=== PATIENT | female | born 1945 | race Caucasian/White ===

== ENCOUNTER → 2016-04-02 | Outpatient (REF) | payer MEDICARE, OTHER | LOC: M LAB REF 12:28 | PROVIDERS: ATTEND Nurse Practitioner Family | DX: R45.1 Restlessness and agitation (principal); N39.498 Other specified urinary incontinence ==

== ENCOUNTER → 2016-07-31 | Outpatient (REF) | payer MEDICARE, OTHER ==
[2016-07-31 14:08] LABS: VITAMIN B12 LEVEL 925 PG/ML
[2016-07-31 14:09] LABS: FOLATE > 24.0 NG/ML
== END ==
LOC: M LAB REF 12:39
PROVIDERS: ATTEND Internal Medicine
DX: G30.0 Alzheimer's disease with early onset (principal); F02.81 Dementia in other diseases classified elsewhere, unspecified severity, with behavioral disturbance

== ENCOUNTER → 2016-10-02 | Outpatient (REF) | payer MEDICARE, OTHER | LOC: M LAB REF 15:25 | PROVIDERS: ATTEND Nurse Practitioner Family | DX: L08.9 Local infection of the skin and subcutaneous tissue, unspecified (principal) ==

== ENCOUNTER → 2016-11-22 | Outpatient (REF) | payer MEDICARE, OTHER | LOC: M LAB REF 18:45 | PROVIDERS: ATTEND Physician Assistant | DX: N39.0 Urinary tract infection, site not specified (principal) ==

== ENCOUNTER → 2017-02-12 | Outpatient (REF) | payer MEDICARE, OTHER | LOC: M LAB REF 13:02 | PROVIDERS: ATTEND Physician Assistant Medical | DX: N30.00 Acute cystitis without hematuria (principal) ==

== ENCOUNTER → 2018-01-04 | Outpatient (REF) | payer MEDICARE, OTHER | LOC: M LAB REF 10:08 | DX: R35.0 Frequency of micturition (principal); N39.0 Urinary tract infection, site not specified | CPT/HCPCS: 87186 ==

== ENCOUNTER 2018-03-15 05:09 | Inpatient (IN) | payer MEDICARE, OTHER ==
[~2018-03-15] VITALS: Ht 152.4 cm; Wt 70.9 kg
[2018-03-15] MEDS ORDERED: DONEPEZIL (05:32)
[2018-03-15] MEDS ORDERED: MEMA14CA PO (05:32)
[2018-03-15] MEDS ORDERED: LEVO50TA5 PO (05:32)
[2018-03-15] MEDS ORDERED: TORS20TA2 PO (05:32)
[2018-03-15] MEDS ORDERED: SIMV40TA2 PO (05:32)
[2018-03-15] MEDS ORDERED: SERT25TA88 PO (05:32)
[2018-03-15] MEDS ORDERED: HALO0.5H PO (05:32)
[2018-03-15] MEDS ORDERED: DONETAB6 PO (05:59)
[2018-03-15] MEDS: ACETAMINOPHEN TAB 650MG DOSE (2X325MG) PO ONE ×2 (06:15→07:22)
[2018-03-15] MEDS ORDERED: MORPHINE 2 MG/ML 1ML SYRINGE (J2270) IV ONE (07:30)
[2018-03-15] MEDS ORDERED: DOCU100C16 PO (07:49)
[2018-03-15 08:13] LABS: BASO % 0.2 % (0.0-1.0); HEMATOCRIT 39.7 % (36.0-47.0); HEMOGLOBIN 13.2 g/dl (12.0-15.5); LYMPH # 0.9 10^3/uL (1.5-4.5); LYMPH % 4.3 % (24.0-44.0); MEAN CORPUSCULAR HEMOGLOBIN 29.3 pg (27.0-33.0); MEAN CORPUSCULAR HGB CONC 33.2 g/dl (32.0-36.5); MEAN CORPUSCULAR VOLUME 88.2 fl (80.0-96.0); MONO # 0.8 10^3/uL (0.0-0.8); MONO % 3.7 % (0.0-5.0); NEUTROPHILS # 19.1 10^3/uL (1.8-7.7); PLATELET COUNT, AUTOMATED 281 10^3/uL (150-450)
--- NOTE | 2018-03-15 08:22 | REP ---
RIGHT FEMUR, THREE VIEWS: HISTORY: Pain. The proximal femur is not seen in the present radiographs. There is no acute fracture or dislocation. The knee joint space is normal in appearance. IMPRESSION: There is no acute fracture or dislocation. Electronically Signed by Gerry Valdes MD 03/15/2018 08:27 A
[2018-03-15 08:23] LABS: INR 0.98; PROTHROMBIN TIME 13.1 SECONDS (12.1-14.4)
--- NOTE | 2018-03-15 08:23 | REP ---
RIGHT KNEE, ONE VIEW: There is no acute fracture or dislocation. The joint spaces are normal in appearance. IMPRESSION: There is no acute fracture or dislocation. Electronically Signed by Gerry Valdes MD 03/15/2018 08:28 A
--- NOTE | 2018-03-15 08:23 | REP ---
RIGHT HIP, THREE VIEWS: HISTORY: Fall. There is a comminuted intertrochanteric fracture of the femur. There is lateral displacement of the distal fracture fragment. There is no dislocation. There is mild narrowing of the hip joint spaces. IMPRESSION: Comminuted intertrochanteric fracture of the right femur. Electronically Signed by Gerry Valdes MD 03/15/2018 08:28 A
[2018-03-15 08:24] LABS: PARTIAL THROMBOPLASTIN TIME 25.2 SECONDS (25.4-37.6)
--- NOTE | 2018-03-15 08:34 | REP ---
Chest one-view HISTORY: Surgical clearance Comparison: 10/26/2013 The lungs are clear. The heart is normal in size. The pulmonary vasculature is normal in appearance. Impression: No acute disease. Electronically Signed by Gerry Valdes MD 03/15/2018 08:26 A
[2018-03-15 08:43] LABS: CALCIUM LEVEL 8.6 MG/DL (8.8-10.2); CREATININE FOR GFR 1.01 MG/DL (0.55-1.30); POTASSIUM SERUM 4.1 MEQ/L (3.5-5.1)
[2018-03-15 08:47] LABS: CPK CREATINE PHOSPHOKINASE 145 U/L (26-192); MB/CK RELATIVE INDEX 0.76 (< OR =4); NT-PRO BNP 179 PG/ML (<125); TROPONIN I < 0.02 NG/ML (< 0.10)
--- NOTE | 2018-03-15 09:26 | CR.PDOC ---
General Date of Consultation: Mar 15, 2018 Attending Physician: ANDREIA RESTREPO MD Consultation REASON FOR CONSULTATION/CHIEF COMPLAINT: R hip fracture. HISTORY OF PRESENT ILLNESS: Patient is a 72 y/o female home ambulator with dementia with no assistive device who sustained a mechanical fall from the toilet with immediate pain and imability to bear weight and was brought to the [facility] ER where she was found to have a R intertrochanteric femur fx. Patient is a poor historian but denies any antecedent hip pain, chest pain, shortness of breath, headache. ALLERGIES: Please see below. HOME MEDICATIONS: Please see below. PAST MEDICAL HISTORY: 1. Dementia. 2. Hypecholesterolemia 3. Hypothyroidism. PAST SURGICAL HISTORY: 1. Hysterctomy FAMILY HISTORY: non contributory SOCIAL HISTORY: Patient lives alone. Dependent for all ADLs and has 24 hour home care. She is a non smoker. REVIEW OF SYSTEMS: CONSTITUTIONAL: No fevers, chills, night sweats. CARDIOVASCULAR: No chest pain or palpitations. RESPIRATORY: no cough, wheeze, or shortness of breath. MUSCULOSKELETAL: R hip fx as above. GASTROINTESTINAL: No nausea, vomiting, diarrhea. SKIN: small scratches on face. Family states she scratches herself NEUROLOGICAL: + dementia. PHYSICAL EXAMINATION: VITAL SIGNS: Please see below. GENERAL APPEARANCE: well nourished female. no acute distress. HEENT: multiple small abrasions on face. RESPIRATORY: non labored breathing. CARDIOVASCULAR: RRR, 2+ DP/PT pulse. EXTREMITIES: RLE in shortened, externally rotated position. Able to flex/extend all toes. No open wounds or abrasions. NEUROLOGICAL: Sensation and motor intact in RLE femoral, tibial, sural, saphenous, SPN, DPN distributions. PSYCHIATRIC: Awake and alert, oriented to person only. LABORATORY DATA: Please see below. Radiographs: Plain radiographs or the hip, pelvis, knee, and femur demonstrate a comminuted unstable intertrochanteric femur fracture ASSESSMENT: 72 y/o female with a displaced unstable intertrochanteric femur fracture PLAN: I discussed with the patient and her son, who serves as HC proxy the risks, benefits, indications, and alternatives to operative and non operative treatment. Given the nature of her injury, I recommend closed versus open reduction and cephalomedullary fixation. We discussed risks to include malunion, nonunion, thromboembolic event, and anesthesia complications to include . I also counseled then that I will be the operating surgeon, but her follow up care will be conducted by [facility]. They expressed understanding and informed consent was obtained from the patients son. Vital Signs/I&O Vital Signs Date Time Temp Pulse Resp B/P (MAP) Pulse Ox O2 Delivery O2 Flow Rate FiO2 03/15/18 08:09 18 03/15/18 07:45 96 161/86 (111) 98 Room Air 03/15/18 05:20 97.6 Laboratory Data Labs 24H Laboratory Tests 2 03/15/18 08:01: Immature Granulocyte % (Auto) 0.8, White Blood Count 21.0H, Red Blood Count 4.50, Hemoglobin 13.2, Hematocrit 39.7, Mean Corpuscular Volume 88.2, Mean Corpuscular Hemoglobin 29.3, Mean Corpuscular Hemoglobin Concent 33.2, Red Cell Distribution Width 13.7, Platelet Count 281, Neutrophils (%) (Auto) 91.0H, Lymphocytes (%) (Auto) 4.3L, Monocytes (%) (Auto) 3.7, Eosinophils (%) (Auto) 0.0, Basophils (%) (Auto) 0.2, Neutrophils # (Auto) 19.1H, Lymphocytes # (Auto) 0.9L, Monocytes # (Auto) 0.8, Eosinophils # (Auto) 0.0, Basophils # (Auto) 0.0, Nucleated Red Blood Cells % (auto) 0.0, Prothrombin Time 13.1, Prothromb Time International Ratio 0.98, Activated Partial Thromboplast Time 25.2L, Anion Gap 14, Glomerular Filtration Rate 57.0, Blood Urea Nitrogen 13, Creatinine 1.01, Sodium Level 143, Potassium Level 4.1, Chloride Level 109H, Carbon Dioxide Level 20L, Calcium Level 8.6L, Total Creatine Kinase 145, Creatine Kinase MB 1.0, Crea tatiana Kinase MB Relative Index 0.76, Troponin I < 0.02, VO-Arh-X-Type Natriuretic Peptide 179H CBC/BMP Laboratory Tests 03/15/18 08:01 Red Blood Count 4.50, Mean Corpuscular Volume 88.2, Mean Corpuscular Hemoglobin 29.3, Mean Corpuscular Hemoglobin Concent 33.2, Red Cell Distribution Width 13.7, Neutrophils (%) (Auto) 91.0 H, Lymphocytes (%) (Auto) 4.3 L, Monocytes (%) (Auto) 3.7, Eosinophils (%) (Auto) 0.0, Basophils (%) (Auto) 0.2, Neutrophils # (Auto) 19.1 H, Lymphocytes # (Auto) 0.9 L, Monocytes # (Auto) 0.8, Eosinophils # (Auto) 0.0, Basophils # (Auto) 0.0, Calcium Level 8.6 L Allergies Coded Allergies: No Known Allergies (Unverified , 03/15/18) Home Medications Scheduled (Memantine Hydrochloride E) 14 Mg Cap, 14 MG PO QHS, (Reported) (Sertraline HCl) 25 Mg Tab, 25 MG PO QHS, (Reported) Docusate Sodium (Docusate Sodium) 100 Mg Cap, 100 MG PO DAILY, (Reported) Donepezil Hcl (Donepezil HCl) 10 Mg Tab, 10 MG PO QHS, (Reported) Haloperidol (Haloperidol) 0.5 Mg Tab, 0.5 MG PO QHS, (Reported) Levothyroxine Sodium (Synthroid) 50 Mcg Tab, 50 MCG PO QHS, (Reported) Simvastatin - High Dose (Simvastatin) 40 Mg Tab, 40 MG PO QHS, (Reported) Torsemide (Torsemide) 20 Mg Tab, 20 MG PO 2XW, (Reported) MON/ MORNING ANDREIA RESTREPO MD Mar 15, 2018 09:26
[2018-03-15] MEDS ORDERED: ACETAMINOPHEN TAB 650MG DOSE (2X325MG) PO PRN (10:00)
[2018-03-15] MEDS ORDERED: NS 1,000 ML IV SCH (10:00)
[2018-03-15] MEDS ORDERED: ceFAZolin 2 GM/D5W 50 ML IV BAG (J0690 PER 500MG) As Ordered ONE (10:26)
[2018-03-15] MEDS ORDERED: PROPOFOL 200 MG/20 ML VIAL As Ordered ONE (11:23)
[2018-03-15] MEDS ORDERED: PHENYLephrine HCL 500 MCG/5 ML (100MCG/ML) SYRINGE (J2370) As Ordered ONE ×3 (11:23→12:11)
[2018-03-15] MEDS ORDERED: KETAMINE HCL 200 MG/20 ML VIAL As Ordered ONE (11:23)
[2018-03-15] MEDS ORDERED: ePHEDrine SULFATE 25 MG/5 ML(5MG/ML) SYRINGE As Ordered ONE ×2 (11:23→12:11)
[2018-03-15] MEDS ORDERED: MIDAZOLAM INJ 2 MG/2 ML VIAL (J2250) As Ordered ONE (11:23)
[2018-03-15] MEDS ORDERED: ONDANSETRON 4MG/2ML VIAL (J2405) As Ordered ONE (11:23)
[2018-03-15] MEDS ORDERED: LIDOCAINE 2% INJ 100 MG/5 ML SDV (FOR ANES.) As Ordered ONE (11:23)
[2018-03-15] MEDS ORDERED: BUPIVACAINE/EPIN 0.5% 30 ML VIAL As Ordered ONE (12:17)
[2018-03-15] MEDS ORDERED: MORPHINE 10 MG/ML 1ML VIAL (J2270) IV PRN (13:00)
[2018-03-15] MEDS ORDERED: fentaNYL 100 MCG/2 ML INJECTION (J3010) IV PRN (13:00)
[2018-03-15] MEDS ORDERED: LR 1,000 ML IV SCH (13:00)
[2018-03-15] MEDS ORDERED: ONDANSETRON 4MG/2ML VIAL (J2405) IV PRN (13:00)
--- NOTE | 2018-03-15 13:39 | RO ---
DATE OF PROCEDURE: 03/15/2018 PREOPERATIVE DIAGNOSIS: Right proximal femur fracture, intertrochanteric. POSTOPERATIVE DIAGNOSIS: Right proximal femur fracture, intertrochanteric. PROCEDURE PERFORMED: Right hip open reduction, cephalomedullary nail fixation right proximal femur. SURGEON: Maged Schultz MD STEEL RULE INSPECTOR: QUINTON Regan ANESTHESIA PROVIDER: Dr. Ladd ANESTHESIA GIVEN: Single shot spinal and local. ANTIBIOTICS: 2 grams of Ancef given within 1 hour of incision. IMPLANTS USED: Synthes TFN Advanced 11 mm x 360 mm nail with a 90 mm helical blade and two 5 mm distal interlocking screws measuring 40 and 42 mm in length. ESTIMATED BLOOD LOSS: 200 mL. MATERIALS SENT TO LAB: None. COMPLICATIONS: None. INDICATION FOR PROCEDURE: Tyra Cline is a 72-year-old demented female who sustained a mechanical fall from a sitting position earlier today resulting in pain and immediate inability to bear weight. She was brought to the emergency room, found to have an unstable intertrochanteric femur fracture. She was evaluated by the hospitalist service and found to be medically optimized for surgery. I discussed with the patient and her family, including her son, who serves as her healthcare proxy, regarding the risks, benefits, indications, and alternatives of operative versus nonoperative management. I recommended closed versus open reduction and cephalomedullary nail fixation to allow for immediate mobilization. I counseled the family that I will be her operating surgeon; her followup care will be conducted by [facility]. They expressed understanding with this arrangement and provided written informed consent for right hip cephalomedullary nail fixation. INTRAOPERATIVE FINDINGS: Unstable comminuted intertrochanteric femur fracture that was stable after fixation. DESCRIPTION OF PROCEDURE: The patient was positively identified in preop holding area where the surgical site was marked. She was then brought to the operating room where she was given single shot spinal anesthesia. She was positioned supine on the fracture table with all bony prominences appropriately padded. Sequential compression device (SCD) was placed on the nonoperative extremity for deep vein thrombosis (DVT) prophylaxis. I used the fracture table to obtain provisional reduction. I then obtained supervisor epoxy fabrication fluoroscopic images with C-arm fluoroscopy and then the patient was prepped and draped in the usual sterile fashion. A final time-out was performed. I began by making incision about 3 cm in length, about three fingerbreadths proximal and posterior to the tip of the greater trochanter. I dissected through skin and subcutaneous tissue. I introduced the 3.2 mm threaded guide wire centered on the greater trochanter on AP and lateral fluoroscopic imaging. After entry of the guidewire, I then made an accessory lateral incision distal in line with the femoral neck and dissected through skin and subcutaneous tissue and the IT band. I used periosteal elevator to clear off soft tissue, and I then used the elevator to elevate the depressed distal fragment. I also introduced a bone hook on the calcar and was able to obtain anatomic reduction. After anatomic reduction was obtained, I then introduced the opening reamer and advanced it to the level of the lesser trochanter. This was then followed by placement of the ball-tip guidewire, advanced to the level of the superior pole of patella, centered in the femur in AP and lateral fluoroscopic imaging. I then measured the length of the nail 360 mm. I then did one pass with a 12.5 mm end cutting reamer to channel a path for the nail. This was then followed by introduction of the nail to an appropriate depth. After this, I then used the lateral accessory incision obtained for reduction and placed the guide for the helical blade. I then introduced the 3.2 mm threaded guide pin, centered on the femoral neck on AP and lateral fluoroscopic imaging, measured and reamed in standard fashion and placed a 90 mm helical blade. I then took fluoroscopic imaging to confirm that it was centered in the femoral neck on AP and lateral imaging. I then placed two distal interlocking screws through small stab incisions in the distal aspect of the nail using standard perfect platinum technique. After this was completed, I then took final fluoroscopic images of the hip and knee, confirming anatomic reduction of fracture and adequate placement of all hardware. The wounds were then irrigated with normal saline and closed in layers. The two proximal incisions were closed with #2-0 Vicryl and kari. The stab incisions for the distal interlocking screws were closed with kari. About 15 mL of 0.5% Marcaine with epinephrine were injected into the wounds for local pain control. Sterile dressings were applied; this ended the procedure. I was present and scrubbed in for all critical portions of the case. POSTOPERATIVE PLAN: The patient will be admitted to the hospital floor. She will be weightbearing as tolerated. She will undergo physical therapy for ambulation with a walker and be discharged when criteria are met by hospitalist service. She will be on Xarelto for DVT prophylaxis. SARAVANAN
--- NOTE | 2018-03-15 13:39 | REP ---
RIGHT HIP, OR: HISTORY: Fracture. COMPARISON: 6:32 a.m. 03/15/2018. Fourteen radiographs were obtained with a C-arm. Sequential radiographs demonstrate the patient to be status post ORIF of a comminuted intertrochanteric fracture of the right femur. A gamma nail and intramedullary patrick are present. There is anatomic alignment. Fluoroscopy time: 4 minutes 20 seconds. IMPRESSION: The patient is status post ORIF of an intertrochanteric fracture of the right femur. There is anatomic alignment. Electronically Signed by Gerry Valdes MD 03/15/2018 02:27 P
--- NOTE | 2018-03-15 14:04 | REP ---
RIGHT HIP, THREE VIEWS: HISTORY: Postoperative. COMPARISON: Intraoperative radiographs, 03/15/2018. The patient is status post ORIF of an intertrochanteric fracture. A gamma nail and intramedullary patrick are present. There is no dislocation. There is mild narrowing of the hip joint space. Subcutaneous air and surgical kari are present in the overlying tissue. IMPRESSION: The patient is status post ORIF of an intertrochanteric fracture. There is anatomic alignment. Electronically Signed by Gerry Valdes MD 03/15/2018 02:41 P
[2018-03-15 15:15] VITALS: BP 143/87
[2018-03-15 15:45] VITALS: BP 141/84
--- NOTE | 2018-03-15 16:03 | HPEPDOC ---
General Date of Admission Mar 15, 2018 at 09:52 Chief Complaint The patient is a 72-year-old female who Presented to the ER after patient had fa llen off the toilet and experienced severe right hip pain History of Present Illness Patient is a 72-year-old female with a PMHx of Dementia, Hypothyroidism, HTN, DLP who presented to the ER with complaints of right hip pain after she had fallen off the toilet. Patient was in the bathroom and leaned over and fell off, landing on her right hip. . She complained of severe pain at the time. Did not lose consciousness, was awake and called out to family members for help. Currently, patient does not express chest pain, shortness breath, palpitations, nausea, vomiting, abdominal pain, constipation, diarrhea or discomfort with urination. At the time of this exam, patient already had a Hannah catheter in place. Patient is a very poor historian and family members were present at the bedside to provide additional details. As per the family, patient has never experienced a heart attack or stroke. Has never experienced cardiac problems or symptoms of congestive heart failure. Usually at baseline, patient ambulates on her own without any assist devices. . Generally, patient is sedentary and stays seated most of the day Upon reviewing the medical record, patient had a MOLST form completed by her PCP, Dr. Robert Das. The form is indicated that the patient wants to be comfort measures, DO NOT RESUSCITATE and DO NOT INTUBATE. I discussed with the family w hat this would usually entail. At this time family would like to proceed with surgery and continue with pain management after that point. Home Medications Scheduled (Memantine Hydrochloride E) 14 Mg Cap, 14 MG PO QHS, (Reported) (Sertraline HCl) 25 Mg Tab, 25 MG PO QHS, (Reported) Docusate Sodium (Docusate Sodium) 100 Mg Cap, 100 MG PO DAILY, (Reported) Donepezil Hcl (Donepezil HCl) 10 Mg Tab, 10 MG PO QHS, (Reported) Haloperidol (Haloperidol) 0.5 Mg Tab, 0.5 MG PO QHS, (Reported) Levothyroxine Sodium (Synthroid) 50 Mcg Tab, 50 MCG PO QHS, (Reported) Simvastatin - High Dose (Simvastatin) 40 Mg Tab, 40 MG PO QHS, (Reported) Torsemide (Torsemide) 20 Mg Tab, 20 MG PO 2XW, (Reported) MON/THURS MORNING Allergies Coded Allergies: No Known Allergies (Unverified , 03/15/18) Past Medical History Medical History Dementia, Hypothyroidism, HTN, DLP Surgical History Hysterectomy Finger surgery (2017) Family History - Noncontributory given advanced age Social History - As per family there is no use of alcohol, tobacco or illicit drugs - Denies recent travel or sick contacts - Lives with family at home with 24/7 care - 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; 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 Review of Systems Other systems Unable to obtain full review of systems as patient is unable to cooperate Vital Signs - Vitals: BP 138/70, HR 92, RR 18, Sat 96%RA, Temp 97.6F - General: Lying in bed, No acute distress, Speaking in full sentences, AAOx3 - HEENT: NC, AT, PERRLA, EOMI - CVS: RRR, +S1S2, - Murmurs / rubs / gallops - Lungs: Fair air entry bilaterally, Clear to auscultation, No wheezing / rales / rhonchi - Abdomen: Soft, Non-distended, Non-tender - Extremities: No lower extremity edema, No calf tenderness, right lower extremity externally rotated and shorter than left - Neuro: No focal motor or sensory deficit, right hip pain - Skin: No visible rashes Laboratory Data Labs 24H Laboratory Tests 2 03/15/18 08:01: Immature Granulocyte % (Auto) 0.8, White Blood Count 21.0H, Red Blood Count 4.50, Hemoglobin 13.2, Hematocrit 39.7, Mean Corpuscular Volume 88.2, Mean Corpuscular Hemoglobin 29.3, Mean Corpuscular Hemoglobin Concent 33.2, Red Cell Distribution Width 13.7, Platelet Count 281, Neutrophils (%) (Auto) 91.0H, Lymphocytes (%) (Auto) 4.3L, Monocytes (%) (Auto) 3.7, Eosinophils (%) (Auto) 0.0, Basophils (%) (Auto) 0.2, Neutrophils # (Auto) 19.1H, Lymphocytes # (Auto) 0.9L, Monocytes # (Auto) 0.8, Eosinophils # (Auto) 0.0, Basophils # (Auto) 0.0, Nucleated Red Blood Cells % (auto) 0.0, Prothrombin Time 13.1, Prothromb Time International Ratio 0.98, Activated Partial Thromboplast Time 25.2L, Anion Gap 14, Glomerular Filtration Rate 57.0, Blood Urea Nitrogen 13, Creatinine 1.01, Sodium Level 143, Potassium Level 4.1, Chloride Level 109H, Carbon Dioxide Level 20L, Calcium Level 8.6L, Total Creatine Kinase 145, Creatine Kinase MB 1.0, Creatine Kinase MB Relative Index 0.76, Troponin I < 0.02, GY-Zoa-L-Type Natriuretic Peptide 179H CBC/BMP Laboratory Tests 03/15/18 08:01 Red Blood Count 4.50, Mean Corpuscular Volume 88.2, Mean Corpuscular Hemoglobin 29.3, Mean Corpuscular Hemoglobin Concent 33.2, Red Cell Distribution Width 13.7, Neutrophils (%) (Auto) 91.0 H, Lymphocytes (%) (Auto) 4.3 L, Monocytes (%) (Auto) 3.7, Eosinophils (%) (Auto) 0.0, Basophils (%) (Auto) 0.2, Neutrophils # (Auto) 19.1 H, Lymphocytes # (Auto) 0.9 L, Monocytes # (Auto) 0.8, Eosinophils # (Auto) 0.0, Basophils # (Auto) 0.0, Calcium Level 8.6 L Plan / VTE VTE Prophylaxis Ordered?: Yes Plan Plan Right hip fracture - likely 2/2 mechanical fall - Presented to the ER after patient had fallen off toilet - Physical with shorter right extremity with external rotation; severe tenderness and decreased range of motion - XR Hip 03/15: Comminuted intertrochanteric fracture of the right femur. - XR femur 03/15: There is no acute fracture or dislocation. - Knee XR 03/15: There is no acute fracture or dislocation. - Patient has been seen and evaluated by orthopedic surgery in the emergency room; will be taken to the OR today - Pain control and anticoagulation as per orthopedic surgery - Patient has been medically optimized for surgery; low-moderate risk Leukocytosis - likely 2/2 reactive etiology 2/2 pain, less likely 2/2 infectious etiology - Review of systems is negative for infection - Remains afebrile and hemodynamically stable - CXR 03/15: No acute disease. - Will check urinalysis - Will hold off on antibiotics Dementia - c/w Donepezil and Meantime Hypothyroidism - c/w Levothyroxine HTN - Currently not on any medications; will continue to monitor DLP - c/w Simvastatin Depression - c/w Sertraline DVT prophylaxis - c/w SCDs - Consider starting Heparin if ok with surgery Goals of care: - Patient is comfort measures only as an outpatient - Will discuss with the family goals of care after surgery OG HICKS MD Mar 15, 2018 16:03
[2018-03-15] MEDS: DOCUSATE SODIUM 100 MG CAP PO SCH (16:41)
[2018-03-15] MEDS: traMADol 50 MG TAB PO PRN (16:42)
[2018-03-15 16:45] VITALS: BP 142/84
[2018-03-15 17:45] VITALS: BP 144/88
[2018-03-15 18:45] VITALS: BP 144/90
[2018-03-15] MEDS: DONEPEZIL 5 MG TAB PO SCH (21:45)
[2018-03-15] MEDS: HALOPERIDOL 0.5 MG TAB PO SCH (21:45)
[2018-03-15] MEDS: LEVOTHYROXINE 50MCG TABLET (0.05MG) PO SCH (21:45)
[2018-03-15] MEDS: SIMVASTATIN 40 MG TAB PO SCH (21:45)
[2018-03-15] MEDS: SERTRALINE HCL 25 MG TABLET PO SCH (21:45)
[2018-03-15] MEDS: MEMANTINE 5MG TABLET (NAMENDA) PO SCH (21:45)
[2018-03-15 22:00] VITALS: BP 136/79
[2018-03-16] MEDS: traMADol 50 MG TAB PO PRN ×4 (00:46→22:42)
[2018-03-16 02:00] VITALS: BP 125/77
[2018-03-16 06:00] VITALS: BP 126/74
[2018-03-16 06:43] LABS: BASO # 0.1 10^3/uL (0.0-0.2); BASO % 0.4 % (0.0-1.0); EOS # 0.1 10^3/uL (0.0-0.50); EOS % 0.6 % (0.0-3.0); HEMATOCRIT 30.7 % (36.0-47.0); LYMPH # 1.5 10^3/uL (1.5-4.5); MEAN CORPUSCULAR HEMOGLOBIN 29.7 pg (27.0-33.0); MEAN CORPUSCULAR HGB CONC 33.2 g/dl (32.0-36.5); MEAN CORPUSCULAR VOLUME 89.5 fl (80.0-96.0); MONO # 0.7 10^3/uL (0.0-0.8); MONO % 5.1 % (0.0-5.0); NEUTROPHILS # 11.4 10^3/uL (1.8-7.7); NEUTROPHILS % 82.4 % (36.0-66.0); PLATELET COUNT, AUTOMATED 217 10^3/uL (150-450); RED BLOOD COUNT 3.43 10^6/uL (4.00-5.40); WHITE BLOOD COUNT 13.8 10^3/uL (4.0-10.0)
[2018-03-16 06:51] LABS: HEMOGLOBIN 10.2 g/dl (12.0-15.5)
[2018-03-16 07:29] LABS: CALCIUM LEVEL 8.2 MG/DL (8.8-10.2); CREATININE FOR GFR 1.2 MG/DL (0.55-1.30); GLOMERULAR FILTRATION RATE 46.8 (>39); POTASSIUM SERUM 4.1 MEQ/L (3.5-5.1)
--- NOTE | 2018-03-16 09:09 | REP ---
CHEST, ONE VIEW: Hypoxia. COMPARISON: 03/15/2018 The lungs are clear. The heart is normal in size. The pulmonary vasculature is normal in appearance. IMPRESSION: No acute disease. Electronically Signed by Gerry Valdes MD 03/16/2018 09:23 A
[2018-03-16] MEDS: MIRALAX *UNIT DOSE* 17GM PACKET PO SCH (09:29)
[2018-03-16] MEDS: DOCUSATE SODIUM 100 MG CAP PO SCH (09:30)
--- NOTE | 2018-03-16 11:42 | IPNPDOC ---
Date Seen The patient was seen on 03/16/18. Progress Note SUBJECTIVE: Patient is a 72 y/o female POD1 s/p R hip CMN fixation. Patient seen and examined at bedside. No acute overnight events. No complaints. OBJECTIVE PHYSICAL EXAMINATION: VITAL SIGNS: Please see below. HR measured at bedside by MD Loza GENERAL: Awake and alert, no acute distress CARDIOVASCULAR: RRR, 2+ DP, PT pulses, BCR all digits RLE. RESPIRATORY: non labored breathing. EXTREMITIES: R hip and thigh dressings c/d/i. Able to flex/extend toes and ankle. no pain with logroll NEUROLOGICAL: Sensation and motor grossly intact in all RLE distributions LABORATORY DATA, IMAGING STUDIES, MICROBIOLOGY: Please see below. DVT prophylaxis ordered?: SCDs, xarelto ASSESSMENT: 72 y/o female POD1 s/p above procedure, doing well PLAN: -WBAT RLE -Daily PT for walker ambulation -xarelto daily for DVT prophylaxis -discharge by hospitalist service when criteria met, will need staple removal in 10-14 days, f/u xrays in 6 weeks VS, I&O, [facility] Vital Signs/I&O Vital Signs Date Time Temp Pulse Resp B/P (MAP) Pulse Ox O2 Delivery O2 Flow Rate FiO2 03/16/18 09:59 18 03/16/18 09:00 1.0 03/16/18 07:22 95 Nasal Cannula 03/16/18 06:00 97.2 101 126/74 (91) I&O- Last 24 Hours up to 6 AM 03/16/18 05:59 Intake Total 1530 ml Output Total 375 ml Balance 1155 ml Laboratory Data 24H LABS Laboratory Tests 2 03/16/18 05:38: Immature Granulocyte % (Auto) 0.5, White Blood Count 13.8H, Red Blood Count 3.43L, Hemoglobin 10.2#L, Hematocrit 30.7L, Mean Corpuscular Volume 89.5, Mean Corpuscular Hemoglobin 29.7, Mean Corpuscular Hemoglobin Concent 33.2, Red Cell Distribution Width 14.4, Platelet Count 217, Neutrophils (%) (Auto) 82.4H, Lymphocytes (%) (Auto) 11.0L, Monocytes (%) (Auto) 5.1H, Eosinophils (%) (Auto) 0.6, Basophils (%) (Auto) 0.4, Neutrophils # (Auto) 11.4H, Lymphocytes # (Auto) 1.5, Monocytes # (Auto) 0.7, Eosinophils # (Auto) 0.1, Basophils # (Auto) 0.1, Nucleated Red Blood Cells % (auto) 0.0, Anion Gap 10, Glomerular Filtration Rate 46.8, Blood Urea Nitrogen 20#H, Creatinine 1.20, Sodium Level 137, Potassium Level 4.1, Chloride Level 104, Carbon Dioxide Level 23, Calcium Level 8.2L, Magnesium Level 2.0 CBC/BMP Laboratory Tests 03/16/18 05:38 Red Blood Count 3.43 L, Mean Corpuscular Volume 89.5, Mean Corpuscular Hemoglobin 29.7, Mean Corpuscular Hemoglobin Concent 33.2, Red Cell Distribution Width 14.4, Neutrophils (%) (Auto) 82.4 H, Lymphocytes (%) (Auto) 11.0 L, Mo nocytes (%) (Auto) 5.1 H, Eosinophils (%) (Auto) 0.6, Basophils (%) (Auto) 0.4, Neutrophils # (Auto) 11.4 H, Lymphocytes # (Auto) 1.5, Monocytes # (Auto) 0.7, Eosinophils # (Auto) 0.1, Basophils # (Auto) 0.1, Calcium Level 8.2 L ANDREIA RESTREPO MD Mar 16, 2018 11:42
[2018-03-16 14:00] VITALS: BP 135/75
--- NOTE | 2018-03-16 16:48 | IPNPDOC ---
Text Note Date of Service The patient was seen on 03/16/18. NOTE Subjective: Patient is a 72-year-old female with a PMHx of Dementia, Hypothyroidism, HTN, DLP who presented to the ER with complaints of right hip pain after she had fallen off the toilet. Patient was in the bathroom and leaned over and fell off, landing on her right hip. Patient was found to have a right hip fracture in the emergency room. Admitted to hospitalist service for further evaluation and treatment. Orthopedic surgery was called on consultation. Patient was seen and examined at the bedside. Patient has no complaints of chest pain, shortness of breath or palpitations. Denies nausea, vomiting, abdominal pain. Patient has not experienced a bowel movement. Still complains of mild right hip pain. Objective: Vitals (See below) General: Lying in bed, no acute distress, comfortable, Awake / Alert HEENT: NC, AT CVS: RRR, +S1S2 Lungs: Fair air entry b/l, -w/r/r Abdomen: Soft, ND, NT Extremities: - Edema, - Calf tenderness Assessment and plan: Right hip fracture - likely 2/2 mechanical fall - s/p repair (03/15/[address] Schultz) - Presented to the ER after patient had fallen off toilet - Patient still notes some right hip pain - XR Hip 03/15: Comminuted intertrochanteric fracture of the right femur. - XR femur 03/15: There is no acute fracture or dislocation. - Knee XR 03/15: There is no acute fracture or dislocation. - Orthopedic surgery on consultation - Pain control and anticoagulation as per orthopedic surgery Leukocytosis - likely 2/2 reactive etiology 2/2 pain, less likely 2/2 infectious etiology - Review of systems is negative for infection - Remains afebrile and hemodynamically stable - CXR 03/15: No acute disease. - Will check urinalysis - Continue to hold off on antibiotics Dementia - c/w Donepezil and Meantime Hypothyroidism - c/w Levothyroxine HTN - Currently not on any medications; will continue to monitor DLP - c/w Simvastatin Depression - c/w Sertraline DVT prophylaxis - On full anticoagulation with Xarelto as per surgery VS,Fishbone, I+O VS, Fishbone, I+O Laboratory Tests 03/16/18 05:38 Red Blood Count 3.43 L, Mean Corpuscular Volume 89.5, Mean Corpuscular Hemoglobin 29.7, Mean Corpuscular Hemoglobin Concent 33.2, Red Cell Distribution Width 14.4, Neutrophils (%) (Auto) 82.4 H, Lymphocytes (%) (Auto) 11.0 L, Monocytes (%) (Auto) 5.1 H, Eosinophils (%) (Auto) 0.6, Basophils (%) (Auto) 0.4, Neutrophils # (Auto) 11.4 H, Lymphocytes # (Auto) 1.5, Monocytes # (Auto) 0.7, Eosinophils # (Auto) 0.1, Basophils # (Auto) 0.1, Calcium Level 8.2 L Vital Signs Date Time Temp Pulse Resp B/P (MAP) Pulse Ox O2 Delivery O2 Flow Rate FiO2 03/16/18 16:28 18 03/16/18 14:00 97.5 101 135/75 (95) 94 Nasal Cannula 1.0 I&O- Last 24 Hours up to 6 AM 03/16/18 06:00 Intake Total 1710 ml Output Total 525 ml Balance 1185 ml OG HICKS MD Mar 16, 2018 16:48
[2018-03-16] MEDS: RIVAROXABAN 10 MG TAB (XARELTO) PO SCH (17:35)
[2018-03-16 18:00] VITALS: BP 127/74
[2018-03-16 21:02] LABS: APPEARANCE, URINE CLEAR (CLEAR); BACTERIA, URINE AUTO NEGATIVE (NEGATIVE); BILIRUBIN, URINE AUTO NEGATIVE (NEGATIVE); BLOOD, URINE BLOOD NEGATIVE (NEGATIVE); COLOR, URINE YELLOW (YELLOW); GLUCOSE, URINE (UA) AUTO 1+ mg/dL (NEGATIVE); KETONE, URINE AUTO NEGATIVE (NEGATIVE); LEUKOCYTE ESTERASE, URINE AUTO NEGATIVE (NEGATIVE); MUCUS, URINE SMALL (NEGATIVE); NITRITE, URINE AUTO NEGATIVE (NEGATIVE); PROTEIN, URINE AUTO 1+ mg/dL (NEGATIVE); RBC, URINE AUTO 1 /HPF (0-3); SPECIFIC GRAVITY URINE AUTO 1.019 (1.002-1.035); SQUAMOUS EPITHELIAL CELL UR AU 0 /HPF (0-6); UROBILINOGEN, URINE AUTO 0.2 mg/dL (0.0-2.0); WBC, URINE AUTO 1 /HPF (0-3)
[2018-03-16 22:00] VITALS: BP 143/78
[2018-03-16] MEDS: SIMVASTATIN 40 MG TAB PO SCH (22:42)
[2018-03-16] MEDS: ACETAMINOPHEN TAB 650MG DOSE (2X325MG) PO PRN (22:42)
[2018-03-16] MEDS: SERTRALINE HCL 25 MG TABLET PO SCH (22:42)
[2018-03-16] MEDS: LEVOTHYROXINE 50MCG TABLET (0.05MG) PO SCH (22:42)
[2018-03-16] MEDS: MEMANTINE 5MG TABLET (NAMENDA) PO SCH (22:43)
[2018-03-16] MEDS: DONEPEZIL 5 MG TAB PO SCH (22:43)
[2018-03-16] MEDS: HALOPERIDOL 0.5 MG TAB PO SCH (22:43)
[2018-03-17 06:00] VITALS: BP 139/84
[2018-03-17 06:12] LABS: BASO % 0.3 % (0.0-1.0); EOS # 0.3 10^3/uL (0.0-0.50); EOS % 2.2 % (0.0-3.0); HEMATOCRIT 26.5 % (36.0-47.0); HEMOGLOBIN 8.7 g/dl (12.0-15.5); LYMPH # 2.1 10^3/uL (1.5-4.5); LYMPH % 17.2 % (24.0-44.0); MEAN CORPUSCULAR HEMOGLOBIN 29.3 pg (27.0-33.0); MEAN CORPUSCULAR HGB CONC 32.8 g/dl (32.0-36.5); MEAN CORPUSCULAR VOLUME 89.2 fl (80.0-96.0); MONO # 0.8 10^3/uL (0.0-0.8); MONO % 6.4 % (0.0-5.0); NEUTROPHILS # 8.7 10^3/uL (1.8-7.7); NEUTROPHILS % 72.6 % (36.0-66.0); PLATELET COUNT, AUTOMATED 170 10^3/uL (150-450); RED BLOOD COUNT 2.97 10^6/uL (4.00-5.40); WHITE BLOOD COUNT 11.9 10^3/uL (4.0-10.0)
[2018-03-17] MEDS ORDERED: TRAM50TA2 PO (06:13)
[2018-03-17] MEDS ORDERED: XARE10TA PO (06:13)
[2018-03-17 06:39] LABS: BLOOD UREA NITROGEN 15 MG/DL (7-18); CALCIUM LEVEL 8.1 MG/DL (8.8-10.2); CARBON DIOXIDE LEVEL 26 MEQ/L (21-32); CHLORIDE LEVEL 103 MEQ/L (98-107); CREATININE FOR GFR 0.79 MG/DL (0.55-1.30); GLOMERULAR FILTRATION RATE > 60.0 (>39); GLUCOSE, FASTING 117 MG/DL (70-100); MAGNESIUM LEVEL 2.3 MG/DL (1.8-2.4); POTASSIUM SERUM 4.1 MEQ/L (3.5-5.1); SODIUM LEVEL 138 MEQ/L (136-145)
--- NOTE | 2018-03-17 07:25 | ECGEPIP ---
Stationary ECG Study [facility] - ED Test Date: 2018-03-15 Pat Name: ABRAHAM BARBOUR Department: Room: - Gender: F Head Bucker: dara : 1945 Requested By: NONI Kaplan PA-C Order Number: [id number] Reading MD: Goldy Sánchez Measurements Intervals [place] Rate: 92 P: 34 LA: 164 QRS: 32 QRSD: 90 T: 19 QT: 355 QTc: 439 Interpretive Statements SINUS RHYTHM PRIOR INFERIOR INFARCT NONSPECIFIC T-WAVE ABNORMALITY Electronically Signed On 03-15-2018 8:10:25 EST by Goldy Sánchez
[2018-03-17] MEDS: MIRALAX *UNIT DOSE* 17GM PACKET PO SCH (08:08)
[2018-03-17] MEDS: DOCUSATE SODIUM 100 MG CAP PO SCH (08:08)
[2018-03-17] MEDS: traMADol 50 MG TAB PO PRN ×3 (08:09→20:47)
[2018-03-17] MEDS: ACETAMINOPHEN TAB 650MG DOSE (2X325MG) PO PRN ×2 (12:02→17:07)
[2018-03-17 14:00] VITALS: BP 115/58
[2018-03-17] MEDS: TORSEMIDE 20 MG TAB PO SCH (14:07)
--- NOTE | 2018-03-17 15:26 | IPNPDOC ---
Text Note Date of Service The patient was seen on 03/17/18. NOTE Subjective: Patient is a 72-year-old female with a PMHx of Dementia, Hypothyroidism, HTN, DLP who presented to the ER with complaints of right hip pain after she had fallen off the toilet. Patient was in the bathroom and leaned over and fell off, landing on her right hip. Patient was found to have a right hip fracture in the emergency room. Admitted to hospitalist service for further evaluation and treatment. Orthopedic surgery was called on consultation. Patient was seen and examined at the bedside. Patient is pleasant, denies any significant pain. Has not had a bowel movement. Denies any nausea, vomiting, abdominal pain, chest pain, short of breath or palpitations. Objective: Vitals (See below) General: Lying in bed, no acute distress, comfortable, Awake / Alert HEENT: NC, AT CVS: RRR, +S1S2 Lungs: Fair air entry b/l, no evidence of wheezing, rhonchi, rales Abdomen: Soft, nondistended, without tenderness Extremities: No LE edema, - Calf tenderness Assessment and plan: Right hip fracture - likely 2/2 mechanical fall - s/p repair (03/15/[address] Schultz) - Presented to the ER after patient had fallen off toilet - XR Hip 03/15: Comminuted intertrochanteric fracture of the right femur. - XR femur 03/15: There is no acute fracture or dislocation. - Knee XR 03/15: There is no acute fracture or dislocation. - Orthopedic surgery on consultation; appreciate their input; pain control and anticoagulation as per orthopedic surgery Leukocytosis - likely 2/2 reactive etiology 2/2 pain, less likely 2/2 infectious etiology - Review of systems is negative for infection - Remains afebrile and hemodynamically stable - UA negative - CXR 03/15: No acute disease. - Continue to hold off on antibiotics Dementia - c/w Donepezil and Meantime Hypothyroidism - c/w Levothyroxine HTN - Currently not on any medications; will continue to monitor DLP - c/w Simvastatin Depression - c/w Sertraline DVT prophylaxis - On full anticoagulation with Xarelto as per surgery Disposition: - c/w PT VS,Fishbone, I+O VS, Fishbone, I+O Laboratory Tests 03/17/18 05:46 Red Blood Count 2.97 L, Mean Corpuscular Volume 89.2, Mean Corpuscular Hemoglobin 29.3, Mean Corpuscular Hemoglobin Concent 32.8, Red Cell Distribution Width 13.9, Neutrophils (%) (Auto) 72.6 H, Lymphocytes (%) (Auto) 17.2 L, Monocytes (%) (Auto) 6.4 H, Eosinophils (%) (Auto) 2.2, Basophils (%) (Auto) 0.3, Neutrophils # (Auto) 8.7 H, Lymphocytes # (Auto) 2.1, Monocytes # (Auto) 0.8, Eosinophils # (Auto) 0.3, Basophils # (Auto) 0.0, Calcium Level 8.1 L Vital Signs Date Time Temp Pulse Resp B/P (MAP) Pulse Ox O2 Delivery O2 Flow Rate FiO2 03/17/18 14:38 18 03/17/18 14:00 97.3 83 115/58 (77) 96 Nasal Cannula 1.0 I&O- Last 24 Hours up to 6 AM 03/17/18 05:59 Intake Total 1260 ml Output Total 250 ml Balance 1010 ml OG HICKS MD Mar 17, 2018 15:26
[2018-03-17] MEDS: RIVAROXABAN 10 MG TAB (XARELTO) PO SCH (17:06)
[2018-03-17] MEDS: HALOPERIDOL 0.5 MG TAB PO SCH (20:46)
[2018-03-17] MEDS: MEMANTINE 5MG TABLET (NAMENDA) PO SCH (20:46)
[2018-03-17] MEDS: DONEPEZIL 5 MG TAB PO SCH (20:47)
[2018-03-17] MEDS: oxyBUTYnin 5 MG TAB PO SCH (20:47)
[2018-03-17] MEDS: SERTRALINE HCL 25 MG TABLET PO SCH (20:48)
[2018-03-17] MEDS: SIMVASTATIN 40 MG TAB PO SCH (20:48)
[2018-03-17] MEDS: LEVOTHYROXINE 50MCG TABLET (0.05MG) PO SCH (20:48)
[2018-03-17 22:00] VITALS: BP 118/63
[2018-03-18] MEDS: traMADol 50 MG TAB PO PRN (05:50)
[2018-03-18 06:00] VITALS: BP 119/63
[2018-03-18 06:48] LABS: BASO % 0.3 % (0.0-1.0); EOS # 0.4 10^3/uL (0.0-0.50); EOS % 2.7 % (0.0-3.0); HEMATOCRIT 27.7 % (36.0-47.0); HEMOGLOBIN 9.2 g/dl (12.0-15.5); LYMPH # 3.1 10^3/uL (1.5-4.5); LYMPH % 22.1 % (24.0-44.0); MEAN CORPUSCULAR HEMOGLOBIN 29.7 pg (27.0-33.0); MEAN CORPUSCULAR HGB CONC 33.2 g/dl (32.0-36.5); MEAN CORPUSCULAR VOLUME 89.4 fl (80.0-96.0); MONO # 0.8 10^3/uL (0.0-0.8); MONO % 5.9 % (0.0-5.0); NEUTROPHILS # 9.4 10^3/uL (1.8-7.7); NEUTROPHILS % 67.3 % (36.0-66.0); PLATELET COUNT, AUTOMATED 238 10^3/uL (150-450)
[2018-03-18] MEDS ORDERED: XARE10TA PO (07:10)
[2018-03-18] MEDS ORDERED: TRAM50TA2 PO (07:10)
[2018-03-18 07:14] LABS: BLOOD UREA NITROGEN 20 MG/DL (7-18); CALCIUM LEVEL 8.3 MG/DL (8.8-10.2); CARBON DIOXIDE LEVEL 25 MEQ/L (21-32); CHLORIDE LEVEL 100 MEQ/L (98-107); CREATININE FOR GFR 0.96 MG/DL (0.55-1.30); GLOMERULAR FILTRATION RATE > 60.0 (>39); GLUCOSE, FASTING 124 MG/DL (70-100); MAGNESIUM LEVEL 2.2 MG/DL (1.8-2.4); POTASSIUM SERUM 4.1 MEQ/L (3.5-5.1); SODIUM LEVEL 136 MEQ/L (136-145)
[2018-03-18] MEDS: MIRALAX *UNIT DOSE* 17GM PACKET PO SCH (09:27)
[2018-03-18] MEDS: DOCUSATE SODIUM 100 MG CAP PO SCH (09:27)
[2018-03-18] MEDS: oxyBUTYnin 5 MG TAB PO SCH (09:28)
[2018-03-18] MEDS: TORSEMIDE 20 MG TAB PO SCH (09:28)
[2018-03-18] MEDS: ACETAMINOPHEN TAB 650MG DOSE (2X325MG) PO PRN (11:20)
--- NOTE | 2018-03-18 13:42 | IPNPDOC ---
Date Seen The patient was seen on 03/18/18. Progress Note Subjective: Patient is disoriented which is her baseline she has no specific complaints at this time other than some pain in her hip. Objective: Vitals (See below) General: Sitting in a chair eating breakfast, no acute distress, comfortable, Awake / Alert HEENT: Cranial nerves appear grossly intact she has numerous bandages on her face from excoriations CVS: S1-S2 regular rate and rhythm no additional heart sounds appreciated Lungs: Clear bilaterally Abdomen: Bowel sounds present abdomen is soft and nontender Extremities: No clubbing cyanosis or edema she does have a hematoma of the right thigh dressing is clean dry and intact Assessment and plan: 1. Right hip fracture - 2/2 mechanical fall - s/p repair (03/15/[address] Schultz). Patient appears to be doing close to her baseline terms of her cognition I did meet with her daughter today. Daughter wishes to rescind comfort measures only and elects for lDNR/DNI with limited medical interventions she would like her to receive IVs as needed and would like to proceed with physical therapy possible ARU screen of the patient's daughter's request. Perioperative surgery care as per orthopedic surgery. A new molst form was completed witnessed signed and placed in the chart 2. Leukocytosis - likely reactive secondary to surgery does not appear to be septic at all continue to monitor 3. Dementia - c/w Donepezil and Meantime patient was reportedly at her baseline as per the daughter, the patient is on Haldol daily at bedtime as well 4. Hypothyroidism - c/w Levothyroxine 5. DLP - c/w Simvastatin 6. Depression - c/w Sertraline 7. DVT prophylaxis - On full anticoagulation with Xarelto as per surgery 8. Hypertension: The patient is continued on prazosin 9. Urinary retention: The patient did void this morning but does have elevated post blood residuals for now we'll continue to monitor she's been started on Ditropan she is on torsemide Disposition: -Likely rehabilitation VS, I&O, 24H, Fishbone Vital Signs/I&O Vital Signs Date Time Temp Pulse Resp B/P (MAP) Pulse Ox O2 Delivery O2 Flow Rate FiO2 03/18/18 08:00 2.0 03/18/18 06:28 16 03/18/18 06:00 97.6 94 119/63 (81) 96 Nasal Cannula I&O- Last 24 Hours up to 6 AM 03/18/18 06:00 Intake Total 1320 ml Output Total 800 ml Balance 520 ml Laboratory Data 24H LABS Laboratory Tests 2 03/18/18 06:18: Immature Granulocyte % (Auto) 1.7, White Blood Count 14.0H, Red Blood Count 3.10L, Hemoglobin 9.2L, Hematocrit 27.7L, Mean Corpuscular Volume 89.4, Mean Corpuscular Hemoglobin 29.7, Mean Corpuscular Hemoglobin Concent 33.2, Red Cell Distribution Width 14.0, Platelet Count 238, Neutrophils (%) (Auto) 67.3H, L ymphocytes (%) (Auto) 22.1L, Monocytes (%) (Auto) 5.9H, Eosinophils (%) (Auto) 2.7, Basophils (%) (Auto) 0.3, Neutrophils # (Auto) 9.4H, Lymphocytes # (Auto) 3.1, Monocytes # (Auto) 0.8, Eosinophils # (Auto) 0.4, Basophils # (Auto) 0.0, Nucleated Red Blood Cells % (auto) 0.4H, Anion Gap 11, Glomerular Filtration Rate > 60.0, Blood Urea Nitrogen 20H, Creatinine 0.96, Sodium Level 136, Potassium Level 4.1, Chloride Level 100, Carbon Dioxide Level 25, Calcium Level 8.3L, Magnesium Level 2.2 CBC/BMP Laboratory Tests 03/18/18 06:18 Red Blood Count 3.10 L, Mean Corpuscular Volume 89.4, Mean Corpuscular Hemoglobin 29.7, Mean Corpuscular Hemoglobin Concent 33.2, Red Cell Distribution Width 14.0, Neutrophils (%) (Auto) 67.3 H, Lymphocytes (%) (Auto) 22.1 L, Monocytes (%) (Auto) 5.9 H, Eosinophils (%) (Auto) 2.7, Basophils (%) (Auto) 0.3, Neutrophils # (Auto) 9.4 H, Lymphocytes # (Auto) 3.1, Monocytes # (Auto) 0.8, Eosinophils # (Auto) 0.4, Basophils # (Auto) 0.0, Calcium Level 8.3 L ALLIE JALLOH MD Mar 18, 2018 13:42
[2018-03-18 14:48] VITALS: BP 143/85
[2018-03-18] MEDS: RIVAROXABAN 10 MG TAB (XARELTO) PO SCH (16:38)
== END 2018-03-18 16:50 | DRG 536 ==
LOC: M ED 05:09 → M ED INP 09:52 → M MS5PR 15:10
PROVIDERS: ADMIT Internal Medicine; ATTEND Internal Medicine
PROC: 0SS Lower Joints, Reposition (ICD-10-PCS; principal; 2018-03-15 08:57)
DX: S72.144A Nondisplaced intertrochanteric fracture of right femur, initial encounter for closed fracture (principal); W18.11XA Fall from or off toilet without subsequent striking against object, initial encounter; Y92.009 Unspecified place in unspecified non-institutional (private) residence as the place of occurrence of the external cause; E03.9 Hypothyroidism, unspecified; F03.90 Unspecified dementia, unspecified severity, without behavioral disturbance, psychotic disturbance, mood disturbance, and anxiety; I10 Essential (primary) hypertension; Z66 Do not resuscitate; Z79.899 Other long term (current) drug therapy; D72.829 Elevated white blood cell count, unspecified; F32.9 Major depressive disorder, single episode, unspecified; E78.00 Pure hypercholesterolemia, unspecified

== ENCOUNTER 2018-03-18 15:31 | Inpatient (IN) | payer MEDICARE, OTHER ==
[2018-03-17 17:08] VITALS: BP 132/79
[~2018-03-18] VITALS: Ht 154.9 cm; Wt 68.5 kg
[~2018-03-18 15:31] MED LIST: DOCU100C16 PO; DONEPEZIL; DONETAB6 PO; HALO0.5H PO; LEVO50TA5 PO; MEMA14CA PO; SERT25TA88 PO; SIMV40TA2 PO; TORS20TA2 PO; TRAM50TA2 PO; XARE10TA PO
[2018-03-18] MEDS ORDERED: ACETAMINOPHEN TAB 650MG DOSE (2X325MG) PO PRN ×2 (17:15→17:30)
[2018-03-18] MEDS ORDERED: MOM 30ML SUSPENSION UDC PO PRN (17:15)
[2018-03-18] MEDS ORDERED: ONDANSETRON 4 MG TAB (S0181) PO PRN (17:15)
[2018-03-18] MEDS ORDERED: BISACODYL 10 MG SUPP PR PRN (17:15)
[2018-03-18] MEDS ORDERED: traZODone 25MG PER 1/2 TABLET PO PRN ×2 (17:30)
[2018-03-18] MEDS ORDERED: HALOPERIDOL 0.5 MG TAB PO PRN (17:30)
[2018-03-18 20:30] VITALS: BP 127/64
[2018-03-18] MEDS: oxyBUTYnin 5 MG TAB PO SCH (20:58)
[2018-03-18] MEDS: SIMVASTATIN 20 MG TAB PO SCH (20:58)
[2018-03-18] MEDS: MEMANTINE 5MG TABLET (NAMENDA) PO SCH (20:59)
[2018-03-18] MEDS: ACETAMINOPHEN 500 MG TAB PO SCH (20:59)
[2018-03-18] MEDS: DOCUSATE SODIUM 100 MG CAP PO SCH (21:00)
[2018-03-18] MEDS: SENNA 8.6 MG TAB (SENOKOT) PO SCH (21:00)
[2018-03-18] MEDS: SERTRALINE HCL 25 MG TABLET PO SCH (21:00)
[2018-03-19] MEDS: LEVOTHYROXINE 50MCG TABLET (0.05MG) PO SCH (05:20)
[2018-03-19 06:06] VITALS: BP 117/62
[2018-03-19 07:07] LABS: BASO % 0.3 % (0.0-1.0); EOS # 0.2 10^3/uL (0.0-0.50); EOS % 1.5 % (0.0-3.0); HEMATOCRIT 24.6 % (36.0-47.0); HEMOGLOBIN 8.1 g/dl (12.0-15.5); LYMPH # 2.2 10^3/uL (1.5-4.5); LYMPH % 20.3 % (24.0-44.0); MEAN CORPUSCULAR HEMOGLOBIN 29.3 pg (27.0-33.0); MEAN CORPUSCULAR HGB CONC 32.9 g/dl (32.0-36.5); MEAN CORPUSCULAR VOLUME 89.1 fl (80.0-96.0); MONO # 0.9 10^3/uL (0.0-0.8); MONO % 8.1 % (0.0-5.0); NEUTROPHILS # 7.4 10^3/uL (1.8-7.7); NEUTROPHILS % 67.3 % (36.0-66.0); PLATELET COUNT, AUTOMATED 252 10^3/uL (150-450); RED BLOOD COUNT 2.76 10^6/uL (4.00-5.40)
[2018-03-19 07:33] LABS: ALBUMIN 2.1 GM/DL (3.2-5.2); ALT/SGPT 16 U/L (12-78); BLOOD UREA NITROGEN 18 MG/DL (7-18); CARBON DIOXIDE LEVEL 28 MEQ/L (21-32); CHLORIDE LEVEL 102 MEQ/L (98-107); CREATININE FOR GFR 0.85 MG/DL (0.55-1.30); GLOMERULAR FILTRATION RATE > 60.0 (>39); GLUCOSE, FASTING 111 MG/DL (70-100); POTASSIUM SERUM 3.8 MEQ/L (3.5-5.1); SODIUM LEVEL 137 MEQ/L (136-145); TOTAL PROTEIN 5.6 GM/DL (6.4-8.2)
[2018-03-19] MEDS: ACETAMINOPHEN 500 MG TAB PO SCH ×3 (08:42→20:41)
[2018-03-19] MEDS: TORSEMIDE 20 MG TAB PO SCH (08:42)
[2018-03-19] MEDS: oxyBUTYnin 5 MG TAB PO SCH ×2 (08:43→20:40)
[2018-03-19] MEDS: DONEPEZIL 5 MG TAB PO SCH (08:43)
[2018-03-19] MEDS: DOCUSATE SODIUM 100 MG CAP PO SCH ×2 (08:43→20:41)
[2018-03-19 14:00] VITALS: BP 116/59
--- NOTE | 2018-03-19 14:06 | IPNPDOC ---
Date Seen The patient was seen on 03/19/18. Progress Note HPI: Patient is a 72-year-old female who presented to the ER with complaints of right hip pain after she had fallen off the toilet. Patient was in the bathroom and leaned over and fell off, landing on her right hip. She complained of severe pain at the time. Did not lose consciousness, was awake and called out to family members for help. The pt was found to have Right proximal femur fracture S/P Right hip open reduction, cephalomedullary nail fixation right proximal femur as per Orthopedic Surgery. The pt was transferred to the care of HORACIO Eisenberg, 03/18/18. The pt reports no complaints at this time. GrdDtr at bedside currently. Denies any fevers, chills, weakness, fatigue, Headache, Chest Pain, Shortness of breath, cough, palpitations, abdominal pain, N/V/D or changes in bowel or bladder habits. PMHx: dementia hypothyroid HTN DLP PE: GEN: 72yoF, appears stated age. No acute distress. Pleasant, interactive. HEENT: Normocephalic, atraumatic.Sclera are nonicteric. Conjunctiva without injection. No facial asymmetry. Moist mucous membranes. Neck supple. CHEST: Regular rate and rhythm, +S1, +S2 LUNGS: Clear to auscultation bilaterally. No wheezes, rales, or rhonchi. Breathing appears symmetric and easy. ABD: Round, soft, non-tender, non-distended. +Bowel sounds throughout. EXT: No lower extremity edema appreciated. SKIN: [place], dry, warm. No rashes. NEURO: No focal deficits appreciated. A&P: Patient is a 72-year-old female who presented to the ER with complaints of right hip pain after she had fallen off the toilet. Patient was in the bathroom and leaned over and fell off, landing on her right hip. She complained of severe pain at the time. Did not lose consciousness, was awake and called out to family members for help. The pt was found to have Right proximal femur fracture S/P Right hip open reduction, cephalomedullary nail fixation right proximal femur as per Orthopedic Surgery. The pt was transferred to the care of HORACIO Eisenberg, 03/18/18. 1. Right hip fracture - 2/2 mechanical fall - s/p repair (03/15/[address] Schultz). Mgmt as per orthopedic surgery. Molst form was completed witnessed signed and placed in the chart previously DNR/DNI. PT/OT/ST as per ARU Pain control as per ARU. Bowel care as per ARU. DVT px Xarelto as per Orthopedic surgery 2. Leukocytosis - likely reactive secondary to surgery does not appear to be septic at all continue to monitor. Trending downward. 3. Dementia - c/w Donepezil and Meantime 4. Hypothyroidism - c/w Levothyroxine 5. DLP - c/w Simvastatin 6. Depression - c/w Sertraline 7. Hypertension: torsemide 40 mg po daily. 8. Urinary retention: Ditropan VS, I&O, 24H, Fishbone Vital Signs/I&O Vital Signs Date Time Temp Pulse Resp B/P (MAP) Pulse Ox O2 Delivery O2 Flow Rate FiO2 03/19/18 06:06 96.8 84 18 117/62 (80) 94 Room Air I&O- Last 24 Hours up to 6 AM 03/19/18 05:59 Intake Total 120 ml Output Total 650 ml Balance -530 ml Laboratory Data 24H LABS Laboratory Tests 2 03/19/18 06:41: Anion Gap 7L, Glomerular Filtration Rate > 60.0, Blood Urea Nitrogen 18, Creatinine 0.85, Sodium Level 137, Potassium Level 3.8, Chloride Level 102, Carbon Dioxide Level 28, Calcium Level 8.0L, Aspartate Amino Transf (AST/SGOT) 21, Alanine Aminotransferase (ALT/SGPT) 16, Alkaline Phosphatase 72, Total Bilirubin 1.0, Total Protein 5.6L, Albumin 2.1L, Albumin/Globulin Ratio 0.60L 03/19/18 06:42: Immature Granulocyte % (Auto) 2.5, White Blood Count 11.0H, Red Blood Count 2.76L, Hemoglobin 8.1L, Hematocrit 24.6L, Mean Corpuscular Volume 89.1, Mean Corpuscular Hemoglobin 29.3, Mean Corpuscular Hemoglobin Concent 32.9, Red Cell Distribution Width 13.8, Platelet Count 252, Neutrophils (%) (Auto) 67.3H, Lymphocytes (%) (Auto) 20.3L, Monocytes (%) (Auto) 8.1H, Eosinophils (%) (Auto) 1.5, Basophils (%) (Auto) 0.3, Neutrophils # (Auto) 7.4, Lymphocytes # (Auto) 2.2, Monocytes # (Auto) 0.9H, Eosinophils # (Auto) 0.2, Basophils # (Auto) 0.0, Nucleated Red Blood Cells % (auto) 1.4H CBC/BMP Laboratory Tests 03/19/18 06:41 Calcium Level 8.0 L, Aspartate Amino Transf (AST/SGOT) 21, Alanine Aminotransferase (ALT/SGPT) 16, Alkaline Phosphatase 72, Total Bilirubin 1.0, Total Protein 5.6 L, Albumin 2.1 L 03/19/18 06:42 Red Blood Count 2.76 L, Mean Corpuscular Volume 89.1, Mean Corpuscular Hemoglobin 29.3, Mean Corpuscular Hemoglobin Concent 32.9, Red Cell Distribution Width 13.8, Neutrophils (%) (Auto) 67.3 H, Lymphocytes (%) (Auto) 20.3 L, Monocytes (%) (Auto) 8.1 H, Eosinophils (%) (Auto) 1.5, Basophils (%) (Auto) 0.3, Neutrophils # (Auto) 7.4, Lymphocytes # (Auto) 2.2, Monocytes # (Auto) 0.9 H, Eosinophils # (Auto) 0.2, Basophils # (Auto) 0.0 Thea Mo Mar 19, 2018 14:06
--- NOTE | 2018-03-19 15:34 | NUR ---
Pt swallow function wnl. Recommend continue regular solids and thin liquids. Please provide meal set-up assist prn as pt shows difficulties w/ self-feeding and some confusion w/ object use. Addendum: 03/19/18 at 1534 by JOCELYNE BERMUDEZ [facility] Amended: Links added.
--- NOTE | 2018-03-19 15:38 | NUR ---
Pt w/ moderate cognitive impairment. Per family, increasingly confused and anxious since hospitalization. Recommend [facility] tx for cognitive-communicative skills targeting safety awareness, problem-solving, orientation, and functional object use. Addendum: 03/19/18 at 1540 by JOCELYNE BERMUDEZ [facility] Amended: Links added.
--- NOTE | 2018-03-19 16:23 | HPEPDOC ---
Ammonium Sulfate Operator Note DATE OF ADMISSION: Mar 18, 2018 at 16:50 SOURCE OF ADMISSION INFORMATION: patient, patient's family and medical records CHIEF COMPLAINT: right hip fracture HISTORY OF PRESENT ILLNESS: 72F pmh hypothyroidism, dementia, HTN who fell while in the bathroom onto her right side and was brought to [facility] ED on 03-15-18 complaining of right leg pain. She denied chest pain or palpitations prior to the fall and did not have LOC. Trauma imaging series was performed and hip X-ray revealed a, Comminuted intertrochanteric fracture of the right femur. She was evaluated by orthopedics and underwent an open hip cephalomedullary nail fixation to the right proximal femur without complication. Post-op imaging demonstrated, The patient is status post ORIF of an intertrochanteric fracture of the right femur. There is anatomic alignment. Patient had post-op anemia and leukocytosis, had urinary retention. She was evaluated by therapy and found to have significant impairments in ambulation and ADLs and deemed medically appropriate for discharge to ARU on 03-18-18. REVIEW OF SYSTEMS: The following is a completed review of systems and has been reviewed. Review of systems otherwise unremarkable. PAIN: Patient self reports right hip pain EYES: Negative for recent vision changes EARS, NOSE, & THROAT: negative for dysphagia, rhinorrhea, or throat pain CARDIOVASCULAR: denies chest pain or palpitations PULMONARY: Negate. Denies shortness of breath GASTROINTESTINAL: denies diarrhea or constipation GENITOURINARY: +urinary retention MUSCULOSKELETAL: right hip fracture NEUROLOGICAL: dementia SKIN: right hip incision, and facial abrasions PSYCHIATRIC:dementia and anxiety/depression All other review of systems found to be negative. PAST MEDICAL HISTORY: hypothyroidism, dementia, HTN, anxiety/depression PAST SURGICAL HISTORY: right hi ORIF ALLERGIES: Please see below. MEDICATIONS: Please see below. FAMILY HISTORY:non-contributory SOCIAL HISTORY: Lives alone with 24/7 care, has 2 children, denies smoking/ETOH/illicit drugs. DIET: Regular PHYSICAL EXAMINATION: VITAL SIGNS: Please see below. GENERAL: Pleasant and cooperative. anxious HEENT: PERRL. Extraocular movements intact. Clear conjunctiva CARDIOVASCULAR: Regular rate and rhythm. No murmurs, rubs, or gallops LUNGS:Clear to auscultation bilaterally. No wheezes. No rhonchi ABDOMEN: Soft, nontender, nondistended. Positive bowel sounds. Normal active bowel sounds NEUROLOGICAL: Alert and oriented to self, not place or time. Cranial nerves II through XII grossly intact. Sensation grossly intact EXTREMITIES: 5-\5 strength bilateral upper extremities. 5\5 strength right ankle DF and EHL, limited due to pain. 5/5 strength in left lower extremity. SKIN:right hip incision c/d/i, scattered facial scabs (self inflicted) IMAGING: Imaging documentation personally reviewed by record FUNCTIONAL STATUS: Premorbid: Independent with mobility and had 24/7 assistance at home for ADLs On Admission: Minimal Assist for ambulation with RW x4 feet and Min assist for functional transfers. GOALS: Modified Independent with RW for ambulation, Stand-by Assist-Contact guard for bathing, dressing, toileting, grooming, assess for DME needs, medical optimization, family and caregiver training. ASSESSMENT:72-year-old F with past medical history of dementia who presents status post fall with right hip fracture s/p ORIF. PLAN: 1. 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 Cardiac: pmh HTN, continue BP meds, pmh HLD continue statin medicine consulted 4. Endo: pmh hypothyroidism, has been taking Synthroid incorrectly at night on full stomach, likely not getting metabolized, will check levels, adjust time to AM and adjust dose prn 5. : f/u admission UA and Ucx, monitor PVRs, continue oxybutynin 6. Psych: pmh depression continue ZOloft, will try to avoid Haldol and trial Tr azodone for insomnia 7. DVT ppx: n xarelto 8. Ortho: s/p right hip fracture, WBAT monitor for blood loss anemia and ortho consulted 8. Dispo TBD POST ADMISSION PHYSICIAN EVALUATION: Medical and functional status: Description of medical status, medical assessment: As above. Rehabilitation diagnosis and current and prior cold morbid medical conditions as above. Risk of complications and plans to mitigate them as above. Description of functional status current status is as above. Prior status as above. Status compared to preadmission: There are no clinically significant differences between the patient's current status and the information described on the preadmission screening document. Treatment plan anticipated: Treatment plan is as described above. Required disciplines including physical therapy, occupational therapy, others as noted above. Intensity of services: 3 hours a day, 6 days a week. Special considerations: There are no specific special or safety considerations that would likely preclude immediate implementation of an intensive rehabilitation program or subsequently influence the plan of care ATTESTATION: Considering all the information above, it is my best judgment that this patient requires intensive rehabilitation therapy as described above and an inpatient hospital environment due to the complexity of nursing, medical, and rehabilitation needs required by the patient. Furthermore, this patient can reasonably be expected to participate in an benefit from an inpatient rehabilitation stay with an interdisciplinary team approach to the delivery of rehabilitation care under the direction and supervision of rehabilitation physician PROGNOSIS:good ESTIMATED LENGTH OF STAY:10-14 days. PROJECTED DISCHARGE DESTINATION: Home with family support and any durable medical equipment required to increase functional safety and mobility. TIME SPENT COUNSELING AND COORDINATING INITIAL CARE: Greater than 70 minutes. Vital Signs Vital Sign - Last 24 Hours 03/18/18 03/19/18 03/19/18 20:30 06:06 14:00 Temp 98.4 96.8 99.1 Pulse 95 84 81 Resp 20 18 15 B/P (MAP) 127/64 (85) 117/62 (80) 116/59 (78) Pulse Ox 98 94 97 O2 Delivery Room Air Room Air Room Air Laboratory Data CBC/BMP Laboratory Tests 03/19/18 06:41 Calcium Level 8.0 L, Aspartate Amino Transf (AST/SGOT) 21, Alanine Aminotransferase (ALT/SGPT) 16, Alkaline Phosphatase 72, Total Bilirubin 1.0, Total Protein 5.6 L, Albumin 2.1 L 03/19/18 06:42 Red Blood Count 2.76 L, Mean Corpuscular Volume 89.1, Mean Corpuscular Hemoglobin 29.3, Mean Corpuscular Hemoglobin Concent 32.9, Red Cell Distribution Width 13.8, Neutrophils (%) (Auto) 67.3 H, Lymphocytes (%) (Auto) 20.3 L, Mo nocytes (%) (Auto) 8.1 H, Eosinophils (%) (Auto) 1.5, Basophils (%) (Auto) 0.3, Neutrophils # (Auto) 7.4, Lymphocytes # (Auto) 2.2, Monocytes # (Auto) 0.9 H, Eosinophils # (Auto) 0.2, Basophils # (Auto) 0.0 Labs 24H Laboratory Tests 2 03/19/18 06:41: Anion Gap 7L, Glomerular Filtration Rate > 60.0, Blood Urea Nitrogen 18, Creatinine 0.85, Sodium Level 137, Potassium Level 3.8, Chloride Level 102, Carbon Dioxide Level 28, Calcium Level 8.0L, Aspartate Amino Transf (AST/SGOT) 21, Alanine Aminotransferase (ALT/SGPT) 16, Alkaline Phosphatase 72, Total Bilir ubin 1.0, Total Protein 5.6L, Albumin 2.1L, Albumin/Globulin Ratio 0.60L 03/19/18 06:42: Immature Granulocyte % (Auto) 2.5, White Blood Count 11.0H, Red Blood Count 2.76L, Hemoglobin 8.1L, Hematocrit 24.6L, Mean Corpuscular Volume 89.1, Mean Corpuscular Hemoglobin 29.3, Mean Corpuscular Hemoglobin Concent 32.9, Red Cell Distribution Width 13.8, Platelet Count 252, Neutrophils (%) (Auto) 67.3H, Lymphocytes (%) (Auto) 20.3L, Monocytes (%) (Auto) 8.1H, Eosinophils (%) (Auto) 1.5, Basophils (%) (Auto) 0.3, Neutrophils # (Auto) 7.4, Lymphocytes # (Auto) 2.2, Monocytes # (Auto) 0.9H, Eosinophils # (Auto) 0.2, Basophils # (Auto) 0.0, Nucleated Red Blood Cells % (auto) 1.4H Home Medications Scheduled (Memantine Hydrochloride E) 14 Mg Cap, 14 MG PO QHS, (Reported) (Sertraline HCl) 25 Mg Tab, 25 MG PO QHS, (Reported) Docusate Sodium (Docusate Sodium) 100 Mg Cap, 100 MG PO DAILY, (Reported) Donepezil Hcl (Donepezil HCl) 10 Mg Tab, 10 MG PO QHS, (Reported) Haloperidol (Haloperidol) 0.5 Mg Tab, 0.5 MG PO QHS, (Reported) Levothyroxine Sodium (Synthroid) 50 Mcg Tab, 50 MCG PO QHS, (Reported) Rivaroxaban (Xarelto) 10 Mg Tab, 1 MG PO DAILY Rivaroxaban (Xarelto) 10 Mg Tab, 10 MG PO DAILY Simvastatin - High Dose (Simvastatin) 40 Mg Tab, 40 MG PO QHS, (Reported) Torsemide (Torsemide) 20 Mg Tab, 20 MG PO 2XW, (Reported) MON/THURS MORNING Scheduled PRN Tramadol HCl (Tramadol HCl) 50 Mg Tab, 1-2 TAB PO Q4H PRN for PAIN Tramadol HCl (Tramadol HCl) 50 Mg Tab, 1-2 TAB PO Q4H PRN for PAIN Allergies Coded Allergies: No Known Allergies (Unverified , 03/15/18) LINDSAY MAXWELL MD Mar 19, 2018 16:23
[2018-03-19] MEDS: RIVAROXABAN 10 MG TAB (XARELTO) PO SCH (17:20)
--- NOTE | 2018-03-19 18:51 | IPNPDOC ---
PM&R Progress Note DATE OF SERVICE: Mar 19, 2018 Scientific Photographer Progress Note Subjective: Seen eating meal, denies significant pain, reports not sleeping well last night. REVIEW OF SYSTEMS: The following is a completed review of systems and has been reviewed. Review of systems otherwise unremarkable. PAIN: Patient self reports right hip pain EYES: Negative for recent vision changes EARS, NOSE, & THROAT: negative for dysphagia, rhinorrhea, or throat pain CARDIOVASCULAR: denies chest pain or palpitations PULMONARY: Negate. Denies shortness of breath GASTROINTESTINAL: denies diarrhea or constipation GENITOURINARY: +urinary retention MUSCULOSKELETAL: right hip fracture NEUROLOGICAL: dementia SKIN: right hip incision, and facial abrasions PSYCHIATRIC:dementia and anxiety/depression All other review of systems found to be negative. PAST MEDICAL HISTORY: hypothyroidism, dementia, HTN, anxiety/depression PHYSICAL EXAMINATION: VITAL SIGNS: Please see below. GENERAL: Pleasant and cooperative. anxious HEENT: PERRL. Extraocular movements intact. Clear conjunctiva CARDIOVASCULAR: Regular rate and rhythm. No murmurs, rubs, or gallops LUNGS:Clear to auscultation bilaterally. No wheezes. No rhonchi ABDOMEN: Soft, nontender, nondistended. Positive bowel sounds. Normal active bowel sounds NEUROLOGICAL: Alert and oriented to self, not place or time. Cranial nerves II through XII grossly intact. Sensation grossly intact EXTREMITIES: 5-\5 strength bilateral upper extremities. 5\5 strength right ankle DF and EHL, limited due to pain. 5/5 strength in left lower extremity. SKIN:right hip incision c/d/i, scattered facial scabs (self inflicted) ASSESSMENT:72-year-old F with past medical history of dementia who presents status post fall with right hip fracture s/p ORIF. PLAN: 1. Rehab: PT/OT and ESTATE ADMINISTRATOR for cognition, assess for DME needs 2. 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 Cardiac: pmh HTN, continue BP meds, pmh HLD continue statin medicine consulted 4. Endo: pmh hypothyroidism, has been taking Synthroid incorrectly at night on full stomach, likely not getting metabolized, will check levels, adjust time to AM and adjust dose prn 5. : f/u admission UA and Ucx, monitor PVRs, continue oxybutynin 6. Psych: pmh depression continue ZOloft, will try to avoid Haldol and trial standing dose of Trazodone for insomnia 7. DVT ppx: on xarelto 8. Ortho: s/p right hip fracture, WBAT monitor for blood loss anemia and ortho consulted 8. Dispo TBD Allergies Coded Allergies: No Known Allergies (Unverified , 03/15/18) Vital Signs Vital Signs Date Time Temp Pulse Resp B/P (MAP) Pulse Ox O2 Delivery O2 Flow Rate FiO2 03/19/18 14:00 99.1 81 15 116/59 (78) 97 Room Air Laboratory Data CBC/BMP Laboratory Tests 03/19/18 06:41 Calcium Level 8.0 L, Aspartate Amino Transf (AST/SGOT) 21, Alanine Aminotransferase (ALT/SGPT) 16, Alkaline Phosphatase 72, Total Bilirubin 1.0, Total Protein 5.6 L, Albumin 2.1 L 03/19/18 06:42 Red Blood Count 2.76 L, Mean Corpuscular Volume 89.1, Mean Corpuscular Hemoglobin 29.3, Mean Corpuscular Hemoglobin Concent 32.9, Red Cell Distribution Width 13.8, Neutrophils (%) (Auto) 67.3 H, Lymphocytes (%) (Auto) 20.3 L, Monocytes (%) (Auto) 8.1 H, Eosinophils (%) (Auto) 1.5, Basophils (%) (Auto) 0.3, Neutrophils # (Auto) 7.4, Lymphocytes # (Auto) 2.2, Monocytes # (Auto) 0.9 H, Eosinophils # (Auto) 0.2, Basophils # (Auto) 0.0 Labs 24H Laboratory Tests 2 03/19/18 06:41: Anion Gap 7L, Glomerular Filtration Rate > 60.0, Blood Urea Nitrogen 18, Creatinine 0.85, Sodium Level 137, Potassium Level 3.8, Chloride Level 102, Carbon Dioxide Level 28, Calcium Level 8.0L, Aspartate Amino Transf (AST/SGOT) 21, Alanine Aminotransferase (ALT/SGPT) 16, Alkaline Phosphatase 72, Total Bilirubin 1.0, Total Protein 5.6L, Albumin 2.1L, Albumin/Globulin Ratio 0.60L 03/19/18 06:42: Immature Granulocyte % (Auto) 2.5, White Blood Count 11.0H, Red Blood Count 2.76L, Hemoglobin 8.1L, Hematocrit 24.6L, Mean Corpuscular Volume 89.1, Mean Corpuscular Hemoglobin 29.3, Mean Corpuscular Hemoglobin Concent 32.9, Red Cell Distribution Width 13.8, Platelet Count 252, Neutrophils (%) (Auto) 67.3H, Lymphocytes (%) (Auto) 20.3L, Monocytes (%) (Auto) 8.1H, Eosinophils (%) (Auto) 1.5, Basophils (%) (Auto) 0.3, Neutrophils # (Auto) 7.4, Lymphocytes # (Auto) 2.2, Monocytes # (Auto) 0.9H, Eosinophils # (Auto) 0.2, Basophils # (Auto) 0.0, Nucleated Red Blood Cells % (auto) 1.4H Current Medications Current Medications Current Medications Acetaminophen (Tylenol Tab) 650 mg DAILYPRN PRN PO fever/MILD PAIN (PS 1-4); Start 03/18/18 at 17:30 Acetaminophen (Tylenol Tab) 650 mg Q4HP PRN PO fever/MILD PAIN (PS 1-4); Start 03/18/18 at 17:15; Stop 03/18/18 at 17:31; Status DC Acetaminophen (Tylenol Tab) 1,000 mg TID PO Last administered on 03/19/18at 17:21; Start 03/18/18 at 21:00 Bisacodyl (Dulcolax Suppository) 10 mg DAILYPRN PRN DE CONSTIPATION; Start 03/18/18 at 17:15 Docusate Sodium (Colace) 100 mg BID PO Last administered on 03/19/18at 08:43; Start 03/18/18 at 21:00 Donepezil HCl (AriCEPT) 10 mg DAILY PO Last administered on 03/19/18at 08:43; Start 03/19/18 at 09:00 Haloperidol (Haldol) 0.5 mg QHSP PRN PO AGITATION; Start 03/18/18 at 17:30 Levothyroxine Sodium (Synthroid) 50 mcg DAILY@06 PO Last administered on 03/19/18at 05:20; Start 03/19/18 at 06:00 Magnesium Hydroxide (Milk Of Magnesia) 30 ml DAILYPRN PRN PO CONSTIPATION; Start 03/18/18 at 17:15 Memantine (Namenda) 10 mg QHS PO Last administered on 03/18/18 20:59; Start 03/18/18 at 21:00 Ondansetron HCl (Zofran) 4 mg Q6HP PRN PO NAUSEA; Start 03/18/18 at 17:15 Oxybutynin Chloride (Ditropan) 5 mg BID PO Last administered on 03/19/18 08:43; Start 03/18/18 at 21:00 Rivaroxaban (Xarelto) 10 mg DAILY@18 PO Last administered on 03/19/18at 17:20; Start 03/19/18 at 18:00 Senna (Senokot) 1 tab QHS PO Last administered on 03/18/18 21:00; Start 03/18/18 at 21:00 Sertraline HCl (Zoloft) 25 mg QHS PO Last administered on 03/18/18 21:00; Start 03/18/18 at 21:00 Simvastatin (Zocor) 40 mg QHS PO Last administered on 03/18/18at 20:58; Start 03/18/18 at 21:00 Torsemide (Demadex) 40 mg DAILY PO Last administered on 03/19/18 08:42; Start 03/19/18 at 09:00 Trazodone HCl (Desyrel) 25 mg Q6HP PRN PO AGITATION; Start 03/18/18 at 17:30 Trazodone HCl (Desyrel) 25 mg QHSP PRN PO INSOMNIA; Start 03/18/18 at 17:30 LINDSAY MAXWELL MD Mar 19, 2018 18:51
[2018-03-19 20:00] VITALS: BP 127/69
[2018-03-19] MEDS: SIMVASTATIN 20 MG TAB PO SCH (20:41)
[2018-03-19] MEDS: SERTRALINE HCL 25 MG TABLET PO SCH (20:41)
[2018-03-19] MEDS: MEMANTINE 5MG TABLET (NAMENDA) PO SCH (20:41)
[2018-03-19] MEDS: traZODone 50 MG TAB PO SCH (20:41)
[2018-03-19] MEDS: SENNA 8.6 MG TAB (SENOKOT) PO SCH (20:42)
[2018-03-20] MEDS: LEVOTHYROXINE 50MCG TABLET (0.05MG) PO SCH (05:31)
[2018-03-20 06:00] VITALS: BP 117/61
[2018-03-20 06:43] LABS: BASO % 0.3 % (0.0-1.0); EOS # 0.2 10^3/uL (0.0-0.50); EOS % 1.7 % (0.0-3.0); HEMATOCRIT 24.8 % (36.0-47.0); LYMPH # 2.6 10^3/uL (1.5-4.5); LYMPH % 22.5 % (24.0-44.0); MEAN CORPUSCULAR HEMOGLOBIN 29.4 pg (27.0-33.0); MEAN CORPUSCULAR HGB CONC 32.3 g/dl (32.0-36.5); MEAN CORPUSCULAR VOLUME 91.2 fl (80.0-96.0); MONO # 0.8 10^3/uL (0.0-0.8); MONO % 6.9 % (0.0-5.0); NEUTROPHILS # 7.7 10^3/uL (1.8-7.7); NEUTROPHILS % 66.1 % (36.0-66.0); PLATELET COUNT, AUTOMATED 270 10^3/uL (150-450); RED BLOOD COUNT 2.72 10^6/uL (4.00-5.40); WHITE BLOOD COUNT 11.7 10^3/uL (4.0-10.0)
[2018-03-20 07:05] LABS: BLOOD UREA NITROGEN 21 MG/DL (7-18); CALCIUM LEVEL 7.8 MG/DL (8.8-10.2); CARBON DIOXIDE LEVEL 31 MEQ/L (21-32); CHLORIDE LEVEL 100 MEQ/L (98-107); CREATININE FOR GFR 0.88 MG/DL (0.55-1.30); GLOMERULAR FILTRATION RATE > 60.0 (>39); GLUCOSE, FASTING 93 MG/DL (70-100); POTASSIUM SERUM 3.3 MEQ/L (3.5-5.1); SODIUM LEVEL 137 MEQ/L (136-145)
[2018-03-20 07:15] LABS: FREE T4 1.25 NG/DL (0.76-1.46); THYROID STIMULATING HORMONE 5.93 uIU/ML (0.358-3.740)
[2018-03-20] MEDS: ACETAMINOPHEN 500 MG TAB PO SCH (07:55)
[2018-03-20] MEDS: oxyBUTYnin 5 MG TAB PO SCH ×2 (07:56→21:25)
[2018-03-20] MEDS: TORSEMIDE 20 MG TAB PO SCH (07:56)
[2018-03-20] MEDS: DOCUSATE SODIUM 100 MG CAP PO SCH ×2 (07:56→21:00)
[2018-03-20] MEDS: DONEPEZIL 5 MG TAB PO SCH (07:56)
[2018-03-20] MEDS ORDERED: PERCOCET 5MG/325MG TAB PO ONE (08:30)
[2018-03-20 11:39] LABS: APPEARANCE, URINE CLEAR (CLEAR); BACTERIA, URINE AUTO NEGATIVE (NEGATIVE); BILIRUBIN, URINE AUTO NEGATIVE (NEGATIVE); BLOOD, URINE BLOOD NEGATIVE (NEGATIVE); COLOR, URINE YELLOW (YELLOW); GLUCOSE, URINE (UA) AUTO NEGATIVE (NEGATIVE); KETONE, URINE AUTO NEGATIVE (NEGATIVE); LEUKOCYTE ESTERASE, URINE AUTO NEGATIVE (NEGATIVE); NITRITE, URINE AUTO NEGATIVE (NEGATIVE); PROTEIN, URINE AUTO NEGATIVE (NEGATIVE); RBC, URINE AUTO 1 /HPF (0-3); SQUAMOUS EPITHELIAL CELL UR AU 0 /HPF (0-6); UROBILINOGEN, URINE AUTO 0.2 mg/dL (0.0-2.0); WBC, URINE AUTO 0 /HPF (0-3)
--- NOTE | 2018-03-20 12:58 | IPNPDOC ---
Date Seen The patient was seen on 03/20/18. Progress Note HPI: Patient is a 72-year-old female who presented to the ER with complaints of right hip pain after she had fallen off the toilet. Patient was in the bathroom and leaned over and fell off, landing on her right hip. She complained of severe pain at the time. Did not lose consciousness, was awake and called out to family members for help. The pt was found to have Right proximal femur fracture S/P Right hip open reduction, cephalomedullary nail fixation right proximal femur as per Orthopedic Surgery. The pt was transferred to the care of HORACIO Eisenberg, 03/18/18. The pt reports no complaints at this time. GrdDtr at bedside today. Had pain this AM, percocet x 1 given, pt has tolerated. Denies any fevers, chills, weakness, fatigue, Headache, Chest Pain, Shortness of breath, cough, palpitations, abdominal pain, N/V/D or changes in bowel or bladder habits. PMHx: dementia hypothyroid HTN DLP PE: GEN: 72yoF, appears stated age. No acute distress. HEENT: Normocephalic, atraumatic.Sclera are nonicteric. Conjunctiva without injection. No facial asymmetry. Moist mucous membranes. Neck supple. CHEST: Regular rate and rhythm, +S1, +S2 LUNGS: Clear to auscultation bilaterally. No wheezes, rales, or rhonchi. Breathing appears symmetric and easy. ABD: Round, soft, non-tender, non-distended. +Bowel sounds throughout. EXT: No lower extremity edema appreciated. SKIN: [place], dry, warm. No rashes. NEURO: No focal deficits appreciated. A&P: Patient is a 72-year-old female who presented to the ER with complaints of right hip pain after she had fallen off the toilet. Patient was in the bathroom and leaned over and fell off, landing on her right hip. She complained of severe pain at the time. Did not lose consciousness, was awake and called out to family members for help. The pt was found to have Right proximal femur fracture S/P Right hip open reduction, cephalomedullary nail fixation right proximal femur as per Orthopedic Surgery. The pt was transferred to the care of HORACIO Eisenberg, 03/18/18. 1. Right hip fracture - 2/2 mechanical fall - s/p repair (03/15/[address] Schultz). Mgmt as per orthopedic surgery. Molst form was completed witnessed signed and placed in the chart previously DNR/DNI. PT/OT/ST as per ARU Pain control as per ARU. Bowel care as per ARU. DVT px Xarelto as per Orthopedic surgery Disposition as per ARU. 2. Leukocytosis. WBC 11.7 Tmax 99.6 Possibly reactive secondary to surgery UA/UC pending. Monitor CBC. Bowel care held today related to diarrhea, 4 BM yesterday. None today. Monitor. Encourage OOB. Encourage I/S. 3. Dementia Aricept/Namenda 4. Hypothyroidism Levothyroxine dose was adjusted to AM, pt had been taking dose at night on a full stomach. 5. DLP Simvastatin 6. Depression Sertraline 7. Hypertension torsemide 40 mg po daily. K 3.3, supplement 40 meq po x 1 and recheck in AM. Add mag level to labs. 8. Urinary retention Ditropan VS, I&O, [facility] Vital Signs/I&O Vital Signs Date Time Temp Pulse Resp B/P (MAP) Pulse Ox O2 Delivery O2 Flow Rate FiO2 03/20/18 09:07 20 03/20/18 06:00 99.6 76 117/61 (79) 96 Room Air I&O- Last 24 Hours up to 6 AM 03/20/18 06:00 Intake Total 1020 ml Output Total 1800 ml Balance -780 ml Laboratory Data 24H LABS Laboratory Tests 2 03/20/18 06:11: Immature Granulocyte % (Auto) 2.5, White Blood Count 11.7H, Red Blood Count 2.72L, Hemoglobin 8.0L, Hematocrit 24.8L, Mean Corpuscular Volume 91.2, Mean Corpuscular Hemoglobin 29.4, Mean Corpuscular Hemoglobin Concent 32.3, Red Cell Distribution Width 14.4, Platelet Count 270, Neutrophils (%) (Auto) 66.1H, Lymphocytes (%) (Auto) 22.5L, Monocytes (%) (Auto) 6.9H, Eosinophils (%) (Auto) 1.7, Basophils (%) (Auto) 0.3, Neutrophils # (Auto) 7.7, Lymphocytes # (Auto) 2.6, Monocytes # (Auto) 0.8, Eosinophils # (Auto) 0.2, Basophils # (Auto) 0.0, Nucleated Red Blood Cells % (auto) 1.1H, Anion Gap 6L, Glomerular Filtration Rate > 60.0, Blood Urea Nitrogen 21H, Creatinine 0.88, Sodium Level 137, Potass ium Level 3.3L, Chloride Level 100, Carbon Dioxide Level 31, Calcium Level 7.8L, Thyroid Stimulating Hormone (TSH) 5.930H, Free Thyroxine 1.25 03/20/18 11:14: Urine Appearance CLEAR, Urine Color YELLOW, Urine pH 6.0, Urine Specific [place] 1.010, Urine Protein NEGATIVE, Urine Glucose (UA) NEGATIVE, Urine Ketones NEGATIVE, Urine Urobilinogen 0.2, Urine Bilirubin NEGATIVE, Urine Leukocyte Esterase NEGATIVE, Urine Blood NEGATIVE, Urine Nitrite NEGATIVE, Urine WBC (Auto) 0, Urine RBC (Auto) 1, Urine Hyaline Casts (Auto) 4, Urine Bacteria (Auto) NEGATIVE, Urine Squamous Epithelial Cells 0, Urine Sperm (Auto) CBC/BMP Laboratory Tests 03/20/18 06:11 Red Blood Count 2.72 L, Mean Corpuscular Volume 91.2, Mean Corpuscular Hemoglobin 29.4, Mean Corpuscular Hemoglobin Concent 32.3, Red Cell Distribution Width 14.4, Neutrophils (%) (Auto) 66.1 H, Lymphocytes (%) (Auto) 22.5 L, Monocytes (%) (Auto) 6.9 H, Eosinophils (%) (Auto) 1.7, Basophils (%) (Auto) 0.3 , Neutrophils # (Auto) 7.7, Lymphocytes # (Auto) 2.6, Monocytes # (Auto) 0.8, Eosinophils # (Auto) 0.2, Basophils # (Auto) 0.0, Calcium Level 7.8 L Microbiology Microbiology 03/20/18 Urine Culture, Received Pending Thea Mo Mar 20, 2018 12:58
[2018-03-20] MEDS ORDERED: POTASSIUM CHLORIDE 10 MEQ SR TABLET PO ONE (13:00)
[2018-03-20 13:45] LABS: MAGNESIUM LEVEL 2.4 MG/DL (1.8-2.4)
[2018-03-20] MEDS ORDERED: BISACODYL 10 MG SUPP PR ONE (13:45)
[2018-03-20 14:00] VITALS: BP 120/66
[2018-03-20] MEDS ORDERED: LACTULOSE 20 GM/30 ML SYRUP UD PO ONE (16:00)
[2018-03-20] MEDS: RIVAROXABAN 10 MG TAB (XARELTO) PO SCH (16:26)
[2018-03-20] MEDS: PERCOCET 5MG/325MG TAB PO SCH ×2 (16:27→21:26)
[2018-03-20 20:00] VITALS: BP_SYST 120; BP_SYST 169; BP_DIAS 64; BP_DIAS 70
[2018-03-20] MEDS: SENNA 8.6 MG TAB (SENOKOT) PO SCH (21:00)
[2018-03-20] MEDS: traZODone 50 MG TAB PO SCH (21:25)
[2018-03-20] MEDS: SERTRALINE HCL 25 MG TABLET PO SCH (21:26)
[2018-03-20] MEDS: SIMVASTATIN 20 MG TAB PO SCH (21:26)
[2018-03-20] MEDS: MEMANTINE 5MG TABLET (NAMENDA) PO SCH (21:30)
[2018-03-21] MEDS: LEVOTHYROXINE 50MCG TABLET (0.05MG) PO SCH (05:54)
[2018-03-21] MEDS: ACETAMINOPHEN 500 MG TAB PO PRN (05:55)
[2018-03-21 06:00] VITALS: BP 149/73
[2018-03-21 07:06] LABS: HEMATOCRIT 25.5 % (36.0-47.0); HEMOGLOBIN 8.2 g/dl (12.0-15.5); MEAN CORPUSCULAR HEMOGLOBIN 29.7 pg (27.0-33.0); MEAN CORPUSCULAR HGB CONC 32.2 g/dl (32.0-36.5); MEAN CORPUSCULAR VOLUME 92.4 fl (80.0-96.0); PLATELET COUNT, AUTOMATED 336 10^3/uL (150-450); RED BLOOD COUNT 2.76 10^6/uL (4.00-5.40); WHITE BLOOD COUNT 14.6 10^3/uL (4.0-10.0)
[2018-03-21 07:49] LABS: ALBUMIN 2.3 GM/DL (3.2-5.2); ALT/SGPT 19 U/L (12-78); BILIRUBIN,TOTAL 1.3 MG/DL (0.2-1.0); BLOOD UREA NITROGEN 21 MG/DL (7-18); CALCIUM LEVEL 8.2 MG/DL (8.8-10.2); CARBON DIOXIDE LEVEL 27 MEQ/L (21-32); CHLORIDE LEVEL 101 MEQ/L (98-107); CREATININE FOR GFR 0.89 MG/DL (0.55-1.30); GLOMERULAR FILTRATION RATE > 60.0 (>39); GLUCOSE, FASTING 111 MG/DL (70-100); POTASSIUM SERUM 3.6 MEQ/L (3.5-5.1); SODIUM LEVEL 138 MEQ/L (136-145); TOTAL PROTEIN 5.8 GM/DL (6.4-8.2)
[2018-03-21] MEDS: oxyBUTYnin 5 MG TAB PO SCH ×2 (08:17→21:18)
[2018-03-21] MEDS: DOCUSATE SODIUM 100 MG CAP PO SCH ×2 (08:17→21:17)
[2018-03-21] MEDS: DONEPEZIL 5 MG TAB PO SCH (08:17)
[2018-03-21] MEDS: TORSEMIDE 20 MG TAB PO SCH (08:18)
[2018-03-21] MEDS: PERCOCET 5MG/325MG TAB PO SCH ×3 (08:20→21:18)
--- NOTE | 2018-03-21 12:17 | IPNPDOC ---
Date Seen The patient was seen on 03/21/18. Progress Note HPI: Patient is a 72-year-old female who presented to the ER with complaints of right hip pain after she had fallen off the toilet. Patient was in the bathroom and leaned over and fell off, landing on her right hip. She complained of severe pain at the time. Did not lose consciousness, was awake and called out to family members for help. The pt was found to have Right proximal femur fracture S/P Right hip open reduction, cephalomedullary nail fixation right proximal femur as per Orthopedic Surgery. The pt was transferred to the care of HORACIO Eisenberg, 03/18/18. The pt states she has had Rt hip pain, she has taken pain medication to work with PT. She is OOB with PT currently. Denies any fevers, chills, weakness, fatigue, Headache, Chest Pain, Shortness of breath, cough, palpitations, abdominal pain, N/V/D or changes in bowel or bladder habits. PMHx: dementia hypothyroid HTN DLP PE: GEN: 72yoF, appears stated age. No acute distress. Teary. HEENT: Normocephalic, atraumatic.Sclera are nonicteric. Conjunctiva without injection. No facial asymmetry. Moist mucous membranes. Neck supple. CHEST: Regular rate and rhythm, +S1, +S2 LUNGS: Clear to auscultation bilaterally. No wheezes, rales, or rhonchi. Breathing appears symmetric and easy. ABD: Round, soft, non-tender, non-distended. +Bowel sounds throughout. EXT: No lower extremity edema appreciated. SKIN: [place], dry, warm. No rashes. NEURO: No focal deficits appreciated. A&P: Patient is a 72-year-old female who presented to the ER with complaints of right hip pain after she had fallen off the toilet. Patient was in the bathroom and leaned over and fell off, landing on her right hip. She complained of severe pain at the time. Did not lose consciousness, was awake and called out to family members for help. The pt was found to have Right proximal femur fracture S/P Right hip open reduction, cephalomedullary nail fixation right proximal femur as per Orthopedic Surgery. The pt was transferred to the care of HORACIO Eisenberg, 03/18/18. 1. Right hip fracture - 2/2 mechanical fall - s/p repair (03/15/[address] Schultz). Mgmt as per orthopedic surgery. Molst form was completed witnessed signed and placed in the chart previously DNR/DNI. PT/OT/ST as per ARU Pain control as per ARU. Bowel care as per ARU. DVT px Xarelto as per Orthopedic surgery Disposition as per ARU. 2. Leukocytosis. WBC 14.6 Tmax 99.5 past 24 hrs. 98.3 this AM. Possibly reactive secondary to surgery UA 03/20/18 unremarkable. Check CXR. Continue to monitor CBC. No diarrhea reported. Encourage OOB. Encourage I/S. 3. Dementia Aricept/Namenda 4. Hypothyroidism Levothyroxine dose was adjusted to AM, pt had been taking dose at night on a full stomach. Monitor. 5. DLP Simvastatin 6. Depression Sertraline 7. Hypertension torsemide 40 mg po daily. Hypokalemia resolved s/p supplement 03/20/18. mag level WNL. Monitor. 8. Urinary retention Ditropan VS, I&O, 24H, Fishbone Vital Signs/I&O Vital Signs Date Time Temp Pulse Resp B/P (MAP) Pulse Ox O2 Delivery O2 Flow Rate FiO2 03/21/18 08:50 18 Room Air 03/21/18 06:00 98.3 82 149/73 (98) 96 I&O- Last 24 Hours up to 6 AM 03/21/18 05:59 Intake Total 900 ml Output Total 1900 ml Balance -1000 ml Laboratory Data 24H LABS Laboratory Tests 2 03/21/18 06:23: Nucleated Red Blood Cells % (auto) 2.0H, Anion Gap 10, Glomerular Filtration Rate > 60.0, Blood Urea Nitrogen 21H, Creatinine 0.89, Sodium Level 138, Potassium Level 3.6, Chloride Level 101, Carbon Dioxide Level 27, Calcium Level 8.2L, Aspartate Amino Transf (AST/SGOT) 20, Alanine Aminotransferase (ALT/SGPT) 19, Alkaline Phosphatase 72, Total Bilirubin 1.3H, Total Protein 5.8L, Albumin 2.3L, Albumin/Globulin Ratio 0.66L CBC/BMP Laboratory Tests 03/21/18 06:23 Red Blood Count 2.76 L, Mean Corpuscular Volume 92.4, Mean Corpuscular Hemoglobin 29.7, Mean Corpuscular Hemoglobin Concent 32.2, Red Cell Distribution Width 14.7 H, Calcium Level 8.2 L, Aspartate Amino Transf (AST/SGOT) 20, Alanine Aminotransferase (ALT/SGPT) 19, Alkaline Phosphatase 72, Total Bilirubin 1.3 H, Total Protein 5.8 L, Albumin 2.3 L Microbiology Microbiology 03/20/18 Urine Culture, Received Pending Thea Mo Mar 21, 2018 12:16
--- NOTE | 2018-03-21 13:24 | IPNPDOC ---
PM&R Progress Note DATE OF SERVICE: Mar 20, 2018 Primary Therapist Progress Note Subjective: Patient seen in bed reporting significant right hip pain, that did respond to Percocet better than Tylenol. REVIEW OF SYSTEMS: The following is a completed review of systems and has been reviewed. Review of systems otherwise unremarkable. PAIN: Patient self reports right hip pain EYES: Negative for recent vision changes EARS, NOSE, & THROAT: negative for dysphagia, rhinorrhea, or throat pain CARDIOVASCULAR: denies chest pain or palpitations PULMONARY: Negate. Denies shortness of breath GASTROINTESTINAL: denies diarrhea or constipation GENITOURINARY: +urinary retention MUSCULOSKELETAL: right hip fracture NEUROLOGICAL: dementia SKIN: right hip incision, and facial abrasions PSYCHIATRIC:dementia and anxiety/depression All other review of systems found to be negative. PHYSICAL EXAMINATION: VITAL SIGNS: Please see below. GENERAL: Pleasant and cooperative. anxious HEENT: PERRL. Extraocular movements intact. Clear conjunctiva CARDIOVASCULAR: Regular rate and rhythm. No murmurs, rubs, or gallops LUNGS:Clear to auscultation bilaterally. No wheezes. No rhonchi ABDOMEN: Soft, nontender, nondistended. Positive bowel sounds. Normal active bowel sounds NEUROLOGICAL: Alert and oriented to self, not place or time. Cranial nerves II through XII grossly intact. Sensation grossly intact EXTREMITIES: 5-\5 strength bilateral upper extremities. 5\5 strength right ankle DF and EHL, limited due to pain. 5/5 strength in left lower extremity. SKIN:right hip incision c/d/i, scattered facial scabs (self inflicted) ASSESSMENT:72-year-old F with past medical history of dementia who presents status post fall with right hip fracture s/p ORIF. PLAN: 1. Rehab: PT/OT and CHILD LIFE SPECIALIST for cognition, assess for DME needs, ambulating a few feet with RW 2. 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 Cardiac: pmh HTN, continue BP meds, pmh HLD continue statin medicine consulted 4. Endo: pmh hypothyroidism, has been taking Synthroid incorrectly at night on full stomach, likely not getting metabolized, will check levels, adjust time to AM and adjust dose prn 5. : admission UA negative, however Ucx pending, monitor PVRs, continue oxybutynin 6. Psych: pmh depression continue ZOloft, will try to avoid Haldol and trial standing dose of Trazodone for insomnia 7. DVT ppx: on xarelto 8. Ortho: s/p right hip fracture, WBAT monitor for blood loss anemia and ortho consulted 9. Pain: will add Percocet prn and continue Tylenol 8. Dispo 03-29-18, progressing towards goals Allergies Coded Allergies: No Known Allergies (Unverified , 03/15/18) Vital Signs Vital Signs Date Time Temp Pulse Resp B/P (MAP) Pulse Ox O2 Delivery O2 Flow Rate FiO2 03/21/18 08:50 18 Room Air 03/21/18 06:00 98.3 82 149/73 (98) 96 Laboratory Data CBC/BMP Laboratory Tests 03/21/18 06:23 Red Blood Count 2.76 L, Mean Corpuscular Volume 92.4, Mean Corpuscular Hemoglobin 29.7, Mean Corpuscular Hemoglobin Concent 32.2, Red Cell Distribution Width 14.7 H, Calcium Level 8.2 L, Aspartate Amino Transf (AST/SGOT) 20, Alanine Aminotransferase (ALT/SGPT) 19, Alkaline Phosphatase 72, Total Bilirubin 1.3 H, Total Protein 5.8 L, Albumin 2.3 L Labs 24H Laboratory Tests 2 03/21/18 06:23: Nucleated Red Blood Cells % (auto) 2.0H, Anion Gap 10, Glomerular Filtration Rate > 60.0, Blood Urea Nitrogen 21H, Creatinine 0.89, Sodium Level 138, Potassium Level 3.6, Chloride Level 101, Carbon Dioxide Level 27, Calcium Level 8.2L, Aspartate Amino Transf (AST/SGOT) 20, Alanine Aminotransferase (ALT/SGPT) 19, Alkaline Phosphatase 72, Total Bilirubin 1.3H, Total Protein 5.8L, Albumin 2.3L, Albumin/Globulin Ratio 0.66L Microbiology Microbiology 03/20/18 Urine Culture, Received Pending Current Medications Current Medications Current Medications Acetaminophen (Tylenol Tab) 650 mg DAILYPRN PRN PO fever/MILD PAIN (PS 1-4); Start 03/18/18 at 17:30; Stop 03/20/18 at 14:40; Status DC Acetaminophen (Tylenol Tab) 650 mg Q4HP PRN PO fever/MILD PAIN (PS 1-4); Start 03/18/18 at 17:15; Stop 03/18/18 at 17:31; Status DC Acetaminophen (Tylenol Tab) 1,000 mg BIDP PRN PO PAIN Last administered on 03/21/18at 05:55; Start 03/20/18 at 17:00 Acetaminophen (Tylenol Tab) 1,000 mg TID PO Last administered on 03/20/18at 07:55; Start 03/18/18 at 21:00; Stop 03/20/18 at 14:40; Status DC Bisacodyl (Dulcolax Suppository) 10 mg DAILYPRN PRN AR CONSTIPATION; Start 03/18/18 at 17:15 Docusate Sodium (Colace) 100 mg BID PO Last administered on 03/21/18at 08:17; Start 03/18/18 at 21:00 Donepezil HCl (AriCEPT) 10 mg DAILY PO Last administered on 03/21/18at 08:17; Start 03/19/18 at 09:00 Haloperidol (Haldol) 0.5 mg QHSP PRN PO AGITATION; Start 03/18/18 at 17:30 Levothyroxine Sodium (Synthroid) 50 mcg DAILY@06 PO Last administered on 03/21/18at 05:54; Start 03/19/18 at 06:00 Magnesium Hydroxide (Milk Of Magnesia) 30 ml DAILYPRN PRN PO CONSTIPATION; Start 03/18/18 at 17:15 Memantine (Namenda) 10 mg QHS PO Last administered on 03/20/18at 21:30; Start 03/18/18 at 21:00 Ondansetron HCl (Zofran) 4 mg Q6HP PRN PO NAUSEA; Start 03/18/18 at 17:15; Stop 03/19/18 at 18:50; Status DC Oxybutynin Chloride (Ditropan) 5 mg BID PO Last administered on 03/21/18at 08:17; Start 03/18/18 at 21:00 Oxycodone/ Acetaminophen (Percocet 5mg/ 325mg Tablet) 1 tab TID PO Last administered on 03/21/18at 08:20; Start 03/20/18 at 16:00 Rivaroxaban (Xarelto) 10 mg DAILY@18 PO Last administered on 03/20/18at 16:26; Start 03/19/18 at 18:00 Senna (Senokot) 1 tab QHS PO Last administered on 03/18/18at 21:00; Start 03/18/18 at 21:00 Sertraline HCl (Zoloft) 25 mg QHS PO Last administered on 03/20/18at 21:26; Start 03/18/18 at 21:00 Simvastatin (Zocor) 40 mg QHS PO Last administered on 03/20/18at 21:26; Start 03/18/18 at 21:00 Torsemide (Demadex) 40 mg DAILY PO Last administered on 03/21/18at 08:18; Start 03/19/18 at 09:00 Trazodone HCl (Desyrel) 25 mg Q6HP PRN PO AGITATION; Start 03/18/18 at 17:30 Trazodone HCl (Desyrel) 25 mg QHSP PRN PO INSOMNIA; Start 03/18/18 at 17:30; Stop 03/19/18 at 18:50; Status DC Trazodone HCl (Desyrel) 50 mg QHS PO Last administered on 03/20/18at 21:25; Start 03/19/18 at 21:00 LINDSAY MAXWELL MD Mar 21, 2018 13:24
--- NOTE | 2018-03-21 13:52 | IPNPDOC ---
PM&R Progress Note DATE OF SERVICE: Mar 21, 2018 Crust Sorter Progress Note Subjective: Patient seen in room eating breakfast, caregiver concerned her left eye is drooping and believes this is new. REVIEW OF SYSTEMS: The following is a completed review of systems and has been reviewed. Review of systems otherwise unremarkable. PAIN: Patient self reports right hip pain EYES: Negative for recent vision changes EARS, NOSE, & THROAT: negative for dysphagia, rhinorrhea, or throat pain CARDIOVASCULAR: denies chest pain or palpitations PULMONARY: Negate. Denies shortness of breath GASTROINTESTINAL: denies diarrhea or constipation GENITOURINARY: +urinary retention MUSCULOSKELETAL: right hip fracture NEUROLOGICAL: dementia SKIN: right hip incision, and facial abrasions PSYCHIATRIC:dementia and anxiety/depression All other review of systems found to be negative. PHYSICAL EXAMINATION: VITAL SIGNS: Please see below. GENERAL: Pleasant and cooperative. anxious HEENT: PERRL. Extraocular movements intact. Clear conjunctiva, naso-labial folds equal bilat, however left eye smaller with lid droop on the left, unable to raise left eyebrow, or right eyebrow when asked to CARDIOVASCULAR: Regular rate and rhythm. No murmurs, rubs, or gallops LUNGS:Clear to auscultation bilaterally. No wheezes. No rhonchi ABDOMEN: Soft, nontender, nondistended. Positive bowel sounds. Normal active bowel sounds NEUROLOGICAL: Alert and oriented to self, not place or time. Cranial nerves II through XII grossly intact. Sensation intact in CN5 distribution and throughout upper and lower extremities to light touch EXTREMITIES: 5-\5 strength bilateral upper extremities. 5\5 strength right ankle DF and EHL, limited due to pain. 5/5 strength in left lower extremity. SKIN:right hip incision c/d/i, scattered facial scabs (self inflicted) ASSESSMENT:72-year-old F with past medical history of dementia who presents status post fall with right hip fracture s/p ORIF. PLAN: 1. 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 Cardiac: pmh HTN, continue BP meds, pmh HLD continue statin medicine consulted 4. Endo: pmh hypothyroidism, has been taking Synthroid incorrectly at night on full stomach, likely not getting metabolized- TSH elevate, FT4 wnl, will not change dose as taking it int he AM instead will likely correct this subclinical hypothyroidism 5. : admission UA negative, however Ucx pending, monitor PVRs, continue o xybutynin 6. Psych: pmh depression continue ZOloft, will try to avoid Haldol and trial standing dose of Trazodone for insomnia 7. DVT ppx: on xarelto 8. Ortho: s/p right hip fracture, WBAT monitor for blood loss anemia and ortho consulted 9. Pain: continue Percocet prn and continue Tylenol 8. Dispo 03-29-18, progressing towards goals Allergies Coded Allergies: No Known Allergies (Unverified , 03/15/18) Vital Signs Vital Signs Date Time Temp Pulse Resp B/P (MAP) Pulse Ox O2 Delivery O2 Flow Rate FiO2 03/21/18 08:50 18 Room Air 03/21/18 06:00 98.3 82 149/73 (98) 96 Laboratory Data CBC/BMP Laboratory Tests 03/21/18 06:23 Red Blood Count 2.76 L, Mean Corpuscular Volume 92.4, Mean Corpuscular Hemoglobin 29.7, Mean Corpuscular Hemoglobin Concent 32.2, Red Cell Distribution Width 14.7 H, Calcium Level 8.2 L, Aspartate Amino Transf (AST/SGOT) 20, Alanine Aminotransferase (ALT/SGPT) 19, Alkaline Phosphatase 72, Total Bilirubin 1.3 H, Total Protein 5.8 L, Albumin 2.3 L Labs 24H Laboratory Tests 2 03/21/18 06:23: Nucleated Red Blood Cells % (auto) 2.0H, Anion Gap 10, Glomerular Filtration Rate > 60.0, Blood Urea Nitrogen 21H, Creatinine 0.89, Sodium Level 138, Potassium Level 3.6, Chloride Level 101, Carbon Dioxide Level 27, Calcium Level 8.2L, Aspartate Amino Transf (AST/SGOT) 20, Alanine Aminotransferase (ALT/SGPT) 19, Alkaline Phosphatase 72, Total Bilirubin 1.3H, Total Protein 5.8L, Albumin 2.3L, Albumin/Globulin Ratio 0.66L Microbiology Microbiology 03/20/18 Urine Culture, Received Pending Current Medications Current Medications Current Medications Acetaminophen (Tylenol Tab) 650 mg DAILYPRN PRN PO fever/MILD PAIN (PS 1-4); Start 03/18/18 at 17:30; Stop 03/20/18 at 14:40; Status DC Acetaminophen (Tylenol Tab) 650 mg Q4HP PRN PO fever/MILD PAIN (PS 1-4); Start 03/18/18 at 17:15; Stop 03/18/18 at 17:31; Status DC Acetaminophen (Tylenol Tab) 1,000 mg BIDP PRN PO PAIN Last administered on 03/11 03/29at 05:55; Start 03/20/18 at 17:00 Acetaminophen (Tylenol Tab) 1,000 mg TID PO Last administered on 03/20/18at 07:55; Start 03/18/18 at 21:00; Stop 03/20/18 at 14:40; Status DC Bisacodyl (Dulcolax Suppository) 10 mg DAILYPRN PRN ME CONSTIPATION; Start 03/18/18 at 17:15 Docusate Sodium (Colace) 100 mg BID PO Last administered on 03/21/18at 08:17; Start 03/18/18 at 21:00 Donepezil HCl (AriCEPT) 10 mg DAILY PO Last administered on 03/21/18at 08:17; Start 03/19/18 at 09:00 Haloperidol (Haldol) 0.5 mg QHSP PRN PO AGITATION; Start 03/18/18 at 17:30 Levothyroxine Sodium (Synthroid) 50 mcg DAILY@06 PO Last administered on 03/21/18at 05:54; Start 03/19/18 at 06:00 Magnesium Hydroxide (Milk Of Magnesia) 30 ml DAILYPRN PRN PO CONSTIPATION; Start 03/18/18 at 17:15 Memantine (Namenda) 10 mg QHS PO Last administered on 03/20/18at 21:30; Start 03/18/18 at 21:00 Ondansetron HCl (Zofran) 4 mg Q6HP PRN PO NAUSEA; Start 03/18/18 at 17:15; Stop 03/19/18 at 18:50; Status DC Oxybutynin Chloride (Ditropan) 5 mg BID PO Last administered on 03/21/18 08:17; Start 03/18/18 at 21:00 Oxycodone/ Acetaminophen (Percocet 5mg/ 325mg Tablet) 1 tab TID PO Last administered on 03/21/18 08:20; Start 03/20/18 at 16:00 Rivaroxaban (Xarelto) 10 mg DAILY@18 PO Last administered on 03/20/18 16:26; Start 03/19/18 at 18:00 Senna (Senokot) 1 tab QHS PO Last administered on 03/18/18 21:00; Start 03/18/18 at 21:00 Sertraline HCl (Zoloft) 25 mg QHS PO Last administered on 03/20/18 21:26; Start 03/18/18 at 21:00 Simvastatin (Zocor) 40 mg QHS PO Last administered on 03/20/18 21:26; Start 03/18/18 at 21:00 Torsemide (Demadex) 40 mg DAILY PO Last administered on 03/21/18 08:18; Start 03/19/18 at 09:00 Trazodone HCl (Desyrel) 25 mg Q6HP PRN PO AGITATION; Start 03/18/18 at 17:30 Trazodone HCl (Desyrel) 25 mg QHSP PRN PO INSOMNIA; Start 03/18/18 at 17:30; Stop 03/19/18 at 18:50; Status DC Trazodone HCl (Desyrel) 50 mg QHS PO Last administered on 03/20/18 21:25; Start 03/19/18 at 21:00 LINDSAY MAXWELL MD Mar 21, 2018 13:31
[2018-03-21 14:00] VITALS: BP 122/69
[2018-03-21] MEDS: RIVAROXABAN 10 MG TAB (XARELTO) PO SCH (17:27)
[2018-03-21 20:00] VITALS: BP 133/65
--- NOTE | 2018-03-21 21:08 | REPVR ---
EXAM: MR Head Without Contrast EXAM DATE/TIME: 03/21/2018 8:19 PM CLINICAL HISTORY: 72 years old, female; Signs and symptoms; Altered mental status/memory loss; Confusion or disorientation; Patient HX: PT is disoriented after hip replacement, confusion, slurred speech, lt sided facial droop; Additional info: Left eye droop TECHNIQUE: MR of the head without contrast. COMPARISON: CT Head without contrast 10/26/2013 12:03 PM FINDINGS: No abnormal restriction of diffusion to indicate acute CVA. Midline structures and cerebellar tonsillar position appear normal. Ventricles, cisterns and sulci are symmetrically prominent. No intracranial mass, midline shift or abnormal extra-axial fluid. No acute intracranial hemorrhage. Mild pattern of increased T2 and flair signal in supratentorial white matter. Optic chiasm and pituitary infundibulum appear normal. Normal vascular flow voids in major intracranial arteries and dural venous sinuses. Paranasal sinuses are clear. Mastoid air cells are normally aerated. Optic globes and orbits are unremarkable. IMPRESSION: No acute intracranial abnormality. 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
[2018-03-21] MEDS: MEMANTINE 5MG TABLET (NAMENDA) PO SCH (21:16)
[2018-03-21] MEDS: SENNA 8.6 MG TAB (SENOKOT) PO SCH (21:17)
[2018-03-21] MEDS: SIMVASTATIN 20 MG TAB PO SCH (21:17)
[2018-03-21] MEDS: SERTRALINE HCL 25 MG TABLET PO SCH (21:17)
[2018-03-21] MEDS: traZODone 50 MG TAB PO SCH (21:18)
[2018-03-22] MEDS: LEVOTHYROXINE 50MCG TABLET (0.05MG) PO SCH (05:42)
[2018-03-22 06:00] VITALS: BP 124/62
[2018-03-22] MEDS: ACETAMINOPHEN 500 MG TAB PO PRN (06:00)
[2018-03-22 07:52] LABS: HEMATOCRIT 25.6 % (36.0-47.0); MEAN CORPUSCULAR HEMOGLOBIN 29.4 pg (27.0-33.0); MEAN CORPUSCULAR HGB CONC 31.3 g/dl (32.0-36.5); MEAN CORPUSCULAR VOLUME 94.1 fl (80.0-96.0); PLATELET COUNT, AUTOMATED 361 10^3/uL (150-450); RED BLOOD COUNT 2.72 10^6/uL (4.00-5.40); WHITE BLOOD COUNT 15.9 10^3/uL (4.0-10.0)
[2018-03-22 08:13] LABS: ALBUMIN 2.2 GM/DL (3.2-5.2); ALT/SGPT 22 U/L (12-78); BILIRUBIN,TOTAL 1.1 MG/DL (0.2-1.0); BLOOD UREA NITROGEN 19 MG/DL (7-18); CALCIUM LEVEL 8.1 MG/DL (8.8-10.2); CARBON DIOXIDE LEVEL 29 MEQ/L (21-32); CHLORIDE LEVEL 98 MEQ/L (98-107); CREATININE FOR GFR 0.92 MG/DL (0.55-1.30); GLOMERULAR FILTRATION RATE > 60.0 (>39); GLUCOSE, FASTING 125 MG/DL (70-100); POTASSIUM SERUM 3.3 MEQ/L (3.5-5.1); SODIUM LEVEL 136 MEQ/L (136-145); TOTAL PROTEIN 5.7 GM/DL (6.4-8.2)
--- NOTE | 2018-03-22 08:57 | REP ---
Chest x-ray: Two views. History: Leukocytosis. Comparison study: March 16, 2018. Findings: The lungs are well inflated and clear. Pleural angles are sharp. Heart size is borderline unchanged. There is a large hiatal hernia. The aorta is calcific and tortuous. Pulmonary vasculature is not increased. Impression: No acute disease. Hiatal hernia. Borderline heart size. Electronically Signed by Dusty Boone MD 03/22/2018 08:49 A
[2018-03-22] MEDS: DOCUSATE SODIUM 100 MG CAP PO SCH ×2 (09:24→21:00)
[2018-03-22] MEDS: oxyBUTYnin 5 MG TAB PO SCH ×2 (09:24→21:00)
[2018-03-22] MEDS: TORSEMIDE 20 MG TAB PO SCH (09:25)
[2018-03-22] MEDS: DONEPEZIL 5 MG TAB PO SCH (09:25)
[2018-03-22] MEDS: PERCOCET 5MG/325MG TAB PO SCH ×3 (09:26→21:03)
[2018-03-22 14:00] VITALS: BP 128/64
[2018-03-22] MEDS: SODIUM CHLORIDE NASAL 0.65% SPRAY BTL (OCEAN) SCH ×2 (16:18→20:59)
[2018-03-22] MEDS: RIVAROXABAN 10 MG TAB (XARELTO) PO SCH (17:51)
[2018-03-22 20:00] VITALS: BP 135/75
[2018-03-22] MEDS: SERTRALINE HCL 25 MG TABLET PO SCH (21:00)
[2018-03-22] MEDS: MEMANTINE 5MG TABLET (NAMENDA) PO SCH (21:00)
[2018-03-22] MEDS: SENNA 8.6 MG TAB (SENOKOT) PO SCH (21:00)
[2018-03-22] MEDS: traZODone 50 MG TAB PO SCH (21:10)
[2018-03-22] MEDS: FLUTICASONE PROP 0.05% NASAL SPRAY 16 GM (FLONASE) NARES SCH (21:10)
[2018-03-22] MEDS: SIMVASTATIN 20 MG TAB PO SCH (21:10)
[2018-03-23] MEDS: LEVOTHYROXINE 50MCG TABLET (0.05MG) PO SCH (05:50)
[2018-03-23 06:00] VITALS: BP 114/61
[2018-03-23 06:10] LABS: HEMATOCRIT 23.2 % (36.0-47.0); HEMOGLOBIN 7.4 g/dl (12.0-15.5); MEAN CORPUSCULAR HEMOGLOBIN 28.9 pg (27.0-33.0); MEAN CORPUSCULAR HGB CONC 31.9 g/dl (32.0-36.5); MEAN CORPUSCULAR VOLUME 90.6 fl (80.0-96.0); PLATELET COUNT, AUTOMATED 392 10^3/uL (150-450); RED BLOOD COUNT 2.56 10^6/uL (4.00-5.40); WHITE BLOOD COUNT 12.6 10^3/uL (4.0-10.0)
[2018-03-23] MEDS: ACETAMINOPHEN 500 MG TAB PO PRN (07:41)
[2018-03-23] MEDS: TORSEMIDE 20 MG TAB PO SCH (09:50)
[2018-03-23] MEDS: DOCUSATE SODIUM 100 MG CAP PO SCH ×2 (09:50→21:56)
[2018-03-23] MEDS: DONEPEZIL 5 MG TAB PO SCH (09:50)
[2018-03-23] MEDS: FLUTICASONE PROP 0.05% NASAL SPRAY 16 GM (FLONASE) NARES SCH ×2 (09:50→21:59)
[2018-03-23] MEDS: SODIUM CHLORIDE NASAL 0.65% SPRAY BTL (OCEAN) SCH ×3 (09:50→21:59)
[2018-03-23] MEDS: oxyBUTYnin 5 MG TAB PO SCH ×2 (09:51→21:56)
[2018-03-23] MEDS: PERCOCET 5MG/325MG TAB PO SCH ×3 (09:51→21:58)
[2018-03-23 14:10] VITALS: BP 137/71
[2018-03-23] MEDS ORDERED: BACLOFEN 5MG PER 1/2 TABLET PO PRN (17:30)
[2018-03-23] MEDS: RIVAROXABAN 10 MG TAB (XARELTO) PO SCH (17:42)
[2018-03-23 21:00] VITALS: BP 126/70
[2018-03-23] MEDS: MEMANTINE 5MG TABLET (NAMENDA) PO SCH (21:56)
[2018-03-23] MEDS: SENNA 8.6 MG TAB (SENOKOT) PO SCH (21:56)
[2018-03-23] MEDS: SIMVASTATIN 20 MG TAB PO SCH (21:56)
[2018-03-23] MEDS: traZODone 50 MG TAB PO SCH (21:56)
[2018-03-23] MEDS: SERTRALINE HCL 25 MG TABLET PO SCH (21:57)
[2018-03-24] MEDS: LEVOTHYROXINE 50MCG TABLET (0.05MG) PO SCH (05:27)
[2018-03-24] MEDS: ACETAMINOPHEN 500 MG TAB PO PRN (05:53)
[2018-03-24 06:30] LABS: HEMATOCRIT 27.5 % (36.0-47.0); HEMOGLOBIN 8.8 g/dl (12.0-15.5); MEAN CORPUSCULAR HEMOGLOBIN 29.9 pg (27.0-33.0); MEAN CORPUSCULAR VOLUME 93.5 fl (80.0-96.0); PLATELET COUNT, AUTOMATED 479 10^3/uL (150-450); RED BLOOD COUNT 2.94 10^6/uL (4.00-5.40); WHITE BLOOD COUNT 13.5 10^3/uL (4.0-10.0)
[2018-03-24 07:00] VITALS: BP 124/66
[2018-03-24] MEDS: DOCUSATE SODIUM 100 MG CAP PO SCH ×2 (08:29→20:42)
[2018-03-24] MEDS: SODIUM CHLORIDE NASAL 0.65% SPRAY BTL (OCEAN) SCH ×3 (08:30→21:00)
[2018-03-24] MEDS: oxyBUTYnin 5 MG TAB PO SCH ×2 (08:30→20:42)
[2018-03-24] MEDS: FLUTICASONE PROP 0.05% NASAL SPRAY 16 GM (FLONASE) NARES SCH ×2 (08:30→20:43)
[2018-03-24] MEDS: PERCOCET 5MG/325MG TAB PO SCH ×3 (08:30→20:43)
[2018-03-24] MEDS: DONEPEZIL 5 MG TAB PO SCH (08:30)
[2018-03-24] MEDS: TORSEMIDE 20 MG TAB PO SCH (08:30)
--- NOTE | 2018-03-24 13:05 | IPNPDOC ---
Date Seen The patient was seen on 03/24/18. Progress Note HPI: Patient is a 72-year-old female who presented to the ER with complaints of right hip pain after she had fallen off the toilet. Patient was in the bathroom and leaned over and fell off, landing on her right hip. She complained of severe pain at the time. Did not lose consciousness, was awake and called out to family members for help. The pt was found to have Right proximal femur fracture S/P Right hip open reduction, cephalomedullary nail fixation right proximal femur as per Orthopedic Surgery. The pt was transferred to the care of HORACIO Eisenberg, 03/18/18. She is OOB to W/C currently, family at bedside. Pain is controlled. Denies any fevers, chills, weakness, fatigue, Headache, Chest Pain, Shortness of breath, cough, palpitations, abdominal pain, N/V/D or changes in bowel or bladder habits. PMHx: dementia hypothyroid HTN DLP PE: GEN: 72yoF, appears stated age. No acute distress. Teary. HEENT: Normocephalic, atraumatic.Sclera are nonicteric. Conjunctiva without injection. No facial asymmetry. Moist mucous membranes. Neck supple. CHEST: Regular rate and rhythm, +S1, +S2 LUNGS: Clear to auscultation bilaterally. No wheezes, rales, or rhonchi. Breathing appears symmetric and easy. ABD: Round, soft, non-tender, non-distended. +Bowel sounds throughout. EXT: No lower extremity edema appreciated. SKIN: [place], dry, warm. No rashes. NEURO: No focal deficits appreciated. MRI Brain 03/21/18 No acute abnormality. A&P: Patient is a 72-year-old female who presented to the ER with complaints of right hip pain after she had fallen off the toilet. Patient was in the bathroom and leaned over and fell off, landing on her right hip. She complained of severe pain at the time. Did not lose consciousness, was awake and called out to family members for help. The pt was found to have Right proximal femur fracture S/P Right hip open reduction, cephalomedullary nail fixation right proximal femur as per Orthopedic Surgery. The pt was transferred to the care of HORACIO Eisenberg, 03/18/18. 1. Right hip fracture - 2/2 mechanical fall - s/p repair (03/15/[address] Schultz). Mgmt as per orthopedic surgery. Molst form was completed witnessed signed and placed in the chart previously DNR/DNI. PT/OT/ST as per ARU Pain control as per ARU. Bowel care as per ARU. DVT px Xarelto as per Orthopedic surgery Disposition as per ARU. 2. Leukocytosis. WBC 13.5 Afebrile. Possibly reactive secondary to surgery UA 03/20/18 unremarkable. CXR 03/11/18 NAD. Continue to monitor CBC. No diarrhea reported. Encourage OOB. Encourage I/S. 3. Dementia Aricept/Namenda 4. Hypothyroidism Levothyroxine dose was adjusted to AM, pt had been taking dose at night on a full stomach. Monitor. 5. DLP Simvastatin 6. Depression Sertraline 7. Hypertension torsemide 40 mg po daily. Hypokalemia resolved s/p supplement 03/20/18. Recheck in AM. mag level previously WNL. Recheck in AM. Monitor. 8. Urinary retention [facility] VS[facility]O Vital Signs Date Time Temp Pulse Resp B/P (MAP) Pulse Ox O2 Delivery O2 Flow Rate FiO2 03/24/18 09:00 18 03/24/18 07:00 98.4 70 124/66 (85) 95 Room Air I&O- Last 24 Hours up to 6 AM 03/24/18 06:00 Intake Total 840 ml Output Total 4002 ml Balance -3162 ml Laboratory Data 24H LABS Laboratory Tests 2 03/24/18 05:59: Nucleated Red Blood Cells % (auto) 1.0H CBC/BMP Laboratory Tests 03/24/18 05:59 Red Blood Count 2.94 L, Mean Corpuscular Volume 93.5, Mean Corpuscular Hemoglo bin 29.9, Mean Corpuscular Hemoglobin Concent 32.0, Red Cell Distribution Width 15.9 H Microbiology Microbiology 03/20/18 Urine Culture - Final, Complete Thea Mo Mar 24, 2018 13:05
[2018-03-24 14:00] VITALS: BP 134/66
[2018-03-24] MEDS: RIVAROXABAN 10 MG TAB (XARELTO) PO SCH (17:46)
[2018-03-24 20:05] VITALS: BP 153/82
[2018-03-24] MEDS: SERTRALINE HCL 25 MG TABLET PO SCH (20:41)
[2018-03-24] MEDS: SIMVASTATIN 20 MG TAB PO SCH (20:42)
[2018-03-24] MEDS: SENNA 8.6 MG TAB (SENOKOT) PO SCH (20:42)
[2018-03-24] MEDS: MEMANTINE 5MG TABLET (NAMENDA) PO SCH (20:42)
[2018-03-24] MEDS: traZODone 50 MG TAB PO SCH (20:42)
[2018-03-25] MEDS: LEVOTHYROXINE 50MCG TABLET (0.05MG) PO SCH (05:49)
[2018-03-25 06:05] VITALS: BP 118/57
[2018-03-25 06:40] LABS: HEMATOCRIT 24.9 % (36.0-47.0); MEAN CORPUSCULAR HEMOGLOBIN 29.7 pg (27.0-33.0); MEAN CORPUSCULAR HGB CONC 32.1 g/dl (32.0-36.5); MEAN CORPUSCULAR VOLUME 92.6 fl (80.0-96.0); PLATELET COUNT, AUTOMATED 455 10^3/uL (150-450); RED BLOOD COUNT 2.69 10^6/uL (4.00-5.40); WHITE BLOOD COUNT 12.9 10^3/uL (4.0-10.0)
[2018-03-25 07:05] LABS: BLOOD UREA NITROGEN 19 MG/DL (7-18); CALCIUM LEVEL 8.2 MG/DL (8.8-10.2); CARBON DIOXIDE LEVEL 33 MEQ/L (21-32); CHLORIDE LEVEL 95 MEQ/L (98-107); CREATININE FOR GFR 0.94 MG/DL (0.55-1.30); GLOMERULAR FILTRATION RATE > 60.0 (>39); GLUCOSE, FASTING 93 MG/DL (70-100); MAGNESIUM LEVEL 2.4 MG/DL (1.8-2.4); POTASSIUM SERUM 3.1 MEQ/L (3.5-5.1); SODIUM LEVEL 136 MEQ/L (136-145)
[2018-03-25] MEDS: ACETAMINOPHEN 500 MG TAB PO PRN (07:32)
[2018-03-25] MEDS: DONEPEZIL 5 MG TAB PO SCH (09:20)
[2018-03-25] MEDS: DOCUSATE SODIUM 100 MG CAP PO SCH ×2 (09:20→20:55)
[2018-03-25] MEDS: oxyBUTYnin 5 MG TAB PO SCH ×2 (09:21→20:53)
[2018-03-25] MEDS: PERCOCET 5MG/325MG TAB PO SCH ×3 (09:22→20:54)
[2018-03-25] MEDS: TORSEMIDE 20 MG TAB PO SCH (09:22)
[2018-03-25] MEDS: FLUTICASONE PROP 0.05% NASAL SPRAY 16 GM (FLONASE) NARES SCH ×2 (09:23→20:56)
[2018-03-25] MEDS ORDERED: POTASSIUM CHLORIDE 10 MEQ SR TABLET PO ONE (09:30)
--- NOTE | 2018-03-25 11:47 | IPNPDOC ---
Date Seen The patient was seen on 03/25/18. Progress Note HPI: Patient is a 72-year-old female who presented to the ER with complaints of right hip pain after she had fallen off the toilet. Patient was in the bathroom and leaned over and fell off, landing on her right hip. She complained of severe pain at the time. Did not lose consciousness, was awake and called out to family members for help. The pt was found to have Right proximal femur fracture S/P Right hip open reduction, cephalomedullary nail fixation right proximal femur as per Orthopedic Surgery. The pt was transferred to the care of HORACIO Eisenberg, 03/18/18. She is OOB to W/C currently, family at bedside. Pt states pain is controlled. Denies any fevers, chills, weakness, fatigue, Headache, Chest Pain, Shortness of breath, cough, palpitations, abdominal pain, N/V/D or changes in bowel or bladder habits. PMHx: dementia hypothyroid HTN DLP PE: GEN: 72yoF, appears stated age. No acute distress. HEENT: Normocephalic, atraumatic.Sclera are nonicteric. Conjunctiva without injection. No facial asymmetry. Moist mucous membranes. Neck supple. CHEST: Regular rate and rhythm, +S1, +S2 LUNGS: Clear to auscultation bilaterally. No wheezes, rales, or rhonchi. Breathing appears symmetric and easy. ABD: Round, soft, non-tender, non-distended. +Bowel sounds throughout. EXT: No lower extremity edema appreciated. SKIN: [place], dry, warm. No rashes. NEURO: No focal deficits appreciated. MRI Brain 03/21/18 No acute abnormality. A&P: Patient is a 72-year-old female who presented to the ER with complaints of right hip pain after she had fallen off the toilet. Patient was in the bathroom and leaned over and fell off, landing on her right hip. She complained of severe pain at the time. Did not lose consciousness, was awake and called out to family members for help. The pt was found to have Right proximal femur fracture S/P Right hip open reduction, cephalomedullary nail fixation right proximal femur as per Orthopedic Surgery. The pt was transferred to the care of HORACIO Eisenberg, 03/18/18. 1. Right hip fracture - 2/2 mechanical fall - s/p repair (03/15/[address] Schultz). Mgmt as per orthopedic surgery. Molst form was completed witnessed signed and placed in the chart previously DNR/DNI. PT/OT/ST as per ARU Pain control as per ARU. Bowel care as per ARU. DVT px Xarelto as per Orthopedic surgery Disposition as per ARU. 2. Leukocytosis. WBC 12.9 Afebrile. Possibly reactive secondary to surgery UA 03/20/18 unremarkable. CXR 03/11/18 NAD. Continue to monitor CBC. No diarrhea reported. Encourage OOB. Encourage I/S. 3. Dementia Aricept/Namenda 4. Hypothyroidism Levothyroxine dose was adjusted to AM, pt had been taking dose at night on a full stomach. Monitor. 5. DLP Simvastatin 6. Depression Sertraline 7. Hypertension torsemide 40 mg po daily. 8. Hypokalemia. po supplement x 1 ordered. mag level WNL. Recheck in AM. Monitor. 8. Urinary retention Ditropan 9. Anemia. Hgb stable at 8.0. Add Fe studies, B12, folate. FOB. Monitor need for transfusion. VS, I&O, 24H, Fishbone Vital Signs/I&O Vital Signs Date Time Temp Pulse Resp B/P (MAP) Pulse Ox O2 Delivery O2 Flow Rate FiO2 03/25/18 09:22 18 03/25/18 06:05 97.8 86 118/57 (77) 93 Room Air I&O- Last 24 Hours up to 6 AM 03/25/18 06:00 Intake Total 720 ml Output Total 1100 ml Balance -380 ml Laboratory Data 24H LABS Laboratory Tests 2 03/25/18 06:16: Nucleated Red Blood Cells % (auto) 0.6H, Anion Gap 8, Glomerular Filtration Rate > 60.0, Blood Urea Nitrogen 19H, Creatinine 0.94, Sodium Level 136, Potassium Level 3.1L, Chloride Level 95L, Carbon Dioxide Level 33H, Calcium Level 8.2L, Magnesium Level 2.4 CBC/BMP Laboratory Tests 03/25/18 06:16 Red Blood Count 2.69 L, Mean Corpuscular Volume 92.6, Mean Corpuscular Hemoglobin 29.7, Mean Corpuscular Hemoglobin Concent 32.1, Red Cell Distribution Width 16.0 H, Calcium Level 8.2 L Microbiology Microbiology 03/20/18 Urine Culture - Final, Complete Thea Mo Mar 25, 2018 11:47
[2018-03-25 14:00] VITALS: BP 141/72
--- NOTE | 2018-03-25 14:21 | IPNPDOC ---
PM&R Progress Note DATE OF SERVICE: Mar 25, 2018 [employer] Lead [employer] Progress Note Subjective: Patient seen in room able to do sit to stands with minimal assistance, found to have a left buttock rash. REVIEW OF SYSTEMS: The following is a completed review of systems and has been reviewed. Review of systems otherwise unremarkable. PAIN: Patient self reports right hip pain EYES: Negative for recent vision changes EARS, NOSE, & THROAT: negative for dysphagia, rhinorrhea, or throat pain CARDIOVASCULAR: denies chest pain or palpitations PULMONARY: Negate. Denies shortness of breath GASTROINTESTINAL: denies diarrhea or constipation GENITOURINARY: +urinary retention MUSCULOSKELETAL: right hip fracture NEUROLOGICAL: dementia SKIN: right hip incision, and facial abrasions, vesicular rash left buttock PSYCHIATRIC:dementia and anxiety/depression All other review of systems found to be negative. PHYSICAL EXAMINATION: VITAL SIGNS: Please see below. GENERAL: Pleasant and cooperative. anxious HEENT: PERRL. Extraocular movements intact. Clear conjunctiva, naso-labial folds equal bilat, however left eye smaller with lid droop on the left, unable to raise left eyebrow, or right eyebrow when asked to CARDIOVASCULAR: Regular rate and rhythm. No murmurs, rubs, or gallops LUNGS:Clear to auscultation bilaterally. No wheezes. No rhonchi ABDOMEN: Soft, nontender, nondistended. Positive bowel sounds. Normal active bowel sounds NEUROLOGICAL: Alert and oriented to self, not place or time. Cranial nerves II through XII grossly intact. Sensation intact in CN5 distribution and throughout upper and lower extremities to light touch EXTREMITIES: 5-\5 strength bilateral upper extremities. 5\5 strength right ankle DF and EHL, limited due to pain. 5/5 strength in left lower extremity. SKIN:right hip incision c/d/i, scattered facial scabs (self inflicted)-healing -left buttock vesicular rash in dermatomal pattern ASSESSMENT:72-year-old F with past medical history of dementia who presents status post fall with right hip fracture s/p ORIF. PLAN: 1. 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 Cardiac: pmh HTN, continue BP meds, pmh HLD continue statin medicine consulted 4. Endo: pmh hypothyroidism, has been taking Synthroid incorrectly at night on full stomach, likely not getting metabolized- TSH elevate, FT4 wnl, will not change dose as taking it int he AM instead will likely correct this subclinical hypothyroidism 5. : admission UA and Ucx negative, monitor PVRs, continue oxybutynin 6. Psych: pmh depression continue Zoloft, will try to avoid Haldol and trial sta nding dose of Trazodone for insomnia 7. DVT ppx: on xarelto 8. Ortho: s/p right hip fracture, WBAT monitor for blood loss anemia and ortho consulted 9. Pain: continue Percocet prn and continue Tylenol 10: ID: mild leukocytosis-left buttock Zoster will start Valacyclovir 8. Dispo will push back date given slow progression to 04-01-18, goal to home Allergies Coded Allergies: No Known Allergies (Unverified , 03/15/18) Vital Signs Vital Signs Date Time Temp Pulse Resp B/P (MAP) Pulse Ox O2 Delivery O2 Flow Rate FiO2 03/25/18 09:52 18 03/25/18 06:05 97.8 86 118/57 (77) 93 Room Air Laboratory Data CBC/BMP Laboratory Tests 03/25/18 06:16 Red Blood Count 2.69 L, Mean Corpuscular Volume 92.6, Mean Corpuscular Hemoglobin 29.7, Mean Corpuscular Hemoglobin Concent 32.1, Red Cell Distribution Width 16.0 H, Calcium Level 8.2 L Labs 24H Laboratory Tests 2 03/25/18 06:16: Nucleated Red Blood Cells % (auto) 0.6H, Anion Gap 8, Glomerular Filtration Rate > 60.0, Blood Urea Nitrogen 19H, Creatinine 0.94, Sodium Level 136, Potassium Level 3.1L, Chloride Level 95L, Carbon Dioxide Level 33H, Calcium Level 8.2L, Magnesium Level 2.4 Microbiology Microbiology 03/20/18 Urine Culture - Final, Complete Current Medications Current Medications Current Medications Acetaminophen (Tylenol Tab) 650 mg DAILYPRN PRN PO fever/MILD PAIN (PS 1-4); Start 03/18/18 at 17:30; Stop 03/20/18 at 14:40; Status DC Acetaminophen (Tylenol Tab) 650 mg Q4HP PRN PO fever/MILD PAIN (PS 1-4); Start 03/18/18 at 17:15; Stop 03/18/18 at 17:31; Status DC Acetaminophen (Tylenol Tab) 1,000 mg BIDP PRN PO PAIN Last administered on 03/25/18at 07:32; Start 03/20/18 at 17:00 Acetaminophen (Tylenol Tab) 1,000 mg TID PO Last administered on 03/20/18at 07:55; Start 03/18/18 at 21:00; Stop 03/20/18 at 14:40; Status DC Baclofen (Lioresal) 5 mg BIDP PRN PO SPASMS Last administered on 03/24/18at 16:02; Start 03/23/18 at 17:30 Bisacodyl (Dulcolax Suppository) 10 mg DAILYPRN PRN [place] CONSTIPATION; Start 03/18/18 at 17:15 Docusate Sodium (Colace) 100 mg BID PO Last administered on 03/25/18at 09:20; Start 03/18/18 at 21:00 Donepezil HCl (AriCEPT) 10 mg DAILY PO Last administered on 03/25/18at 09:20; Start 03/19/18 at 09:00 Fluticasone Propionate (Flonase 0.05% Nasal [place]) 1 spray BID NARES Last administered on 03/25/18at 09:23; Start 03/22/18 at 21:00 Haloperidol (Haldol) 0.5 mg QHSP PRN PO AGITATION; Start 03/18/18 at 17:30 Levothyroxine Sodium (Synthroid) 50 mcg DAILY@06 PO Last administered on 03/25/18at 05:49; Start 03/19/18 at 06:00 Magnesium Hydroxide (Milk Of Magnesia) 30 ml DAILYPRN PRN PO CONSTIPATION; Start 03/18/18 at 17:15 Memantine (Namenda) 10 mg QHS PO Last administered on 03/24/18 20:42; Start 03/18/18 at 21:00 Ondansetron HCl (Zofran) 4 mg Q6HP PRN PO NAUSEA; Start 03/18/18 at 17:15; Stop 03/19/18 at 18:50; Status DC Oxybutynin Chloride (Ditropan) 5 mg BID PO Last administered on 03/25/18 09:21; Start 03/18/18 at 21:00 Oxycodone/ Acetaminophen (Percocet 5mg/ 325mg Tablet) 1 tab TID PO Last administered on 03/25/18 09:22; Start 03/20/18 at 16:00 Rivaroxaban (Xarelto) 10 mg DAILY@18 PO Last administered on 03/24/18 17:46; Start 03/19/18 at 18:00 Senna (Senokot) 1 tab QHS PO Last administered on 03/24/18 20:42; Start 03/18/18 at 21:00 Sertraline HCl (Zoloft) 25 mg QHS PO Last administered on 03/24/18 20:41; Start 03/18/18 at 21:00 Simvastatin (Zocor) 40 mg QHS PO Last administered on 03/24/18 20:42; Start 03/18/18 at 21:00 Sodium Chloride ([place] Nasal [place]) 2 spray TID NA Last administered on 03/24/18 21:00; Start 03/22/18 at 16:00 Torsemide (Demadex) 40 mg DAILY PO Last administered on 03/25/18 09:22; Start 03/19/18 at 09:00 Trazodone HCl (Desyrel) 25 mg Q6HP PRN PO AGITATION; Start 03/18/18 at 17:30 Trazodone HCl (Desyrel) 25 mg QHSP PRN PO INSOMNIA; Start 03/18/18 at 17:30; Stop 03/19/18 at 18:50; Status DC Trazodone HCl (Desyrel) 50 mg QHS PO Last administered on 03/24/18 20:42; Start 03/19/18 at 21:00 Valacyclovir HCl (Valtrex) 1,000 mg Q12H PO ; Start 03/25/18 at 09:00; Stop 04/01/18 at 08:59 LINDSAY MAXWELL MD Mar 25, 2018 14:21
[2018-03-25] MEDS: SODIUM CHLORIDE NASAL 0.65% SPRAY BTL (OCEAN) SCH ×3 (14:48→20:56)
[2018-03-25] MEDS: valACYclovir HCL 500 MG TAB PO SCH ×2 (14:48→20:53)
[2018-03-25 16:05] VITALS: BP 121/61
[2018-03-25] MEDS: PROPRANOLOL 10 MG TAB PO SCH ×2 (16:10→20:56)
[2018-03-25] MEDS: RIVAROXABAN 10 MG TAB (XARELTO) PO SCH (18:33)
[2018-03-25 20:00] VITALS: BP 119/65
[2018-03-25] MEDS: SENNA 8.6 MG TAB (SENOKOT) PO SCH (20:53)
[2018-03-25] MEDS: SIMVASTATIN 20 MG TAB PO SCH (20:53)
[2018-03-25] MEDS: MEMANTINE 5MG TABLET (NAMENDA) PO SCH (20:54)
[2018-03-25] MEDS: traZODone 50 MG TAB PO SCH (20:54)
[2018-03-25] MEDS: SERTRALINE HCL 25 MG TABLET PO SCH (20:56)
[2018-03-26 06:00] VITALS: BP 115/55
[2018-03-26] MEDS: LEVOTHYROXINE 50MCG TABLET (0.05MG) PO SCH (06:12)
[2018-03-26] MEDS: ACETAMINOPHEN 500 MG TAB PO PRN (06:13)
[2018-03-26 06:36] LABS: HEMATOCRIT 25.2 % (36.0-47.0); MEAN CORPUSCULAR HEMOGLOBIN 29.7 pg (27.0-33.0); MEAN CORPUSCULAR HGB CONC 31.7 g/dl (32.0-36.5); MEAN CORPUSCULAR VOLUME 93.7 fl (80.0-96.0); PLATELET COUNT, AUTOMATED 452 10^3/uL (150-450); RED BLOOD COUNT 2.69 10^6/uL (4.00-5.40)
[2018-03-26 07:01] LABS: BLOOD UREA NITROGEN 18 MG/DL (7-18); CALCIUM LEVEL 8.1 MG/DL (8.8-10.2); CARBON DIOXIDE LEVEL 33 MEQ/L (21-32); CHLORIDE LEVEL 97 MEQ/L (98-107); CREATININE FOR GFR 0.84 MG/DL (0.55-1.30); GLOMERULAR FILTRATION RATE > 60.0 (>39); GLUCOSE, FASTING 102 MG/DL (70-100); POTASSIUM SERUM 3.4 MEQ/L (3.5-5.1); SODIUM LEVEL 137 MEQ/L (136-145)
[2018-03-26] MEDS: valACYclovir HCL 500 MG TAB PO SCH ×2 (08:22→21:11)
[2018-03-26] MEDS: DONEPEZIL 5 MG TAB PO SCH (08:22)
[2018-03-26] MEDS: oxyBUTYnin 5 MG TAB PO SCH ×2 (08:22→21:06)
[2018-03-26] MEDS: PERCOCET 5MG/325MG TAB PO SCH ×3 (08:22→21:07)
[2018-03-26] MEDS: PROPRANOLOL 10 MG TAB PO SCH ×3 (08:23→21:00)
[2018-03-26] MEDS: FLUTICASONE PROP 0.05% NASAL SPRAY 16 GM (FLONASE) NARES SCH ×2 (08:23→21:13)
[2018-03-26] MEDS: DOCUSATE SODIUM 100 MG CAP PO SCH ×2 (08:23→21:12)
[2018-03-26] MEDS: TORSEMIDE 20 MG TAB PO SCH (08:23)
[2018-03-26] MEDS: SODIUM CHLORIDE NASAL 0.65% SPRAY BTL (OCEAN) SCH ×3 (08:24→21:13)
[2018-03-26] MEDS ORDERED: POTASSIUM CHLORIDE 10 MEQ SR TABLET PO ONE (13:30)
--- NOTE | 2018-03-26 13:40 | IPNPDOC ---
Date Seen The patient was seen on 03/26/18. Progress Note HPI: Patient is a 72-year-old female who presented to the ER with complaints of right hip pain after she had fallen off the toilet. Patient was in the bathroom and leaned over and fell off, landing on her right hip. She complained of severe pain at the time. Did not lose consciousness, was awake and called out to family members for help. The pt was found to have Right proximal femur fracture S/P Right hip open reduction, cephalomedullary nail fixation right proximal femur as per Orthopedic Surgery. The pt was transferred to the care of HORACIO Eisenberg, 03/18/18. She is OOB to W/C currently, core maker helper at bedside. Pt states pain is controlled. Denies any fevers, chills, weakness, fatigue, Headache, Chest Pain, Shortness of breath, cough, palpitations, abdominal pain, N/V/D or changes in bowel or bladder habits. PMHx: dementia hypothyroid HTN DLP PE: GEN: 72yoF, appears stated age. No acute distress. Pleasantly confused. HEENT: Normocephalic, atraumatic.Sclera are nonicteric. Conjunctiva without injection. No facial asymmetry. Moist mucous membranes. Neck supple. CHEST: Regular rate and rhythm, +S1, +S2 LUNGS: Clear to auscultation bilaterally. No wheezes, rales, or rhonchi. Breathing appears symmetric and easy. ABD: Round, soft, non-tender, non-distended. +Bowel sounds throughout. EXT: No lower extremity edema appreciated. SKIN: [place], dry, warm. No rashes. NEURO: No focal deficits appreciated. MRI Brain 03/21/18 No acute abnormality. A&P: Patient is a 72-year-old female who presented to the ER with complaints of right hip pain after she had fallen off the toilet. Patient was in the bathroom and leaned over and fell off, landing on her right hip. She complained of severe pain at the time. Did not lose consciousness, was awake and called out to family members for help. The pt was found to have Right proximal femur fracture S/P Right hip open reduction, cephalomedullary nail fixation right proximal femur as per Orthopedic Surgery. The pt was transferred to the care of HORACIO Eisenberg, 03/18/18. 1. Right hip fracture - 2/2 mechanical fall - s/p repair (03/15/[address] Schultz). Mgmt as per orthopedic surgery. Molst form was completed witnessed signed and placed in the chart previously, DNR/DNI. PT/OT/ST as per ARU Pain control as per ARU. Bowel care as per ARU. DVT px Xarelto as per Orthopedic surgery Disposition as per ARU. 2. Leukocytosis. WBC 13.0 Afebrile. Possibly reactive secondary to surgery UA 03/20/18 unremarkable. CXR 03/11/18 NAD. Continue to monitor CBC. Encourage OOB. Encourage I/S. 3. Dementia Aricept/Namenda 4. Hypothyroidism Levothyroxine dose was adjusted to AM, pt had been taking dose at night on a full stomach. Monitor. 5. DLP Simvastatin 6. Depression Sertraline 7. Hypertension torsemide 40 mg po daily. 8. Hypokalemia. po supplement x 1 ordered today. mag level WNL. Recheck in AM. Monitor. 8. Urinary retention Ditropan 9. Anemia. Hgb stable at 8.0. Fe studies, B12, folate pending. FOB. Monitor need for transfusion. 10. Shingles Left Buttock. Valtrex D2 as per ARU attending. VS, I&O, 24H, [place] Vital Signs/I&O Vital Signs Date Time Temp Pulse Resp B/P (MAP) Pulse Ox O2 Delivery O2 Flow Rate FiO2 03/26/18 09:00 18 03/26/18 08:23 82 115/55 03/26/18 06:00 99.0 94 Room Air I&O- Last 24 Hours up to 6 AM 03/26/18 06:00 Intake Total 1140 ml Output Total 1850 ml Balance -710 ml Laboratory Data 24H LABS Laboratory Tests 2 03/26/18 06:09: Nucleated Red Blood Cells % (auto) 0.3H, Anion Gap 7L, Glomerular Filtration Rate > 60.0, Blood Urea Nitrogen 18, Creatinine 0.84, Sodium Level 137, Potassium Level 3.4L, Chloride Level 97L, Carbon Dioxide Level 33H, Calcium Level 8.1L, Iron Level 39L, Total Iron Binding Capacity 217L, Transferrin % Saturation 18.0, Ferritin 176, Vitamin B12 Level 976H CBC/BMP Laboratory Tests 03/26/18 06:09 Red Blood Count 2.69 L, Mean Corpuscular Volume 93.7, Mean Corpuscular Hemoglobin 29.7, Mean Corpuscular Hemoglobin Concent 31.7 L, Red Cell Distribution Width 16.3 H, Calcium Level 8.1 L Microbiology Microbiology 03/20/18 Urine Culture - Final, Complete Thea Mo Mar 26, 2018 13:40
[2018-03-26 14:00] VITALS: BP 125/60
[2018-03-26 17:35] LABS: FOLATE 10.3 NG/ML (>5.4)
[2018-03-26] MEDS: RIVAROXABAN 10 MG TAB (XARELTO) PO SCH (18:05)
--- NOTE | 2018-03-26 18:18 | IPNPDOC ---
PM&R Progress Note DATE OF SERVICE: Mar 26, 2018 Card Table Attendant Progress Note Subjective: Patient seen in therapy and later in her room, stating she was feeling a little less anxious and her confidence was gradually growing. REVIEW OF SYSTEMS: The following is a completed review of systems and has been reviewed. Review of systems otherwise unremarkable. PAIN: Patient self reports right hip pain EYES: Negative for recent vision changes EARS, NOSE, & THROAT: negative for dysphagia, rhinorrhea, or throat pain CARDIOVASCULAR: denies chest pain or palpitations PULMONARY: Negate. Denies shortness of breath GASTROINTESTINAL: denies diarrhea or constipation GENITOURINARY: +urinary retention-improving MUSCULOSKELETAL: right hip fracture NEUROLOGICAL: dementia SKIN: right hip incision, and facial abrasions, vesicular rash left buttock PSYCHIATRIC:dementia and anxiety/depression All other review of systems found to be negative. PHYSICAL EXAMINATION: VITAL SIGNS: Please see below. GENERAL: Pleasant and cooperative. anxious HEENT: PERRL. Extraocular movements intact. Clear conjunctiva, naso-labial folds equal bilat, however left eye smaller with lid droop on the left, unable to raise left eyebrow, or right eyebrow when asked to CARDIOVASCULAR: Regular rate and rhythm. No murmurs, rubs, or gallops LUNGS:Clear to auscultation bilaterally. No wheezes. No rhonchi ABDOMEN: Soft, nontender, nondistended. Positive bowel sounds. Normal active bowel sounds NEUROLOGICAL: Alert and oriented to self, not place or time. Cranial nerves II through XII grossly intact. Sensation intact in CN5 distribution and throughout upper and lower extremities to light touch EXTREMITIES: 5-\5 strength bilateral upper extremities. 5\5 strength right ankle DF and EHL, limited due to pain. 5/5 strength in left lower extremity. SKIN:right hip incision c/d/i, scattered facial scabs (self inflicted)-healing -left buttock vesicular rash in dermatomal pattern ASSESSMENT:72-year-old F with past medical history of dementia who presents status post fall with right hip fracture s/p ORIF. PLAN: 1. 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 Cardiac: pmh HTN, continue BP meds, pmh HLD continue statin medicine consulted 4. Endo: pmh hypothyroidism, has been taking Synthroid incorrectly at night on full stomach, likely not getting metabolized- TSH elevate, FT4 wnl, will not change dose as taking it int he AM instead will likely correct this subclinical hypothyroidism 5. : admission UA and Ucx negative, monitor PVRs, continue oxybutynin 6. Psych: pmh depression continue Zoloft, will try to avoid Haldol and trial standing dose of Trazodone for insomnia -persistent anxiety, will start low dose Propranolol with parameters for anxiety 7. DVT ppx: on xarelto 8. Ortho: s/p right hip fracture, WBAT monitor for blood loss anemia and ortho consulted 9. Heme: iron deficiency anemia- will start oral iron 9. Pain: continue Percocet prn and continue Tylenol 10: ID: mild leukocytosis-left buttock Zoster will continue Valacyclovir 8. Dispo will push back date given slow progression to 04-01-18, goal to home Allergies Coded Allergies: No Known Allergies (Unverified , 03/15/18) Vital Signs Vital Signs Date Time Temp Pulse Resp B/P (MAP) Pulse Ox O2 Delivery O2 Flow Rate FiO2 03/26/18 16:23 60 114/69 03/26/18 16:23 18 03/26/18 14:00 98.1 96 Room Air Laboratory Data CBC/BMP Laboratory Tests 03/26/18 06:09 Red Blood Count 2.69 L, Mean Corpuscular Volume 93.7, Mean Corpuscular Hemoglobin 29.7, Mean Corpuscular Hemoglobin Concent 31.7 L, Red Cell Distribution Width 16.3 H, Calcium Level 8.1 L Labs 24H Laboratory Tests 2 03/26/18 06:09: Nucleated Red Blood Cells % (auto) 0.3H, Anion Gap 7L, Glomerular Filtration Rate > 60.0, Blood Urea Nitrogen 18, Creatinine 0.84, Sodium Level 137, Potassium Level 3.4L, Chloride Level 97L, Carbon Dioxide Level 33H, Calcium Level 8.1L, Iron Level 39L, Total Iron Binding Capacity 217L, Transferrin % Saturation 18.0, Ferritin 176, Vitamin B12 Level 976H, Folate 10.3 Microbiology Microbiology 03/20/18 Urine Culture - Final, Complete Current Medications Current Medications Current Medications Acetaminophen (Tylenol Tab) 650 mg DAILYPRN PRN PO fever/MILD PAIN (PS 1-4); Start 03/18/18 at 17:30; Stop 03/20/18 at 14:40; Status DC Acetaminophen (Tylenol Tab) 650 mg Q4HP PRN PO fever/MILD PAIN (PS 1-4); Start 03/18/18 at 17:15; Stop 03/18/18 at 17:31; Status DC Acetaminophen (Tylenol Tab) 1,000 mg BIDP PRN PO PAIN Last administered on 03/26/18at 06:13; Start 03/20/18 at 17:00 Acetaminophen (Tylenol Tab) 1,000 mg TID PO Last administered on 03/20/18at 07:55; Start 03/18/18 at 21:00; Stop 03/20/18 at 14:40; Status DC Baclofen (Lioresal) 5 mg BIDP PRN PO SPASMS Last administered on 03/24/18at 16:02; Start 03/23/18 at 17:30 Bisacodyl (Dulcolax Suppository) 10 mg DAILYPRN PRN [place] CONSTIPATION; Start 03/18/18 at 17:15 Docusate Sodium (Colace) 100 mg BID PO Last administered on 03/25/18at 20:55; Start 03/18/18 at 21:00 Donepezil HCl (AriCEPT) 10 mg DAILY PO Last administered on 03/26/18at 08:22; Start 03/19/18 at 09:00 Fluticasone Propionate (Flonase 0.05% Nasal [place]) 1 spray BID NARES Last administered on 03/26/18at 08:23; Start 03/22/18 at 21:00 Haloperidol (Haldol) 0.5 mg QHSP PRN PO AGITATION; Start 03/18/18 at 17:30 Levothyroxine Sodium (Synthroid) 50 mcg DAILY@06 PO Last administered on 03/26/18at 06:12; Start 03/19/18 at 06:00 Magnesium Hydroxide (Milk Of Magnesia) 30 ml DAILYPRN PRN PO CONSTIPATION; Sta rt 03/18/18 at 17:15 Memantine (Namenda) 10 mg QHS PO Last administered on 03/25/18at 20:54; Start 03/18/18 at 21:00 Miscellaneous (Unresolved Clarification Entry) SEE LABEL COMMENTS DAILY XX ; Start 03/26/18 at 09:00 Ondansetron HCl (Zofran) 4 mg Q6HP PRN PO NAUSEA; Start 03/18/18 at 17:15; Stop 03/19/18 at 18:50; Status DC Oxybutynin Chloride (Ditropan) 5 mg BID PO Last administered on 03/26/18at 0 8:22; Start 03/18/18 at 21:00 Oxycodone/ Acetaminophen (Percocet 5mg/ 325mg Tablet) 1 tab TID PO Last administered on 03/26/18 16:23; Start 03/20/18 at 16:00 Propranolol HCl (Inderal) 5 mg TID PO Last administered on 03/26/18 16:23; Start 03/25/18 at 16:00 Rivaroxaban (Xarelto) 10 mg DAILY@18 PO Last administered on 03/26/18 18:05; Start 03/19/18 at 18:00 Senna (Senokot) 1 tab QHS PO Last administered on 03/25/18 20:53; Start 03/18/18 at 21:00 Sertraline HCl (Zoloft) 25 mg QHS PO Last administered on 03/25/18 20:56; Start 03/18/18 at 21:00 Simvastatin (Zocor) 40 mg QHS PO Last administered on 03/25/18 20:53; Start 03/18/18 at 21:00 Sodium Chloride ([place] Nasal [place]) 2 spray TID NA Last administered on 03/26/18 16:23; Start 03/22/18 at 16:00 Torsemide (Demadex) 40 mg DAILY PO Last administered on 03/26/18 08:23; Start 03/19/18 at 09:00 Trazodone HCl (Desyrel) 25 mg Q6HP PRN PO AGITATION; Start 03/18/18 at 17:30 Trazodone HCl (Desyrel) 25 mg QHSP PRN PO INSOMNIA; Start 03/18/18 at 17:30; Stop 03/19/18 at 18:50; Status DC Trazodone HCl (Desyrel) 50 mg QHS PO Last administered on 03/25/18at 20:54; Start 03/19/18 at 21:00 Valacyclovir HCl (Valtrex) 1,000 mg Q12H PO Last administered on 03/26/18at 08:22; Start 03/25/18 at 09:00; Stop 04/01/18 at 08:59 LINDSAY MAXWELL MD Mar 26, 2018 18:18
[2018-03-26 20:00] VITALS: BP 106/59
[2018-03-26] MEDS: MEMANTINE 5MG TABLET (NAMENDA) PO SCH (21:06)
[2018-03-26] MEDS: SERTRALINE HCL 25 MG TABLET PO SCH (21:06)
[2018-03-26] MEDS: traZODone 50 MG TAB PO SCH (21:07)
[2018-03-26] MEDS: FERROUS SULFATE 325MG TAB PO SCH (21:11)
[2018-03-26] MEDS: SIMVASTATIN 20 MG TAB PO SCH (21:12)
[2018-03-26] MEDS: SENNA 8.6 MG TAB (SENOKOT) PO SCH (21:12)
[2018-03-27 06:00] VITALS: BP 125/62
[2018-03-27] MEDS: LEVOTHYROXINE 50MCG TABLET (0.05MG) PO SCH (06:13)
[2018-03-27 07:13] LABS: HEMATOCRIT 25.2 % (36.0-47.0); MEAN CORPUSCULAR HEMOGLOBIN 29.5 pg (27.0-33.0); MEAN CORPUSCULAR HGB CONC 31.7 g/dl (32.0-36.5); PLATELET COUNT, AUTOMATED 455 10^3/uL (150-450); RED BLOOD COUNT 2.71 10^6/uL (4.00-5.40); WHITE BLOOD COUNT 11.9 10^3/uL (4.0-10.0)
[2018-03-27 07:37] LABS: BLOOD UREA NITROGEN 16 MG/DL (7-18); CALCIUM LEVEL 8.2 MG/DL (8.8-10.2); CARBON DIOXIDE LEVEL 31 MEQ/L (21-32); CHLORIDE LEVEL 99 MEQ/L (98-107); CREATININE FOR GFR 0.95 MG/DL (0.55-1.30); GLOMERULAR FILTRATION RATE > 60.0 (>39); GLUCOSE, FASTING 97 MG/DL (70-100); POTASSIUM SERUM 3.5 MEQ/L (3.5-5.1); SODIUM LEVEL 137 MEQ/L (136-145)
[2018-03-27] MEDS: DOCUSATE SODIUM 100 MG CAP PO SCH ×2 (08:42→21:00)
[2018-03-27] MEDS: PERCOCET 5MG/325MG TAB PO SCH ×3 (08:43→20:25)
[2018-03-27] MEDS: oxyBUTYnin 5 MG TAB PO SCH ×2 (08:43→20:26)
[2018-03-27] MEDS: valACYclovir HCL 500 MG TAB PO SCH ×2 (08:43→20:25)
[2018-03-27] MEDS: DONEPEZIL 5 MG TAB PO SCH (08:43)
[2018-03-27] MEDS: TORSEMIDE 20 MG TAB PO SCH (08:43)
[2018-03-27] MEDS: FLUTICASONE PROP 0.05% NASAL SPRAY 16 GM (FLONASE) NARES SCH ×2 (08:44→20:26)
[2018-03-27] MEDS: SODIUM CHLORIDE NASAL 0.65% SPRAY BTL (OCEAN) SCH ×3 (08:44→20:26)
[2018-03-27] MEDS: FERROUS SULFATE 325MG TAB PO SCH ×2 (08:44→20:25)
[2018-03-27] MEDS: PROPRANOLOL 10 MG TAB PO SCH ×3 (08:44→20:26)
[2018-03-27] MEDS: POTASSIUM CHLORIDE 10 MEQ SR TABLET PO SCH (13:39)
--- NOTE | 2018-03-27 13:39 | IPNPDOC ---
Date Seen The patient was seen on 03/27/18. Progress Note HPI: Patient is a 72-year-old female who presented to the ER with complaints of right hip pain after she had fallen off the toilet. Patient was in the bathroom and leaned over and fell off, landing on her right hip. She complained of severe pain at the time. Did not lose consciousness, was awake and called out to family members for help. The pt was found to have Right proximal femur fracture S/P Right hip open reduction, cephalomedullary nail fixation right proximal femur as per Orthopedic Surgery. The pt was transferred to the care of HORACIO Eisenberg, 03/18/18. 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 Pt states pain is controlled. Denies any fevers, chills, weakness, fatigue, Headache, Chest Pain, Shortness of breath, cough, palpitations, abdominal pain, N/V/D or changes in bowel or bladder habits. PMHx: dementia hypothyroid HTN DLP PE: GEN: 72yoF, appears stated age. No acute distress. Pleasantly confused. HEENT: Normocephalic, atraumatic.Sclera are nonicteric. Conjunctiva without injection. No facial asymmetry. Moist mucous membranes. Neck supple. CHEST: Regular rate and rhythm, +S1, +S2 LUNGS: Clear to auscultation bilaterally. No wheezes, rales, or rhonchi. Breathing appears symmetric and easy. ABD: Round, soft, non-tender, non-distended. +Bowel sounds throughout. EXT: tr-1mm lower extremity edema appreciated B/L with most occurring where her socks are around pretibial area LEs B/L. SKIN: [place], dry, warm. No rashes. NEURO: No focal deficits appreciated. MRI Brain 03/21/18 No acute abnormality. A&P: Patient is a 72-year-old female who presented to the ER with complaints of right hip pain after she had fallen off the toilet. Patient was in the bathroom and leaned over and fell off, landing on her right hip. She complained of severe pain at the time. Did not lose consciousness, was awake and called out to family members for help. The pt was found to have Right proximal femur fracture S/P Right hip open reduction, cephalomedullary nail fixation right proximal femur as per Orthopedic Surgery. The pt was transferred to the care of Dr Cash, ARU, 03/18/18. 1. Right hip fracture - 2/2 mechanical fall - s/p repair (03/15/[address] Schultz). Mgmt as per orthopedic surgery. Molst form was completed witnessed signed and placed in the chart previously, DNR/DNI. PT/OT/ST as per ARU Pain control as per ARU. Bowel care as per ARU. DVT px Xarelto as per Orthopedic surgery Disposition as per ARU. 2. Leukocytosis. WBC 11.9 Afebrile. Possibly reactive secondary to surgery UA 03/20/18 unremarkable. CXR 03/11/18 NAD. Continue to monitor CBC. Encourage OOB. Encourage I/S. 3. Dementia Aricept/Namenda 4. Hypothyroidism Levothyroxine dose was adjusted to AM, pt had been taking dose at night on a full stomach. Monitor. 5. DLP Simvastatin 6. Depression Sertraline 7. Hypertension torsemide 40 mg po daily. 8. Hypokalemia. po supplement added daily. mag level WNL. Recheck in AM. Monitor. 8. Urinary retention Ditropan 9. Anemia. Hgb stable at 8.0. Fe studies, B12, folate completed, Fe supplement BID. FOB pending. Continue to monitor need for transfusion. 10. Shingles Left Buttock. Valtrex D3 as per ARU attending. VS, I&O, 24H, Fishbone Vital Signs/I&O Vital Signs Date Time Temp Pulse Resp B/P (MAP) Pulse Ox O2 Delivery O2 Flow Rate FiO2 03/27/18 09:20 22 03/27/18 08:44 87 125/62 03/27/18 06:00 99.1 92 Room Air I&O- Last 24 Hours up to 6 AM 03/27/18 06:00 Intake Total 720 ml Output Total 875 ml Balance -155 ml Laboratory Data 24H LABS Laboratory Tests 2 03/27/18 06:46: Nucleated Red Blood Cells % (auto) 0.3H, Anion Gap 7L, Glomerular Filtration Rate > 60.0, Blood Urea Nitrogen 16, Creatinine 0.95, Sodium Level 137, Potassium Level 3.5, Chloride Level 99, Carbon Dioxide Level 31, Calcium Level 8.2L CBC/BMP Laboratory Tests 03/27/18 06:46 Red Blood Count 2.71 L, Mean Corpuscular Volume 93.0, Mean Corpuscular Hemoglobin 29.5, Mean Corpuscular Hemoglobin Concent 31.7 L, Red Cell Distribution Width 17.0 H, Calcium Level 8.2 L Microbiology Microbiology 03/20/18 Urine Culture - Final, Complete Thea Mo Mar 27, 2018 13:39
[2018-03-27 14:00] VITALS: BP 126/72
[2018-03-27] MEDS: RIVAROXABAN 10 MG TAB (XARELTO) PO SCH (17:41)
[2018-03-27 19:49] VITALS: BP 126/70
[2018-03-27] MEDS: SIMVASTATIN 20 MG TAB PO SCH (20:24)
[2018-03-27] MEDS: MEMANTINE 5MG TABLET (NAMENDA) PO SCH (20:25)
[2018-03-27] MEDS: SENNA 8.6 MG TAB (SENOKOT) PO SCH (20:25)
[2018-03-27] MEDS: traZODone 50 MG TAB PO SCH (20:25)
[2018-03-27] MEDS: SERTRALINE HCL 25 MG TABLET PO SCH (20:26)
--- NOTE | 2018-03-27 21:05 | IPNPDOC ---
PM&R Progress Note DATE OF SERVICE: Mar 27, 2018 [employer] Progress Note Subjective: Patient seen in her room, reports she feels anxious, but pain is controlled. REVIEW OF SYSTEMS: The following is a completed review of systems and has been reviewed. Review of systems otherwise unremarkable. PAIN: Patient self reports right hip pain EYES: Negative for recent vision changes EARS, NOSE, & THROAT: negative for dysphagia, rhinorrhea, or throat pain CARDIOVASCULAR: denies chest pain or palpitations PULMONARY: Negate. Denies shortness of breath GASTROINTESTINAL: denies diarrhea or constipation GENITOURINARY: +urinary retention-improving MUSCULOSKELETAL: right hip fracture NEUROLOGICAL: dementia SKIN: right hip incision, and facial abrasions, vesicular rash left buttock PSYCHIATRIC:dementia and anxiety/depression All other review of systems found to be negative. PHYSICAL EXAMINATION: VITAL SIGNS: Please see below. GENERAL: Pleasant and cooperative. anxious HEENT: PERRL. Extraocular movements intact. Clear conjunctiva, naso-labial folds equal bilat, however left eye smaller with lid droop on the left, unable to raise left eyebrow, or right eyebrow when asked to CARDIOVASCULAR: Regular rate and rhythm. No murmurs, rubs, or gallops LUNGS:Clear to auscultation bilaterally. No wheezes. No rhonchi ABDOMEN: Soft, nontender, nondistended. Positive bowel sounds. Normal active bowel sounds NEUROLOGICAL: Alert and oriented to self, not place or time. Cranial nerves II through XII grossly intact. Sensation intact in CN5 distribution and throughout upper and lower extremities to light touch EXTREMITIES: 5-\5 strength bilateral upper extremities. 5\5 strength right ankle DF and EHL, limited due to pain. 5/5 strength in left lower extremity. SKIN:right hip incision c/d/i, scattered facial scabs (self inflicted)-healing -left buttock vesicular rash in dermatomal pattern ASSESSMENT:72-year-old F with past medical history of dementia who presents status post fall with right hip fracture s/p ORIF. PLAN: 1. 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 Cardiac: pmh HTN, continue BP meds, pmh HLD continue statin medicine con sulted 4. Endo: pmh hypothyroidism, has been taking Synthroid incorrectly at night on full stomach, likely not getting metabolized- TSH elevate, FT4 wnl, will not change dose as taking it int he AM instead will likely correct this subclinical hypothyroidism 5. : admission UA and Ucx negative, monitor PVRs, continue oxybutynin 6. Psych: pmh depression continue Zoloft, will try to avoid Haldol and trial standing dose of Trazodone for insomnia -persistent anxiety, will start low dose Propranolol with parameters for anxiety-improving 7. DVT ppx: on xarelto 8. Ortho: s/p right hip fracture, WBAT monitor for blood loss anemia and ortho consulted 9. Heme: iron deficiency anemia- will start oral iron 9. Pain: continue Percocet prn and continue Tylenol 10: ID: mild leukocytosis-left buttock Zoster will continue Valacyclovir- leukocytosis improving 8. Dispo will push back date given slow progression to 04-01-18, goal to home Allergies Coded Allergies: No Known Allergies (Unverified , 03/15/18) Vital Signs Vital Signs Date Time Temp Pulse Resp B/P (MAP) Pulse Ox O2 Delivery O2 Flow Rate FiO2 03/27/18 20:26 65 126/70 03/27/18 20:25 18 03/27/18 19:49 98.0 95 Room Air Laboratory Data CBC/BMP Laboratory Tests 03/27/18 06:46 Red Blood Count 2.71 L, Mean Corpuscular Volume 93.0, Mean Corpuscular Hemoglobin 29.5, Mean Corpuscular Hemoglobin Concent 31.7 L, Red Cell Distribution Width 17.0 H, Calcium Level 8.2 L Labs 24H Laboratory Tests 2 03/27/18 06:46: Nucleated Red Blood Cells % (auto) 0.3H, Anion Gap 7L, Glomerular Filtration Rate > 60.0, Blood Urea Nitrogen 16, Creatinine 0.95, Sodium Level 137, P otassium Level 3.5, Chloride Level 99, Carbon Dioxide Level 31, Calcium Level 8.2L Microbiology Microbiology 03/20/18 Urine Culture - Final, Complete Current Medications Current Medications Current Medications Acetaminophen (Tylenol Tab) 650 mg DAILYPRN PRN PO fever/MILD PAIN (PS 1-4); Start 03/18/18 at 17:30; Stop 03/20/18 at 14:40; Status DC Acetaminophen (Tylenol Tab) 650 mg Q4HP PRN PO fever/MILD PAIN (PS 1-4); Start 03/18/18 at 17:15; Stop 03/18/18 at 17:31; Status DC Acetaminophen (Tylenol Tab) 1,000 mg BIDP PRN PO PAIN Last administered on 03/26/18at 06:13; Start 03/20/18 at 17:00 Acetaminophen (Tylenol Tab) 1,000 mg TID PO Last administered on 03/20/18at 07:55; Start 03/18/18 at 21:00; Stop 03/20/18 at 14:40; Status DC Baclofen (Lioresal) 5 mg BIDP PRN PO SPASMS Last administered on 03/24/18at 16:02; Start 03/23/18 at 17:30 Bisacodyl (Dulcolax Suppository) 10 mg DAILYPRN PRN DE CONSTIPATION; Start 03/18/18 at 17:15 Docusate Sodium (Colace) 100 mg BID PO Last administered on 03/27/18at 08:42; Start 03/18/18 at 21:00 Donepezil HCl (AriCEPT) 10 mg DAILY PO Last administered on 03/27/18at 08:43; Start 03/19/18 at 09:00 Ferrous Sulfate (Ferrous Sulfate) 325 mg BID PO Last administered on 03/27/18at 20:25; Start 03/26/18 at 21:00 Fluticasone Propionate (Flonase 0.05% Nasal [place]) 1 spray BID NARES Last administered on 03/27/18at 20:26; Start 03/22/18 at 21:00 Haloperidol (Haldol) 0.5 mg QHSP PRN PO AGITATION; Start 03/18/18 at 17:30 Levothyroxine Sodium (Synthroid) 50 mcg DAILY@06 PO Last administered on 03/27/18 06:13; Start 03/19/18 at 06:00 Magnesium Hydroxide (Milk Of Magnesia) 30 ml DAILYPRN PRN PO CONSTIPATION; Start 03/18/18 at 17:15 Memantine (Namenda) 10 mg QHS PO Last administered on 03/27/18 20:25; Start 03/18/18 at 21:00 Miscellaneous (Unresolved Clarification Entry) SEE LABEL COMMENTS DAILY XX ; Start 03/26/18 at 09:00 Ondansetron HCl (Zofran) 4 mg Q6HP PRN PO NAUSEA; Start 03/18/18 at 17:15; Stop 03/19/18 at 18:50; Status DC Oxybutynin Chloride (Ditropan) 5 mg BID PO Last administered on 03/27/18 20:26; Start 03/18/18 at 21:00 Oxycodone/ Acetaminophen (Percocet 5mg/ 325mg Tablet) 1 tab TID PO Last administered on 03/27/18 20:25; Start 03/20/18 at 16:00 Potassium Chloride (Micro-K Extencaps) 20 meq DAILY PO Last administered on 03/27/18 13:39; Start 03/27/18 at 09:00 Propranolol HCl (Inderal) 5 mg TID PO Last administered on 03/27/18 20:26; Start 03/25/18 at 16:00 Rivaroxaban (Xarelto) 10 mg DAILY@18 PO Last administered on 03/27/18 17:41; Start 03/19/18 at 18:00 Senna (Senokot) 1 tab QHS PO Last administered on 03/27/18 20:25; Start 03/18/18 at 21:00 Sertraline HCl (Zoloft) 25 mg QHS PO Last administered on 03/27/18 20:26; St art 03/18/18 at 21:00 Simvastatin (Zocor) 40 mg QHS PO Last administered on 03/27/18 20:24; Start at 21:00 Sodium Chloride ([place] Nasal [place]) 2 spray TID NA Last administered on 03/27/18 20:26; Start 03/22/18 at 16:00 Torsemide (Demadex) 40 mg DAILY PO Last administered on 1/17/19at 08:43; Start 03/19/18 at 09:00 Trazodone HCl (Desyrel) 25 mg Q6HP PRN PO AGITATION; Start 03/18/18 at 17:30 Trazodone HCl (Desyrel) 25 mg QHSP PRN PO INSOMNIA; Start 03/18/18 at 17:30; Stop 03/19/18 at 18:50; Status DC Trazodone HCl (Desyrel) 50 mg QHS PO Last administered on 03/27/18at 20:25; Start 03/19/18 at 21:00 Valacyclovir HCl (Valtrex) 1,000 mg Q12H PO Last administered on 03/27/18at 20:25; Start 03/25/18 at 09:00; Stop 04/01/18 at 08:59 LINDSAY MAXWELL MD Mar 27, 2018 21:05
[2018-03-28] MEDS: LEVOTHYROXINE 50MCG TABLET (0.05MG) PO SCH (05:27)
[2018-03-28 06:18] VITALS: BP 122/59
[2018-03-28 07:38] LABS: BLOOD UREA NITROGEN 15 MG/DL (7-18); CALCIUM LEVEL 8.3 MG/DL (8.8-10.2); CARBON DIOXIDE LEVEL 30 MEQ/L (21-32); CHLORIDE LEVEL 100 MEQ/L (98-107); CREATININE FOR GFR 0.94 MG/DL (0.55-1.30); GLOMERULAR FILTRATION RATE > 60.0 (>39); GLUCOSE, FASTING 105 MG/DL (70-100); POTASSIUM SERUM 3.7 MEQ/L (3.5-5.1); SODIUM LEVEL 137 MEQ/L (136-145)
[2018-03-28] MEDS: FLUTICASONE PROP 0.05% NASAL SPRAY 16 GM (FLONASE) NARES SCH ×2 (09:00→21:23)
[2018-03-28] MEDS: SODIUM CHLORIDE NASAL 0.65% SPRAY BTL (OCEAN) SCH ×3 (09:00→21:23)
[2018-03-28] MEDS: PROPRANOLOL 10 MG TAB PO SCH ×3 (09:00→21:22)
[2018-03-28] MEDS: FERROUS SULFATE 325MG TAB PO SCH ×2 (09:06→21:20)
[2018-03-28] MEDS: DOCUSATE SODIUM 100 MG CAP PO SCH ×2 (09:06→21:00)
[2018-03-28] MEDS: oxyBUTYnin 5 MG TAB PO SCH ×2 (09:06→21:22)
[2018-03-28] MEDS: valACYclovir HCL 500 MG TAB PO SCH ×2 (09:06→21:21)
[2018-03-28] MEDS: POTASSIUM CHLORIDE 10 MEQ SR TABLET PO SCH (09:07)
[2018-03-28] MEDS: DONEPEZIL 5 MG TAB PO SCH (09:07)
[2018-03-28] MEDS: TORSEMIDE 20 MG TAB PO SCH (09:07)
[2018-03-28] MEDS: PERCOCET 5MG/325MG TAB PO SCH ×3 (09:09→21:21)
--- NOTE | 2018-03-28 11:51 | IPNPDOC ---
Date Seen The patient was seen on 03/28/18. Progress Note HPI: Patient is a 72-year-old female who presented to the ER with complaints of right hip pain after she had fallen off the toilet. Patient was in the bathroom and leaned over and fell off, landing on her right hip. She complained of severe pain at the time. Did not lose consciousness, was awake and called out to family members for help. The pt was found to have Right proximal femur fracture S/P Right hip open reduction, cephalomedullary nail fixation right proximal femur as per Orthopedic Surgery. The pt was transferred to the care of HORACIO Eisenberg, 03/18/18. 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 Pt denies pain. Denies any fevers, chills, weakness, fatigue, Headache, Chest Pain, Shortness of breath, cough, palpitations, abdominal pain, N/V/D or changes in bowel or bladder habits. PMHx: dementia hypothyroid HTN DLP PE: GEN: 72yoF, appears stated age. No acute distress. Pleasantly confused, anxious at times. HEENT: Normocephalic, atraumatic.Sclera are nonicteric. Conjunctiva without injection. No facial asymmetry. Moist mucous membranes. Neck supple. CHEST: Regular rate and rhythm, +S1, +S2. JVD not visible sitting. LUNGS: Clear to auscultation bilaterally. No wheezes, rales, or rhonchi. Breathing appears symmetric and easy. ABD: Round, soft, non-tender, non-distended. +Bowel sounds throughout. EXT: trace to 1mm lower extremity edema appreciated R>L. SKIN: [place], dry, warm. No rashes. NEURO: No focal deficits appreciated. MRI Brain 03/21/18 No acute abnormality. A&P: Patient is a 72-year-old female who presented to the ER with complaints of right hip pain after she had fallen off the toilet. Patient was in the bathroom and leaned over and fell off, landing on her right hip. She complained of severe pain at the time. Did not lose consciousness, was awake and called out to family members for help. The pt was found to have Right proximal femur fracture S/P Right hip open reduction, cephalomedullary nail fixation right proximal femur as per Orthopedic Surgery. The pt was transferred to the care of Dr Cash, ARU, 03/18/18. 1. Right hip fracture - 2/2 mechanical fall - s/p repair (03/15/[address] Schultz). Mgmt as per orthopedic surgery. Molst form was completed witnessed signed and placed in the chart previously, DNR/DNI. PT/OT/ST as per ARU Pain control as per ARU. Bowel care as per ARU. DVT px Xarelto as per Orthopedic surgery Disposition as per ARU. 2. Leukocytosis. WBC 11.9 Afebrile. Possibly reactive secondary to surgery UA 03/20/18 unremarkable. CXR 03/11/18 NAD. Continue to monitor CBC. Encourage OOB. Encourage I/S. 3. Dementia Aricept/Namenda 4. Hypothyroidism Levothyroxine dose was adjusted to AM, pt had been taking dose at night on a full stomach. Monitor. 5. DLP Simvastatin 6. Depression Sertraline 7. Hypertension. BP 106-126. Does have some LE edema noted, but does not appear to be decompensated. Lungs CTA, JVD not visible sitting. R>L. LE U/S pending. torsemide 40 mg po daily. 8. Hypokalemia. Now WNL. po supplement added daily. mag level WNL. Recheck in BMP AM. Monitor. 8. Urinary retention Ditropan 9. Anemia. Hgb stable at 8.0. Fe studies, B12, folate completed, Fe supplement BID. FOB pending. Continue to monitor need for transfusion. 10. Shingles Left Buttock. Valtrex D4 as per ARU attending. VS, I&O, 24H, Fishbone Vital Signs/I&O Vital Signs Date Time Temp Pulse Resp B/P (MAP) Pulse Ox O2 Delivery O2 Flow Rate FiO2 03/28/18 09:09 24 03/28/18 09:00 70 122/59 03/28/18 06:18 98.9 96 Room Air I&O- Last 24 Hours up to 6 AM 03/28/18 06:00 Intake Total 560 ml Output Total 400 ml Balance 160 ml Laboratory Data 24H LABS Laboratory Tests 2 03/28/18 07:05: Anion Gap 7L, Glomerular Filtration Rate > 60.0, Blood Urea Nitrogen 15, Creatinine 0.94, Sodium Level 137, Potassium Level 3.7, Chloride Level 100, Carbon Dioxide Level 30, Calcium Level 8.3L CBC/BMP Laboratory Tests 03/28/18 07:05 Calcium Level 8.3 L Microbiology Microbiology 03/20/18 Urine Culture - Final, Complete Thea Mo Mar 28, 2018 11:46
[2018-03-28] MEDS: ACETAMINOPHEN 500 MG TAB PO PRN (13:19)
[2018-03-28 14:00] VITALS: BP 113/57
--- NOTE | 2018-03-28 15:44 | REP ---
Duplex extremity venous ultrasound: Bilateral lower extremities. History: Immobility. Findings: The deep veins are anechoic and fully compressible from the groin to the popliteal fossa in the left and right lower extremity. Color flow imaging is homogeneous. Spectral Doppler interrogation demonstrates intact respiratory variation in flow and normal manual augmentation of flow. There is no evidence of deep vein thrombosis. There is a Stevenson's cyst in the right knee 1.3 x 1.5 x 1.1 cm in diameter. Impression: Small right Stevenson's cyst, otherwise negative bilateral lower extremity duplex venous ultrasound. No evidence of deep vein thrombosis. Electronically Signed by Dusty Boone MD 03/28/2018 03:36 P
[2018-03-28] MEDS: RIVAROXABAN 10 MG TAB (XARELTO) PO SCH (16:45)
[2018-03-28 20:00] VITALS: BP 129/62
[2018-03-28] MEDS: traZODone 50 MG TAB PO SCH (21:00)
[2018-03-28] MEDS: MEMANTINE 5MG TABLET (NAMENDA) PO SCH (21:20)
[2018-03-28] MEDS: SENNA 8.6 MG TAB (SENOKOT) PO SCH (21:21)
[2018-03-28] MEDS: SERTRALINE HCL 25 MG TABLET PO SCH (21:21)
[2018-03-28] MEDS: SIMVASTATIN 20 MG TAB PO SCH (21:22)
[2018-03-29 06:00] VITALS: BP 110/59
[2018-03-29] MEDS: LEVOTHYROXINE 50MCG TABLET (0.05MG) PO SCH (06:09)
[2018-03-29 07:31] LABS: HEMATOCRIT 26.5 % (36.0-47.0); HEMOGLOBIN 8.3 g/dl (12.0-15.5); MEAN CORPUSCULAR HEMOGLOBIN 29.4 pg (27.0-33.0); MEAN CORPUSCULAR HGB CONC 31.3 g/dl (32.0-36.5); PLATELET COUNT, AUTOMATED 463 10^3/uL (150-450); RED BLOOD COUNT 2.82 10^6/uL (4.00-5.40); WHITE BLOOD COUNT 11.3 10^3/uL (4.0-10.0)
[2018-03-29 07:54] LABS: CALCIUM LEVEL 8.1 MG/DL (8.8-10.2); CREATININE FOR GFR 0.98 MG/DL (0.55-1.30); GLOMERULAR FILTRATION RATE 59.1 (>39)
[2018-03-29] MEDS: DONEPEZIL 5 MG TAB PO SCH (09:02)
[2018-03-29] MEDS: DOCUSATE SODIUM 100 MG CAP PO SCH ×2 (09:02→22:14)
[2018-03-29] MEDS: valACYclovir HCL 500 MG TAB PO SCH ×2 (09:02→22:13)
[2018-03-29] MEDS: FERROUS SULFATE 325MG TAB PO SCH ×2 (09:03→22:14)
[2018-03-29] MEDS: POTASSIUM CHLORIDE 10 MEQ SR TABLET PO SCH (09:03)
[2018-03-29] MEDS: TORSEMIDE 20 MG TAB PO SCH (09:03)
[2018-03-29] MEDS: oxyBUTYnin 5 MG TAB PO SCH ×2 (09:03→22:15)
[2018-03-29] MEDS: PERCOCET 5MG/325MG TAB PO SCH ×3 (09:04→22:15)
[2018-03-29] MEDS: PROPRANOLOL 10 MG TAB PO SCH ×3 (09:08→22:14)
[2018-03-29] MEDS: SODIUM CHLORIDE NASAL 0.65% SPRAY BTL (OCEAN) SCH ×3 (09:09→22:15)
[2018-03-29] MEDS: FLUTICASONE PROP 0.05% NASAL SPRAY 16 GM (FLONASE) NARES SCH ×2 (09:09→22:16)
[2018-03-29 14:00] VITALS: BP 128/78
--- NOTE | 2018-03-29 15:58 | IPNPDOC ---
PM&R Progress Note DATE OF SERVICE: Mar 28, 2018 Housekeeper Manager Progress Note Subjective: Patient reports she feels slightly more confident, but is still overall very anxious about therapy and her medical condition. REVIEW OF SYSTEMS: The following is a completed review of systems and has been reviewed. Review of systems otherwise unremarkable. PAIN: Patient self reports right hip pain EYES: Negative for recent vision changes EARS, NOSE, & THROAT: negative for dysphagia, rhinorrhea, or throat pain CARDIOVASCULAR: denies chest pain or palpitations PULMONARY: Negate. Denies shortness of breath GASTROINTESTINAL: denies diarrhea or constipation GENITOURINARY: +urinary retention-improving MUSCULOSKELETAL: right hip fracture NEUROLOGICAL: dementia SKIN: right hip incision, and facial abrasions, vesicular rash left buttock PSYCHIATRIC:dementia and anxiety/depression All other review of systems found to be negative. PHYSICAL EXAMINATION: VITAL SIGNS: Please see below. GENERAL: Pleasant and cooperative. anxious HEENT: PERRL. Extraocular movements intact. Clear conjunctiva, naso-labial folds equal bilat, however left eye smaller with lid droop on the left, unable to raise left eyebrow, or right eyebrow when asked to CARDIOVASCULAR: Regular rate and rhythm. No murmurs, rubs, or gallops LUNGS:Clear to auscultation bilaterally. No wheezes. No rhonchi ABDOMEN: Soft, nontender, nondistended. Positive bowel sounds. Normal active bow el sounds NEUROLOGICAL: Alert and oriented to self, not place or time. Cranial nerves II through XII grossly intact. Sensation intact in CN5 distribution and throughout upper and lower extremities to light touch EXTREMITIES: 5-\5 strength bilateral upper extremities. 5\5 strength right ankle DF and EHL, limited due to pain. 5/5 strength in left lower extremity. SKIN:right hip incision c/d/i, scattered facial scabs (self inflicted)-healing -left buttock vesicular rash in dermatomal pattern ASSESSMENT:72-year-old F with past medical history of dementia who presents status post fall with right hip fracture s/p ORIF. PLAN: 1. 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 Cardiac: pmh HTN, continue BP meds, pmh HLD continue statin medicine con sulted 4. Endo: pmh hypothyroidism, has been taking Synthroid incorrectly at night on full stomach, likely not getting metabolized- TSH elevate, FT4 wnl, will not change dose as taking it int he AM instead will likely correct this subclinical hypothyroidism 5. : admission UA and Ucx negative, monitor PVRs, continue oxybutynin 6. Psych: pmh depression continue Zoloft, will try to avoid Haldol and trial standing dose of Trazodone for insomnia -persistent anxiety, will start low dose Propranolol with parameters for anxiety-improving 7. DVT ppx: on xarelto, Dopplers ordered today, negative for DVT, +right Stevenson's cyst 8. Ortho: s/p right hip fracture, WBAT monitor for blood loss anemia and ortho consulted 9. Heme: iron deficiency anemia- will start oral iron 9. Pain: continue Percocet prn and continue Tylenol 10: ID: mild leukocytosis-left buttock Zoster will continue Valacyclovir- leuko cytosis improving 8. Dispo will push back date given slow progression to 04-08-18 given inconsistencies with RW, might need wheelchair in order to safely return home Allergies Coded Allergies: No Known Allergies (Unverified , 03/15/18) Vital Signs Vital Signs Date Time Temp Pulse Resp B/P (MAP) Pulse Ox O2 Delivery O2 Flow Rate FiO2 03/29/18 15:15 19 03/29/18 15:13 64 128/80 03/29/18 06:00 98.0 96 Room Air Laboratory Data CBC/BMP Laboratory Tests 03/29/18 06:43 Red Blood Count 2.82 L, Mean Corpuscular Volume 94.0, Mean Corpuscular Hemoglobin 29.4, Mean Corpuscular Hemoglobin Concent 31.3 L, Red Cell Distribution Width 17.4 H, Calcium Level 8.1 L Labs 24H Laboratory Tests 2 1/19/19 06:43: Nucleated Red Blood Cells % (auto) 0.0, Anion Gap 10, Glomerular Filtration Rate 59.1, Blood Urea Nitrogen 16, Creatinine 0.98, Sodium Level 138, Potassium Level 4.0, Chloride Level 101, Carbon Dioxide Level 27, Calcium Level 8.1L Microbiology Microbiology 03/20/18 Urine Culture - Final, Complete Current Medications Current Medications Current Medications Acetaminophen (Tylenol Tab) 650 mg DAILYPRN PRN PO fever/MILD PAIN (PS 1-4); Start 03/18/18 at 17:30; Stop 03/20/18 at 14:40; Status DC Acetaminophen (Tylenol Tab) 650 mg Q4HP PRN PO fever/MILD PAIN (PS 1-4); Start 03/18/18 at 17:15; Stop 03/18/18 at 17:31; Status DC Acetaminophen (Tylenol Tab) 1,000 mg BIDP PRN PO PAIN Last administered on 03/28/18at 13:19; Start 03/20/18 at 17:00 Acetaminophen (Tylenol Tab) 1,000 mg TID PO Last administered on 03/20/18at 07:55; Start 03/18/18 at 21:00; Stop 03/20/18 at 14:40; Status DC Baclofen (Lioresal) 5 mg BIDP PRN PO SPASMS Last administered on 03/24/18at 16:02; Start 03/23/18 at 17:30 Bisacodyl (Dulcolax Suppository) 10 mg DAILYPRN PRN [place] CONSTIPATION; Start 03/18/18 at 17:15 Docusate Sodium (Colace) 100 mg BID PO Last administered on 03/29/18at 09:02; Start 03/18/18 at 21:00 Donepezil HCl (AriCEPT) 10 mg DAILY PO Last administered on 03/29/18at 09:02; Start 03/19/18 at 09:00 Ferrous Sulfate (Ferrous Sulfate) 325 mg BID PO Last administered on 03/29/18at 09:03; Start 03/26/18 at 21:00 Fluticasone Propionate (Flonase 0.05% Nasal [place]) 1 spray BID NARES Last administered on 03/29/18at 09:09; Start 03/22/18 at 21:00 Haloperidol (Haldol) 0.5 mg QHSP PRN PO AGITATION; Start 03/18/18 at 17:30 Levothyroxine Sodium (Synthroid) 50 mcg DAILY@06 PO Last administered on 03/29/18at 06:09; Start 03/19/18 at 06:00 Magnesium Hydroxide (Milk Of Magnesia) 30 ml DAILYPRN PRN PO CONSTIPATION; Start 03/18/18 at 17:15 Memantine (Namenda) 10 mg QHS PO Last administered on 03/28/18at 21:20; Start 03/18/18 at 21:00 Miscellaneous (Unresolved Clarification Entry) SEE LABEL COMMENTS DAILY XX Last administered on 03/28/18 09:00; Start 03/26/18 at 09:00 Ondansetron HCl (Zofran) 4 mg Q6HP PRN PO NAUSEA; Start 03/18/18 at 17:15; Stop 03/19/18 at 18:50; Status DC Oxybutynin Chloride (Ditropan) 5 mg BID PO Last administered on 03/29/18 09:03; Start 03/18/18 at 21:00 Oxycodone/ Acetaminophen (Percocet 5mg/ 325mg Tablet) 1 tab TID PO Last administered on 03/29/18 15:15; Start 03/20/18 at 16:00 Potassium Chloride (Micro-K Extencaps) 20 meq DAILY PO Last administered on 03/29/18 09:03; Start 03/27/18 at 09:00 Propranolol HCl (Inderal) 5 mg TID PO Last administered on 03/29/18 09:08; Start 03/25/18 at 16:00 Rivaroxaban (Xarelto) 10 mg DAILY@18 PO Last administered on 03/28/18 16:45; Start 03/19/18 at 18:00 Senna (Senokot) 1 tab QHS PO Last administered on 03/28/18 21:21; Start 03/18/18 at 21:00 Sertraline HCl (Zoloft) 25 mg QHS PO Last administered on 03/28/18 21:21; Start 03/18/18 at 21:00 Simvastatin (Zocor) 40 mg QHS PO Last administered on 03/28/18at 21:22; Start 03/18/18 at 21:00 Sodium Chloride ([place] Nasal [place]) 2 spray TID NA Last administered on 03/29/18at 15:16; Start 03/22/18 at 16:00 Torsemide (Demadex) 40 mg DAILY PO Last administered on 03/29/18at 09:03; Start 03/19/18 at 09:00 Trazodone HCl (Desyrel) 25 mg Q6HP PRN PO AGITATION; Start 03/18/18 at 17:30 Trazodone HCl (Desyrel) 25 mg QHSP PRN PO INSOMNIA; Start 03/18/18 at 17:30; Stop 03/19/18 at 18:50; Status DC Trazodone HCl (Desyrel) 50 mg QHS PO Last administered on 03/28/18at 21:00; Start 03/19/18 at 21:00 Valacyclovir HCl (Valtrex) 1,000 mg Q12H PO Last administered on 03/29/18at 09:02; Start 03/25/18 at 09:00; Stop 04/01/18 at 08:59 LINDSAY MAXWELL MD Mar 29, 2018 15:58
[2018-03-29] MEDS: RIVAROXABAN 10 MG TAB (XARELTO) PO SCH (17:37)
[2018-03-29 20:00] VITALS: BP 127/63
[2018-03-29] MEDS: SIMVASTATIN 20 MG TAB PO SCH (22:13)
[2018-03-29] MEDS: traZODone 50 MG TAB PO SCH (22:13)
[2018-03-29] MEDS: SENNA 8.6 MG TAB (SENOKOT) PO SCH (22:13)
[2018-03-29] MEDS: SERTRALINE HCL 25 MG TABLET PO SCH (22:14)
[2018-03-29] MEDS: MEMANTINE 5MG TABLET (NAMENDA) PO SCH (22:14)
[2018-03-30 06:00] VITALS: BP 136/75
[2018-03-30] MEDS: LEVOTHYROXINE 50MCG TABLET (0.05MG) PO SCH (06:06)
[2018-03-30 06:52] LABS: CALCIUM LEVEL 8.4 MG/DL (8.8-10.2); CREATININE FOR GFR 1.04 MG/DL (0.55-1.30); GLOMERULAR FILTRATION RATE 55.1 (>39); POTASSIUM SERUM 3.6 MEQ/L (3.5-5.1)
[2018-03-30] MEDS: PROPRANOLOL 10 MG TAB PO SCH ×3 (09:00→20:17)
[2018-03-30] MEDS: DONEPEZIL 5 MG TAB PO SCH (09:03)
[2018-03-30] MEDS: oxyBUTYnin 5 MG TAB PO SCH ×2 (09:03→20:17)
[2018-03-30] MEDS: valACYclovir HCL 500 MG TAB PO SCH ×2 (09:03→20:15)
[2018-03-30] MEDS: DOCUSATE SODIUM 100 MG CAP PO SCH ×2 (09:03→20:18)
[2018-03-30] MEDS: PERCOCET 5MG/325MG TAB PO SCH ×3 (09:04→20:15)
[2018-03-30] MEDS: POTASSIUM CHLORIDE 10 MEQ SR TABLET PO SCH (09:04)
[2018-03-30] MEDS: TORSEMIDE 20 MG TAB PO SCH (09:04)
[2018-03-30] MEDS: FERROUS SULFATE 325MG TAB PO SCH ×2 (09:04→20:16)
[2018-03-30] MEDS: SODIUM CHLORIDE NASAL 0.65% SPRAY BTL (OCEAN) SCH ×3 (09:06→20:18)
[2018-03-30] MEDS: FLUTICASONE PROP 0.05% NASAL SPRAY 16 GM (FLONASE) NARES SCH ×2 (09:06→20:18)
[2018-03-30 14:00] VITALS: BP 118/70
[2018-03-30] MEDS: RIVAROXABAN 10 MG TAB (XARELTO) PO SCH (18:02)
[2018-03-30] MEDS: SENNA 8.6 MG TAB (SENOKOT) PO SCH (20:15)
[2018-03-30] MEDS: MEMANTINE 5MG TABLET (NAMENDA) PO SCH (20:17)
[2018-03-30] MEDS: SIMVASTATIN 20 MG TAB PO SCH (20:18)
[2018-03-30] MEDS: traZODone 50 MG TAB PO SCH (20:18)
[2018-03-30] MEDS: SERTRALINE HCL 25 MG TABLET PO SCH (20:18)
[2018-03-30 21:00] VITALS: BP 126/70
[2018-03-31] MEDS: LEVOTHYROXINE 50MCG TABLET (0.05MG) PO SCH (05:52)
[2018-03-31 06:00] VITALS: BP 113/58
[2018-03-31 06:09] LABS: BASO % 0.3 % (0.0-1.0); EOS # 0.3 10^3/uL (0.0-0.50); EOS % 2.8 % (0.0-3.0); HEMATOCRIT 25.8 % (36.0-47.0); LYMPH # 2.2 10^3/uL (1.5-4.5); LYMPH % 21.2 % (24.0-44.0); MEAN CORPUSCULAR HEMOGLOBIN 29.5 pg (27.0-33.0); MEAN CORPUSCULAR VOLUME 95.2 fl (80.0-96.0); MONO # 0.8 10^3/uL (0.0-0.8); MONO % 7.9 % (0.0-5.0); NEUTROPHILS # 6.9 10^3/uL (1.8-7.7); NEUTROPHILS % 67.4 % (36.0-66.0); PLATELET COUNT, AUTOMATED 432 10^3/uL (150-450); RED BLOOD COUNT 2.71 10^6/uL (4.00-5.40); WHITE BLOOD COUNT 10.2 10^3/uL (4.0-10.0)
[2018-03-31 06:35] LABS: CREATININE FOR GFR 1.07 MG/DL (0.55-1.30); GLOMERULAR FILTRATION RATE 53.4 (>39); POTASSIUM SERUM 3.4 MEQ/L (3.5-5.1)
[2018-03-31] MEDS: POTASSIUM CHLORIDE 10 MEQ SR TABLET PO SCH (08:17)
[2018-03-31] MEDS: PERCOCET 5MG/325MG TAB PO SCH ×3 (08:28→21:02)
[2018-03-31] MEDS: valACYclovir HCL 500 MG TAB PO SCH ×2 (08:28→21:04)
[2018-03-31] MEDS: PROPRANOLOL 10 MG TAB PO SCH ×3 (08:29→21:00)
[2018-03-31] MEDS: TORSEMIDE 20 MG TAB PO SCH (08:29)
[2018-03-31] MEDS: FERROUS SULFATE 325MG TAB PO SCH ×2 (08:30→21:01)
[2018-03-31] MEDS: oxyBUTYnin 5 MG TAB PO SCH ×2 (08:30→21:01)
[2018-03-31] MEDS: DOCUSATE SODIUM 100 MG CAP PO SCH ×2 (08:30→21:01)
[2018-03-31] MEDS: FLUTICASONE PROP 0.05% NASAL SPRAY 16 GM (FLONASE) NARES SCH ×2 (08:30→21:04)
[2018-03-31] MEDS: DONEPEZIL 5 MG TAB PO SCH (08:30)
[2018-03-31] MEDS: SODIUM CHLORIDE NASAL 0.65% SPRAY BTL (OCEAN) SCH ×3 (08:30→21:11)
[2018-03-31] MEDS ORDERED: POTASSIUM CHLORIDE 10 MEQ SR TABLET PO ONE (10:45)
--- NOTE | 2018-03-31 12:10 | IPNPDOC ---
Date Seen The patient was seen on 03/31/18. Progress Note HPI: Patient is a 72-year-old female who presented to the ER with complaints of right hip pain after she had fallen off the toilet. Patient was in the bathroom and leaned over and fell off, landing on her right hip. She complained of severe pain at the time. Did not lose consciousness, was awake and called out to family members for help. The pt was found to have Right proximal femur fracture S/P Right hip open reduction, cephalomedullary nail fixation right proximal femur as per Orthopedic Surgery. The pt was transferred to the care of HORACIO Eisenberg, 03/18/18. 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 Pt denies pain. Denies any fevers, chills, weakness, fatigue, Headache, Chest Pain, Shortness of breath, cough, palpitations, abdominal pain, N/V/D or changes in bowel or bladder habits. PMHx: dementia hypothyroid HTN DLP PE: GEN: 72yoF, appears stated age. No acute distress. Pleasantly confused, anxious at times. HEENT: Normocephalic, atraumatic.Sclera are nonicteric. Conjunctiva without injection. No facial asymmetry. Moist mucous membranes. Neck supple. CHEST: Regular rate and rhythm, +S1, +S2. JVD not visible sitting. LUNGS: Clear to auscultation bilaterally. No wheezes, rales, or rhonchi. Breathing appears symmetric and easy. ABD: Round, soft, non-tender, non-distended. +Bowel sounds throughout. EXT: trace to 1mm lower extremity edema appreciated R>L. SKIN: [place], dry, warm. No rashes. NEURO: No focal deficits appreciated. MRI Brain 03/21/18 No acute abnormality. LE U/S neg 03/28/18 A&P: Patient is a 72-year-old female who presented to the ER with complaints of right hip pain after she had fallen off the toilet. Patient was in the bathroom and leaned over and fell off, landing on her right hip. She complained of severe pain at the time. Did not lose consciousness, was awake and called out to family members for help. The pt was found to have Right proximal femur fracture S/P Right hip open reduction, cephalomedullary nail fixation right proximal femur as per Orthopedic Surgery. The pt was transferred to the care of Dr Cash, ARU, 03/18/18. 1. Right hip fracture - 2/2 mechanical fall - s/p repair (03/15/[address] Schultz). Mgmt as per orthopedic surgery. Molst form was completed witnessed signed and placed in the chart previously, DNR/DNI. PT/OT/ST as per ARU Pain control as per ARU. Bowel care as per ARU. DVT px Xarelto as per Orthopedic surgery Disposition as per ARU. 2. Leukocytosis. WBC 10.2, downtrending. Afebrile. Possibly reactive secondary to surgery UA 03/20/18 unremarkable. CXR 03/11/18 NAD. Continue to monitor CBC. Encourage OOB. Encourage I/S. 3. Dementia Aricept/Namenda 4. Hypothyroidism Levothyroxine dose was adjusted to AM, pt had been taking dose at night on a full stomach. Monitor. 5. DLP Simvastatin 6. Depression Sertraline 7. Hypertension. BP 108-136. Does have some LE edema noted, but does not appear to be decompensated. Lungs CTA, JVD not visible sitting. R>L. LE U/S neg. torsemide 40 mg po daily. 8. Hypokalemia. po supplement increased this AM. mag level WNL. Recheck in BMP AM. Monitor. 8. Urinary retention Ditropan 9. Anemia. Hgb stable at 8.0. Fe studies, B12, folate completed, Fe supplement BID. Continue to monitor need for transfusion. 10. Shingles Left Buttock. Valtrex as per ARU attending. VS, I&O, 24H, Fishbone Vital Signs/I&O Vital Signs Date Time Temp Pulse Resp B/P (MAP) Pulse Ox O2 Delivery O2 Flow Rate FiO2 03/31/18 09:20 18 03/31/18 08:29 72 108/74 03/31/18 06:00 97.7 98 Room Air I&O- Last 24 Hours up to 6 AM 03/31/18 06:00 Intake Total 180 ml Balance 180 ml Laboratory Data 24H LABS Laboratory Tests 2 03/31/18 05:39: Immature Granulocyte % (Auto) 0.4, White Blood Count 10.2H, Red Blood Count 2.71L, Hemoglobin 8.0L, Hematocrit 25.8L, Mean Corpuscular Volume 95.2, Mean Corpuscular Hemoglobin 29.5, Mean Corpuscular Hemoglobin Concent 31.0L, Red Cell Distribution Width 18.0H, Platelet Count 432, Neutrophils (%) (Auto) 67.4H, Lymphocytes (%) (Auto) 21.2L, Monocytes (%) (Auto) 7.9H, Eosinophils (%) (Auto) 2.8, Basophils (%) (Auto) 0.3, Neutrophils # (Auto) 6.9, Lymphocytes # (Auto) 2.2, Monocytes # (Auto) 0.8, Eosinophils # (Auto) 0.3, Basophils # (Auto) 0.0, Nucleated Red Blood Cells % (auto) 0.0, Anion Gap 8, Glomerular Filtration Rate 53.4, Blood Urea Nitrogen 16, Creatinine 1.07, Sodium Level 141, Potassium Level 3.4L, Chloride Level 105, Carbon Dioxide Level 28, Calcium Level 8.0L CBC/BMP Laboratory Tests 03/31/18 05:39 Red Blood Count 2.71 L, Mean Corpuscular Volume 95.2, Mean Corpuscular Hemoglobin 29.5, Mean Corpuscular Hemoglobin Concent 31.0 L, Red Cell Distribution Width 18.0 H, Neutrophils (%) (Auto) 67.4 H, Lymphocytes (%) (Auto) 21.2 L, Monocytes (%) (Auto) 7.9 H, Eosinophils (%) (Auto) 2.8, Basophils (%) (Auto) 0.3, Neutrophils # (Auto) 6.9, Lymphocytes # (Auto) 2.2, Monocytes # (Auto) 0.8, Eosinophils # (Auto) 0.3, Basophils # (Auto) 0.0, Calcium Level 8.0 L Thea Mo Mar 31, 2018 12:10
[2018-03-31] MEDS: MAGNESIUM GLUCONATE 500 MG TAB PO SCH ×2 (12:25→20:58)
[2018-03-31 14:00] VITALS: BP 124/59
[2018-03-31] MEDS: RIVAROXABAN 10 MG TAB (XARELTO) PO SCH (17:42)
--- NOTE | 2018-03-31 19:38 | IPNPDOC ---
PM&R Progress Note DATE OF SERVICE: Mar 31, 2018 Designated Broker Progress Note Subjective: Patient feeling well and able to ambulate with less assistance with her daughter helping. REVIEW OF SYSTEMS: The following is a completed review of systems and has been reviewed. Review of systems otherwise unremarkable. PAIN: Patient self reports right hip pain EYES: Negative for recent vision changes EARS, NOSE, & THROAT: negative for dysphagia, rhinorrhea, or throat pain CARDIOVASCULAR: denies chest pain or palpitations PULMONARY: Negate. Denies shortness of breath GASTROINTESTINAL: denies diarrhea or constipation GENITOURINARY: +urinary retention-improving MUSCULOSKELETAL: right hip fracture NEUROLOGICAL: dementia SKIN: right hip incision, and facial abrasions, vesicular rash left buttock PSYCHIATRIC:dementia and anxiety/depression All other review of systems found to be negative. PHYSICAL EXAMINATION: VITAL SIGNS: Please see below. GENERAL: Pleasant and cooperative. anxious HEENT: PERRL. Extraocular movements intact. Clear conjunctiva, naso-labial folds equal bilat, however left eye smaller with lid droop on the left, unable to ra ise left eyebrow, or right eyebrow when asked to CARDIOVASCULAR: Regular rate and rhythm. No murmurs, rubs, or gallops LUNGS:Clear to auscultation bilaterally. No wheezes. No rhonchi ABDOMEN: Soft, nontender, nondistended. Positive bowel sounds. Normal active bowel sounds NEUROLOGICAL: Alert and oriented to self, not place or time. Cranial nerves II through XII grossly intact. Sensation intact in CN5 distribution and throughout upper and lower extremities to light touch EXTREMITIES: 5-\5 strength bilateral upper extremities. 5\5 strength right ankle DF and EHL, limited due to pain. 5/5 strength in left lower extremity. SKIN:right hip incision c/d/i, scattered facial scabs (self inflicted)-healing -left buttock vesicular rash in dermatomal pattern ASSESSMENT:72-year-old F with past medical history of dementia who presents status post fall with right hip fracture s/p ORIF. PLAN: 1. 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 Cardiac: pmh HTN, continue BP meds, pmh HLD continue statin medicine consulted 4. Endo: pmh hypothyroidism, has been taking Synthroid incorrectly at night on full stomach, likely not getting metabolized- TSH elevate, FT4 wnl, will not change dose as taking it int he AM instead will likely correct this subclinical hypothyroidism 5. : admission UA and Ucx negative, monitor PVRs, continue oxybutynin- will recheck UA for persistent leukocytosis 6. Psych: pmh depression continue Zoloft, will try to avoid Haldol and trial standing dose of Trazodone for insomnia -persistent anxiety, will start low dose Propranolol with parameters for anxiety-improving 7. DVT ppx: on xarelto, Dopplers ordered today, negative for DVT, +right Stevenson's cyst 8. Ortho: s/p right hip fracture, WBAT monitor for blood loss anemia and ortho consulted 9. Heme: iron deficiency anemia- will start oral iron 9. Pain: continue Percocet prn and continue Tylenol 10: ID: mild leukocytosis-left buttock Zoster will continue Valacyclovir- leukocytosis improving 8. Dispo will push back date given slow progression to 04-08-18 given inc onsistencies with RW, might need wheelchair in order to safely return home Allergies Coded Allergies: No Known Allergies (Unverified , 03/15/18) Vital Signs Vital Signs Date Time Temp Pulse Resp B/P (MAP) Pulse Ox O2 Delivery O2 Flow Rate FiO2 03/31/18 18:38 18 03/31/18 17:42 78 110/62 03/31/18 14:00 97.9 98 03/31/18 06:00 Room Air Laboratory Data CBC/BMP Laboratory Tests 03/31/18 05:39 Red Blood Count 2.71 L, Mean Corpuscular Volume 95.2, Mean Corpuscular Hemoglobin 29.5, Mean Corpuscular Hemoglobin Concent 31.0 L, Red Cell Distribution Width 18.0 H, Neutrophils (%) (Auto) 67.4 H, Lymphocytes (%) (Auto) 21.2 L, Monocytes (%) (Auto) 7.9 H, Eosinophils (%) (Auto) 2.8, Basophils (%) (Auto) 0.3, Neutrophils # (Auto) 6.9, Lymphocytes # (Auto) 2.2, Monocytes # (Auto) 0.8, Eosinophils # (Auto) 0.3, Basophils # (Auto) 0.0, Calcium Level 8.0 L Labs 24H Laboratory Tests 2 03/31/18 05:39: Immature Granulocyte % (Auto) 0.4, White Blood Count 10.2H, Red Blood Count 2.71L, Hemoglobin 8.0L, Hematocrit 25.8L, Mean Corpuscular Volume 95.2, Mean Corpuscular Hemoglobin 29.5, Mean Corpuscular Hemoglobin Concent 31.0L, Red Cell Distribution Width 18.0H, Platelet Count 432, Neutrophils (%) (Auto) 67.4H, Lymp hocytes (%) (Auto) 21.2L, Monocytes (%) (Auto) 7.9H, Eosinophils (%) (Auto) 2.8, Basophils (%) (Auto) 0.3, Neutrophils # (Auto) 6.9, Lymphocytes # (Auto) 2.2, Monocytes # (Auto) 0.8, Eosinophils # (Auto) 0.3, Basophils # (Auto) 0.0, Nucleated Red Blood Cells % (auto) 0.0, Anion Gap 8, Glomerular Filtration Rate 53.4, Blood Urea Nitrogen 16, Creatinine 1.07, Sodium Level 141, Potassium Level 3.4L, Chloride Level 105, Carbon Dioxide Level 28, Calcium Level 8.0L 03/31/18 17:46: Urine Color YELLOW, Urine Appearance CLOUDYH, Urine pH 6.0, Urine Specific [place] 1.010, Urine Protein NEGATIVE, Urine Glucose (UA) NEGATIVE, Urine Ketones NEGATIVE, Urine Blood NEGATIVE, Urine Nitrite POSITIVEH, Urine Bilirubin NEGATIVE, Urine Urobilinogen 0.2, Urine Leukocyte Esterase 3+H, Urine WBC (Auto) TNTCH, Urine RBC (Auto) 5H, Urine Hyaline Casts (Auto) 3, Urine Bacteria (Auto) 3+H, Urine Squamous Epithelial Cells 0, Urine Mucus (Auto) SMALL, Urine Yeast- Like Cells (Auto) SMALLH, Urine Sperm (Auto) Microbiology Microbiology 03/31/18 Urine Culture, Received Pending Current Medications Current Medications Current Medications Acetaminophen (Tylenol Tab) 650 mg DAILYPRN PRN PO fever/MILD PAIN (PS 1-4); Start 03/18/18 at 17:30; Stop 03/20/18 at 14:40; Status DC Acetaminophen (Tylenol Tab) 650 mg Q4HP PRN PO fever/MILD PAIN (PS 1-4); Start 03/18/18 at 17:15; Stop 03/18/18 at 17:31; Status DC Acetaminophen (Tylenol Tab) 1,000 mg BIDP PRN PO PAIN Last administered on 03/28/18at 13:19; Start 03/20/18 at 17:00 Acetaminophen (Tylenol Tab) 1,000 mg TID PO Last administered on 03/20/18at 07:55; Start 03/18/18 at 21:00; Stop 03/20/18 at 14:40; Status DC Baclofen (Lioresal) 5 mg BIDP PRN PO SPASMS Last administered on 03/24/18at 16:02; Start 03/23/18 at 17:30 Bisacodyl (Dulcolax Suppository) 10 mg DAILYPRN PRN [place] CONSTIPATION; Start 03/18/18 at 17:15 Docusate Sodium (Colace) 100 mg BID PO Last administered on 03/31/18at 08:30; Start 03/18/18 at 21:00 Donepezil HCl (AriCEPT) 10 mg DAILY PO Last administered on 03/31/18at 08:30; Start 03/19/18 at 09:00 Ferrous Sulfate (Ferrous Sulfate) 325 mg BID PO Last administered on 03/31/18at 08:30; Start 03/26/18 at 21:00 Fluticasone Propionate (Flonase 0.05% Nasal [place]) 1 spray BID NARES Last administered on 03/31/18at 08:30; Start 03/22/18 at 21:00 Haloperidol (Haldol) 0.5 mg QHSP PRN PO AGITATION; Start 03/18/18 at 17:30 Levothyroxine Sodium (Synthroid) 50 mcg DAILY@06 PO Last administered on 03/31/18at 05:52; Start 03/19/18 at 06:00 Magnesium Gluconate (Magnesium Gluconate) 500 mg BID PO Last administered on 03/31/18at 12:25; Start 03/31/18 at 09:00 Magnesium Hydroxide (Milk Of Magnesia) 30 ml DAILYPRN PRN PO CONSTIPATION Last administered on 03/31/18at 09:25; Start 03/18/18 at 17:15 Memantine (Namenda) 10 mg QHS PO Last administered on 03/30/18at 20:17; Start 03/18/18 at 21:00 Miscellaneous (Unresolved Clarification Entry) SEE LABEL COMMENTS DAILY XX Last administered on 03/28/18at 09:00; Start 03/26/18 at 09:00; Stop 03/31/18 at 09:02; Status DC Miscellaneous (Unresolved Clarification Entry) SEE LABEL COMMENTS DAILY XX ; Start 03/31/18 at 09:00; Status Cancel Ondansetron HCl (Zofran) 4 mg Q6HP PRN PO NAUSEA; Start 03/18/18 at 17:15; Stop 03/19/18 at 18:50; Status DC Oxybutynin Chloride (Ditropan) 5 mg BID PO Last administered on 03/31/18at 08:30; Start 03/18/18 at 21:00 Oxycodone/ Acetaminophen (Percocet 5mg/ 325mg Tablet) 1 tab TID PO Last administered on 03/31/18at 17:42; Start 03/20/18 at 16:00 Potassium Chloride (Micro-K Extencaps) 20 meq DAILY PO Last administered on 03/31/18at 08:17; Start 03/27/18 at 09:00; Stop 03/31/18 at 10:34; Status DC Potassium Chloride (Micro-K Extencaps) 40 meq DAILY PO ; Start 04/01/18 at 09:00 Propranolol HCl (Inderal) 5 mg TID PO Last administered on 03/30/18at 20:17; Start 03/25/18 at 16:00 Rivaroxaban (Xarelto) 10 mg DAILY@18 PO Last administered on 03/31/18at 17:42; Start 03/19/18 at 18:00 Senna (Senokot) 1 tab QHS PO Last administered on 03/30/18at 20:15; Start 03/18/18 at 21:00 Sertraline HCl (Zoloft) 25 mg QHS PO Last administered on 03/30/18at 20:18; Start 03/18/18 at 21:00 Simvastatin (Zocor) 40 mg QHS PO Last administered on 03/30/18at 20:18; Start 03/18/18 at 21:00 Sodium Chloride ([place] Nasal [place]) 2 spray TID NA Last administered on 03/31/18 at 16:00; Start 03/22/18 at 16:00 Torsemide (Demadex) 40 mg DAILY PO Last administered on 03/31/18at 08:29; Start 03/19/18 at 09:00 Trazodone HCl (Desyrel) 25 mg Q6HP PRN PO AGITATION; Start 03/18/18 at 17:30 Trazodone HCl (Desyrel) 25 mg QHSP PRN PO INSOMNIA; Start 03/18/18 at 17:30; Stop 03/19/18 at 18:50; Status DC Trazodone HCl (Desyrel) 50 mg QHS PO Last administered on 03/30/18at 20:18; Start 03/19/18 at 21:00 Valacyclovir HCl (Valtrex) 1,000 mg Q12H PO Last administered on 03/31/18at 08:28; Start 03/25/18 at 09:00; Stop 04/01/18 at 08:59 LINDSAY MAXWELL MD Mar 31, 2018 19:38
[2018-03-31 20:30] VITALS: BP 118/64
[2018-03-31] MEDS: LevoFLOXacin 250 MG TABLET PO SCH (20:58)
[2018-03-31] MEDS: SERTRALINE HCL 25 MG TABLET PO SCH (20:58)
[2018-03-31] MEDS: SIMVASTATIN 20 MG TAB PO SCH (20:58)
[2018-03-31] MEDS: SENNA 8.6 MG TAB (SENOKOT) PO SCH (21:01)
[2018-03-31] MEDS: MEMANTINE 5MG TABLET (NAMENDA) PO SCH (21:02)
[2018-03-31] MEDS: traZODone 50 MG TAB PO SCH (21:04)
[2018-04-01] MEDS: LEVOTHYROXINE 50MCG TABLET (0.05MG) PO SCH (05:36)
[2018-04-01 05:55] VITALS: BP 118/52
[2018-04-01 06:40] LABS: BASO % 0.3 % (0.0-1.0); EOS # 0.3 10^3/uL (0.0-0.50); EOS % 2.8 % (0.0-3.0); HEMATOCRIT 27.8 % (36.0-47.0); HEMOGLOBIN 8.7 g/dl (12.0-15.5); LYMPH # 1.7 10^3/uL (1.5-4.5); LYMPH % 17.4 % (24.0-44.0); MEAN CORPUSCULAR HEMOGLOBIN 30.4 pg (27.0-33.0); MEAN CORPUSCULAR HGB CONC 31.3 g/dl (32.0-36.5); MEAN CORPUSCULAR VOLUME 97.2 fl (80.0-96.0); MONO # 0.8 10^3/uL (0.0-0.8); MONO % 7.7 % (0.0-5.0); NEUTROPHILS # 6.9 10^3/uL (1.8-7.7); NEUTROPHILS % 71.4 % (36.0-66.0); PLATELET COUNT, AUTOMATED 436 10^3/uL (150-450); RED BLOOD COUNT 2.86 10^6/uL (4.00-5.40); WHITE BLOOD COUNT 9.7 10^3/uL (4.0-10.0)
[2018-04-01 07:02] LABS: CALCIUM LEVEL 8.2 MG/DL (8.8-10.2); CREATININE FOR GFR 1.02 MG/DL (0.55-1.30); GLOMERULAR FILTRATION RATE 56.4 (>39); MAGNESIUM LEVEL 2.4 MG/DL (1.8-2.4)
[2018-04-01] MEDS: MAGNESIUM GLUCONATE 500 MG TAB PO SCH ×2 (08:12→20:12)
[2018-04-01] MEDS: POTASSIUM CHLORIDE 10 MEQ SR TABLET PO SCH (08:13)
[2018-04-01] MEDS: DOCUSATE SODIUM 100 MG CAP PO SCH ×2 (08:13→20:13)
[2018-04-01] MEDS: DONEPEZIL 5 MG TAB PO SCH (08:13)
[2018-04-01] MEDS: TORSEMIDE 20 MG TAB PO SCH (08:13)
[2018-04-01] MEDS: FLUTICASONE PROP 0.05% NASAL SPRAY 16 GM (FLONASE) NARES SCH ×2 (08:14→20:14)
[2018-04-01] MEDS: PERCOCET 5MG/325MG TAB PO SCH ×3 (08:14→20:13)
[2018-04-01] MEDS: oxyBUTYnin 5 MG TAB PO SCH ×2 (08:14→20:13)
[2018-04-01] MEDS: FERROUS SULFATE 325MG TAB PO SCH ×2 (08:14→20:13)
[2018-04-01] MEDS: SODIUM CHLORIDE NASAL 0.65% SPRAY BTL (OCEAN) SCH ×3 (08:15→20:14)
[2018-04-01] MEDS: PROPRANOLOL 10 MG TAB PO SCH ×3 (08:17→20:13)
[2018-04-01 14:00] VITALS: BP 111/59
[2018-04-01] MEDS: RIVAROXABAN 10 MG TAB (XARELTO) PO SCH (18:03)
--- NOTE | 2018-04-01 19:00 | IPNPDOC ---
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 REVIEW OF SYSTEMS: The following is a completed review of systems and has been reviewed. Review of systems otherwise unremarkable. PAIN: Patient self reports right hip pain EYES: Negative for recent vision changes EARS, NOSE, & THROAT: negative for dysphagia, rhinorrhea, or throat pain CARDIOVASCULAR: denies chest pain or palpitations PULMONARY: Negate. Denies shortness of breath GASTROINTESTINAL: denies diarrhea or constipation GENITOURINARY: +urinary retention-improving MUSCULOSKELETAL: right hip fracture NEUROLOGICAL: dementia SKIN: right hip incision, and facial abrasions, vesicular rash left buttock PSYCHIATRIC:dementia and anxiety/depression All other review of systems found to be negative. PHYSICAL EXAMINATION: VITAL SIGNS: Please see below. GENERAL: Pleasant and cooperative. anxious HEENT: PERRL. Extraocular movements intact. Clear conjunctiva, naso-labial folds equal bilat, however left eye smaller with lid droop on the left, unable to raise left eyebrow, or right eyebrow when asked to CARDIOVASCULAR: Regular rate and rhythm. No murmurs, rubs, or gallops LUNGS:Clear to auscultation bilaterally. No wheezes. No rhonchi ABDOMEN: Soft, nontender, nondistended. Positive bowel sounds. Normal active bowel sounds NEUROLOGICAL: Alert and oriented to self, not place or time. Cranial nerves II through XII grossly intact. Sensation intact in CN5 distribution and throughout upper and lower extremities to light touch EXTREMITIES: 5-\5 strength bilateral upper extremities. 5\5 strength right ankle DF and EHL, limited due to pain. 5/5 strength in left lower extremity. SKIN:right hip incision c/d/i, scattered facial scabs (self inflicted)-healing -left buttock vesicular rash in dermatomal pattern ASSESSMENT:72-year-old F with past medical history of dementia who presents status post fall with right hip fracture s/p ORIF. PLAN: 1. 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 Cardiac: pmh HTN, continue BP meds, pmh HLD continue statin medicine consulted 4. Endo: pmh hypothyroidism, has been taking Synthroid incorrectly at night on full stomach, likely not getting metabolized- TSH elevate, FT4 wnl, will not change dose as taking it int he AM instead will likely correct this subclinical hypothyroidism 5. : admission UA and Ucx negative, monitor PVRs, continue oxybutynin- repeat Ucx + MRSA, BActrim started 6. Psych: pmh depression continue Zoloft, will try to avoid Haldol and trial standing dose of Trazodone for insomnia -persistent anxiety, will start low dose Propranolol with parameters for anxiety-improving 7. DVT ppx: on xarelto, Dopplers ordered today, negative for DVT, +right Stevenson's cyst 8. Ortho: s/p right hip fracture, WBAT monitor for blood loss anemia and ortho consulted 9. Heme: iron deficiency anemia- will start oral iron 9. Pain: continue Percocet prn and continue Tylenol 10: ID: mild leukocytosis-left buttock Zoster will continue Valacyclovir- leukocytosis improving 8. Dispo will push back date given slow progression to 04-08-18 given inc onsistencies with RW, might need wheelchair in order to safely return home Allergies Coded Allergies: No Known Allergies (Unverified , 03/15/18) Vital Signs Vital Signs Date Time Temp Pulse Resp B/P (MAP) Pulse Ox O2 Delivery O2 Flow Rate FiO2 04/01/18 16:08 18 04/01/18 15:36 82 108/60 04/01/18 14:00 97.6 99 Room Air Laboratory Data CBC/BMP Laboratory Tests 04/01/18 06:16 Red Blood Count 2.86 L, Mean Corpuscular Volume 97.2 H, Mean Corpuscular Hemoglobin 30.4, Mean Corpuscular Hemoglobin Concent 31.3 L, Red Cell Distribution Width 18.2 H, Neutrophils (%) (Auto) 71.4 H, Lymphocytes (%) (Auto) 17.4 L, Monocytes (%) (Auto) 7.7 H, Eosinophils (%) (Auto) 2.8, Basophils (%) (Auto) 0.3, Neutrophils # (Auto) 6.9, Lymphocytes # (Auto) 1.7, Monocytes # (Aut o) 0.8, Eosinophils # (Auto) 0.3, Basophils # (Auto) 0.0, Calcium Level 8.2 L Labs 24H Laboratory Tests 2 04/01/18 06:16: Immature Granulocyte % (Auto) 0.4, White Blood Count 9.7, Red Blood Count 2.86L, Hemoglobin 8.7L, Hematocrit 27.8L, Mean Corpuscular Volume 97.2H, Mean Corpuscular Hemoglobin 30.4, Mean Corpuscular Hemoglobin Concent 31.3L, Red Cell Distribution Width 18.2H, Platelet Count 436, Neutrophils (%) (Auto) 71.4H, Lymphocytes (%) (Auto) 17.4L, Monocytes (%) (Auto) 7.7H, Eosinophils (%) (Auto) 2.8, Basophils (%) (Auto) 0.3, Neutrophils # (Auto) 6.9, Lymphocytes # (Auto) 1.7, Monocytes # (Auto) 0.8, Eosinophils # (Auto) 0.3, Basophils # (Auto) 0.0, Nucleated Red Blood Cells % (auto) 0.0, Anion Gap 7L, Glomerular Filtration Rate 56.4, Blood Urea Nitrogen 15, Creatinine 1.02, Sodium Level 138, Potassium Level 4.0, Chloride Level 103, Carbon Dioxide Level 28, Calcium Level 8.2L, Magnesium Level 2.4 Microbiology Microbiology 03/31/18 Urine Culture - Preliminary, Resulted Staphylococcus Aureus Current Medications Current Medications Current Medications Acetaminophen (Tylenol Tab) 650 mg DAILYPRN PRN PO fever/MILD PAIN (PS 1-4); Start 03/18/18 at 17:30; Stop 03/20/18 at 14:40; Status DC Acetaminophen (Tylenol Tab) 650 mg Q4HP PRN PO fever/MILD PAIN (PS 1-4); Start 03/18/18 at 17:15; Stop 03/18/18 at 17:31; Status DC Acetaminophen (Tylenol Tab) 1,000 mg BIDP PRN PO PAIN Last administered on 03/28/18 13:19; Start 03/20/18 at 17:00 Acetaminophen (Tylenol Tab) 1,000 mg TID PO Last administered on 03/20/18 07:55; Start 03/18/18 at 21:00; Stop 03/20/18 at 14:40; Status DC Baclofen (Lioresal) 5 mg BIDP PRN PO SPASMS Last administered on 03/24/18 16:02; Start 03/23/18 at 17:30 Bisacodyl (Dulcolax Suppository) 10 mg DAILYPRN PRN [place] CONSTIPATION; Start 03/18/18 at 17:15 Docusate Sodium (Colace) 100 mg BID PO Last administered on 04/01/18 08:13; Start 03/18/18 at 21:00 Donepezil HCl (AriCEPT) 10 mg DAILY PO Last administered on 04/01/18 08:13; Start 03/19/18 at 09:00 Ferrous Sulfate (Ferrous Sulfate) 325 mg BID PO Last administered on 04/01/18 08:14; Start 03/26/18 at 21:00 Fluticasone Propionate (Flonase 0.05% Nasal [place]) 1 spray BID NARES Last administered on 04/01/18 08:14; Start 03/22/18 at 21:00 Haloperidol (Haldol) 0.5 mg QHSP PRN PO AGITATION; Start 03/18/18 at 17:30 Levofloxacin (Levaquin) 250 mg QHS PO Last administered on 03/31/18 20:58; Start 03/31/18 at 21:00; Stop 04/02/18 at 21:01 Levothyroxine Sodium (Synthroid) 50 mcg DAILY@06 PO Last administered on 04/01/18 05:36; Start 03/19/18 at 06:00 Magnesium Gluconate (Magnesium Gluconate) 500 mg BID PO Last administered on 04/01/18 08:12; Start 03/31/18 at 09:00 Magnesium Hydroxide (Milk Of Magnesia) 30 ml DAILYPRN PRN PO CONSTIPATION Last administered on 03/31/18 09:25; Start 03/18/18 at 17:15 Memantine (Namenda) 10 mg QHS PO Last administered on 03/31/18at 21:02; Start 03/18/18 at 21:00 Miscellaneous (Unresolved Clarification Entry) SEE LABEL COMMENTS DAILY XX Last administered on 03/28/18at 09:00; Start 03/26/18 at 09:00; Stop 03/31/18 at 09:02; Status DC Miscellaneous (Unresolved Clarification Entry) SEE LABEL COMMENTS DAILY XX ; Start 03/31/18 at 09:00; Status Cancel Ondansetron HCl (Zofran) 4 mg Q6HP PRN PO NAUSEA; Start 03/18/18 at 17:15; Stop 03/19/18 at 18:50; Status DC Oxybutynin Chloride (Ditropan) 5 mg BID PO Last administered on 04/01/18 08:14; Start 03/18/18 at 21:00 Oxycodone/ Acetaminophen (Percocet 5mg/ 325mg Tablet) 1 tab TID PO Last administered on 04/01/18 15:38; Start 03/20/18 at 16:00 Potassium Chloride (Micro-K Extencaps) 20 meq DAILY PO Last administered on 03/31/18at 08:17; Start 03/27/18 at 09:00; Stop 03/31/18 at 10:34; Status DC Potassium Chloride (Micro-K Extencaps) 40 meq DAILY PO Last administered on 04/01/18 08:13; Start 04/01/18 at 09:00 Propranolol HCl (Inderal) 5 mg TID PO Last administered on 03/30/18 20:17; Start 03/25/18 at 16:00 Rivaroxaban (Xarelto) 10 mg DAILY@18 PO Last administered on 04/01/18 18:03; Start 03/19/18 at 18:00 Senna (Senokot) 1 tab QHS PO Last administered on 03/31/18 21:01; Start 03/18/18 at 21:00 Sertraline HCl (Zoloft) 25 mg QHS PO Last administered on 03/31/18 20:58; Start 03/18/18 at 21:00 Simvastatin (Zocor) 40 mg QHS PO Last administered on 03/31/18 20:58; Start 03/18/18 at 21:00 Sodium Chloride ([place] Nasal [place]) 2 spray TID NA Last administered on 1/22/19at 15:38; Start 03/22/18 at 16:00 Torsemide (Demadex) 40 mg DAILY PO Last administered on 04/01/18at 08:13; Start 03/19/18 at 09:00 Trazodone HCl (Desyrel) 25 mg Q6HP PRN PO AGITATION Last administered on 03/31/18at 21:01; Start 03/18/18 at 17:30 Trazodone HCl (Desyrel) 25 mg QHSP PRN PO INSOMNIA; Start 03/18/18 at 17:30; Stop 03/19/18 at 18:50; Status DC Trazodone HCl (Desyrel) 50 mg QHS PO Last administered on 03/31/18at 21:04; Start 03/19/18 at 21:00 Valacyclovir HCl (Valtrex) 1,000 mg Q12H PO Last administered on 03/31/18at 21:04; Start 03/25/18 at 09:00; Stop 04/01/18 at 08:59 LINDSAY MAXWELL MD Apr 01, 2018 19:00
[2018-04-01 20:00] VITALS: BP 117/69
[2018-04-01] MEDS: SENNA 8.6 MG TAB (SENOKOT) PO SCH (20:12)
[2018-04-01] MEDS: traZODone 50 MG TAB PO SCH (20:12)
[2018-04-01] MEDS: SIMVASTATIN 20 MG TAB PO SCH (20:12)
[2018-04-01] MEDS: SERTRALINE HCL 25 MG TABLET PO SCH (20:13)
[2018-04-01] MEDS: MEMANTINE 5MG TABLET (NAMENDA) PO SCH (20:13)
[2018-04-01] MEDS: LevoFLOXacin 250 MG TABLET PO SCH (20:13)
[2018-04-02 06:00] VITALS: BP 114/59
[2018-04-02] MEDS: LEVOTHYROXINE 50MCG TABLET (0.05MG) PO SCH (06:01)
[2018-04-02] MEDS: PROPRANOLOL 10 MG TAB PO SCH ×3 (08:12→21:39)
[2018-04-02] MEDS: oxyBUTYnin 5 MG TAB PO SCH ×2 (08:12→21:37)
[2018-04-02] MEDS: MAGNESIUM GLUCONATE 500 MG TAB PO SCH ×2 (08:13→21:41)
[2018-04-02] MEDS: POTASSIUM CHLORIDE 10 MEQ SR TABLET PO SCH (08:13)
[2018-04-02] MEDS: DONEPEZIL 5 MG TAB PO SCH (08:13)
[2018-04-02] MEDS: DOCUSATE SODIUM 100 MG CAP PO SCH ×2 (08:13→21:40)
[2018-04-02] MEDS: PERCOCET 5MG/325MG TAB PO SCH ×3 (08:14→21:38)
[2018-04-02] MEDS: FERROUS SULFATE 325MG TAB PO SCH ×2 (08:14→21:40)
[2018-04-02] MEDS: TORSEMIDE 20 MG TAB PO SCH (08:15)
[2018-04-02] MEDS: FLUTICASONE PROP 0.05% NASAL SPRAY 16 GM (FLONASE) NARES SCH ×2 (08:15→21:41)
[2018-04-02] MEDS: SODIUM CHLORIDE NASAL 0.65% SPRAY BTL (OCEAN) SCH ×3 (08:15→21:41)
[2018-04-02] MEDS: BACTRIM 160MG/800MG DS TAB PO SCH ×2 (08:15→21:37)
[2018-04-02 14:45] VITALS: BP 126/87
[2018-04-02] MEDS: RIVAROXABAN 10 MG TAB (XARELTO) PO SCH (18:21)
--- NOTE | 2018-04-02 19:54 | IPNPDOC ---
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 She is walking better and has better pain control. REVIEW OF SYSTEMS: The following is a completed review of systems and has been reviewed. Review of systems otherwise unremarkable. PAIN: Patient self reports right hip pain EYES: Negative for recent vision changes EARS, NOSE, & THROAT: negative for dysphagia, rhinorrhea, or throat pain CARDIOVASCULAR: denies chest pain or palpitations PULMONARY: Negate. Denies shortness of breath GASTROINTESTINAL: denies diarrhea or constipation GENITOURINARY: +urinary retention-improving MUSCULOSKELETAL: right hip fracture NEUROLOGICAL: dementia SKIN: right hip incision, and facial abrasions, vesicular rash left buttock PSYCHIATRIC:dementia and anxiety/depression All other review of systems found to be negative. PHYSICAL EXAMINATION: VITAL SIGNS: Please see below. GENERAL: Pleasant and cooperative. anxious HEENT: PERRL. Extraocular movements intact. Clear conjunctiva, naso-labial folds equal bilat, however left eye smaller with lid droop on the left, unable to raise left eyebrow, or right eyebrow when asked to CARDIOVASCULAR: Regular rate and rhythm. No murmurs, rubs, or gallops LUNGS:Clear to auscultation bilaterally. No wheezes. No rhonchi ABDOMEN: Soft, nontender, nondistended. Positive bowel sounds. Normal active bowel sounds NEUROLOGICAL: Alert and oriented to self, not place or time. Cranial nerves II through XII grossly intact. Sensation intact in CN5 distribution and throughout upper and lower extremities to light touch EXTREMITIES: 5-\5 strength bilateral upper extremities. 5\5 strength right ankle DF and EHL, limited due to pain. 5/5 strength in left lower extremity. SKIN:right hip incision c/d/i, scattered facial scabs (self inflicted)-healing -left buttock vesicular rash in dermatomal pattern ASSESSMENT:72-year-old F with past medical history of dementia who presents status post fall with right hip fracture s/p ORIF. PLAN: 1. 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 Cardiac: pmh HTN, continue BP meds, pmh HLD continue statin medicine consulted 4. Endo: pmh hypothyroidism, has been taking Synthroid incorrectly at night on full stomach, likely not getting metabolized- TSH elevate, FT4 wnl, will not change dose as taking it int he AM instead will likely correct this subclinical hypothyroidism 5. : admission UA and Ucx negative, monitor PVRs, continue oxybutynin- repeat Ucx + MRSA, continue BActrim 6. Psych: pmh depression continue Zoloft, will try to avoid Haldol and trial st anding dose of Trazodone for insomnia -persistent anxiety, will start low dose Propranolol with parameters for anxiety-improving 7. DVT ppx: on xarelto, Dopplers ordered today, negative for DVT, +right Stevenson's cyst 8. Ortho: s/p right hip fracture, WBAT monitor for blood loss anemia and ortho consulted 9. Heme: iron deficiency anemia- will start oral iron 9. Pain: continue Percocet prn and continue Tylenol 10: ID: mild leukocytosis-left buttock Zoster will continue Valacyclovir- leukocytosis improving 8. Dispo will push back date given slow progression to 04-08-18 given inconsistencies with RW, might need wheelchair in order to safely return home Allergies Coded Allergies: No Known Allergies (Unverified , 03/15/18) Vital Signs Vital Signs Date Time Temp Pulse Resp B/P (MAP) Pulse Ox O2 Delivery O2 Flow Rate FiO2 04/02/18 16:06 20 04/02/18 15:36 89 126/87 04/02/18 14:45 97.8 99 Room Air Microbiology Microbiology 03/31/18 Urine Culture - Final, Complete Staph.aureus Methicillin Resis Current Medications Current Medications Current Medications Acetaminophen (Tylenol Tab) 650 mg DAILYPRN PRN PO fever/MILD PAIN (PS 1-4); Start 03/18/18 at 17:30; Stop 03/20/18 at 14:40; Status DC Acetaminophen (Tylenol Tab) 650 mg Q4HP PRN PO fever/MILD PAIN (PS 1-4); Start 03/18/18 at 17:15; Stop 03/18/18 at 17:31; Status DC Acetaminophen (Tylenol Tab) 1,000 mg BIDP PRN PO PAIN Last administered on 03/28/18at 13:19; Start 03/20/18 at 17:00 Acetaminophen (Tylenol Tab) 1,000 mg TID PO Last administered on 03/20/18at 07:55; Start 03/18/18 at 21:00; Stop 03/20/18 at 14:40; Status DC Baclofen (Lioresal) 5 mg BIDP PRN PO SPASMS Last administered on 03/24/18at 16:02; Start 03/23/18 at 17:30 Bisacodyl (Dulcolax Suppository) 10 mg DAILYPRN PRN [place] CONSTIPATION; Start 03/18/18 at 17:15 Docusate Sodium (Colace) 100 mg BID PO Last administered on 04/02/18 08:13; Start 03/18/18 at 21:00 Donepezil HCl (AriCEPT) 10 mg DAILY PO Last administered on 04/02/18 08:13; Start 03/19/18 at 09:00 Ferrous Sulfate (Ferrous Sulfate) 325 mg BID PO Last administered on 04/02/18 08:14; Start 03/26/18 at 21:00 Fluticasone Propionate (Flonase 0.05% Nasal [place]) 1 spray BID NARES Last administered on 04/02/18 08:15; Start 03/22/18 at 21:00 Haloperidol (Haldol) 0.5 mg QHSP PRN PO AGITATION; Start 03/18/18 at 17:30 Levofloxacin (Levaquin) 250 mg QHS PO Last administered on 04/01/18 20:13; Start 03/31/18 at 21:00; Stop 04/02/18 at 05:43; Status DC Levothyroxine Sodium (Synthroid) 50 mcg DAILY@06 PO Last administered on 04/02/18 06:01; Start 03/19/18 at 06:00 Magnesium Gluconate (Magnesium Gluconate) 500 mg BID PO Last administered on 04/02/18 08:13; Start 03/31/18 at 09:00 Magnesium Hydroxide (Milk Of Magnesia) 30 ml DAILYPRN PRN PO CONSTIPATION Last administered on 03/31/18 09:25; Start 03/18/18 at 17:15 Memantine (Namenda) 10 mg QHS PO Last administered on 04/01/18 20:13; Start 03/18/18 at 21:00 Miscellaneous (Unresolved Clarification Entry) SEE LABEL COMMENTS DAILY XX Last administered on 03/28/18at 09:00; Start 03/26/18 at 09:00; Stop 03/31/18 at 09:02; Status DC Miscellaneous (Unresolved Clarification Entry) SEE LABEL COMMENTS DAILY XX ; Start 03/31/18 at 09:00; Status Cancel Ondansetron HCl (Zofran) 4 mg Q6HP PRN PO NAUSEA; Start 03/18/18 at 17:15; Stop 03/19/18 at 18:50; Status DC Oxybutynin Chloride (Ditropan) 5 mg BID PO Last administered on 04/02/18 08:12; Start 03/18/18 at 21:00 Oxycodone/ Acetaminophen (Percocet 5mg/ 325mg Tablet) 1 tab TID PO Last administered on 04/02/18 15:36; Start 03/20/18 at 16:00 Potassium Chloride (Micro-K Extencaps) 20 meq DAILY PO Last administered on 03/31/18 08:17; Start 03/27/18 at 09:00; Stop 03/31/18 at 10:34; Status DC Potassium Chloride (Micro-K Extencaps) 40 meq DAILY PO Last administered on 04/02/18 08:13; Start 04/01/18 at 09:00 Propranolol HCl (Inderal) 5 mg TID PO Last administered on 04/02/18 15:36; Start 03/25/18 at 16:00 Rivaroxaban (Xarelto) 10 mg DAILY@18 PO Last administered on 04/02/18 18:21; Start 03/19/18 at 18:00 Senna (Senokot) 1 tab QHS PO Last administered on 04/01/18 20:12; Start 03/18/18 at 21:00 Sertraline HCl (Zoloft) 25 mg QHS PO Last administered on 04/01/18 20:13; Start 03/18/18 at 21:00 Simvastatin (Zocor) 40 mg QHS PO Last administered on 04/01/18 20:12; Start 03/18/18 at 21:00 Sodium Chloride ([place] Nasal [place]) 2 spray TID NA Last administered on 04/02/18 08:15; Start 03/22/18 at 16:00 Torsemide (Demadex) 40 mg DAILY PO Last administered on 04/02/18 08:15; Start 03/19/18 at 09:00 Trazodone HCl (Desyrel) 25 mg Q6HP PRN PO AGITATION Last administered on 03/31/18 21:01; Start 03/18/18 at 17:30 Trazodone HCl (Desyrel) 25 mg QHSP PRN PO INSOMNIA; Start 03/18/18 at 17:30; Stop 03/19/18 at 18:50; Status DC Trazodone HCl (Desyrel) 50 mg QHS PO Last administered on 04/01/18 20:12; Start 03/19/18 at 21:00 Trimethoprim/ Sulfamethoxazole (Bactrim Ds, Septra Ds 160mg/ 800mg) 1 tab Q12H PO Last administered on 04/02/18 08:15; Start 04/02/18 at 09:00 Valacyclovir HCl (Valtrex) 1,000 mg Q12H PO Last administered on 03/31/18 21:04; Start 03/25/18 at 09:00; Stop 04/01/18 at 08:59 LINDSAY MAXWELL MD Apr 02, 2018 19:54
[2018-04-02] MEDS: SERTRALINE HCL 25 MG TABLET PO SCH (21:40)
[2018-04-02] MEDS: MEMANTINE 5MG TABLET (NAMENDA) PO SCH (21:40)
[2018-04-02] MEDS: traZODone 50 MG TAB PO SCH (21:40)
[2018-04-02] MEDS: SIMVASTATIN 20 MG TAB PO SCH (21:40)
[2018-04-02] MEDS: SENNA 8.6 MG TAB (SENOKOT) PO SCH (21:41)
[2018-04-02 22:00] VITALS: BP 126/67
[2018-04-03 06:00] VITALS: BP 102/62
[2018-04-03] MEDS: LEVOTHYROXINE 50MCG TABLET (0.05MG) PO SCH (06:00)
[2018-04-03 06:47] LABS: HEMATOCRIT 27.3 % (36.0-47.0); HEMOGLOBIN 8.5 g/dl (12.0-15.5); MEAN CORPUSCULAR HEMOGLOBIN 29.9 pg (27.0-33.0); MEAN CORPUSCULAR HGB CONC 31.1 g/dl (32.0-36.5); MEAN CORPUSCULAR VOLUME 96.1 fl (80.0-96.0); PLATELET COUNT, AUTOMATED 417 10^3/uL (150-450); RED BLOOD COUNT 2.84 10^6/uL (4.00-5.40); WHITE BLOOD COUNT 6.8 10^3/uL (4.0-10.0)
[2018-04-03 07:12] LABS: CALCIUM LEVEL 8.1 MG/DL (8.8-10.2); CREATININE FOR GFR 1.15 MG/DL (0.55-1.30); GLOMERULAR FILTRATION RATE 49.1 (>39); POTASSIUM SERUM 3.8 MEQ/L (3.5-5.1)
--- NOTE | 2018-04-03 09:43 | REP ---
Chest one-view HISTORY: Pleural effusion Comparison: 03/21/2018 Curvilinear density is present in the left lower lobe consistent with atelectasis. The right lung is clear The heart is normal in size. The pulmonary vasculature is normal in appearance. A hiatal hernia is present. Impression: Left lower lobe atelectasis. Electronically Signed by Gerry Valdes MD 04/03/2018 09:35 A
[2018-04-03] MEDS: BACTRIM 160MG/800MG DS TAB PO SCH ×2 (10:27→20:53)
[2018-04-03] MEDS: TORSEMIDE 20 MG TAB PO SCH (10:28)
[2018-04-03] MEDS: PERCOCET 5MG/325MG TAB PO SCH ×3 (10:28→20:55)
[2018-04-03] MEDS: DONEPEZIL 5 MG TAB PO SCH (10:29)
[2018-04-03] MEDS: FERROUS SULFATE 325MG TAB PO SCH ×2 (10:29→20:55)
[2018-04-03] MEDS: DOCUSATE SODIUM 100 MG CAP PO SCH ×2 (10:29→20:53)
[2018-04-03] MEDS: PROPRANOLOL 10 MG TAB PO SCH ×3 (10:29→20:54)
[2018-04-03] MEDS: oxyBUTYnin 5 MG TAB PO SCH ×2 (10:29→20:54)
[2018-04-03] MEDS: POTASSIUM CHLORIDE 10 MEQ SR TABLET PO SCH (10:30)
[2018-04-03] MEDS: MAGNESIUM GLUCONATE 500 MG TAB PO SCH ×2 (10:30→20:55)
[2018-04-03] MEDS: SODIUM CHLORIDE NASAL 0.65% SPRAY BTL (OCEAN) SCH ×3 (10:30→20:53)
[2018-04-03] MEDS: FLUTICASONE PROP 0.05% NASAL SPRAY 16 GM (FLONASE) NARES SCH ×2 (10:30→20:53)
[2018-04-03 14:00] VITALS: BP 117/67
--- NOTE | 2018-04-03 14:18 | IPNPDOC ---
Date Seen The patient was seen on 04/03/18. Progress Note HPI: Patient is a 72-year-old female who presented to the ER with complaints of right hip pain after she had fallen off the toilet. Patient was in the bathroom and leaned over and fell off, landing on her right hip. She complained of severe pain at the time. Did not lose consciousness, was awake and called out to family members for help. The pt was found to have Right proximal femur fracture S/P Right hip open reduction, cephalomedullary nail fixation right proximal femur as per Orthopedic Surgery. The pt was transferred to the care of HORACIO Eisenberg, 03/18/18. She is OOB to W/C currently, ostomy rn at bedside.Working with therapy. Denies any fevers, chills, weakness, fatigue, Headache, Chest Pain, Shortness of breath, cough, palpitations, abdominal pain, N/V/D or changes in bowel or bladder habits. PMHx: dementia hypothyroid HTN DLP PE: GEN: 72yoF, appears stated age. No acute distress. Pleasantly confused, anxious. HEENT: Normocephalic, atraumatic.Sclera are nonicteric. Conjunctiva without injection. No facial asymmetry. Moist mucous membranes. Neck supple. CHEST: Regular rate and rhythm, +S1, +S2. JVD not visible sitting. LUNGS: Clear to auscultation bilaterally. No wheezes, rales, or rhonchi. Breathing appears symmetric and easy. ABD: Round, soft, non-tender, non-distended. +Bowel sounds throughout. EXT: trace to 1mm lower extremity edema appreciated R>L. SKIN: [place], dry, warm. No rashes. NEURO: No focal deficits appreciated. MRI Brain 03/21/18 No acute abnormality. LE U/S neg 03/28/18 A&P: Patient is a 72-year-old female who presented to the ER with complaints of right hip pain after she had fallen off the toilet. Patient was in the bathroom and leaned over and fell off, landing on her right hip. She complained of severe pain at the time. Did not lose consciousness, was awake and called out to family members for help. The pt was found to have Right proximal femur fracture S/P Right hip open reduction, cephalomedullary nail fixation right proximal femur as per Orthopedic Surgery. The pt was transferred to the care of Dr Cash, ARU, 03/18/18. 1. Right hip fracture - 2/2 mechanical fall - s/p repair (03/15/[address] Schultz). Mgmt as per orthopedic surgery. Molst form was completed witnessed signed and placed in the chart previously, DNR/DNI. PT/OT/ST as per ARU Pain control as per ARU. Bowel care as per ARU. DVT px Xarelto as per Orthopedic surgery Disposition as per ARU. 2. Leukocytosis. Resolved. WBC 6.8 this AM. Afebrile. CXR 04/03/18 atalectasis, I/S requested. Continue to monitor CBC. Encourage OOB. 3. Dementia Aricept/Namenda 4. Hypothyroidism Levothyroxine dose was adjusted to AM, pt had been taking dose at night on a full stomach. Monitor. 5. DLP Simvastatin 6. Depression Sertraline 7. Hypertension. BP 108-136. Does have some LE edema noted, but does not appear to be decompensated. Lungs CTA, JVD not visible sitting. R>L. LE U/S neg. torsemide 40 mg po daily. 8. Hypokalemia. po supplement increased this AM. mag level WNL. Recheck in BMP AM. Monitor. 8. Urinary retention Ditropan 9. Anemia. Hgb stable at 8.5. Fe studies, B12, folate completed, Fe supplement BID. Continue to monitor need for transfusion. 10. Shingles Left Buttock. Valtrex as per ARU attending. 11. UTI. 03/31/18 MRSA. po Bactrim D2 SCr 1.15. Monitor. VS, I&O, 24H, Fishbone Vital Signs/I&O Vital Signs Date Time Temp Pulse Resp B/P (MAP) Pulse Ox O2 Delivery O2 Flow Rate FiO2 04/03/18 11:20 20 04/03/18 10:29 74 120/65 04/03/18 06:00 97.6 92 Room Air I&O- Last 24 Hours up to 6 AM 04/03/18 06:00 Intake Total 1140 ml Output Total 800 ml Balance 340 ml Laboratory Data 24H LABS Laboratory Tests 2 04/03/18 06:17: Nucleated Red Blood Cells % (auto) 0.0, Anion Gap 10, Glomerular Filtration Rate 49.1, Blood Urea Nitrogen 13, Creatinine 1.15, Sodium Level 139, Potassium Level 3.8, Chloride Level 104, Carbon Dioxide Level 25, Calcium Level 8.1L CBC/BMP Laboratory Tests 04/03/18 06:17 Red Blood Count 2.84 L, Mean Corpuscular Volume 96.1 H, Mean Corpuscular Hemoglobin 29.9, Mean Corpuscular Hemoglobin Concent 31.1 L, Red Cell Distribution Width 18.8 H, Calcium Level 8.1 L Microbiology Microbiology 03/31/18 Urine Culture - Final, Complete Staph.aureus Methicillin Resis Thea Mo Apr 03, 2018 14:18
[2018-04-03] MEDS: RIVAROXABAN 10 MG TAB (XARELTO) PO SCH (17:00)
[2018-04-03 20:00] VITALS: BP 117/67
[2018-04-03] MEDS: SENNA 8.6 MG TAB (SENOKOT) PO SCH (20:53)
[2018-04-03] MEDS: MEMANTINE 5MG TABLET (NAMENDA) PO SCH (20:54)
[2018-04-03] MEDS: SERTRALINE HCL 25 MG TABLET PO SCH (20:55)
[2018-04-03] MEDS: SIMVASTATIN 20 MG TAB PO SCH (20:55)
[2018-04-03] MEDS: traZODone 50 MG TAB PO SCH (20:55)
[2018-04-04] MEDS: LEVOTHYROXINE 50MCG TABLET (0.05MG) PO SCH (05:41)
[2018-04-04] MEDS: ACETAMINOPHEN 500 MG TAB PO PRN (05:41)
[2018-04-04 06:00] VITALS: BP 109/71
[2018-04-04 06:57] LABS: CALCIUM LEVEL 8.1 MG/DL (8.8-10.2); CREATININE FOR GFR 1.2 MG/DL (0.55-1.30); GLOMERULAR FILTRATION RATE 46.8 (>39); POTASSIUM SERUM 3.6 MEQ/L (3.5-5.1)
[2018-04-04] MEDS: DOCUSATE SODIUM 100 MG CAP PO SCH ×2 (09:32→21:00)
[2018-04-04] MEDS: MAGNESIUM GLUCONATE 500 MG TAB PO SCH ×2 (09:32→21:52)
[2018-04-04] MEDS: BACTRIM 160MG/800MG DS TAB PO SCH ×2 (09:32→21:52)
[2018-04-04] MEDS: DONEPEZIL 5 MG TAB PO SCH (09:32)
[2018-04-04] MEDS: PERCOCET 5MG/325MG TAB PO SCH ×3 (09:32→21:52)
[2018-04-04] MEDS: oxyBUTYnin 5 MG TAB PO SCH ×2 (09:32→21:00)
[2018-04-04] MEDS: FERROUS SULFATE 325MG TAB PO SCH ×2 (09:32→21:54)
[2018-04-04] MEDS: TORSEMIDE 20 MG TAB PO SCH (09:33)
[2018-04-04] MEDS: POTASSIUM CHLORIDE 10 MEQ SR TABLET PO SCH (09:33)
[2018-04-04] MEDS: PROPRANOLOL 10 MG TAB PO SCH ×3 (09:34→21:53)
[2018-04-04] MEDS: SODIUM CHLORIDE NASAL 0.65% SPRAY BTL (OCEAN) SCH ×3 (09:35→21:54)
[2018-04-04] MEDS: FLUTICASONE PROP 0.05% NASAL SPRAY 16 GM (FLONASE) NARES SCH ×2 (09:35→21:54)
--- NOTE | 2018-04-04 10:59 | IPNPDOC ---
PM&R Progress Note DATE OF SERVICE: Apr 03, 2018 [employer] Expert Progress Note Subjective: Patient seen in bed with family no specific complaints. Family concerned about home modifications to be made. REVIEW OF SYSTEMS: The following is a completed review of systems and has been reviewed. Review of systems otherwise unremarkable. PAIN: Patient self reports right hip pain EYES: Negative for recent vision changes EARS, NOSE, & THROAT: negative for dysphagia, rhinorrhea, or throat pain CARDIOVASCULAR: denies chest pain or palpitations PULMONARY: Negate. Denies shortness of breath GASTROINTESTINAL: denies diarrhea or constipation GENITOURINARY: +urinary retention-improving MUSCULOSKELETAL: right hip fracture NEUROLOGICAL: dementia SKIN: right hip incision, and facial abrasions, vesicular rash left buttock PSYCHIATRIC:dementia and anxiety/depression All other review of systems found to be negative. PHYSICAL EXAMINATION: VITAL SIGNS: Please see below. GENERAL: Pleasant and cooperative. anxious HEENT: PERRL. Extraocular movements intact. Clear conjunctiva, naso-labial folds equal bilat, however left eye smaller with lid droop on the left, unable to raise left eyebrow, or right eyebrow when asked to CARDIOVASCULAR: Regular rate and rhythm. No murmurs, rubs, or gallops LUNGS:Clear to auscultation bilaterally. No wheezes. No rhonchi ABDOMEN: Soft, nontender, nondistended. Positive bowel sounds. Normal active bowel sounds NEUROLOGICAL: Alert and oriented to self, not place or time. Cranial nerves II through XII grossly intact. Sensation intact in CN5 distribution and throughout upper and lower extremities to light touch EXTREMITIES: 5-\5 strength bilateral upper extremities. 5\5 strength right ankle DF and EHL, limited due to pain. 5/5 strength in left lower extremity. SKIN:right hip incision c/d/i, scattered facial scabs (self inflicted)-healing -left buttock vesicular rash in dermatomal pattern ASSESSMENT:72-year-old F with past medical history of dementia who presents status post fall with right hip fracture s/p ORIF. PLAN: 1. 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 Cardiac: pmh HTN, continue BP meds, pmh HLD continue statin medicine consulted 4. Endo: pmh hypothyroidism, has been taking Synthroid incorrectly at night on full stomach, likely not getting metabolized- TSH elevate, FT4 wnl, will not change dose as taking it int he AM instead will likely correct this subclinical hypothyroidism 5. : admission UA and Ucx negative, monitor PVRs, continue oxybutynin- repeat Ucx + MRSA, continue BActrim 6. Psych: pmh depression continue Zoloft, will try to avoid Haldol and trial standing dose of Trazodone for insomnia -persistent anxiety, will start low dose Propranolol with parameters for anxiety-improving 7. DVT ppx: on xarelto, Dopplers ordered today, negative for DVT, +right Stevenson's cyst 8. Ortho: s/p right hip fracture, WBAT monitor for blood loss anemia and ortho consulted 9. Heme: iron deficiency anemia- will start oral iron 9. Pain: continue Percocet prn and continue Tylenol 10: ID: mild leukocytosis-left buttock Zoster will continue Valacyclovir- leukocytosis improving 8. Dispo will push back date given slow progression to 04-08-18 given inconsistencies with RW, might need wheelchair in order to safely return home Allergies Coded Allergies: No Known Allergies (Unverified , 03/15/18) Vital Signs Vital Signs Date Time Temp Pulse Resp B/P (MAP) Pulse Ox O2 Delivery O2 Flow Rate FiO2 04/03/18 21:25 18 04/03/18 20:54 71 138/67 04/03/18 20:00 98.7 99 Room Air Laboratory Data CBC/BMP Laboratory Tests 04/03/18 06:17 Red Blood Count 2.84 L, Mean Corpuscular Volume 96.1 H, Mean Corpuscular Hemoglobin 29.9, Mean Corpuscular Hemoglobin Concent 31.1 L, Red Cell Distribution Width 18.8 H, Calcium Level 8.1 L Labs 24H Laboratory Tests 2 1/24/19 06:17: Nucleated Red Blood Cells % (auto) 0.0, Anion Gap 10, Glomerular Filtration Rate 49.1, Blood Urea Nitrogen 13, Creatinine 1.15, Sodium Level 139, Potassium Level 3.8, Chloride Level 104, Carbon Dioxide Level 25, Calcium Level 8.1L Microbiology Microbiology 03/31/18 Urine Culture - Final, Complete Staph.aureus Methicillin Resis Current Medications Current Medications Current Medications Acetaminophen (Tylenol Tab) 650 mg DAILYPRN PRN PO fever/MILD PAIN (PS 1-4); Start 03/18/18 at 17:30; Stop 03/20/18 at 14:40; Status DC Acetaminophen (Tylenol Tab) 650 mg Q4HP PRN PO fever/MILD PAIN (PS 1-4); Start 03/18/18 at 17:15; Stop 03/18/18 at 17:31; Status DC Acetaminophen (Tylenol Tab) 1,000 mg BIDP PRN PO PAIN Last administered on 03/28/18at 13:19; Start 03/20/18 at 17:00 Acetaminophen (Tylenol Tab) 1,000 mg TID PO Last administered on 03/20/18at 07:55; Start 03/18/18 at 21:00; Stop 03/20/18 at 14:40; Status DC Baclofen (Lioresal) 5 mg BIDP PRN PO SPASMS Last administered on 03/24/18at 16:02; Start 03/23/18 at 17:30 Bisacodyl (Dulcolax Suppository) 10 mg DAILYPRN PRN [place] CONSTIPATION; Start 03/18/18 at 17:15 Docusate Sodium (Colace) 100 mg BID PO Last administered on 04/03/18at 20:53; Start 03/18/18 at 21:00 Donepezil HCl (AriCEPT) 10 mg DAILY PO Last administered on 04/03/18at 10:29; Start 03/19/18 at 09:00 Ferrous Sulfate (Ferrous Sulfate) 325 mg BID PO Last administered on 04/03/18at 20:55; Start 03/26/18 at 21:00 Fluticasone Propionate (Flonase 0.05% Nasal [place]) 1 spray BID NARES Last administered on 04/03/18at 20:53; Start 03/22/18 at 21:00 Haloperidol (Haldol) 0.5 mg QHSP PRN PO AGITATION; Start 03/18/18 at 17:30 Levofloxacin (Levaquin) 250 mg QHS PO Last administered on 04/01/18 20:13; Start 03/31/18 at 21:00; Stop 04/02/18 at 05:43; Status DC Levothyroxine Sodium (Synthroid) 50 mcg DAILY@06 PO Last administered on 04/03/18at 06:00; Start 03/19/18 at 06:00 Magnesium Gluconate (Magnesium Gluconate) 500 mg BID PO Last administered on 04/03/18 20:55; Start 03/31/18 at 09:00 Magnesium Hydroxide (Milk Of Magnesia) 30 ml DAILYPRN PRN PO CONSTIPATION Last administered on 03/31/18 09:25; Start 03/18/18 at 17:15 Memantine (Namenda) 10 mg QHS PO Last administered on 04/03/18 20:54; Start 03/18/18 at 21:00 Miscellaneous (Unresolved Clarification Entry) SEE LABEL COMMENTS DAILY XX Last administered on 03/28/18at 09:00; Start 03/26/18 at 09:00; Stop 03/31/18 at 09:02; Status DC Miscellaneous (Unresolved Clarification Entry) SEE LABEL COMMENTS DAILY XX ; Start 03/31/18 at 09:00; Status Cancel Ondansetron HCl (Zofran) 4 mg Q6HP PRN PO NAUSEA; Start 03/18/18 at 17:15; Stop 03/19/18 at 18:50; Status DC Oxybutynin Chloride (Ditropan) 5 mg BID PO Last administered on 04/03/18at 20:54; Start 03/18/18 at 21:00 Oxycodone/ Acetaminophen (Percocet 5mg/ 325mg Tablet) 1 tab TID PO Last administered on 04/03/18at 20:55; Start 03/20/18 at 16:00 Potassium Chloride (Micro-K Extencaps) 20 meq DAILY PO Last administered on 03/31/18at 08:17; Start 03/27/18 at 09:00; Stop 03/31/18 at 10:34; Status DC Potassium Chloride (Micro-K Extencaps) 40 meq DAILY PO Last administered on 04/03/18 10:30; Start 04/01/18 at 09:00 Propranolol HCl (Inderal) 5 mg TID PO Last administered on 04/03/18 20:54; Start 03/25/18 at 16:00 Rivaroxaban (Xarelto) 10 mg DAILY@18 PO Last administered on 04/03/18 17:00; Start 03/19/18 at 18:00 Senna (Senokot) 1 tab QHS PO Last administered on 04/03/18 20:53; Start 03/18/18 at 21:00 Sertraline HCl (Zoloft) 25 mg QHS PO Last administered on 04/03/18 20:55; Start 03/18/18 at 21:00 Simvastatin (Zocor) 40 mg QHS PO Last administered on 04/03/18 20:55; Start 03/18/18 at 21:00 Sodium Chloride (Kamrar Nasal Magnolia) 2 spray TID NA Last administered on 04/03/18 20:53; Start 03/22/18 at 16:00 Torsemide (Demadex) 40 mg DAILY PO Last administered on 04/03/18 10:28; Start 03/19/18 at 09:00 Trazodone HCl (Desyrel) 25 mg Q6HP PRN PO AGITATION Last administered on 03/31/18 21:01; Start 03/18/18 at 17:30 Trazodone HCl (Desyrel) 25 mg QHSP PRN PO INSOMNIA; Start 03/18/18 at 17:30; Stop 03/19/18 at 18:50; Status DC Trazodone HCl (Desyrel) 50 mg QHS PO Last administered on 04/03/18 20:55; Start 03/19/18 at 21:00 Trimethoprim/ Sulfamethoxazole (Bactrim Ds, Septra Ds 160mg/ 800mg) 1 tab Q12H PO Last administered on 04/03/18 20:53; Start 04/02/18 at 09:00; Stop 04/09/18 at 08:59 Valacyclovir HCl (Valtrex) 1,000 mg Q12H PO Last administered on 03/31/18 21:04; Start 03/25/18 at 09:00; Stop 04/01/18 at 08:59 LINDSAY MAXWELL MD Apr 03, 2018 22:00
[2018-04-04 14:00] VITALS: BP 102/76
--- NOTE | 2018-04-04 14:15 | IPNPDOC ---
Date Seen The patient was seen on 04/04/18. Progress Note HPI: Patient is a 72-year-old female who presented to the ER with complaints of right hip pain after she had fallen off the toilet. Patient was in the bathroom and leaned over and fell off, landing on her right hip. She complained of severe pain at the time. Did not lose consciousness, was awake and called out to family members for help. The pt was found to have Right proximal femur fracture S/P Right hip open reduction, cephalomedullary nail fixation right proximal femur as per Orthopedic Surgery. The pt was transferred to the care of HORACIO Eisenberg, 03/18/18. She is OOB to W/C currently, rod mill tender at bedside.Working with therapy. Denies any fevers, chills, weakness, fatigue, Headache, Chest Pain, Shortness of breath, cough, palpitations, abdominal pain, N/V/D or changes in bowel or bladder habits. PMHx: dementia hypothyroid HTN DLP PE: GEN: 72yoF, appears stated age. No acute distress. Pleasantly confused, anxious. HEENT: Normocephalic, atraumatic.Sclera are nonicteric. Conjunctiva without injection. No facial asymmetry. Moist mucous membranes. Neck supple. CHEST: Regular rate and rhythm, +S1, +S2. JVD not visible sitting. LUNGS: Clear to auscultation bilaterally. No wheezes, rales, or rhonchi. Breathing appears symmetric and easy. ABD: Round, soft, non-tender, non-distended. +Bowel sounds throughout. EXT: trace to 1mm lower extremity edema appreciated R>L. SKIN: [place], dry, warm. No rashes. NEURO: No focal deficits appreciated. MRI Brain 03/21/18 No acute abnormality. LE U/S neg 03/28/18 A&P: Patient is a 72-year-old female who presented to the ER with complaints of right hip pain after she had fallen off the toilet. Patient was in the bathroom and leaned over and fell off, landing on her right hip. She complained of severe pain at the time. Did not lose consciousness, was awake and called out to family members for help. The pt was found to have Right proximal femur fracture S/P Right hip open reduction, cephalomedullary nail fixation right proximal femur as per Orthopedic Surgery. The pt was transferred to the care of Dr Cash, ARU, 03/18/18. 1. Right hip fracture - 2/2 mechanical fall - s/p repair (03/15/[address] Schultz). Mgmt as per orthopedic surgery. Molst form was completed witnessed signed and placed in the chart previously, DNR/DNI. PT/OT/ST as per ARU Pain control as per ARU. Bowel care as per ARU. DVT px Xarelto as per Orthopedic surgery Disposition as per ARU. 2. UTI. UC 03/31/18 MRSA. po Bactrim D3 SCr 1.20. Monitor. BMP in Am. 3. Dementia Aricept/Namenda 4. Hypothyroidism Levothyroxine dose was adjusted to AM, pt had been taking dose at night on a full stomach. Monitor. 5. DLP Simvastatin 6. Depression Sertraline 7. Hypertension. BP 109-138. Does have some LE edema (chronic) noted, but does not appear to be decompensated. Lungs CTA, JVD not visible sitting. R>L. LE U/S neg. torsemide 40 mg po daily. 8. Hypokalemia. po supplement. mag level WNL. Recheck in BMP AM. Monitor. 8. Urinary retention Ditropan 9. Anemia. Hgb stable. Fe studies, B12, folate completed, Fe supplement BID. Continue to monitor need for transfusion. 10. Shingles Left Buttock. Valtrex as per ARU attending. VS, I&O, 24H, Fishbone Vital Signs/I&O Vital Signs Date Time Temp Pulse Resp B/P (MAP) Pulse Ox O2 Delivery O2 Flow Rate FiO2 04/04/18 10:10 18 04/04/18 09:34 69 109/71 04/04/18 06:00 97.9 97 Room Air I&O- Last 24 Hours up to 6 AM 04/04/18 06:00 Intake Total 480 ml Output Total 1100 ml Balance -620 ml Laboratory Data 24H LABS Laboratory Tests 2 04/04/18 06:26: Anion Gap 8, Glomerular Filtration Rate 46.8, Blood Urea Nitrogen 11, Creatinine 1.20, Sodium Level 140, Potassium Level 3.6, Chloride Level 105, Carbon Dioxide Level 27, Calcium Level 8.1L CBC/BMP Laboratory Tests 04/04/18 06:26 Calcium Level 8.1 L Microbiology Microbiology 03/31/18 Urine Culture - Final, Complete Staph.aureus Methicillin Resis Thea Mo Apr 04, 2018 14:15
[2018-04-04] MEDS: RIVAROXABAN 10 MG TAB (XARELTO) PO SCH (17:13)
[2018-04-04 20:33] VITALS: BP 126/69
[2018-04-04] MEDS: SENNA 8.6 MG TAB (SENOKOT) PO SCH (21:52)
[2018-04-04] MEDS: SERTRALINE HCL 25 MG TABLET PO SCH (21:52)
[2018-04-04] MEDS: traZODone 50 MG TAB PO SCH (21:52)
[2018-04-04] MEDS: MEMANTINE 5MG TABLET (NAMENDA) PO SCH (21:52)
[2018-04-04] MEDS: SIMVASTATIN 20 MG TAB PO SCH (21:53)
[2018-04-05] MEDS: LEVOTHYROXINE 50MCG TABLET (0.05MG) PO SCH (05:21)
[2018-04-05 06:00] VITALS: BP 139/73
[2018-04-05 08:16] LABS: CALCIUM LEVEL 8.1 MG/DL (8.8-10.2); CREATININE FOR GFR 1.2 MG/DL (0.55-1.30); GLOMERULAR FILTRATION RATE 46.8 (>39)
[2018-04-05] MEDS: POTASSIUM CHLORIDE 10 MEQ SR TABLET PO SCH (09:25)
[2018-04-05] MEDS: DONEPEZIL 5 MG TAB PO SCH (09:25)
[2018-04-05] MEDS: FERROUS SULFATE 325MG TAB PO SCH ×2 (09:25→21:26)
[2018-04-05] MEDS: MAGNESIUM GLUCONATE 500 MG TAB PO SCH ×2 (09:25→21:26)
[2018-04-05] MEDS: DOCUSATE SODIUM 100 MG CAP PO SCH ×2 (09:25→21:00)
[2018-04-05] MEDS: TORSEMIDE 20 MG TAB PO SCH (09:25)
[2018-04-05] MEDS: PERCOCET 5MG/325MG TAB PO SCH ×3 (09:26→21:25)
[2018-04-05] MEDS: FLUTICASONE PROP 0.05% NASAL SPRAY 16 GM (FLONASE) NARES SCH ×2 (09:26→21:26)
[2018-04-05] MEDS: SODIUM CHLORIDE NASAL 0.65% SPRAY BTL (OCEAN) SCH ×3 (09:26→21:26)
[2018-04-05] MEDS: oxyBUTYnin 5 MG TAB PO SCH ×2 (09:26→21:25)
[2018-04-05] MEDS: BACTRIM 160MG/800MG DS TAB PO SCH ×2 (09:26→21:25)
[2018-04-05] MEDS: PROPRANOLOL 10 MG TAB PO SCH ×3 (09:26→21:24)
--- NOTE | 2018-04-05 12:32 | IPNPDOC ---
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 REVIEW OF SYSTEMS: The following is a completed review of systems and has been reviewed. Review of systems otherwise unremarkable. PAIN: Patient self reports right hip pain EYES: Negative for recent vision changes EARS, NOSE, & THROAT: negative for dysphagia, rhinorrhea, or throat pain CARDIOVASCULAR: denies chest pain or palpitations PULMONARY: Negate. Denies shortness of breath GASTROINTESTINAL: denies diarrhea or constipation GENITOURINARY: +urinary retention-improving MUSCULOSKELETAL: right hip fracture NEUROLOGICAL: dementia SKIN: right hip incision, and facial abrasions, vesicular rash left buttock PSYCHIATRIC:dementia and anxiety/depression All other review of systems found to be negative. PHYSICAL EXAMINATION: VITAL SIGNS: Please see below. GENERAL: Pleasant and cooperative. anxious HEENT: PERRL. Extraocular movements intact. Clear conjunctiva, naso-labial folds equal bilat, however left eye smaller with lid droop on the left, unable to raise left eyebrow, or right eyebrow when asked to CARDIOVASCULAR: Regular rate and rhythm. No murmurs, rubs, or gallops LUNGS:Clear to auscultation bilaterally. No wheezes. No rhonchi ABDOMEN: Soft, nontender, nondistended. Positive bowel sounds. Normal active bowel sounds NEUROLOGICAL: Alert and oriented to self, not place or time. Cranial nerves II through XII grossly intact. Sensation intact in CN5 distribution and throughout upper and lower extremities to light touch EXTREMITIES: 5-\5 strength bilateral upper extremities. 5\5 strength right ankle DF and EHL, limited due to pain. 5/5 strength in left lower extremity. SKIN:right hip incision c/d/i, scattered facial scabs (self inflicted)-healing -left buttock vesicular rash in dermatomal pattern- scabbed and healing well ASSESSMENT:72-year-old F with past medical history of dementia who presents status post fall with right hip fracture s/p ORIF. PLAN: 1. 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 Cardiac: pmh HTN, continue BP meds, pmh HLD continue statin medicine consulted 4. Endo: pmh hypothyroidism, has been taking Synthroid incorrectly at night on full stomach, likely not getting metabolized- TSH elevate, FT4 wnl, will not change dose as taking it int he AM instead will likely correct this subclinical hypothyroidism 5. : admission UA and Ucx negative, monitor PVRs, continue oxybutynin- repeat Ucx + MRSA, continue BActrim 6. Psych: pmh depression continue Zoloft, will try to avoid Haldol and trial standing dose of Trazodone for insomnia -persistent anxiety, will start low dose Propranolol with parameters for anxiety-improving 7. DVT ppx: on xarelto, Dopplers ordered today, negative for DVT, +right Stevenson's cyst 8. Ortho: s/p right hip fracture, WBAT monitor for blood loss anemia and ortho consulted 9. Heme: iron deficiency anemia- will start oral iron 9. Pain: continue Percocet prn and continue Tylenol 10: ID: mild leukocytosis-left buttock Zoster will s/p course Valacyclovir- leukocytosis improving 8. Dispo will push back date given slow progression to 04-08-18 given inconsistencies with RW, might need wheelchair in order to safely return home Allergies Coded Allergies: No Known Allergies (Unverified , 03/15/18) Vital Signs Vital Signs Date Time Temp Pulse Resp B/P (MAP) Pulse Ox O2 Delivery O2 Flow Rate FiO2 04/05/18 10:10 20 04/05/18 09:26 72 139/73 04/05/18 06:00 97.5 94 Room Air Laboratory Data CBC/BMP Laboratory Tests 04/05/18 07:26 Calcium Level 8.1 L Labs 24H Laboratory Tests 2 04/05/18 07:26: Anion Gap 8, Glomerular Filtration Rate 46.8, Blood Urea Nitrogen 12, Creatinine 1.20, Sodium Level 139, Potassium Level 4.0, Chloride Level 105, Carbon Dioxide Level 26, Calcium Level 8.1L Microbiology Microbiology 03/31/18 Urine Culture - Final, Complete Staph.aureus Methicillin Resis Current Medications Current Medications Current Medications Acetaminophen (Tylenol Tab) 650 mg DAILYPRN PRN PO fever/MILD PAIN (PS 1-4); Start 03/18/18 at 17:30; Stop 03/20/18 at 14:40; Status DC Acetaminophen (Tylenol Tab) 650 mg Q4HP PRN PO fever/MILD PAIN (PS 1-4); Start 03/18/18 at 17:15; Stop 03/18/18 at 17:31; Status DC Acetaminophen (Tylenol Tab) 1,000 mg BIDP PRN PO PAIN Last administered on 04/04/18at 05:41; Start 03/20/18 at 17:00 Acetaminophen (Tylenol Tab) 1,000 mg TID PO Last administered on 03/20/18at 07:55; Start 03/18/18 at 21:00; Stop 03/20/18 at 14:40; Status DC Baclofen (Lioresal) 5 mg BIDP PRN PO SPASMS Last administered on 03/24/18at 16:02; Start 03/23/18 at 17:30 Bisacodyl (Dulcolax Suppository) 10 mg DAILYPRN PRN [place] CONSTIPATION; Start 03/18/18 at 17:15 Docusate Sodium (Colace) 100 mg BID PO Last administered on 04/05/18at 09:25; Start 03/18/18 at 21:00 Donepezil HCl (AriCEPT) 10 mg DAILY PO Last administered on 04/05/18at 09:25; Start 03/19/18 at 09:00 Ferrous Sulfate (Ferrous Sulfate) 325 mg BID PO Last administered on 04/05/18at 09:25; Start 03/26/18 at 21:00 Fluticasone Propionate (Flonase 0.05% Nasal [place]) 1 spray BID NARES Last administered on 04/05/18at 09:26; Start 03/22/18 at 21:00 Haloperidol (Haldol) 0.5 mg QHSP PRN PO AGITATION; Start 03/18/18 at 17:30 Levofloxacin (Levaquin) 250 mg QHS PO Last administered on 04/01/18 20:13; Start 03/31/18 at 21:00; Stop 04/02/18 at 05:43; Status DC Levothyroxine Sodium (Synthroid) 50 mcg DAILY@06 PO Last administered on 04/05/18 05:21; Start 03/19/18 at 06:00 Magnesium Gluconate (Magnesium Gluconate) 500 mg BID PO Last administered on 04/05/18 09:25; Start 03/31/18 at 09:00 Magnesium Hydroxide (Milk Of Magnesia) 30 ml DAILYPRN PRN PO CONSTIPATION Last administered on 03/31/18 09:25; Start 03/18/18 at 17:15 Memantine (Namenda) 10 mg QHS PO Last administered on 04/04/18 21:52; Start 03/18/18 at 21:00 Miscellaneous (Unresolved Clarification Entry) SEE LABEL COMMENTS DAILY XX Last administered on 03/28/18at 09:00; Start 03/26/18 at 09:00; Stop 03/31/18 at 09:02; Status DC Miscellaneous (Unresolved Clarification Entry) SEE LABEL COMMENTS DAILY XX ; Start 03/31/18 at 09:00; Status Cancel Ondansetron HCl (Zofran) 4 mg Q6HP PRN PO NAUSEA; Start 03/18/18 at 17:15; Stop 03/19/18 at 18:50; Status DC Oxybutynin Chloride (Ditropan) 5 mg BID PO Last administered on 04/05/18at 09:26; Start 03/18/18 at 21:00 Oxycodone/ Acetaminophen (Percocet 5mg/ 325mg Tablet) 1 tab TID PO Last administered on 04/05/18 09:26; Start 03/20/18 at 16:00 Potassium Chloride (Micro-K Extencaps) 20 meq DAILY PO Last administered on 03/31/18 08:17; Start 03/27/18 at 09:00; Stop 03/31/18 at 10:34; Status DC Potassium Chloride (Micro-K Extencaps) 40 meq DAILY PO Last administered on 04/05/18at 09:25; Start 04/01/18 at 09:00 Propranolol HCl (Inderal) 5 mg TID PO Last administered on 04/05/18 09:26; Start 03/25/18 at 16:00 Rivaroxaban (Xarelto) 10 mg DAILY@18 PO Last administered on 04/04/18 17:13; Start 03/19/18 at 18:00 Senna (Senokot) 1 tab QHS PO Last administered on 04/04/18 21:52; Start 03/18/18 at 21:00 Sertraline HCl (Zoloft) 25 mg QHS PO Last administered on 04/04/18 21:52; Start 03/18/18 at 21:00 Simvastatin (Zocor) 40 mg QHS PO Last administered on 04/04/18 21:53; Start 03/18/18 at 21:00 Sodium Chloride ([place] Nasal Crum [place]) 2 spray TID NA Last administered on 04/05/18 09:26; Start 03/22/18 at 16:00 Torsemide (Demadex) 40 mg DAILY PO Last administered on 04/05/18 09:25; Start 03/19/18 at 09:00 Trazodone HCl (Desyrel) 25 mg Q6HP PRN PO AGITATION Last administered on 03/31/18 21:01; Start 03/18/18 at 17:30 Trazodone HCl (Desyrel) 25 mg QHSP PRN PO INSOMNIA; Start 03/18/18 at 17:30; Stop 03/19/18 at 18:50; Status DC Trazodone HCl (Desyrel) 50 mg QHS PO Last administered on 04/04/18 21:52; Start 03/19/18 at 21:00 Trimethoprim/ Sulfamethoxazole (Bactrim Ds, Septra Ds 160mg/ 800mg) 1 tab Q12H PO Last administered on 04/05/18 09:26; Start 04/02/18 at 09:00; Stop 04/09/18 at 08:59 Valacyclovir HCl (Valtrex) 1,000 mg Q12H PO Last administered on 03/31/18 21:04; Start 03/25/18 at 09:00; Stop 04/01/18 at 08:59 LINDSAY MAXWELL MD Apr 05, 2018 12:32
[2018-04-05 14:00] VITALS: BP 136/88
[2018-04-05] MEDS: RIVAROXABAN 10 MG TAB (XARELTO) PO SCH (17:43)
[2018-04-05 20:00] VITALS: BP 120/68
[2018-04-05] MEDS: traZODone 50 MG TAB PO SCH (21:23)
[2018-04-05] MEDS: MEMANTINE 5MG TABLET (NAMENDA) PO SCH (21:25)
[2018-04-05] MEDS: SENNA 8.6 MG TAB (SENOKOT) PO SCH (21:26)
[2018-04-05] MEDS: SERTRALINE HCL 25 MG TABLET PO SCH (21:26)
[2018-04-05] MEDS: SIMVASTATIN 20 MG TAB PO SCH (21:26)
[2018-04-06 05:00] VITALS: BP 110/60
[2018-04-06] MEDS: LEVOTHYROXINE 50MCG TABLET (0.05MG) PO SCH (05:15)
[2018-04-06] MEDS: BACTRIM 160MG/800MG DS TAB PO SCH ×2 (08:55→20:08)
[2018-04-06] MEDS: MAGNESIUM GLUCONATE 500 MG TAB PO SCH ×2 (08:55→20:08)
[2018-04-06] MEDS: FERROUS SULFATE 325MG TAB PO SCH ×2 (08:55→20:07)
[2018-04-06] MEDS: POTASSIUM CHLORIDE 10 MEQ SR TABLET PO SCH (08:56)
[2018-04-06] MEDS: DONEPEZIL 5 MG TAB PO SCH (08:56)
[2018-04-06] MEDS: PROPRANOLOL 10 MG TAB PO SCH ×3 (08:56→20:08)
[2018-04-06] MEDS: TORSEMIDE 20 MG TAB PO SCH (08:56)
[2018-04-06] MEDS: PERCOCET 5MG/325MG TAB PO SCH ×3 (08:57→20:07)
[2018-04-06] MEDS: DOCUSATE SODIUM 100 MG CAP PO SCH ×2 (08:57→20:08)
[2018-04-06] MEDS: FLUTICASONE PROP 0.05% NASAL SPRAY 16 GM (FLONASE) NARES SCH ×2 (08:57→20:09)
[2018-04-06] MEDS: oxyBUTYnin 5 MG TAB PO SCH ×2 (08:57→20:07)
[2018-04-06] MEDS: SODIUM CHLORIDE NASAL 0.65% SPRAY BTL (OCEAN) SCH ×3 (08:57→20:09)
[2018-04-06 14:00] VITALS: BP 133/73
[2018-04-06] MEDS: RIVAROXABAN 10 MG TAB (XARELTO) PO SCH (16:46)
[2018-04-06] MEDS: SIMVASTATIN 20 MG TAB PO SCH (20:07)
[2018-04-06] MEDS: MEMANTINE 5MG TABLET (NAMENDA) PO SCH (20:07)
[2018-04-06] MEDS: SENNA 8.6 MG TAB (SENOKOT) PO SCH (20:07)
[2018-04-06] MEDS: SERTRALINE HCL 25 MG TABLET PO SCH (20:08)
[2018-04-06] MEDS: traZODone 50 MG TAB PO SCH (20:08)
[2018-04-06 20:30] VITALS: BP 115/62
[2018-04-07] MEDS: LEVOTHYROXINE 50MCG TABLET (0.05MG) PO SCH (05:43)
[2018-04-07 06:00] VITALS: BP 120/66
[2018-04-07] MEDS ORDERED: XARE10TA PO (06:22)
[2018-04-07] MEDS: DOCUSATE SODIUM 100 MG CAP PO SCH ×2 (08:54→22:58)
[2018-04-07] MEDS: POTASSIUM CHLORIDE 10 MEQ SR TABLET PO SCH (08:54)
[2018-04-07] MEDS: TORSEMIDE 20 MG TAB PO SCH (08:54)
[2018-04-07] MEDS: BACTRIM 160MG/800MG DS TAB PO SCH ×2 (08:54→22:57)
[2018-04-07] MEDS: PERCOCET 5MG/325MG TAB PO SCH ×3 (08:55→22:56)
[2018-04-07] MEDS: oxyBUTYnin 5 MG TAB PO SCH ×2 (08:55→22:57)
[2018-04-07] MEDS: DONEPEZIL 5 MG TAB PO SCH (08:55)
[2018-04-07] MEDS: FERROUS SULFATE 325MG TAB PO SCH ×2 (08:55→22:58)
[2018-04-07] MEDS: MAGNESIUM GLUCONATE 500 MG TAB PO SCH ×2 (08:55→22:57)
[2018-04-07] MEDS: SODIUM CHLORIDE NASAL 0.65% SPRAY BTL (OCEAN) SCH ×3 (08:56→22:59)
[2018-04-07] MEDS: PROPRANOLOL 10 MG TAB PO SCH ×3 (08:56→22:58)
[2018-04-07] MEDS: FLUTICASONE PROP 0.05% NASAL SPRAY 16 GM (FLONASE) NARES SCH ×2 (08:56→22:59)
--- NOTE | 2018-04-07 13:33 | IPNPDOC ---
Date Seen The patient was seen on 04/07/18. Progress Note HPI: Patient is a 72-year-old female who presented to the ER with complaints of right hip pain after she had fallen off the toilet. Patient was in the bathroom and leaned over and fell off, landing on her right hip. She complained of severe pain at the time. Did not lose consciousness, was awake and called out to family members for help. The pt was found to have Right proximal femur fracture S/P Right hip open reduction, cephalomedullary nail fixation right proximal femur as per Orthopedic Surgery. The pt was transferred to the care of HORACIO Eisenberg, 03/18/18. 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 No voiced concerns. Denies any fevers, chills, weakness, fatigue, Headache, Chest Pain, Shortness of breath, cough, palpitations, abdominal pain, N/V/D or changes in bowel or bladder habits. PMHx: dementia hypothyroid HTN DLP PE: GEN: 72yoF, appears stated age. No acute distress. Pleasantly confused, anxious. HEENT: Normocephalic, atraumatic.Sclera are nonicteric. Conjunctiva without injection. No facial asymmetry. Moist mucous membranes. Neck supple. CHEST: Regular rate and rhythm, +S1, +S2. JVD not visible sitting. LUNGS: Clear to auscultation bilaterally. No wheezes, rales, or rhonchi. Breathing appears symmetric and easy. ABD: Round, soft, non-tender, non-distended. +Bowel sounds throughout. EXT: trace to 1mm lower extremity edema appreciated R>L. SKIN: [place], dry, warm. No rashes. NEURO: No focal deficits appreciated. MRI Brain 03/21/18 No acute abnormality. LE U/S neg 03/28/18 A&P: Patient is a 72-year-old female who presented to the ER with complaints of right hip pain after she had fallen off the toilet. Patient was in the bathroom and leaned over and fell off, landing on her right hip. She complained of severe pain at the time. Did not lose consciousness, was awake and called out to family members for help. The pt was found to have Right proximal femur fracture S/P Right hip open reduction, cephalomedullary nail fixation right proximal femur as per Orthopedic Surgery. The pt was transferred to the care of Dr Cash, ARU, 03/18/18. 1. Right hip fracture - 2/2 mechanical fall - s/p repair (03/15/[address] Schultz). Mgmt as per orthopedic surgery. Molst form was completed witnessed signed and placed in the chart previously, DNR/DNI. PT/OT/ST as per ARU Pain control as per ARU. Bowel care as per ARU. DVT px Xarelto as per Orthopedic surgery Disposition as per ARU. 2. UTI. UC 03/31/18 MRSA. po Bactrim D6 SCr 1.20. Monitor. 3. Dementia Aricept/Namenda 4. Hypothyroidism Levothyroxine dose was adjusted to AM, pt had been taking dose at night on a full stomach. Monitor. 5. DLP Simvastatin 6. Depression Sertraline 7. Hypertension. LE U/S neg. Continue torsemide 40 mg po daily. 8. Hypokalemia. Continue po supplement. Monitor. 8. Urinary retention Ditropan 9. Anemia. Hgb stable. Fe studies, B12, folate completed, Fe supplement BID. Continue to monitor need for transfusion. 10. Shingles Left Buttock. Valtrex as per ARU attending. VS, I&O, 24H, Fishbone Vital Signs/I&O Vital Signs Date Time Temp Pulse Resp B/P (MAP) Pulse Ox O2 Delivery O2 Flow Rate FiO2 04/07/18 09:25 18 04/07/18 08:56 78 120/66 04/07/18 06:00 98.2 96 Room Air I&O- Last 24 Hours up to 6 AM 04/07/18 05:59 Intake Total 720 ml Output Total 750 ml Balance -30 ml Laboratory Data Microbiology Microbiology 03/31/18 Urine Culture - Final, Complete Staph.aureus Methicillin Resis Thea Mo Apr 07, 2018 13:33
[2018-04-07 14:00] VITALS: BP 148/79
--- NOTE | 2018-04-07 15:42 | IPNPDOC ---
PM&R Progress Note DATE OF SERVICE: Apr 07, 2018 [facility] Progress Note Subjective: Patient seen in therapy today reports she feels like a burden to her family. Her daughter was made aware she will need a wheelchair in order to return home. REVIEW OF SYSTEMS: The following is a completed review of systems and has been reviewed. Review of systems otherwise unremarkable. PAIN: Patient self reports right hip pain EYES: Negative for recent vision changes EARS, NOSE, & THROAT: negative for dysphagia, rhinorrhea, or throat pain CARDIOVASCULAR: denies chest pain or palpitations PULMONARY: Negate. Denies shortness of breath GASTROINTESTINAL: denies diarrhea or constipation GENITOURINARY: +urinary retention-improving MUSCULOSKELETAL: right hip fracture NEUROLOGICAL: dementia SKIN: right hip incision, and facial abrasions, vesicular rash left buttock PSYCHIATRIC:dementia and anxiety/depression All other review of systems found to be negative. PHYSICAL EXAMINATION: VITAL SIGNS: Please see below. GENERAL: Pleasant and cooperative. anxious HEENT: PERRL. Extraocular movements intact. Clear conjunctiva, naso-labial folds equal bilat, however left eye smaller with lid droop on the left, unable to raise left eyebrow, or right eyebrow when asked to CARDIOVASCULAR: Regular rate and rhythm. No murmurs, rubs, or gallops LUNGS:Clear to auscultation bilaterally. No wheezes. No rhonchi ABDOMEN: Soft, nontender, nondistended. Positive bowel sounds. Normal active bowel sounds NEUROLOGICAL: Alert and oriented to self, not place or time. Cranial nerves II through XII grossly intact. Sensation intact in CN5 distribution and throughout upper and lower extremities to light touch EXTREMITIES: 5-\5 strength bilateral upper extremities. 5\5 strength right ankle DF and EHL, limited due to pain. 5/5 strength in left lower extremity. SKIN:right hip incision c/d/i, scattered facial scabs (self inflicted)-healing -left buttock vesicular rash in dermatomal pattern- scabbed and healing well ASSESSMENT:72-year-old F with past medical history of dementia who presents status post fall with right hip fracture s/p ORIF. PLAN: 1. 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 Cardiac: pmh HTN, continue BP meds, pmh HLD continue statin medicine consulted 4. Endo: pmh hypothyroidism, has been taking Synthroid incorrectly at night on full stomach, likely not getting metabolized- TSH elevate, FT4 wnl, will not change dose as taking it int he AM instead will likely correct this subclinical hypothyroidism 5. : admission UA and Ucx negative, monitor PVRs, continue oxybutynin- repeat Ucx + MRSA, continue BActrim 6. Psych: pmh depression continue Zoloft, will try to avoid Haldol and trial standing dose of Trazodone for insomnia -persistent anxiety, will start low dose Propranolol with parameters for anxiety-improving 7. DVT ppx: on xarelto, Dopplers ordered today, negative for DVT, +right Stevenson's cyst 8. Ortho: s/p right hip fracture, WBAT monitor for blood loss anemia and ortho consulted 9. Heme: iron deficiency anemia- will start oral iron 9. Pain: continue Percocet prn and continue Tylenol 10: ID: mild leukocytosis-left buttock Zoster will s/p course Valacyclovir- leukocytosis improving 8. Dispo will push back date given slow progression to 04-08-18 given inconsistencies with RW, might need wheelchair in order to safely return home Allergies Coded Allergies: No Known Allergies (Unverified , 03/15/18) Vital Signs Vital Signs Date Time Temp Pulse Resp B/P (MAP) Pulse Ox O2 Delivery O2 Flow Rate FiO2 04/07/18 09:25 18 04/07/18 08:56 78 120/66 04/07/18 06:00 98.2 96 Room Air Microbiology Microbiology 03/31/18 Urine Culture - Final, Complete Staph.aureus Methicillin Resis Current Medications Current Medications Current Medications Acetaminophen (Tylenol Tab) 650 mg DAILYPRN PRN PO fever/MILD PAIN (PS 1-4); Start 03/18/18 at 17:30; Stop 03/20/18 at 14:40; Status DC Acetaminophen (Tylenol Tab) 650 mg Q4HP PRN PO fever/MILD PAIN (PS 1-4); Start 03/18/18 at 17:15; Stop 03/18/18 at 17:31; Status DC Acetaminophen (Tylenol Tab) 1,000 mg BIDP PRN PO PAIN Last administered on 04/04/18at 05:41; Start 03/20/18 at 17:00 Acetaminophen (Tylenol Tab) 1,000 mg TID PO Last administered on 03/20/18at 07:55; Start 03/18/18 at 21:00; Stop 03/20/18 at 14:40; Status DC Baclofen (Lioresal) 5 mg BIDP PRN PO SPASMS Last administered on 03/24/18at 16:02; Start 03/23/18 at 17:30 Bisacodyl (Dulcolax Suppository) 10 mg DAILYPRN PRN [place] CONSTIPATION; Start 03/18/18 at 17:15 Docusate Sodium (Colace) 100 mg BID PO Last administered on 04/07/18at 08:54; Start 03/18/18 at 21:00 Donepezil HCl (AriCEPT) 10 mg DAILY PO Last administered on 04/07/18at 08:55; Start 03/19/18 at 09:00 Ferrous Sulfate (Ferrous Sulfate) 325 mg BID PO Last administered on 04/07/18at 08:55; Start 03/26/18 at 21:00 Fluticasone Propionate (Flonase 0.05% Nasal [place]) 1 spray BID NARES Last administered on 04/07/18at 08:56; Start 03/22/18 at 21:00 Haloperidol (Haldol) 0.5 mg QHSP PRN PO AGITATION; Start 03/18/18 at 17:30 Levofloxacin (Levaquin) 250 mg QHS PO Last administered on 04/01/18at 20:13; Start 03/31/18 at 21:00; Stop 04/02/18 at 05:43; Status DC Levothyroxine Sodium (Synthroid) 50 mcg DAILY@06 PO Last administered on 04/07/18 05:43; Start 03/19/18 at 06:00 Magnesium Gluconate (Magnesium Gluconate) 500 mg BID PO Last administered on 04/07/18 08:55; Start 03/31/18 at 09:00 Magnesium Hydroxide (Milk Of Magnesia) 30 ml DAILYPRN PRN PO CONSTIPATION Last administered on 03/31/18 09:25; Start 03/18/18 at 17:15 Memantine (Namenda) 10 mg QHS PO Last administered on 04/06/18 20:07; Start 03/18/18 at 21:00 Miscellaneous (Unresolved Clarification Entry) SEE LABEL COMMENTS DAILY XX Last administered on 03/28/18 09:00; Start 03/26/18 at 09:00; Stop 03/31/18 at 09:02; Status DC Miscellaneous (Unresolved Clarification Entry) SEE LABEL COMMENTS DAILY XX ; Start 03/31/18 at 09:00; Status Cancel Miscellaneous (Unresolved Clarification Entry) SEE LABEL COMMENTS DAILY XX ; Start 04/05/18 at 09:00; Stop 04/05/18 at 13:33; Status DC Ondansetron HCl (Zofran) 4 mg Q6HP PRN PO NAUSEA; Start 03/18/18 at 17:15; Stop 03/19/18 at 18:50; Status DC Oxybutynin Chloride (Ditropan) 5 mg BID PO Last administered on 04/07/18 08:55; Start 03/18/18 at 21:00 Oxycodone/ Acetaminophen (Percocet 5mg/ 325mg Tablet) 1 tab TID PO Last administered on 04/07/18 08:55; Start 03/20/18 at 16:00 Potassium Chloride (Micro-K Extencaps) 20 meq DAILY PO Last administered on 03/31/18 08:17; Start 03/27/18 at 09:00; Stop 03/31/18 at 10:34; Status DC Potassium Chloride (Micro-K Extencaps) 40 meq DAILY PO Last administered on 04/07/18 08:54; Start 04/01/18 at 09:00 Propranolol HCl (Inderal) 5 mg TID PO Last administered on 04/07/18 08:56; Start 03/25/18 at 16:00 Rivaroxaban (Xarelto) 10 mg DAILY@18 PO Last administered on 04/06/18 16:46; Start 03/19/18 at 18:00 Senna (Senokot) 1 tab QHS PO Last administered on 04/06/18 20:07; Start 03/18/18 at 21:00 Sertraline HCl (Zoloft) 25 mg QHS PO Last administered on 04/06/18 20:08; Start 03/18/18 at 21:00 Simvastatin (Zocor) 40 mg QHS PO Last administered on 04/06/18 20:07; Start 03/18/18 at 21:00 Sodium Chloride ([place] Nasal [place]) 2 spray TID NA Last administered on 04/07/18 08:56; Start 03/22/18 at 16:00 Torsemide (Demadex) 40 mg DAILY PO Last administered on 04/07/18 08:54; Start 03/19/18 at 09:00 Trazodone HCl (Desyrel) 25 mg Q6HP PRN PO AGITATION Last administered on 03/31/18 21:01; Start 03/18/18 at 17:30 Trazodone HCl (Desyrel) 25 mg QHSP PRN PO INSOMNIA; Start 03/18/18 at 17:30; Stop 03/19/18 at 18:50; Status DC Trazodone HCl (Desyrel) 50 mg QHS PO Last administered on 04/06/18 20:08; Start 03/19/18 at 21:00 Trimethoprim/ Sulfamethoxazole (Bactrim Ds, Septra Ds 160mg/ 800mg) 1 tab Q12H PO Last administered on 04/07/18 08:54; Start 04/02/18 at 09:00; Stop 04/09/18 at 08:59 Valacyclovir HCl (Valtrex) 1,000 mg Q12H PO Last administered on 03/31/18 21:04; Start 03/25/18 at 09:00; Stop 04/01/18 at 08:59 LINDSAY MAXWELL MD Apr 07, 2018 15:42
[2018-04-07] MEDS: RIVAROXABAN 10 MG TAB (XARELTO) PO SCH (17:33)
[2018-04-07 20:00] VITALS: BP 122/75
[2018-04-07] MEDS: MEMANTINE 5MG TABLET (NAMENDA) PO SCH (22:57)
[2018-04-07] MEDS: SERTRALINE HCL 25 MG TABLET PO SCH (22:58)
[2018-04-07] MEDS: SENNA 8.6 MG TAB (SENOKOT) PO SCH (22:58)
[2018-04-07] MEDS: traZODone 50 MG TAB PO SCH (22:58)
[2018-04-07] MEDS: SIMVASTATIN 20 MG TAB PO SCH (22:59)
[2018-04-08 06:00] VITALS: BP 114/57
[2018-04-08] MEDS: LEVOTHYROXINE 50MCG TABLET (0.05MG) PO SCH (06:01)
[2018-04-08] MEDS: MAGNESIUM GLUCONATE 500 MG TAB PO SCH ×2 (11:03→20:45)
[2018-04-08] MEDS: FERROUS SULFATE 325MG TAB PO SCH ×2 (11:03→20:46)
[2018-04-08] MEDS: DOCUSATE SODIUM 100 MG CAP PO SCH ×2 (11:03→20:46)
[2018-04-08] MEDS: oxyBUTYnin 5 MG TAB PO SCH ×2 (11:03→20:45)
[2018-04-08] MEDS: POTASSIUM CHLORIDE 10 MEQ SR TABLET PO SCH (11:04)
[2018-04-08] MEDS: DONEPEZIL 5 MG TAB PO SCH (11:05)
[2018-04-08] MEDS: TORSEMIDE 20 MG TAB PO SCH (11:05)
[2018-04-08] MEDS: BACTRIM 160MG/800MG DS TAB PO SCH ×2 (11:05→20:55)
[2018-04-08] MEDS: PERCOCET 5MG/325MG TAB PO SCH ×3 (11:05→20:51)
[2018-04-08] MEDS: PROPRANOLOL 10 MG TAB PO SCH ×3 (11:11→20:52)
[2018-04-08] MEDS: FLUTICASONE PROP 0.05% NASAL SPRAY 16 GM (FLONASE) NARES SCH ×2 (11:12→20:52)
[2018-04-08] MEDS: SODIUM CHLORIDE NASAL 0.65% SPRAY BTL (OCEAN) SCH ×3 (11:12→20:52)
[2018-04-08 14:00] VITALS: BP 127/71
[2018-04-08] MEDS: RIVAROXABAN 10 MG TAB (XARELTO) PO SCH (18:47)
[2018-04-08 20:00] VITALS: BP 115/67
[2018-04-08] MEDS: SERTRALINE HCL 25 MG TABLET PO SCH (20:45)
[2018-04-08] MEDS: traZODone 50 MG TAB PO SCH (20:45)
[2018-04-08] MEDS: MEMANTINE 5MG TABLET (NAMENDA) PO SCH (20:45)
[2018-04-08] MEDS: SENNA 8.6 MG TAB (SENOKOT) PO SCH (20:46)
[2018-04-08] MEDS: SIMVASTATIN 20 MG TAB PO SCH (20:46)
[2018-04-09 06:00] VITALS: BP 113/67
[2018-04-09] MEDS: LEVOTHYROXINE 50MCG TABLET (0.05MG) PO SCH (06:05)
[2018-04-09 06:52] LABS: HEMATOCRIT 29.9 % (36.0-47.0); HEMOGLOBIN 9.4 g/dl (12.0-15.5); MEAN CORPUSCULAR HEMOGLOBIN 29.8 pg (27.0-33.0); MEAN CORPUSCULAR HGB CONC 31.4 g/dl (32.0-36.5); MEAN CORPUSCULAR VOLUME 94.9 fl (80.0-96.0); PLATELET COUNT, AUTOMATED 319 10^3/uL (150-450); RED BLOOD COUNT 3.15 10^6/uL (4.00-5.40); WHITE BLOOD COUNT 7.6 10^3/uL (4.0-10.0)
[2018-04-09 07:16] LABS: ALBUMIN 2.7 GM/DL (3.2-5.2); BILIRUBIN,TOTAL 0.5 MG/DL (0.2-1.0); CREATININE FOR GFR 1.49 MG/DL (0.55-1.30); GLOMERULAR FILTRATION RATE 36.4 (>39); POTASSIUM SERUM 3.9 MEQ/L (3.5-5.1); TOTAL PROTEIN 6.1 GM/DL (6.4-8.2)
[2018-04-09] MEDS: FERROUS SULFATE 325MG TAB PO SCH ×2 (09:21→20:36)
[2018-04-09] MEDS: PROPRANOLOL 10 MG TAB PO SCH ×3 (09:22→20:38)
[2018-04-09] MEDS: POTASSIUM CHLORIDE 10 MEQ SR TABLET PO SCH (09:22)
[2018-04-09] MEDS: DONEPEZIL 5 MG TAB PO SCH (09:22)
[2018-04-09] MEDS: DOCUSATE SODIUM 100 MG CAP PO SCH ×2 (09:23→20:36)
[2018-04-09] MEDS: oxyBUTYnin 5 MG TAB PO SCH ×2 (09:23→20:36)
[2018-04-09] MEDS: TORSEMIDE 20 MG TAB PO SCH (09:23)
[2018-04-09] MEDS: FLUTICASONE PROP 0.05% NASAL SPRAY 16 GM (FLONASE) NARES SCH ×2 (09:24→20:39)
[2018-04-09] MEDS: SODIUM CHLORIDE NASAL 0.65% SPRAY BTL (OCEAN) SCH ×3 (09:24→20:39)
[2018-04-09] MEDS: PERCOCET 5MG/325MG TAB PO SCH ×3 (09:24→20:38)
[2018-04-09] MEDS: MAGNESIUM GLUCONATE 500 MG TAB PO SCH ×2 (09:24→20:35)
--- NOTE | 2018-04-09 12:47 | IPNPDOC ---
Date Seen The patient was seen on 04/09/18. Progress Note HPI: Patient is a 72-year-old female who presented to the ER with complaints of right hip pain after she had fallen off the toilet. Patient was in the bathroom and leaned over and fell off, landing on her right hip. She complained of severe pain at the time. Did not lose consciousness, was awake and called out to family members for help. The pt was found to have Right proximal femur fracture S/P Right hip open reduction, cephalomedullary nail fixation right proximal femur as per Orthopedic Surgery. The pt was transferred to the care of HORACIO Eisenberg, 03/18/18. She is OOB to W/C currently, executive housekeeper at bedside. No voiced concerns. Denies any fevers, chills, weakness, fatigue, Headache, Chest Pain, Shortness of breath, cough, palpitations, abdominal pain, N/V/D or changes in bowel or bladder habits. PMHx: dementia hypothyroid HTN DLP PE: GEN: 72yoF, appears stated age. No acute distress. Pleasantly confused, anxious. HEENT: Normocephalic, atraumatic.Sclera are nonicteric. Conjunctiva without injection. No facial asymmetry. Moist mucous membranes. Neck supple. CHEST: Regular rate and rhythm, +S1, +S2. JVD not visible sitting. LUNGS: Clear to auscultation bilaterally. No wheezes, rales, or rhonchi. Breathing appears symmetric and easy. ABD: Round, soft, non-tender, non-distended. +Bowel sounds throughout. EXT: trace to 1mm lower extremity edema appreciated R>L. SKIN: [place], dry, warm. No rashes. NEURO: No focal deficits appreciated. MRI Brain 03/21/18 No acute abnormality. LE U/S neg 03/28/18 A&P: Patient is a 72-year-old female who presented to the ER with complaints of right hip pain after she had fallen off the toilet. Patient was in the bathroom and leaned over and fell off, landing on her right hip. She complained of severe pain at the time. Did not lose consciousness, was awake and called out to family members for help. The pt was found to have Right proximal femur fracture S/P Right hip open r eduction, cephalomedullary nail fixation right proximal femur as per Orthopedic Surgery. The pt was transferred to the care of Dr Cash, ARU, 03/18/18. 1. Right hip fracture - 2/2 mechanical fall - s/p repair (03/15/[address] Schultz). Mgmt as per orthopedic surgery. Molst form was completed witnessed signed and placed in the chart previously, DNR/DNI. PT/OT/ST as per ARU Pain control as per ARU. Bowel care as per ARU. DVT px Xarelto as per Orthopedic surgery Disposition as per ARU. 2. UTI. UC 03/31/18 MRSA. po Bactrim D7/7 SCr 1.49. Recheck in AM, completed Bactrim today. Repeat UA reflex culture pending. Monitor. 3. Dementia Aricept/Namenda 4. Hypothyroidism Levothyroxine dose was adjusted to AM, pt had been taking dose at night on a full stomach. Monitor. 5. DLP Simvastatin 6. Depression Sertraline 7. Hypertension. LE U/S neg. SBP 113. SCr 1.49 (baseline 0.8-1) Will temporarily HOLD torsemide 40 mg po daily. BMP in AM. 8. Hypokalemia. Continue po supplement. Monitor. 8. Urinary retention Ditropan 9. Anemia. Hgb 9.4. Fe studies, B12, folate completed, Fe supplement BID. Continue to monitor need for transfusion. 10. Shingles Left Buttock. Completed 7d Valtrex VS, I&O, 24H, Fishbone Vital Signs/I&O Vital Signs Date Time Temp Pulse Resp B/P (MAP) Pulse Ox O2 Delivery O2 Flow Rate FiO2 04/09/18 10:22 18 04/09/18 09:22 74 113/67 04/09/18 06:00 99.0 92 Room Air I&O- Last 24 Hours up to 6 AM 04/09/18 06:00 Intake Total 900 ml Output Total 600 ml Balance 300 ml Laboratory Data 24H LABS Laboratory Tests 2 04/09/18 06:30: Nucleated Red Blood Cells % (auto) 0.0, Anion Gap 10, Glomerular Filtration Rate 36.4L, Blood Urea Nitrogen 16, Creatinine 1.49H, Sodium Level 138, Potassium Level 3.9, Chloride Level 106, Carbon Dioxide Level 22, Calcium Level 8.0L, Aspartate Amino Transf (AST/SGOT) 13, Alanine Aminotransferase (ALT/SGPT) 11L, Alkaline Phosphatase 130H, Total Bilirubin 0.5, Total Protein 6.1L, Albumin 2.7L, Albumin/Globulin Ratio 0.79L 04/09/18 12:36: CBC/BMP Laboratory Tests 04/09/18 06:30 Red Blood Count 3.15 L, Mean Corpuscular Volume 94.9, Mean Corpuscular Hemoglobin 29.8, Mean Corpuscular Hemoglobin Concent 31.4 L, Red Cell Distribution Width 18.2 H, Calcium Level 8.0 L, Aspartate Amino Transf (AST/SGOT) 13, Alanine Aminotransferase (ALT/SGPT) 11 L, Alkaline Phosphatase 130 H, Total Bilirubin 0.5, Total Protein 6.1 L, Albumin 2.7 L Microbiology Microbiology 03/31/18 Urine Culture - Final, Complete Staph.aureus Methicillin Resis Thea Mo Apr 09, 2018 12:47
[2018-04-09 14:00] VITALS: BP 125/74
--- NOTE | 2018-04-09 14:46 | REP ---
Clinical: Cough. Fatigue. Technique: PA and lateral. Findings: Cardiomegaly. Bibasilar atelectasis suggested. No obvious effusion. No pneumothorax. Skeletal structures intact. Impression: Cardiomegaly with bibasilar atelectasis. Cannot exclude interstitial edema. Electronically Signed by Darian Lagos MD 04/09/2018 02:38 P
[2018-04-09] MEDS: RIVAROXABAN 10 MG TAB (XARELTO) PO SCH (18:14)
[2018-04-09 20:00] VITALS: BP 157/74
[2018-04-09] MEDS: SIMVASTATIN 20 MG TAB PO SCH (20:35)
[2018-04-09] MEDS: MEMANTINE 5MG TABLET (NAMENDA) PO SCH (20:36)
[2018-04-09] MEDS: SENNA 8.6 MG TAB (SENOKOT) PO SCH (20:36)
[2018-04-09] MEDS: traZODone 50 MG TAB PO SCH (20:38)
[2018-04-09] MEDS: SERTRALINE HCL 25 MG TABLET PO SCH (20:39)
--- NOTE | 2018-04-09 22:09 | IPNPDOC ---
PM&R Progress Note DATE OF SERVICE: Apr 08, [address]preter Progress Note Subjective: Patient and family looking to purchase a wheelchair in anticipation of discharge. REVIEW OF SYSTEMS: The following is a completed review of systems and has been reviewed. Review of systems otherwise unremarkable. PAIN: Patient self reports right hip pain EYES: Negative for recent vision changes EARS, NOSE, & THROAT: negative for dysphagia, rhinorrhea, or throat pain CARDIOVASCULAR: denies chest pain or palpitations PULMONARY: Negate. Denies shortness of breath GASTROINTESTINAL: denies diarrhea or constipation GENITOURINARY: +urinary retention-improving MUSCULOSKELETAL: right hip fracture NEUROLOGICAL: dementia SKIN: right hip incision, and facial abrasions, vesicular rash left buttock PSYCHIATRIC:dementia and anxiety/depression All other review of systems found to be negative. PHYSICAL EXAMINATION: VITAL SIGNS: Please see below. GENERAL: Pleasant and cooperative. anxious HEENT: PERRL. Extraocular movements intact. Clear conjunctiva, naso-labial folds equal bilat, however left eye smaller with lid droop on the left, unable to raise left eyebrow, or right eyebrow when asked to CARDIOVASCULAR: Regular rate and rhythm. No murmurs, rubs, or gallops LUNGS:Clear to auscultation bilaterally. No wheezes. No rhonchi ABDOMEN: Soft, nontender, nondistended. Positive bowel sounds. Normal active bowel sounds NEUROLOGICAL: Alert and oriented to self, not place or time. Cranial nerves II through XII grossly intact. Sensation intact in CN5 distribution and throughout upper and lower extremities to light touch EXTREMITIES: 5-\5 strength bilateral upper extremities. 5\5 strength right ankle DF and EHL, limited due to pain. 5/5 strength in left lower extremity. SKIN:right hip incision c/d/i, scattered facial scabs (self inflicted)-healing -left buttock vesicular rash in dermatomal pattern- scabbed and healing well ASSESSMENT:72-year-old F with past medical history of dementia who presents status post fall with right hip fracture s/p ORIF. PLAN: 1. Rehab: PT/OT and CHECKMAN for cognition, assess for DME needs, ambulating with RW needing a lot of encouragement, inconsistent and requiring wheelchair follows, able to walk further with some caregivers, but unable to safely walk household distances at this time, will likely need wheelchair -patient family planning to rent a ramp -speech therpy evaluate for dysphagia and did not find any significant impairments 2. 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 Cardiac: pmh HTN, continue BP meds, pmh HLD continue statin medicine consulted 4. Endo: pmh hypothyroidism, has been taking Synthroid incorrectly at night on full stomach, likely not getting metabolized- TSH elevate, FT4 wnl, will not change dose as taking it int he AM instead will likely correct this subclinical hypothyroidism 5. : admission UA and Ucx negative, monitor PVRs, continue oxybutynin- repeat Ucx + MRSA, continue BActrim 6. Psych: pmh depression continue Zoloft, will try to avoid Haldol and trial standing dose of Trazodone for insomnia -persistent anxiety, will start low dose Propranolol with parameters for anxiety-improving 7. DVT ppx: on xarelto, Dopplers ordered today, negative for DVT, +right Stevenson's cyst 8. Ortho: s/p right hip fracture, WBAT monitor for blood loss anemia and ortho consulted 9. Heme: iron deficiency anemia- will start oral iron 9. Pain: continue Percocet prn and continue Tylenol 10: ID: mild leukocytosis-left buttock Zoster will s/p course Valacyclovir- leukocytosis improving 8. Dispo will push back date until family acquires a wheelchair and ramp for safe discharge to home Allergies Coded Allergies: No Known Allergies (Unverified , 03/15/18) Vital Signs Vital Signs Date Time Temp Pulse Resp B/P (MAP) Pulse Ox O2 Delivery O2 Flow Rate FiO2 04/09/18 21:09 18 04/09/18 20:38 69 154/76 04/09/18 20:00 98.8 99 04/09/18 06:00 Room Air Laboratory Data CBC/BMP Laboratory Tests 04/09/18 06:30 Red Blood Count 3.15 L, Mean Corpuscular Volume 94.9, Mean Corpuscular Hemoglobin 29.8, Mean Corpuscular Hemoglobin Concent 31.4 L, Red Cell Distribu tion Width 18.2 H, Calcium Level 8.0 L, Aspartate Amino Transf (AST/SGOT) 13, Alanine Aminotransferase (ALT/SGPT) 11 L, Alkaline Phosphatase 130 H, Total Bilirubin 0.5, Total Protein 6.1 L, Albumin 2.7 L Labs 24H Laboratory Tests 2 04/09/18 06:30: Nucleated Red Blood Cells % (auto) 0.0, Anion Gap 10, Glomerular Filtration Rate 36.4L, Blood Urea Nitrogen 16, Creatinine 1.49H, Sodium Level 138, Potassium Level 3.9, Chloride Level 106, Carbon Dioxide Level 22, Calcium Level 8.0L, Aspartate Amino Transf (AST/SGOT) 13, Alanine Aminotransferase (ALT/SGPT) 11L, Alkaline Phosphatase 130H, Total Bilirubin 0.5, Total Protein 6.1L, Albumin 2.7L, Albumin/Globulin Ratio 0.79L 04/09/18 12:36: Urine Color YELLOW, Urine Appearance CLEAR, Urine pH 6.0, Urine Specific [place] 1.014, Urine Protein NEGATIVE, Urine Glucose (UA) NEGATIVE, Urine Ketones NEGATIVE, Urine Blood NEGATIVE, Urine Nitrite NEGATIVE, Urine Bilirubin NEGATIVE, Urine Urobilinogen 0.2, Urine Leukocyte Esterase NEGATIVE, Urine WBC (Auto) 1, Urine RBC (Auto) 1, Urine Hyaline Casts (Auto) 6, Urine Bacteria (Auto) NEGATIVE, Urine Squamous Epithelial Cells 1, Urine Sperm (Auto) Microbiology Microbiology 03/31/18 Urine Culture - Final, Complete Staph.aureus Methicillin Resis Current Medications Current Medications Current Medications Acetaminophen (Tylenol Tab) 650 mg DAILYPRN PRN PO fever/MILD PAIN (PS 1-4); Start 03/18/18 at 17:30; Stop 03/20/18 at 14:40; Status DC Acetaminophen (Tylenol Tab) 650 mg Q4HP PRN PO fever/MILD PAIN (PS 1-4); Start 03/18/18 at 17:15; Stop 03/18/18 at 17:31; Status DC Acetaminophen (Tylenol Tab) 1,000 mg BIDP PRN PO PAIN Last administered on 04/04/18at 05:41; Start 03/20/18 at 17:00 Acetaminophen (Tylenol Tab) 1,000 mg TID PO Last administered on 03/20/18 07:55; Start 03/18/18 at 21:00; Stop 03/20/18 at 14:40; Status DC Baclofen (Lioresal) 5 mg BIDP PRN PO SPASMS Last administered on 03/24/18 16:02; Start 03/23/18 at 17:30 Bisacodyl (Dulcolax Suppository) 10 mg DAILYPRN PRN SC CONSTIPATION; Start 03/18/18 at 17:15 Docusate Sodium (Colace) 100 mg BID PO Last administered on 04/09/18 20:36; Start 03/18/18 at 21:00 Donepezil HCl (AriCEPT) 10 mg DAILY PO Last administered on 04/09/18 09:22; Start 03/19/18 at 09:00 Ferrous Sulfate (Ferrous Sulfate) 325 mg BID PO Last administered on 04/09/18 20:36; Start 03/26/18 at 21:00 Fluticasone Propionate (Flonase 0.05% Nasal [place]) 1 spray BID NARES Last administered on 04/09/18 20:39; Start 03/22/18 at 21:00 Haloperidol (Haldol) 0.5 mg QHSP PRN PO AGITATION; Start 03/18/18 at 17:30 Levofloxacin (Levaquin) 250 mg QHS PO Last administered on 04/01/18 20:13; Start 03/31/18 at 21:00; Stop 04/02/18 at 05:43; Status DC Levothyroxine Sodium (Synthroid) 50 mcg DAILY@06 PO Last administered on 04/09/18 06:05; Start 03/19/18 at 06:00 Magnesium Gluconate (Magnesium Gluconate) 500 mg BID PO Last administered on 04/09/18 20:35; Start 03/31/18 at 09:00 Magnesium Hydroxide (Milk Of Magnesia) 30 ml DAILYPRN PRN PO CONSTIPATION Last administered on 03/31/18 09:25; Start 03/18/18 at 17:15 Memantine (Namenda) 10 mg QHS PO Last administered on 04/09/18 20:36; Start 03/18/18 at 21:00 Miscellaneous (Unresolved Clarification Entry) SEE LABEL COMMENTS DAILY XX Last administered on 03/28/18at 09:00; Start 03/26/18 at 09:00; Stop 03/31/18 at 09:02; Status DC Miscellaneous (Unresolved Clarification Entry) SEE LABEL COMMENTS DAILY XX ; Start 03/31/18 at 09:00; Status Cancel Miscellaneous (Unresolved Clarification Entry) SEE LABEL COMMENTS DAILY XX ; Start 04/05/18 at 09:00; Stop 04/05/18 at 13:33; Status DC Ondansetron HCl (Zofran) 4 mg Q6HP PRN PO NAUSEA; Start 03/18/18 at 17:15; Stop 03/19/18 at 18:50; Status DC Oxybutynin Chloride (Ditropan) 5 mg BID PO Last administered on 04/09/18 20:36; Start 03/18/18 at 21:00 Oxycodone/ Acetaminophen (Percocet 5mg/ 325mg Tablet) 1 tab TID PO Last administered on 04/09/18 20:38; Start 03/20/18 at 16:00 Potassium Chloride (Micro-K Extencaps) 20 meq DAILY PO Last administered on 03/31/18 08:17; Start 03/27/18 at 09:00; Stop 03/31/18 at 10:34; Status DC Potassium Chloride (Micro-K Extencaps) 40 meq DAILY PO Last administered on 04/09/18 09:22; Start 04/01/18 at 09:00 Propranolol HCl (Inderal) 5 mg TID PO Last administered on 04/09/18 15:59; Start 03/25/18 at 16:00 Rivaroxaban (Xarelto) 10 mg DAILY@18 PO Last administered on 04/09/18 18:14; Start 03/19/18 at 18:00 Senna (Senokot) 1 tab QHS PO Last administered on 04/09/18 20:36; Start 03/18/18 at 21:00 Sertraline HCl (Zoloft) 25 mg QHS PO Last administered on 04/09/18 20:39; Start 03/18/18 at 21:00 Simvastatin (Zocor) 40 mg QHS PO Last administered on 04/09/18 20:35; Start 03/18/18 at 21:00 Sodium Chloride ([place] Nasal [place]) 2 spray TID NA Last administered on 04/09/18 20:39; Start 03/22/18 at 16:00 Torsemide (Demadex) 40 mg DAILY PO Last administered on 04/09/18 09:23; Start 03/19/18 at 09:00; Stop 04/09/18 at 14:13; Status DC Trazodone HCl (Desyrel) 25 mg Q6HP PRN PO AGITATION Last administered on 03/31/18at 21:01; Start 03/18/18 at 17:30 Trazodone HCl (Desyrel) 25 mg QHSP PRN PO INSOMNIA; Start 03/18/18 at 17:30; Stop 03/19/18 at 18:50; Status DC Trazodone HCl (Desyrel) 50 mg QHS PO Last administered on 04/09/18at 20:38; S tart 03/19/18 at 21:00 Trimethoprim/ Sulfamethoxazole (Bactrim Ds, Septra Ds 160mg/ 800mg) 1 tab Q12H PO Last administered on 04/08/18at 20:55; Start 04/02/18 at 09:00; Stop 04/09/18 at 08:59; Status DC Valacyclovir HCl (Valtrex) 1,000 mg Q12H PO Last administered on 03/31/18 21:04; Start 03/25/18 at 09:00; Stop 04/01/18 at 08:59 LINDSAY MAXWELL MD Apr 09, 2018 22:09
[2018-04-10 06:00] VITALS: BP 144/71
[2018-04-10] MEDS: LEVOTHYROXINE 50MCG TABLET (0.05MG) PO SCH (06:01)
[2018-04-10 08:00] LABS: HEMATOCRIT 31.9 % (36.0-47.0); MEAN CORPUSCULAR HEMOGLOBIN 30.9 pg (27.0-33.0); MEAN CORPUSCULAR HGB CONC 31.3 g/dl (32.0-36.5); MEAN CORPUSCULAR VOLUME 98.5 fl (80.0-96.0); PLATELET COUNT, AUTOMATED 300 10^3/uL (150-450); RED BLOOD COUNT 3.24 10^6/uL (4.00-5.40); WHITE BLOOD COUNT 6.6 10^3/uL (4.0-10.0)
[2018-04-10 08:35] LABS: ALBUMIN 2.8 GM/DL (3.2-5.2); BILIRUBIN,TOTAL 0.5 MG/DL (0.2-1.0); CALCIUM LEVEL 8.5 MG/DL (8.8-10.2); CREATININE FOR GFR 1.43 MG/DL (0.55-1.30); GLOMERULAR FILTRATION RATE 38.2 (>39); POTASSIUM SERUM 3.8 MEQ/L (3.5-5.1); TOTAL PROTEIN 6.5 GM/DL (6.4-8.2)
[2018-04-10] MEDS: PROPRANOLOL 10 MG TAB PO SCH ×3 (09:00→20:25)
[2018-04-10] MEDS: PERCOCET 5MG/325MG TAB PO SCH (09:00)
[2018-04-10 09:20] VITALS: BP 123/74
[2018-04-10] MEDS: FERROUS SULFATE 325MG TAB PO SCH ×2 (09:21→20:25)
[2018-04-10] MEDS: MAGNESIUM GLUCONATE 500 MG TAB PO SCH ×2 (09:21→20:24)
[2018-04-10] MEDS: DOCUSATE SODIUM 100 MG CAP PO SCH ×2 (09:21→20:25)
[2018-04-10] MEDS: oxyBUTYnin 5 MG TAB PO SCH ×2 (09:21→20:24)
[2018-04-10] MEDS: DONEPEZIL 5 MG TAB PO SCH (09:21)
[2018-04-10] MEDS: POTASSIUM CHLORIDE 10 MEQ SR TABLET PO SCH (09:22)
[2018-04-10] MEDS: FLUTICASONE PROP 0.05% NASAL SPRAY 16 GM (FLONASE) NARES SCH ×2 (09:23→20:26)
[2018-04-10] MEDS: SODIUM CHLORIDE NASAL 0.65% SPRAY BTL (OCEAN) SCH ×3 (09:23→20:26)
[2018-04-10] MEDS ORDERED: PERCOCET 5MG/325MG TAB PO PRN (10:30)
[2018-04-10] MEDS: ACETAMINOPHEN 500 MG TAB PO PRN (13:14)
--- NOTE | 2018-04-10 13:24 | HPEPDOC ---
[facility] Medical History & Physical Date of Admission Apr 10, 2018 History and Physical HPI: Patient is a 72-year-old female who presented to the ER with complaints of right hip pain after she had fallen off the toilet. Patient was in the bathroom and leaned over and fell off, landing on her right hip. She complained of severe pain at the time. Did not lose consciousness, was awake and called out to family members for help. The pt was found to have Right proximal femur fracture S/P Right hip open reduction, cephalomedullary nail fixation right proximal femur as per Orthopedic Surgery. The pt was transferred to the care of HORACIO Eisenberg, 03/18/18. She is OOB to W/C currently, currently sitting at nurses station, returned from MRI. Pt threading machine tender had apparently reported that the pt had a fever however T max documented was 99.0. Also they reported that she seemed to be more confused, MRI Brain requested and pending at this time. The Pt seems to remain confused and anxious at times. Asks me when her parents are coming. Pt denies pain. Denies any fevers, chills, weakness, fatigue, Headache, Chest Pain, Shortness of breath, cough, palpitations, abdominal pain, N/V/D or changes in bowel or bladder habits. PMHx: dementia hypothyroid HTN DLP PE: GEN: 72yoF, appears stated age. No acute distress. Pleasantly confused, anxious at times. HEENT: Normocephalic, atraumatic.Sclera are nonicteric. Conjunctiva without injection. No facial asymmetry. Moist mucous membranes. Neck supple. CHEST: Regular rate and rhythm, +S1, +S2. JVD not visible sitting. LUNGS: Clear to auscultation bilaterally. No wheezes, rales, or rhonchi. Breathing appears symmetric and easy. ABD: Round, soft, non-tender, non-distended. +Bowel sounds throughout. EXT: trace to 1mm lower extremity edema appreciated R>L. no change. SKIN: [place], dry, warm. No rashes. NEURO: No focal deficits appreciated. MRI Brain 03/21/18 No acute abnormality. LE U/S neg 03/28/18 MRI brain pending A&P: Patient is a 72-year-old female who presented to the ER with complaints of right hip pain after she had fallen off the toilet. Patient was in the bathroom and leaned over and fell off, landing on her right hip. She complained of severe pain at the time. Did not lose consciousness, was awake and called out to family members for help. The pt was found to have Right proximal femur fracture S/P Right hip open redu ction, cephalomedullary nail fixation right proximal femur as per Orthopedic Surgery. The pt was transferred to the care of Dr Cash, ARU, 03/18/18. 1. Right hip fracture - 2/2 mechanical fall - s/p repair (03/15/[address] Schultz). Mgmt as per orthopedic surgery. Molst form was completed witnessed signed and placed in the chart previously, DNR/DNI. PT/OT/ST as per ARU Pain control as per ARU. Bowel care as per ARU. DVT px Xarelto as per Orthopedic surgery Disposition as per ARU. 2. UTI. UC 03/31/18 MRSA. UA 04/09/18 neg. Completed 7d po Bactrim 04/09/18 SCr 1.43. Recheck in AM.. Monitor. 3. Dementia Continue Aricept/Namenda. This AM caregiver concerned that the pt seemed more confused, MRI Brain is pending at this time. Pt is afebrile. WBC 6.6 UA 04/09/18 neg. CXR 04/09/18 atelectasis I/S encouraged. Change Percocet from TID to Q8h prn. monitor, await results. 4. Hypothyroidism Levothyroxine dose was adjusted to AM, pt had been taking dose at night on a full stomach. Monitor. 5. DLP Simvastatin 6. Depression Sertraline 7. Hypertension. LE U/S neg. SBP 123. SCr 1.43, trending down (baseline 0.8-1) Will continue to temporarily HOLD torsemide 40 mg po daily. BMP in AM. 8. Hypokalemia. Continue po supplement. Monitor. 8. Urinary retention Ditropan 9. Anemia. Hgb 10.0. Fe studies, B12, folate completed, Fe supplement BID. Continue to monitor need for transfusion. 10. Shingles Left Buttock. Completed 7d Valtrex Vital Signs Vital Signs Date Time Temp Pulse Resp B/P (MAP) Pulse Ox O2 Delivery O2 Flow Rate FiO2 04/10/18 09:20 97.1 68 18 123/74 (90) 99 04/09/18 06:00 Room Air Laboratory Data Labs 24H Laboratory Tests 2 04/10/18 07:03: Nucleated Red Blood Cells % (auto) 0.0, Anion Gap 8, Glomerular Filtration Rate 38.2L, Blood Urea Nitrogen 18, Creatinine 1.43H, Sodium Level 138, Potassium Level 3.8, Chloride Level 104, Carbon Dioxide Level 26, Calcium Level 8.5L, Aspartate Amino Transf (AST/SGOT) 14, Alanine Aminotransferase (ALT/SGPT) 12, Alkaline Phosphatase 146H, Total Bilirubin 0.5, Total Protein 6.5, Albumin 2.8L, Albumin/Globulin Ratio 0.76L CBC/BMP Laboratory Tests 04/10/18 07:03 Red Blood Count 3.24 L, Mean Corpuscular Volume 98.5 H, Mean Corpuscular Hemoglobin 30.9, Mean Corpuscular Hemoglobin Concent 31.3 L, Red Cell Distribution Width 18.0 H, Calcium Level 8.5 L, Aspartate Amino Transf (AST/SGOT) 14, Alanine Aminotransferase (ALT/SGPT) 12, Alkaline Phosphatase 146 H, Total Bilirubin 0.5, Total Protein 6.5, Albumin 2.8 L Microbiology Microbiology 03/31/18 Urine Culture - Final, Complete Staph.aureus Methicillin Resis Home Medications Scheduled (Memantine Hydrochloride E) 14 Mg Cap, 14 MG PO QHS (Sertraline HCl) 25 Mg Tab, 25 MG PO QHS Docusate Sodium (Docusate Sodium) 100 Mg Cap, 100 MG PO DAILY Donepezil Hcl (Donepezil HCl) 10 Mg Tab, 10 MG PO QHS Haloperidol (Haloperidol) 0.5 Mg Tab, 0.5 MG PO QHS Levothyroxine Sodium (Synthroid) 50 Mcg Tab, 50 MCG PO QHS Rivaroxaban (Xarelto) 10 Mg Tab, 1 MG PO DAILY Rivaroxaban (Xarelto) 10 Mg Tab, 10 MG PO DAILY Rivaroxaban (Xarelto) 10 Mg Tab, 10 MG PO DAILY Simvastatin - High Dose (Simvastatin) 40 Mg Tab, 40 MG PO QHS Torsemide (Torsemide) 20 Mg Tab, 20 MG PO 2XW MON/THURS MORNING Scheduled PRN Tramadol HCl (Tramadol HCl) 50 Mg Tab, 1-2 TAB PO Q4H PRN for PAIN Tramadol HCl (Tramadol HCl) 50 Mg Tab, 1-2 TAB PO Q4H PRN for PAIN Allergies Coded Allergies: No Known Allergies (Unverified , 03/15/18) Thea Mo Apr 10, 2018 13:24
[2018-04-10 14:00] VITALS: BP 123/64
--- NOTE | 2018-04-10 14:15 | IPNPDOC ---
Date Seen The patient was seen on 04/10/18. Progress Note HPI: Patient is a 72-year-old female who presented to the ER with complaints of right hip pain after she had fallen off the toilet. Patient was in the bathroom and leaned over and fell off, landing on her right hip. She complained of severe pain at the time. Did not lose consciousness, was awake and called out to family members for help. The pt was found to have Right proximal femur fracture S/P Right hip open reduction, cephalomedullary nail fixation right proximal femur as per Orthopedic Surgery. The pt was transferred to the care of HORACIO Eisenberg, 03/18/18. She is OOB to W/C currently, currently sitting at nurses station, returned from MRI. Pt supervisor esters and emulsifiers had apparently reported that the pt had a fever however T max documented was 99.0. Also they reported that she seemed to be more confused, MRI Brain requested and pending at this time. The Pt seems to remain confused and anxious at times. Asks me when her parents are coming. Pt denies pain. Denies any fevers, chills, weakness, fatigue, Headache, Chest Pain, Shortness of breath, cough, palpitations, abdominal pain, N/V/D or changes in bowel or bladder habits. PMHx: dementia hypothyroid HTN DLP PE: GEN: 72yoF, appears stated age. No acute distress. Pleasantly confused, anxious at times. HEENT: Normocephalic, atraumatic.Sclera are nonicteric. Conjunctiva without injection. No facial asymmetry. Moist mucous membranes. Neck supple. CHEST: Regular rate and rhythm, +S1, +S2. JVD not visible sitting. LUNGS: Clear to auscultation bilaterally. No wheezes, rales, or rhonchi. B reathing appears symmetric and easy. ABD: Round, soft, non-tender, non-distended. +Bowel sounds throughout. EXT: trace to 1mm lower extremity edema appreciated R>L. no change. SKIN: [place], dry, warm. No rashes. NEURO: No focal deficits appreciated. MRI Brain 03/21/18 No acute abnormality. LE U/S neg 03/28/18 MRI brain pending A&P: Patient is a 72-year-old female who presented to the ER with complaints of right hip pain after she had fallen off the toilet. Patient was in the bathroom and leaned over and fell off, landing on her right hip. She complained of severe pain at the time. Did not lose consciousness, was awake and called out to family members for help. The pt was found to have Right proximal femur fracture S/P Right hip open reduction, cephalomedullary nail fixation right proximal femur as per Orthopedic Surgery. The pt was transferred to the care of Dr Cash, ARU, 03/18/18. 1. Right hip fracture - 2/2 mechanical fall - s/p repair (03/15/[address] Schultz). Mgmt as per orthopedic surgery. Molst form was completed witnessed signed and placed in the chart previously, DNR/DNI. PT/OT/ST as per ARU Pain control as per ARU. Bowel care as per ARU. DVT px Xarelto as per Orthopedic surgery Disposition as per ARU. 2. UTI. UC 03/31/18 MRSA. UA 04/09/18 neg. Completed 7d po Bactrim 04/09/18 SCr 1.43. Recheck in AM.. Monitor. 3. Dementia Continue Aricept/Namenda. This AM caregiver concerned that the pt seemed more confused, MRI Brain requested this AM with Prelim report indicating no acute changes. Pt is afebrile. WBC 6.6 UA 04/09/18 neg. CXR 04/09/18 atelectasis I/S encouraged. Change Percocet from TID to Q8h prn. D/C Baclofen (has not used recently) 4. Hypothyroidism Levothyroxine dose was adjusted to AM, pt had been taking dose at night on a full stomach. Monitor. 5. DLP Simvastatin 6. Depression Sertraline 7. Hypertension. LE U/S neg. SBP 123. SCr 1.43, trending down (baseline 0.8-1) Will continue to temporarily HOLD torsemide 40 mg po daily. BMP in AM. 8. Hypokalemia. Continue po supplement. Monitor. 8. Urinary retention Ditropan 9. Anemia. Hgb 10.0. Fe studies, B12, folate completed, Fe supplement BID. Continue to monitor need for transfusion. 10. Shingles Left Buttock. Completed 7d Valtrex VS, I&O, 24H, Fishbone Vital Signs/I&O Vital Signs Date Time Temp Pulse Resp B/P (MAP) Pulse Ox O2 Delivery O2 Flow Rate FiO2 04/10/18 09:20 97.1 68 18 123/74 (90) 99 04/09/18 06:00 Room Air I&O- Last 24 Hours up to 6 AM 04/10/18 06:00 Intake Total 915 ml Output Total 430 ml Balance 485 ml Laboratory Data 24H LABS Laboratory Tests 2 04/10/18 07:03: Nucleated Red Blood Cells % (auto) 0.0, Anion Gap 8, Glomerular Filtration Rate 38.2L, Blood Urea Nitrogen 18, Creatinine 1.43H, Sodium Level 138, Potassium Level 3.8, Chloride Level 104, Carbon Dioxide Level 26, Calcium Level 8.5L, Aspartate Amino Transf (AST/SGOT) 14, Alanine Aminotransferase (ALT/SGPT) 12, Alkaline Phosphatase 146H, Total Bilirubin 0.5, Total Protein 6.5, Albumin 2.8L, Albumin/Globulin Ratio 0.76L CBC/BMP Laboratory Tests 04/10/18 07:03 Red Blood Count 3.24 L, Mean Corpuscular Volume 98.5 H, Mean Corpuscular Hemoglobin 30.9, Mean Corpuscular Hemoglobin Concent 31.3 L, Red Cell Distribution Width 18.0 H, Calcium Level 8.5 L, Aspartate Amino Transf (AST/SGOT) 14, Alanine Aminotransferase (ALT/SGPT) 12, Alkaline Phosphatase 146 H, Total Bilirubin 0.5, Total Protein 6.5, Albumin 2.8 L Microbiology Microbiology 03/31/18 Urine Culture - Final, Complete Staph.aureus Methicillin Resis Thea Mo Apr 10, 2018 14:15
--- NOTE | 2018-04-10 15:53 | REP ---
MRI brain without contrast: History: Increased confusion. Comparison brain MRI study is from March 21, 2018. This showed no acute intracranial abnormality. Diffuse atrophy and small vessel microangiopathic changes. Technique: Axial and sagittal imaging planes are utilized for T1 and T2-weighted scans. Sequences include spin-echo, fast spin echo, FLAIR, and diffusion weighted sequences. MRI findings: Craniocervical junction and upper cervical cord are normal. No bony lesion is seen. No intraorbital abnormality is seen. There is no MR evidence of significant paranasal sinus disease. There is moderate diffuse cerebral atrophy again noted. Periventricular and subcortical white matter T2 hyperintensities seen bilaterally in a pattern which is roughly symmetric. This is consistent with small vessel changes. There is no evidence of acute ischemia on diffusion weighted scans. There is no evidence of intracranial hemorrhage, mass or infarction. No midline shift is seen. Impression: Diffuse atrophy and small vessel changes again noted. No acute intracranial abnormality. No change from recent prior study. Electronically Signed by Dusty Boone MD 04/10/2018 03:53 P
[2018-04-10] MEDS: RIVAROXABAN 10 MG TAB (XARELTO) PO SCH (16:52)
[2018-04-10] MEDS: SERTRALINE HCL 25 MG TABLET PO SCH (20:24)
[2018-04-10] MEDS: SIMVASTATIN 20 MG TAB PO SCH (20:25)
[2018-04-10] MEDS: traZODone 50 MG TAB PO SCH (20:25)
[2018-04-10] MEDS: MEMANTINE 5MG TABLET (NAMENDA) PO SCH (20:25)
[2018-04-10] MEDS: SENNA 8.6 MG TAB (SENOKOT) PO SCH (20:25)
[2018-04-10 21:46] VITALS: BP 142/89
[2018-04-11 06:00] VITALS: BP_SYST 112; BP_DIAS 63; BP_DIAS 69
[2018-04-11] MEDS ORDERED: XARE10TA PO (06:17)
[2018-04-11] MEDS: LEVOTHYROXINE 50MCG TABLET (0.05MG) PO SCH (06:17)
[2018-04-11 06:19] LABS: HEMATOCRIT 33.4 % (36.0-47.0); HEMOGLOBIN 10.6 g/dl (12.0-15.5); MEAN CORPUSCULAR HEMOGLOBIN 29.8 pg (27.0-33.0); MEAN CORPUSCULAR HGB CONC 31.7 g/dl (32.0-36.5); MEAN CORPUSCULAR VOLUME 93.8 fl (80.0-96.0); PLATELET COUNT, AUTOMATED 334 10^3/uL (150-450); RED BLOOD COUNT 3.56 10^6/uL (4.00-5.40); WHITE BLOOD COUNT 6.7 10^3/uL (4.0-10.0)
[2018-04-11 06:45] LABS: CALCIUM LEVEL 8.2 MG/DL (8.8-10.2); CREATININE FOR GFR 1.22 MG/DL (0.55-1.30); GLOMERULAR FILTRATION RATE 45.9 (>39); POTASSIUM SERUM 4.3 MEQ/L (3.5-5.1)
[2018-04-11] MEDS: DONEPEZIL 5 MG TAB PO SCH (09:27)
[2018-04-11] MEDS: FERROUS SULFATE 325MG TAB PO SCH ×2 (09:27→21:17)
[2018-04-11] MEDS: PROPRANOLOL 10 MG TAB PO SCH ×3 (09:27→21:16)
[2018-04-11] MEDS: MAGNESIUM GLUCONATE 500 MG TAB PO SCH ×2 (09:27→21:16)
[2018-04-11] MEDS: DOCUSATE SODIUM 100 MG CAP PO SCH ×2 (09:27→21:17)
[2018-04-11] MEDS: oxyBUTYnin 5 MG TAB PO SCH ×2 (09:28→21:16)
[2018-04-11] MEDS: POTASSIUM CHLORIDE 10 MEQ SR TABLET PO SCH (09:28)
[2018-04-11] MEDS: FLUTICASONE PROP 0.05% NASAL SPRAY 16 GM (FLONASE) NARES SCH ×2 (09:28→21:18)
[2018-04-11] MEDS: SODIUM CHLORIDE NASAL 0.65% SPRAY BTL (OCEAN) SCH ×3 (09:28→21:18)
--- NOTE | 2018-04-11 11:53 | IPNPDOC ---
Date Seen The patient was seen on 04/11/18. Progress Note HPI: Patient is a 72-year-old female who presented to the ER with complaints of right hip pain after she had fallen off the toilet. Patient was in the bathroom and leaned over and fell off, landing on her right hip. She complained of severe pain at the time. Did not lose consciousness, was awake and called out to family members for help. The pt was found to have Right proximal femur fracture S/P Right hip open reduction, cephalomedullary nail fixation right proximal femur as per Orthopedic Surgery. The pt was transferred to the care of HORACIO Eisenberg, 03/18/18. She is OOB with therapy. Floor Nurse reports that she seems to be better and less confused and tried today. Pt denies pain. Denies any fevers, chills, weakness, fatigue, Headache, Chest Pain, Shortness of breath, cough, palpitations, abdominal pain, N/V/D or changes in bowel or bladder habits. PMHx: dementia hypothyroid HTN DLP PE: GEN: 72yoF, appears stated age. No acute distress. Pleasantly confused, anxious at times. HEENT: Normocephalic, atraumatic.Sclera are nonicteric. Conjunctiva without injection. No facial asymmetry. Moist mucous membranes. Neck supple. CHEST: Regular rate and rhythm, +S1, +S2. JVD not visible sitting. LUNGS: Clear to auscultation bilaterally. No wheezes, rales, or rhonchi. Breathing appears symmetric and easy. ABD: Round, soft, non-tender, non-distended. +Bowel sounds throughout. EXT: trace to 1mm lower extremity edema appreciated R>L. no change. SKIN: [place], dry, warm. No rashes. NEURO: No focal deficits appreciated. MRI Brain 03/21/18 No acute abnormality. LE U/S neg 03/28/18 MRI brain 04/10/18 No acute abnormality. A&P: Patient is a 72-year-old female who presented to the ER with complaints of right hip pain after she had fallen off the toilet. Patient was in the bathroom and leaned over and fell off, landing on her right hip. She complained of severe pain at the time. Did not lose consciousness, was awake and called out to family members for help. The pt was found to have Right proximal femur fracture S/P Right hip open reduction, cephalomedullary nail fixation right proximal femur as per Orthopedic Surgery. The pt was transferred to the care of Dr Cash, ARU, 03/18/18. 1. Right hip fracture - 2/2 mechanical fall - s/p repair (03/15/[address] Schultz). Mgmt as per orthopedic surgery. Molst form was completed witnessed signed and placed in the chart previously, DNR/DNI. PT/OT/ST as per ARU Pain control as per ARU. Bowel care as per ARU. DVT px Xarelto as per Orthopedic surgery Disposition as per ARU. 2. UTI. UC 03/31/18 MRSA. UA 04/09/18 neg. Completed 7d po Bactrim 04/09/18 SCr 1.22. Monitor. 3. Dementia Continue Aricept/Namenda. 04/10/18 the pt seemed more confused, MRI Brain no acute changes. Pt is afebrile. WBC 6.7 UA 04/09/18 neg. CXR 04/09/18 atelectasis I/S encouraged. 04/10/18 Changed Percocet from TID to Q8h prn. The pt has not used any doses. D/C Baclofen (has not used recently) This AM the pt is reported to be less fatigued and less confused. Monitor. 4. Hypothyroidism Levothyroxine dose was adjusted to AM, pt had been taking dose at night on a full stomach. Monitor. 5. DLP Simvastatin 6. Depression Sertraline 7. Hypertension. LE U/S neg. SBP 123. SCr 1.43, trending down (baseline 0.8-1) Will continue to temporarily HOLD torsemide 40 mg po daily. BMP in AM. 8. Hypokalemia. Continue po supplement. Monitor. 8. Urinary retention Ditropan 9. Anemia. Hgb 10.6. Fe studies, B12, folate completed, Fe supplement BID. Trend improving, monitor. 10. Shingles Left Buttock. Completed 7d Valtrex VS, I&O, 24H, Fishbone Vital Signs/I&O Vital Signs Date Time Temp Pulse Resp B/P (MAP) Pulse Ox O2 Delivery O2 Flow Rate FiO2 04/11/18 09:27 71 121/70 04/11/18 06:00 98.9 18 96 04/09/18 06:00 Room Air I&O- Last 24 Hours up to 6 AM 04/11/18 05:59 Intake Total 470 ml Output Total 150 ml Balance 320 ml Laboratory Data 24H LABS Laboratory Tests 2 04/11/18 06:07: Nucleated Red Blood Cells % (auto) 0.0, Anion Gap 10, Glomerular Filtration Rate 45.9, Blood Urea Nitrogen 17, Creatinine 1.22, Sodium Level 139, Potassium Level 4.3, Chloride Level 107, Carbon Dioxide Level 22, Calcium Level 8.2L CBC/BMP Laboratory Tests 04/11/18 06:07 Red Blood Count 3.56 L, Mean Corpuscular Volume 93.8, Mean Corpuscular Hemoglobin 29.8, Mean Corpuscular Hemoglobin Concent 31.7 L, Red Cell Distribution Width 17.7 H, Calcium Level 8.2 L Thea Mo Apr 11, 2018 11:53
[2018-04-11 14:00] VITALS: BP 140/70
--- NOTE | 2018-04-11 14:00 | IPNPDOC ---
PM&R Progress Note DATE OF SERVICE: Apr 11, 2018 Pneumatic System Conveyor Operator Progress Note Subjective: Patient and granddaughter seen today, patient is feeling well today and better able to participate in therapy. Discussed case with son, Dusty who was reass ured Mrs. Cline is a 1-asssit, but will have periods where she may require 2 people and that this is why a wheelchair is helpful. REVIEW OF SYSTEMS: The following is a completed review of systems and has been reviewed. Review of systems otherwise unremarkable. PAIN: Patient self reports right hip pain EYES: Negative for recent vision changes EARS, NOSE, & THROAT: negative for dysphagia, rhinorrhea, or throat pain CARDIOVASCULAR: denies chest pain or palpitations PULMONARY: Negate. Denies shortness of breath GASTROINTESTINAL: denies diarrhea or constipation GENITOURINARY: +urinary retention-improving MUSCULOSKELETAL: right hip fracture NEUROLOGICAL: dementia SKIN: right hip incision, and facial abrasions, vesicular rash left buttock PSYCHIATRIC:dementia and anxiety/depression All other review of systems found to be negative. PHYSICAL EXAMINATION: VITAL SIGNS: Please see below. GENERAL: Pleasant and cooperative. anxious HEENT: PERRL. Extraocular movements intact. Clear conjunctiva, naso-labial folds equal bilat, however left eye smaller with lid droop on the left, unable to raise left eyebrow, or right eyebrow when asked to CARDIOVASCULAR: Regular rate and rhythm. No murmurs, rubs, or gallops LUNGS:Clear to auscultation bilaterally. No wheezes. No rhonchi ABDOMEN: Soft, nontender, nondistended. Positive bowel sounds. Normal active bowel sounds NEUROLOGICAL: Alert and oriented to self, not place or time. Cranial nerves II through XII grossly intact. Sensation intact in CN5 distribution and throughout upper and lower extremities to light touch EXTREMITIES: 5-\5 strength bilateral upper extremities. 5\5 strength right ankle DF and EHL, limited due to pain. 5/5 strength in left lower extremity. SKIN:right hip incision c/d/i, scattered facial scabs (self inflicted)-healing -left buttock vesicular rash in dermatomal pattern- scabbed and healing well ASSESSMENT:72-year-old F with past medical history of dementia who presents status post fall with right hip fracture s/p ORIF. PLAN: 1. Rehab: PT/OT and [facility] for cognition, assess for DME needs, ambulating with RW needing a lot of encouragement, inconsistent and requiring wheelchair follows, able to walk further with some caregivers, but unable to safely walk household distances at this time, will likely need wheelchair -patient family planning to rent a ramp -speech therpy evaluate for dysphagia and did not find any significant impairments 2. 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 Cardiac: pmh HTN, continue BP meds, pmh HLD continue statin medicine consulted 4. Endo: pmh hypothyroidism, has been taking Synthroid incorrectly at night on full stomach, likely not getting metabolized- TSH elevate, FT4 wnl, will not change dose as taking it int he AM instead will likely correct this subclinical hypothyroidism 5. : admission UA and Ucx negative, monitor PVRs, continue oxybutynin- repeat Ucx + MRSA, continue BActrim 6. Psych: pmh depression continue Zoloft, will try to avoid Haldol and trial standing dose of Trazodone for insomnia -persistent anxiety, will start low dose Propranolol with parameters for anxiety-improving 7. DVT ppx: on xarelto, Dopplers ordered today, negative for DVT, +right Stevenson's cyst 8. Ortho: s/p right hip fracture, WBAT monitor for blood loss anemia and ortho consulted 9. Heme: iron deficiency anemia- will start oral iron 9. Pain: continue Percocet prn and continue Tylenol 10: ID: mild leukocytosis-left buttock Zoster will s/p course Valacyclovir- leukocytosis improving 8. Dispo 04/14/18 to home, family has purchased a wheelchair and is in the process of acquiring a ramp, planned discharge today held off due to period of confusion yesterday and difficulty ambulating which has resolved Allergies Coded Allergies: No Known Allergies (Unverified , 03/15/18) Vital Signs Vital Signs Date Time Temp Pulse Resp B/P (MAP) Pulse Ox O2 Delivery O2 Flow Rate FiO2 04/11/18 09:27 71 121/70 04/11/18 06:00 98.9 18 96 04/09/18 06:00 Room Air Laboratory Data CBC/BMP Laboratory Tests 04/11/18 06:07 Red Blood Count 3.56 L, Mean Corpuscular Volume 93.8, Mean Corpuscular Hemoglobin 29.8, Mean Corpuscular Hemoglobin Concent 31.7 L, Red Cell Distribution Width 17.7 H, Calcium Level 8.2 L Labs 24H Laboratory Tests 2 04/11/18 06:07: Nucleated Red Blood Cells % (auto) 0.0, Anion Gap 10, Glomerular Filtration Rate 45.9, Blood Urea Nitrogen 17, Creatinine 1.22, Sodium Level 139, Potassium Level 4.3, Chloride Level 107, Carbon Dioxide Level 22, Calcium Level 8.2L Current Medications Current Medications Current Medications Acetaminophen (Tylenol Tab) 650 mg DAILYPRN PRN PO fever/MILD PAIN (PS 1-4); Start 03/18/18 at 17:30; Stop 03/20/18 at 14:40; Status DC Acetaminophen (Tylenol Tab) 650 mg Q4HP PRN PO fever/MILD PAIN (PS 1-4); Start 03/18/18 at 17:15; Stop 03/18/18 at 17:31; Status DC Acetaminophen (Tylenol Tab) 1,000 mg BIDP PRN PO PAIN Last administered on 04/10/18at 13:14; Start 03/20/18 at 17:00 Acetaminophen (Tylenol Tab) 1,000 mg TID PO Last administered on 03/20/18at 07:55; Start 03/18/18 at 21:00; Stop 03/20/18 at 14:40; Status DC Baclofen (Lioresal) 5 mg BIDP PRN PO SPASMS Last administered on 03/24/18at 16:02; Start 03/23/18 at 17:30; Stop 04/10/18 at 14:13; Status DC Bisacodyl (Dulcolax Suppository) 10 mg DAILYPRN PRN [place] CONSTIPATION Last administered on 04/10/18 13:49; Start 03/18/18 at 17:15 Docusate Sodium (Colace) 100 mg BID PO Last administered on 04/11/18 09:27; Start 03/18/18 at 21:00 Donepezil HCl (AriCEPT) 10 mg DAILY PO Last administered on 04/11/18 09:27; Start 03/19/18 at 09:00 Ferrous Sulfate (Ferrous Sulfate) 325 mg BID PO Last administered on 04/11/18 09:27; Start 03/26/18 at 21:00 Fluticasone Propionate (Flonase 0.05% Nasal [place]) 1 spray BID NARES Last administered on 04/11/18 09:28; Start 03/22/18 at 21:00 Haloperidol (Haldol) 0.5 mg QHSP PRN PO AGITATION; Start 03/18/18 at 17:30 Levofloxacin (Levaquin) 250 mg QHS PO Last administered on 04/01/18 20:13; Start 03/31/18 at 21:00; Stop 04/02/18 at 05:43; Status DC Levothyroxine Sodium (Synthroid) 50 mcg DAILY@06 PO Last administered on 04/11/18 06:17; Start 03/19/18 at 06:00 Magnesium Gluconate (Magnesium Gluconate) 500 mg BID PO Last administered on 04/11/18 09:27; Start 03/31/18 at 09:00 Magnesium Hydroxide (Milk Of Magnesia) 30 ml DAILYPRN PRN PO CONSTIPATION Last administered on 03/31/18 09:25; Start 03/18/18 at 17:15 Memantine (Namenda) 10 mg QHS PO Last administered on 04/10/18 20:25; Start 03/18/18 at 21:00 Miscellaneous (Unresolved Clarification Entry) SEE LABEL COMMENTS DAILY XX Last administered on 03/28/18at 09:00; Start 03/26/18 at 09:00; Stop 03/31/18 at 09:02; Status DC Miscellaneous (Unresolved Clarification Entry) SEE LABEL COMMENTS DAILY XX ; Start 03/31/18 at 09:00; Status Cancel Miscellaneous (Unresolved Clarification Entry) SEE LABEL COMMENTS DAILY XX ; Start 04/05/18 at 09:00; Stop 04/05/18 at 13:33; Status DC Ondansetron HCl (Zofran) 4 mg Q6HP PRN PO NAUSEA; Start 03/18/18 at 17:15; Stop 03/19/18 at 18:50; Status DC Oxybutynin Chloride (Ditropan) 5 mg BID PO Last administered on 04/11/18 09:28; Start 03/18/18 at 21:00 Oxycodone/ Acetaminophen (Percocet 5mg/ 325mg Tablet) 1 tab Q8HP PRN PO MODERAT E/SEVERE PAIN (PS 5-10); Start 04/10/18 at 10:30; Stop 04/11/18 at 12:19; Status DC Oxycodone/ Acetaminophen (Percocet 5mg/ 325mg Tablet) 1 tab TID PO Last administered on 04/09/18 20:38; Start 03/20/18 at 16:00; Stop 04/10/18 at 10:20; Status DC Potassium Chloride (Micro-K Extencaps) 20 meq DAILY PO Last administered on 03/31/18 08:17; Start 03/27/18 at 09:00; Stop 03/31/18 at 10:34; Status DC Potassium Chloride (Micro-K Extencaps) 40 meq DAILY PO Last administered on 04/11/18 09:28; Start 04/01/18 at 09:00 Propranolol HCl (Inderal) 5 mg TID PO Last administered on 04/11/18 09:27; St art 03/25/18 at 16:00 Rivaroxaban (Xarelto) 10 mg DAILY@18 PO Last administered on 04/10/18 16:52; Start 03/19/18 at 18:00 Senna (Senokot) 1 tab QHS PO Last administered on 04/10/18 20:25; Start 03/18/18 at 21:00 Sertraline HCl (Zoloft) 25 mg QHS PO Last administered on 04/10/18 20:24; Start 03/18/18 at 21:00 Simvastatin (Zocor) 40 mg QHS PO Last administered on 04/10/18 20:25; Start 03/18/18 at 21:00 Sodium Chloride ([place] Nasal [place]) 2 spray TID NA Last administered on 2/1/19at 09:28; Start 03/22/18 at 16:00 Torsemide (Demadex) 40 mg DAILY PO Last administered on 04/09/18 09:23; Start 03/19/18 at 09:00; Stop 04/09/18 at 14:13; Status DC Torsemide (Demadex) 40 mg DAILY PO ; Start 04/12/18 at 09:00 Trazodone HCl (Desyrel) 25 mg Q6HP PRN PO AGITATION Last administered on 03/31/18at 21:01; Start 03/18/18 at 17:30; Stop 04/11/18 at 12:19; Status DC Trazodone HCl (Desyrel) 25 mg QHSP PRN PO INSOMNIA; Start 03/18/18 at 17:30; Stop 03/19/18 at 18:50; Status DC Trazodone HCl (Desyrel) 50 mg QHS PO Last administered on 04/10/18at 20:25; Start 03/19/18 at 21:00 Trimethoprim/ Sulfamethoxazole (Bactrim Ds, Septra Ds 160mg/ 800mg) 1 tab Q12H PO Last administered on 04/08/18at 20:55; Start 04/02/18 at 09:00; Stop 04/09/18 at 08:59; Status DC Valacyclovir HCl (Valtrex) 1,000 mg Q12H PO Last administered on 03/31/18at 21:04; Start 03/25/18 at 09:00; Stop 04/01/18 at 08:59 LINDSAY MAXWELL MD Apr 11, 2018 14:00
[2018-04-11] MEDS: RIVAROXABAN 10 MG TAB (XARELTO) PO SCH (17:35)
[2018-04-11 20:00] VITALS: BP 119/63
[2018-04-11] MEDS: SERTRALINE HCL 25 MG TABLET PO SCH (21:15)
[2018-04-11] MEDS: SENNA 8.6 MG TAB (SENOKOT) PO SCH (21:16)
[2018-04-11] MEDS: traZODone 50 MG TAB PO SCH (21:16)
[2018-04-11] MEDS: MEMANTINE 5MG TABLET (NAMENDA) PO SCH (21:17)
[2018-04-11] MEDS: SIMVASTATIN 20 MG TAB PO SCH (21:17)
[2018-04-11] MEDS: ACETAMINOPHEN 500 MG TAB PO PRN (21:18)
[2018-04-12] MEDS: LEVOTHYROXINE 50MCG TABLET (0.05MG) PO SCH (05:28)
[2018-04-12 05:49] VITALS: BP 116/58
[2018-04-12] MEDS ORDERED: XARE10TA PO (06:39)
[2018-04-12 09:00] VITALS: BP 110/58
[2018-04-12] MEDS: PROPRANOLOL 10 MG TAB PO SCH ×3 (09:00→20:16)
[2018-04-12] MEDS: POTASSIUM CHLORIDE 10 MEQ SR TABLET PO SCH (09:12)
[2018-04-12] MEDS: FERROUS SULFATE 325MG TAB PO SCH ×2 (09:12→20:14)
[2018-04-12] MEDS: MAGNESIUM GLUCONATE 500 MG TAB PO SCH ×2 (09:12→20:15)
[2018-04-12] MEDS: TORSEMIDE 20 MG TAB PO SCH (09:12)
[2018-04-12] MEDS: oxyBUTYnin 5 MG TAB PO SCH ×2 (09:13→20:15)
[2018-04-12] MEDS: FLUTICASONE PROP 0.05% NASAL SPRAY 16 GM (FLONASE) NARES SCH ×2 (09:13→20:15)
[2018-04-12] MEDS: DONEPEZIL 5 MG TAB PO SCH (09:13)
[2018-04-12] MEDS: DOCUSATE SODIUM 100 MG CAP PO SCH ×2 (09:13→20:14)
[2018-04-12] MEDS: SODIUM CHLORIDE NASAL 0.65% SPRAY BTL (OCEAN) SCH ×3 (09:13→20:15)
--- NOTE | 2018-04-12 10:58 | IPNPDOC ---
Text Note Date of Service The patient was seen on 04/12/18. NOTE Subjective: Patient is a 72-year-old female with a PMHx of Dementia, Hypothyroidism, HTN, DLP who presented to the ER with complaints of right hip pain after she had fallen off the toilet. Patient was in the bathroom and leaned over and fell off, landing on her right hip. Patient was found to have a right hip fracture in the emergency room. Admitted to hospitalist service initially for evaluation and treatment with orthopedic surgery on consultation. Patient was transferred to the care of BARRON EisenbergU on 03/18/18. Patient was seen and examined at the bedside. Patient is pleasant but fatigued. Denies chest pain, shortness breath, palpitations. Denies nausea, vomiting, abdominal pain, constipation or diarrhea. Objective: Vitals (See below) General: Lying in bed, no acute distress, comfortable, Awake / Alert HEENT: NC, AT CVS: RRR, +S1S2 Lungs: Fair air entry b/l, auscultation without wheezing, rales or rhonchi Abdomen: Soft, nondistended, without tenderness Extremities: LE with 1+ pitting edema b/l, - Calf tenderness Assessment and plan: Right hip fracture - likely 04/12 mechanical fall - s/p repair (03/15/[address] Schultz) - Presented to the ER after patient had fallen off toilet - XR Hip 03/15: Comminuted intertrochanteric fracture of the right femur. - XR femur 03/15: There is no acute fracture or dislocation. - Knee XR 03/15: There is no acute fracture or dislocation. - Anticoagulation with Xarelto - c/w PT, Bowel regimen and Pain control as per ARU s/p UTI - Urine culture 03/31: MRSA - s/p Bactrim 04/09/18 (7b day course) Dementia with Delirium - Remains at baseline currently - Remains afebrile - No leukocytosis / UA without signs of infection - CXR 04/09: Cardiomegaly with bibasilar atelectasis. Cannot exclude interstitial edema. - MRI 04/10: Diffuse atrophy and small vessel changes again noted. No acute intracranial abnormality. No change from recent prior study. - c/w Donepezil and Meantime - Will avoid excessive opiates Normocytic anemia - Hg stable; improved - c/w Ferrous sulfate Hypothyroidism - c/w Levothyroxine HTN - Mild LE swelling b/l - c/w Torsemide DLP - c/w Simvastatin Depression - c/w Sertraline s/p Shingles Left Buttock. - s/p Valtrex (completed 7 day course) Urinary retention - c/w Oxybutynin DVT prophylaxis - On full anticoagulation with Xarelto VS,Fishbone, I+O VS, Fishbone, I+O Vital Signs Date Time Temp Pulse Resp B/P (MAP) Pulse Ox O2 Delivery O2 Flow Rate FiO2 04/12/18 09:00 62 110/58 04/12/18 09:00 98.0 18 97 04/09/18 06:00 Room Air I&O- Last 24 Hours up to 6 AM 04/12/18 06:00 Intake Total 900 ml Balance 900 ml OG HICKS MD Apr 12, 2018 10:58
[2018-04-12 14:00] VITALS: BP 106/72
[2018-04-12] MEDS: RIVAROXABAN 10 MG TAB (XARELTO) PO SCH (17:36)
[2018-04-12 20:00] VITALS: BP 113/72
[2018-04-12] MEDS: SENNA 8.6 MG TAB (SENOKOT) PO SCH (20:14)
[2018-04-12] MEDS: SERTRALINE HCL 25 MG TABLET PO SCH (20:15)
[2018-04-12] MEDS: MEMANTINE 5MG TABLET (NAMENDA) PO SCH (20:15)
[2018-04-12] MEDS: traZODone 50 MG TAB PO SCH (20:15)
[2018-04-12] MEDS: ACETAMINOPHEN 500 MG TAB PO PRN (20:16)
[2018-04-12] MEDS: SIMVASTATIN 20 MG TAB PO SCH (20:17)
[2018-04-13] MEDS: LEVOTHYROXINE 50MCG TABLET (0.05MG) PO SCH (05:55)
[2018-04-13 06:00] VITALS: BP 118/65
[2018-04-13] MEDS: MAGNESIUM GLUCONATE 500 MG TAB PO SCH ×2 (09:53→20:06)
[2018-04-13] MEDS: POTASSIUM CHLORIDE 10 MEQ SR TABLET PO SCH (09:54)
[2018-04-13] MEDS: TORSEMIDE 20 MG TAB PO SCH (09:54)
[2018-04-13] MEDS: FERROUS SULFATE 325MG TAB PO SCH ×2 (09:54→20:06)
[2018-04-13] MEDS: oxyBUTYnin 5 MG TAB PO SCH ×2 (09:54→20:06)
[2018-04-13] MEDS: DOCUSATE SODIUM 100 MG CAP PO SCH ×2 (09:55→20:07)
[2018-04-13] MEDS: DONEPEZIL 5 MG TAB PO SCH (09:58)
[2018-04-13] MEDS: PROPRANOLOL 10 MG TAB PO SCH ×3 (09:58→20:06)
[2018-04-13] MEDS: FLUTICASONE PROP 0.05% NASAL SPRAY 16 GM (FLONASE) NARES SCH ×2 (09:59→20:07)
[2018-04-13] MEDS: SODIUM CHLORIDE NASAL 0.65% SPRAY BTL (OCEAN) SCH ×3 (09:59→20:07)
--- NOTE | 2018-04-13 10:53 | IPNPDOC ---
Text Note Date of Service The patient was seen on 04/13/18. NOTE Subjective: Patient is a 72-year-old female with a PMHx of Dementia, Hypothyroidism, HTN, DLP who presented to the ER with complaints of right hip pain after she had fallen off the toilet. Patient was in the bathroom and leaned over and fell off, landing on her right hip. Patient was found to have a right hip fracture in the emergency room. Admitted to hospitalist service initially for evaluation and treatment with orthopedic surgery on consultation. Patient was transferred to the care of HORACIO Eisenberg on 03/18/18. Patient was seen and examined at the bedside. Currently, patient is concerned about her whereabouts are for family. . She denies any chest pain, shortness of breath or palpitations. Denies nausea, vomiting, abdominal pain, constipation or diarrhea. Has been tolerating her diet. Objective: Vitals (See below) General: Lying in bed, no acute distress, comfortable, Awake / Alert HEENT: NC, AT CVS: RRR, +S1S2 Lungs: Fair air entry b/l, does not appear to be any evidence of wheezing, rales or rhonchi Abdomen: Soft, nondistended, without tenderness Extremities: LE with no significant edema, - Calf tenderness Assessment and plan: Right hip fracture - likely 2/2 mechanical fall - s/p repair (03/15/[address] Schultz) - Presented to the ER after patient had fallen off toilet - XR Hip 03/15: Comminuted intertrochanteric fracture of the right femur. - XR femur 03/15: There is no acute fracture or dislocation. - Knee XR 03/15: There is no acute fracture or dislocation. - Anticoagulation with Xarelto - c/w PT, Bowel regimen and Pain control as per ARU s/p UTI - Urine culture 03/31: MRSA - s/p Bactrim 04/09/18 (7 day course) Dementia with Delirium - Remains at baseline currently; no episodes of confusion recently - Remains afebrile - No leukocytosis / UA without signs of infection - CXR 04/09: Cardiomegaly with bibasilar atelectasis. Cannot exclude interstitial edema. - MRI 04/10: Diffuse atrophy and small vessel changes again noted. No acute intracranial abnormality. No change from recent prior study. - c/w Donepezil and Meantime - Will avoid excessive opiates Normocytic anemia - Hg stable; improved - c/w Ferrous sulfate Hypothyroidism - c/w Levothyroxine HTN - No evidence of significant lower extremity edema - Sleeve compression devices and place - c/w Torsemide DLP - c/w Simvastatin Depression - c/w Sertraline s/p Shingles Left Buttock. - s/p Valtrex (completed 7 day course) Urinary retention - c/w Oxybutynin DVT prophylaxis - On full anticoagulation with Xarelto VS,Fishbone, I+O VS, Fishbone, I+O Vital Signs Date Time Temp Pulse Resp B/P (MAP) Pulse Ox O2 Delivery O2 Flow Rate FiO2 04/13/18 09:58 80 122/66 04/13/18 06:00 97.1 18 97 04/09/18 06:00 Room Air I&O- Last 24 Hours up to 6 AM 04/13/18 06:00 Intake Total 1080 ml Balance 1080 ml OG HICKS MD Apr 13, 2018 10:53
[2018-04-13 14:00] VITALS: BP 112/67
[2018-04-13] MEDS: RIVAROXABAN 10 MG TAB (XARELTO) PO SCH (18:30)
[2018-04-13 20:00] VITALS: BP 126/69
[2018-04-13] MEDS: traZODone 50 MG TAB PO SCH (20:06)
[2018-04-13] MEDS: SIMVASTATIN 20 MG TAB PO SCH (20:06)
[2018-04-13] MEDS: MEMANTINE 5MG TABLET (NAMENDA) PO SCH (20:06)
[2018-04-13] MEDS: SERTRALINE HCL 25 MG TABLET PO SCH (20:07)
[2018-04-13] MEDS: SENNA 8.6 MG TAB (SENOKOT) PO SCH (20:07)
[2018-04-14] MEDS: LEVOTHYROXINE 50MCG TABLET (0.05MG) PO SCH (05:34)
[2018-04-14 06:00] VITALS: BP 126/69
[2018-04-14 07:53] LABS: CALCIUM LEVEL 8.3 MG/DL (8.8-10.2); CREATININE FOR GFR 1.13 MG/DL (0.55-1.30); GLOMERULAR FILTRATION RATE 50.1 (>39); POTASSIUM SERUM 3.5 MEQ/L (3.5-5.1)
[2018-04-14] MEDS: FERROUS SULFATE 325MG TAB PO SCH (07:56)
[2018-04-14] MEDS: MAGNESIUM GLUCONATE 500 MG TAB PO SCH (07:56)
[2018-04-14] MEDS: FLUTICASONE PROP 0.05% NASAL SPRAY 16 GM (FLONASE) NARES SCH (07:56)
[2018-04-14] MEDS: SODIUM CHLORIDE NASAL 0.65% SPRAY BTL (OCEAN) SCH (07:56)
[2018-04-14] MEDS: DONEPEZIL 5 MG TAB PO SCH (07:57)
[2018-04-14] MEDS: POTASSIUM CHLORIDE 10 MEQ SR TABLET PO SCH (07:57)
[2018-04-14] MEDS: oxyBUTYnin 5 MG TAB PO SCH (07:57)
[2018-04-14 07:58] VITALS: BP 126/69
[2018-04-14] MEDS: DOCUSATE SODIUM 100 MG CAP PO SCH (07:58)
[2018-04-14] MEDS: PROPRANOLOL 10 MG TAB PO SCH (07:58)
[2018-04-14] MEDS: TORSEMIDE 20 MG TAB PO SCH (07:58)
[2018-04-14] MEDS ORDERED: MEMA1TAB PO (10:36)
[2018-04-14] MEDS ORDERED: FERR1TAB8 PO (10:36)
[2018-04-14] MEDS ORDERED: SIMV20TA2 PO (10:36)
[2018-04-14] MEDS ORDERED: OXYB5TAB10 PO (10:36)
[2018-04-14] MEDS ORDERED: KLOR10TA76 PO (10:36)
[2018-04-14] MEDS ORDERED: ARIC1TAB PO (10:36)
[2018-04-14] MEDS ORDERED: SERT25TA PO (10:36)
[2018-04-14] MEDS ORDERED: TORS20TA2 PO (10:36)
[2018-04-14] MEDS ORDERED: LEVO50TA5 PO (10:36)
[2018-04-14] MEDS ORDERED: MAGN50TA PO (10:36)
--- NOTE | 2018-04-14 11:37 | HPEPDOC ---
[facility] Medical History & Physical Date of Admission Apr 14, 2018 History and Physical HPI: Patient is a 72-year-old female who presented to the ER with complaints of right hip pain after she had fallen off the toilet. Patient was in the bathroom and leaned over and fell off, landing on her right hip. She complained of severe pain at the time. Did not lose consciousness, was awake and called out to family members for help. The pt was found to have Right proximal femur fracture S/P Right hip open reduction, cephalomedullary nail fixation right proximal femur as per Orthopedic Surgery. The pt was transferred to the care of HORACIO Eisenberg, 03/18/18. She is eating breakfast. Denies pain. Denies any fevers, chills, weakness, fatigue, Headache, Chest Pain, Shortness of breath, cough, palpitations, abdominal pain, N/V/D or changes in bowel or bladder habits. PMHx: dementia hypothyroid HTN DLP PE: GEN: 72yoF, appears stated age. No acute distress. Pleasantly confused, anxious at times. HEENT: Normocephalic, atraumatic.Sclera are nonicteric. Conjunctiva without injection. Moist mucous membranes. CHEST: Regular rate and rhythm, +S1, +S2. JVD not visible sitting. LUNGS: Clear to auscultation bilaterally. No wheezes, rales, or rhonchi. Breathing appears symmetric and easy. ABD: Round, soft, non-tender, non-distended. +Bowel sounds throughout. EXT: trace to 1mm lower extremity edema appreciated R>L. no change. SKIN: [place], dry, warm. No rashes. NEURO: No focal deficits appreciated. MRI Brain 03/21/18 No acute abnormality. LE U/S neg 03/28/18 MRI brain 04/10/18 No acute abnormality. A&P: Patient is a 72-year-old female who presented to the ER with complaints of right hip pain after she had fallen off the toilet. Patient was in the bathroom and leaned over and fell off, landing on her right hip. She complained of severe pain at the time. Did not lose consciousness, was awake and called out to family members for help. The pt was found to have Right proximal femur fracture S/P Right hip open reduction, cephalomedullary nail fixation right proximal femur as per Orthopedic Surgery. The pt was transferred to the care of Dr Cash, ARU, 03/18/18. 1. Right hip fracture - 2/2 mechanical fall - s/p repair (03/15/[address] Schultz). Mgmt as per orthopedic surgery. Molst form was completed witnessed signed and placed in the chart previously, DNR/DNI. PT/OT/ST as per ARU Pain control as per ARU. Bowel care as per ARU. DVT px Xarelto as per Orthopedic surgery Disposition as per ARU. 2. UTI. UC 03/31/18 MRSA. Repeat UA 04/09/18 neg. Completed 7d po Bactrim 04/09/18 SCr 1.13. Monitor. 3. Dementia Continue Aricept/Namenda. 04/10/18 MRI Brain no acute changes. 4. Hypothyroidism Levothyroxine dose was adjusted to AM, pt had been taking dose at night on a full stomach. Monitor. 5. DLP Simvastatin 6. Depression Sertraline 7. Hypertension. LE U/S neg. SCr 1.13 Continue torsemide 40 mg po daily. BMP 04/16/18. 8. Hypokalemia. Continue po supplement. Monitor. 8. Urinary retention Ditropan 9. Anemia. Hgb 10.6. Fe studies, B12, folate completed, Fe supplement BID. Trend improving, monitor. 10. Shingles Left Buttock. Completed 7d Valtrex Vital Signs Vital Signs Date Time Temp Pulse Resp B/P (MAP) Pulse Ox O2 Delivery O2 Flow Rate FiO2 04/14/18 07:58 86 126/69 04/14/18 06:00 97.7 20 96 04/09/18 06:00 Room Air Laboratory Data Labs 24H Laboratory Tests 2 04/14/18 07:12: Anion Gap 10, Glomerular Filtration Rate 50.1, Blood Urea Nitrogen 12, Creatinine 1.13, Sodium Level 141, Potassium Level 3.5, Chloride Level 106, Carbon Dioxide Level 25, Calcium Level 8.3L CBC/BMP Laboratory Tests 04/14/18 07:12 Calcium Level 8.3 L Home Medications Scheduled (Sertraline HCl) 25 Mg Tab, 25 MG PO QHS Docusate Sodium (Docusate Sodium) 100 Mg Cap, 100 MG PO DAILY Donepezil Hcl (Donepezil HCl) 10 Mg Tab, 10 MG PO QHS Donepezil Hydrochloride (Aricept) 5 Mg Tab, 10 MG PO DAILY Ferrous Sulfate (Ferrous Sulfate) 325 Mg Tab, 325 MG PO BID Levothyroxine Sodium (Synthroid) 50 Mcg Tab, 50 MCG PO DAILY@06 Magnesium Gluconate (Mag-G) 500 Mg Tab, 500 MG PO BID Memantine Hydrochloride (Memantine HCl) 5 Mg Tab, 10 MG PO QHS Oxybutynin Chloride (Oxybutynin Chloride) 5 Mg Tab, 5 MG PO BID Potassium Chloride (Klor-Con M10) 10 Meq Tabcr, 40 MEQ PO DAILY Rivaroxaban (Xarelto) 10 Mg Tab, 1 TAB PO DAILY Sertraline Hcl (Sertraline HCl) 25 Mg Tab, 25 MG PO QHS Simvastatin (Simvastatin) 20 Mg Tab, 40 MG PO QHS Simvastatin - High Dose (Simvastatin) 40 Mg Tab, 40 MG PO QHS Torsemide (Torsemide) 20 Mg Tab, 40 MG PO DAILY Allergies Coded Allergies: No Known Allergies (Unverified , 03/15/18) Thea Mo Apr 14, 2018 11:37
--- NOTE | 2018-04-14 17:53 | IPNPDOC ---
PM&R Progress Note DATE OF SERVICE: Apr 13, 2018 Financial Auditor Progress Note Subjective: Patient in room with daughter, tearful, wondering if her parents will be home when she goes home. REVIEW OF SYSTEMS: The following is a completed review of systems and has been reviewed. Review of systems otherwise unremarkable. PAIN: Patient self reports right hip pain EYES: Negative for recent vision changes EARS, NOSE, & THROAT: negative for dysphagia, rhinorrhea, or throat pain CARDIOVASCULAR: denies chest pain or palpitations PULMONARY: Negate. Denies shortness of breath GASTROINTESTINAL: denies diarrhea or constipation GENITOURINARY: +urinary retention-improving MUSCULOSKELETAL: right hip fracture NEUROLOGICAL: dementia SKIN: right hip incision, and facial abrasions, vesicular rash left buttock PSYCHIATRIC:dementia and anxiety/depression All other review of systems found to be negative. PHYSICAL EXAMINATION: VITAL SIGNS: Please see below. GENERAL: Pleasant and cooperative. anxious HEENT: PERRL. Extraocular movements intact. Clear conjunctiva, naso-labial folds equal bilat, however left eye smaller with lid droop on the left, unable to raise left eyebrow, or right eyebrow when asked to CARDIOVASCULAR: Regular rate and rhythm. No murmurs, rubs, or gallops LUNGS:Clear to auscultation bilaterally. No wheezes. No rhonchi ABDOMEN: Soft, nontender, nondistended. Positive bowel sounds. Normal active bowel sounds NEUROLOGICAL: Alert and oriented to self, not place or time. Cranial nerves II through XII grossly intact. Sensation intact in CN5 distribution and throughout upper and lower extremities to light touch EXTREMITIES: 5-\5 strength bilateral upper extremities. 5\5 strength right ankle DF and EHL, limited due to pain. 5/5 strength in left lower extremity. SKIN:right hip incision c/d/i, scattered facial scabs (self inflicted)-healing -left buttock vesicular rash in dermatomal pattern- scabbed-resolved ASSESSMENT:72-year-old F with past medical history of dementia who presents status post fall with right hip fracture s/p ORIF. PLAN: 1. Rehab: PT/OT and MOVEMAN for cognition, assess for DME needs, ambulating with RW needing a lot of encouragement, inconsistent and requiring wheelchair follows, able to walk further with some caregivers, but unable to safely walk household distances at this time, will likely need wheelchair-family has obtained one -patient family planning to rent a ramp -speech therapy evaluate for dysphagia and did not find any significant impairments 2. 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 Cardiac: pmh HTN, continue BP meds, pmh HLD continue statin medicine consulted 4. Endo: pmh hypothyroidism, has been taking Synthroid incorrectly at night on full stomach, likely not getting metabolized- TSH elevate, FT4 wnl, will not change dose as taking it int he AM instead will likely correct this subclinical hypothyroidism 5. : admission UA and Ucx negative, monitor PVRs, continue oxybutynin- repeat Ucx + MRSA, continue BActrim 6. Psych: pmh depression continue Zoloft, will try to avoid Haldol and trial standing dose of Trazodone for insomnia -persistent anxiety, will start low dose Propranolol with parameters for anxiety-improving 7. DVT ppx: on xarelto, Dopplers ordered today, negative for DVT, +right Stevenson's cyst 8. Ortho: s/p right hip fracture, WBAT monitor for blood loss anemia and ortho c onsulted 9. Heme: iron deficiency anemia- will start oral iron 9. Pain: continue Percocet prn and continue Tylenol 10: ID: mild leukocytosis-left buttock Zoster will s/p course Valacyclovir- leukocytosis improving 8. Dispo 04/14/18 to home, family has purchased a wheelchair and is in the process of acquiring a ramp, progressing towards discharge tomorrow Allergies Coded Allergies: No Known Allergies (Unverified , 03/15/18) Vital Signs Vital Signs Date Time Temp Pulse Resp B/P (MAP) Pulse Ox O2 Delivery O2 Flow Rate FiO2 2/4/19 07:58 86 126/69 04/14/18 06:00 97.7 20 96 04/09/18 06:00 Room Air Laboratory Data CBC/BMP Laboratory Tests 04/14/18 07:12 Calcium Level 8.3 L Labs 24H Laboratory Tests 2 04/14/18 07:12: Anion Gap 10, Glomerular Filtration Rate 50.1, Blood Urea Nitrogen 12, Creatinine 1.13, Sodium Level 141, Potassium Level 3.5, Chloride Level 106, Carbon Dioxide Level 25, Calcium Level 8.3L Current Medications Current Medications Current Medications Acetaminophen (Tylenol Tab) 650 mg DAILYPRN PRN PO fever/MILD PAIN (PS 1-4); Start 03/18/18 at 17:30; Stop 03/20/18 at 14:40; Status DC Acetaminophen (Tylenol Tab) 650 mg Q4HP PRN PO fever/MILD PAIN (PS 1-4); Start 03/18/18 at 17:15; Stop 03/18/18 at 17:31; Status DC Acetaminophen (Tylenol Tab) 1,000 mg BIDP PRN PO PAIN Last administered on 04/12/18at 20:16; Start 03/20/18 at 17:00; Stop 04/14/18 at 15:20; Status DC Acetaminophen (Tylenol Tab) 1,000 mg TID PO Last administered on 03/20/18at 07:55; Start 03/18/18 at 21:00; Stop 03/20/18 at 14:40; Status DC Baclofen (Lioresal) 5 mg BIDP PRN PO SPASMS Last administered on 03/24/18at 16:02; Start 03/23/18 at 17:30; Stop 04/10/18 at 14:13; Status DC Bisacodyl (Dulcolax Suppository) 10 mg DAILYPRN PRN [place] CONSTIPATION Last administered on 04/10/18at 13:49; Start 03/18/18 at 17:15; Stop 04/14/18 at 15:20; Status DC Docusate Sodium (Colace) 100 mg BID PO Last administered on 04/13/18at 09:55; Start 03/18/18 at 21:00; Stop 04/14/18 at 15:20; Status DC Donepezil HCl (AriCEPT) 10 mg DAILY PO Last administered on 04/14/18at 07:57; Start 03/19/18 at 09:00; Stop 04/14/18 at 15:20; Status DC Ferrous Sulfate (Ferrous Sulfate) 325 mg BID PO Last administered on 04/14/18 07:56; Start 03/26/18 at 21:00; Stop 04/14/18 at 15:20; Status DC Fluticasone Propionate (Flonase 0.05% Nasal [place]) 1 spray BID NARES Last administered on 04/14/18 07:56; Start 03/22/18 at 21:00; Stop 04/14/18 at 15:20; Status DC Haloperidol (Haldol) 0.5 mg QHSP PRN PO AGITATION; Start 03/18/18 at 17:30; Stop 04/14/18 at 15:20; Status DC Levofloxacin (Levaquin) 250 mg QHS PO Last administered on 04/01/18at 20:13; Start 03/31/18 at 21:00; Stop 04/02/18 at 05:43; Status DC Levothyroxine Sodium (Synthroid) 50 mcg DAILY@06 PO Last administered on 04/14/18at 05:34; Start 03/19/18 at 06:00; Stop 04/14/18 at 15:20; Status DC Magnesium Gluconate (Magnesium Gluconate) 500 mg BID PO Last administered on 04/14/18 07:56; Start 03/31/18 at 09:00; Stop 04/14/18 at 15:20; Status DC Magnesium Hydroxide (Milk Of Magnesia) 30 ml DAILYPRN PRN PO CONSTIPATION Last administered on 03/31/18at 09:25; Start 03/18/18 at 17:15; Stop 04/14/18 at 15:20; Status DC Memantine (Namenda) 10 mg QHS PO Last administered on 04/13/18 20:06; Start 03/18/18 at 21:00; Stop 04/14/18 at 15:20; Status DC Miscellaneous (Unresolved Clarification Entry) SEE LABEL COMMENTS DAILY XX Last administered on 03/28/18at 09:00; Start 03/26/18 at 09:00; Stop 03/31/18 at 09:02; Status DC Miscellaneous (Unresolved Clarification Entry) SEE LABEL COMMENTS DAILY XX ; Start 03/31/18 at 09:00; Status Cancel Miscellaneous (Unresolved Clarification Entry) SEE LABEL COMMENTS DAILY XX ; Start 04/05/18 at 09:00; Stop 04/05/18 at 13:33; Status DC Ondansetron HCl (Zofran) 4 mg Q6HP PRN PO NAUSEA; Start 03/18/18 at 17:15; Stop 03/19/18 at 18:50; Status DC Oxybutynin Chloride (Ditropan) 5 mg BID PO Last administered on 04/14/18 07:57; Start 03/18/18 at 21:00; Stop 04/14/18 at 15:20; Status DC Oxycodone/ Acetaminophen (Percocet 5mg/ 325mg Tablet) 1 tab Q8HP PRN PO MODERATE/SEVERE PAIN (PS 5-10); Start 04/10/18 at 10:30; Stop 04/11/18 at 12:19; Status DC Oxycodone/ Acetaminophen (Percocet 5mg/ 325mg Tablet) 1 tab TID PO Last administered on 04/09/18at 20:38; Start 03/20/18 at 16:00; Stop 04/10/18 at 10:20; Status DC Potassium Chloride (Micro-K Extencaps) 20 meq DAILY PO Last administered on 03/31/18at 08:17; Start 03/27/18 at 09:00; Stop 03/31/18 at 10:34; Status DC Potassium Chloride (Micro-K Extencaps) 40 meq DAILY PO Last administered on 04/14/18 07:57; Start 04/01/18 at 09:00; Stop 04/14/18 at 15:20; Status DC Propranolol HCl (Inderal) 5 mg TID PO Last administered on 04/14/18 07:58; Start 03/25/18 at 16:00; Stop 04/14/18 at 15:20; Status DC Rivaroxaban (Xarelto) 10 mg DAILY@18 PO Last administered on 04/13/18 18:30; Start 03/19/18 at 18:00; Stop 04/14/18 at 15:20; Status DC Senna (Senokot) 1 tab QHS PO Last administered on 04/12/18at 20:14; Start 03/18/18 at 21:00; Stop 04/14/18 at 15:20; Status DC Sertraline HCl (Zoloft) 25 mg QHS PO Last administered on 04/13/18 20:07; Start 03/18/18 at 21:00; Stop 04/14/18 at 15:20; Status DC Simvastatin (Zocor) 40 mg QHS PO Last administered on 04/13/18 20:06; Start 03/18/18 at 21:00; Stop 04/14/18 at 15:20; Status DC Sodium Chloride ([place] Nasal [place]) 2 spray TID NA Last administered on 04/14/18 07:56; Start 03/22/18 at 16:00; Stop 04/14/18 at 15:20; Status DC Torsemide (Demadex) 40 mg DAILY PO Last administered on 04/09/18 09:23; Start 03/19/18 at 09:00; Stop 04/09/18 at 14:13; Status DC Torsemide (Demadex) 40 mg DAILY PO Last administered on 04/14/18 07:58; Start 04/12/18 at 09:00; Stop 04/14/18 at 15:20; Status DC Trazodone HCl (Desyrel) 25 mg Q6HP PRN PO AGITATION Last administered on 03/31/18 21:01; Start 03/18/18 at 17:30; Stop 04/11/18 at 12:19; Status DC Trazodone HCl (Desyrel) 25 mg QHSP PRN PO INSOMNIA; Start 03/18/18 at 17:30; Stop 03/19/18 at 18:50; Status DC Trazodone HCl (Desyrel) 50 mg QHS PO Last administered on 04/13/18 20:06; Start 03/19/18 at 21:00; Stop 04/14/18 at 15:20; Status DC Trimethoprim/ Sulfamethoxazole (Bactrim Ds, Septra Ds 160mg/ 800mg) 1 tab Q12H PO Last administered on 04/08/18at 20:55; Start 04/02/18 at 09:00; Stop 04/09/18 at 08:59; Status DC Valacyclovir HCl (Valtrex) 1,000 mg Q12H PO Last administered on 03/31/18at 21:04; Start 03/25/18 at 09:00; Stop 04/12/18 at 09:26; Status DC LINDSAY MAXWELL MD Apr 14, 2018 17:53
--- NOTE | 2018-04-30 00:53 | PMRDS ---
DATE OF ADMISSION: 03/18/2018 DATE OF DISCHARGE: 04/14/2018 CHIEF COMPLAINT/DISCHARGE DIAGNOSES: Right hip fracture. Dementia. HISTORY OF PRESENT ILLNESS: This is a 72-year-old female with a past medical history of hypothyroidism, dementia, hypertension who fell while in the bathroom on her right side and was brought to [facility] Emergency Department on 03/15/2018 complaining of right leg pain. She denied chest pain or palpitations prior to the fall and did not have loss of consciousness (LOC). Trauma imaging series was performed and hip x-ray revealed a "Comminuted intertrochanteric fracture of the right femur." She was evaluated by orthopedics and underwent an open hip cephalomedullary nail fixation to the right proximal femur without complication. Postoperative imaging demonstrated "The patient is status post ORIF of an intertrochanteric fracture of the right femur. There is (dictation cut off). The patient had postop anemia and leukocytosis, and urinary retention. She was evaluated by therapy and found to have significant impairments in ambulation and activities of daily living (ADLs) and deemed medically appropriate for discharge to ARU on 03/18/2018. PAST MEDICAL HISTORY: Hypothyroidism. Dementia. Hypertension. Anxiety. Depression. HOSPITAL COURSE: The patient was admitted, enrolled in a comprehensive physical therapy (PT), occupational therapy (OT) program. She received 24-hour nursing and weekly team meetings were held to discuss her progress. For her dementia, organic causes were ruled out. The patient was found to not have an elevated TSH, and her vitamin B12 levels were normal. She was maintained on her antidepressant for possible pseudodementia and was continued on Aricept and Namenda. For history of hypertension, she was continued on her blood pressure medications. For her history of hyperlipidemia, she was continued on statin. Medicine was consulted for medical co-management. For her hypothyroidism, the patient had been taking Synthroid incorrectly at night prior to her admission and the timing of this was changed to morning on an empty stomach. Her initial UA and urine culture was negative. She was continued on oxybutynin. However, repeat urine culture was positive for methicillin-resistant Staphylococcus aureus (MRSA), and she was started on Bactrim. The patient had persistent mild leukocytosis despite being treated for urinary tract infection and was found to have zoster on her left buttock and finished a course of valacyclovir and leukocytosis improved. The patient's family member was concerned about a left eyelid droop that patient had upon arrival. The patient did not have any decreased sensation in the ipsilateral face or contralateral limb. MRI was ordered to rule out stroke and chest x-ray ordered to rule out apical lung tumor, both of which were negative. The patient had an episode of confusion on 04/10/2018. Repeat MRI was ordered, which again showed no active process or change from previous MRI. The patient's confusion returned back to baseline, and she continued to make gains in therapy. She was deemed functionally and medically appropriate to return to home with 24-hour supervision and all of her caregivers were trained. DISCHARGE MEDICATIONS: - Aricept - iron - Synthroid - magnesium - memantine - oxybutynin - potassium - Xarelto - sertraline - simvastatin - torsemide FUNCTIONAL HISTORY UPON DISCHARGE: Patient with contact guard assist for all functional transfers, toileting, bed mobility. She was able to ambulate 150 feet contact guard assist using a rolling walker. Patient, given her inconsistency, was sent home at a wheelchair level and a ramp was built at her home, and she was instructed to have home services. Thank you for this referral.
== END 2018-04-14 15:15 | disposition home health service (06) | DRG 560 ==
LOC: EEVIPCON 16:50 → M PM&R 16:50
PROVIDERS: ADMIT Physical Medicine & Rehabilitation; ATTEND Physical Medicine & Rehabilitation
DX: S72.144D Nondisplaced intertrochanteric fracture of right femur, subsequent encounter for closed fracture with routine healing (principal); N39.0 Urinary tract infection, site not specified; E03.9 Hypothyroidism, unspecified; F03.90 Unspecified dementia, unspecified severity, without behavioral disturbance, psychotic disturbance, mood disturbance, and anxiety; I10 Essential (primary) hypertension; F41.9 Anxiety disorder, unspecified; F32.9 Major depressive disorder, single episode, unspecified; D72.829 Elevated white blood cell count, unspecified; W18.30XD Fall on same level, unspecified, subsequent encounter; Y92.009 Unspecified place in unspecified non-institutional (private) residence as the place of occurrence of the external cause; R26.2 Difficulty in walking, not elsewhere classified; Z79.899 Other long term (current) drug therapy; B95.61 Methicillin susceptible Staphylococcus aureus infection as the cause of diseases classified elsewhere; E87.6 Hypokalemia; R33.9 Retention of urine, unspecified; D50.9 Iron deficiency anemia, unspecified; B02.9 Zoster without complications

== ENCOUNTER 2019-08-27 11:14 | Inpatient (IN) | payer MEDICARE, OTHER ==
[~2019-08-27 11:14] MED LIST changes: +ARIC1TAB PO; +FERR1TAB8 PO; +KLOR10TA76 PO; +MAGN50TA PO; +MEMA1TAB3 PO; +OXYB5TAB10 PO; +SERT25TA21 PO; +SERT25TA85 PO; -SERT25TA88 PO; +SIMV20TA22 PO; -SIMV40TA2 PO; +SIMV40TA20 PO
[2019-08-27 12:50] LABS: BASO % 0.3 % (0.0-1.0); EOS # 0.2 10^3/uL (0.0-0.5); HEMATOCRIT 44.1 % (36.0-47.0); HEMOGLOBIN 13.8 g/dl (12.0-15.5); LYMPH # 2.3 10^3/uL (1.5-5.0); LYMPH % 23.9 % (24.0-44.0); MEAN CORPUSCULAR HEMOGLOBIN 28.7 pg (27.0-33.0); MEAN CORPUSCULAR HGB CONC 31.3 g/dl (32.0-36.5); MEAN CORPUSCULAR VOLUME 91.7 fl (80.0-96.0); MONO # 0.5 10^3/uL (0.0-0.8); MONO % 5.1 % (0.0-5.0); NEUTROPHILS # 6.5 10^3/uL (1.5-8.5); NEUTROPHILS % 68.3 % (36.0-66.0); PLATELET COUNT, AUTOMATED 223 10^3/uL (150-450); RED BLOOD COUNT 4.81 10^6/uL (4.00-5.40); WHITE BLOOD COUNT 9.5 10^3/uL (4.0-10.0)
[2019-08-27 13:14] LABS: BLOOD UREA NITROGEN 8 MG/DL (7-18); CALCIUM LEVEL 9.2 MG/DL (8.8-10.2); CARBON DIOXIDE LEVEL 28 MEQ/L (21-32); CHLORIDE LEVEL 107 MEQ/L (98-107); CREATININE FOR GFR 0.92 MG/DL (0.55-1.30); GLOMERULAR FILTRATION RATE > 60.0 (>39); GLUCOSE, FASTING 95 MG/DL (70-100); POTASSIUM SERUM 4.5 MEQ/L (3.5-5.1); SODIUM LEVEL 140 MEQ/L (136-145)
[2019-08-27] MEDS ORDERED: MELA10CA2 PO (14:14)
[2019-08-27] MEDS ORDERED: OLAN2.5T25 PO (14:14)
[2019-08-27] MEDS ORDERED: LEVO50TA45 PO (14:14)
[2019-08-27] MEDS ORDERED: DONE10TA90 PO (14:14)
[2019-08-27] MEDS ORDERED: TORS20TA2 PO (14:14)
[2019-08-27] MEDS ORDERED: POTA10CA32 PO (14:14)
[2019-08-27] MEDS ORDERED: SERT25TA21 PO (14:14)
[2019-08-27] MEDS ORDERED: MEMA14CA PO (14:14)
[2019-08-27] MEDS ORDERED: SENN8.6T58 PO (14:14)
[2019-08-27] MEDS ORDERED: SIMV40TA20 PO (14:14)
--- NOTE | 2019-08-27 14:14 | REP ---
CT BRAIN WITHOUT CONTRAST: HISTORY: CVA. Comparison MRI study is from April 10, 2018. CT FINDINGS: Preliminary digital internal corrosion specialist radiograph is unremarkable. Bony calvarium is intact. Visualized paranasal sinuses are clear. There is mild vascular calcification. On soft tissue window settings there is moderate generalized volume loss. Periventricular white matter changes are seen consistent with small vessel atherosclerotic disease. These findings are unchanged from the comparison study. There is no evidence of intracranial hemorrhage or acute infarction. No extra-axial fluid collection is seen. No mass or midline shift is observed. IMPRESSION: Generalized volume loss, vascular calcification, small vessel changes. No acute intracranial abnormality. Electronically Signed by Dusty Boone MD 08/27/2019 03:01 P
[2019-08-27] MEDS ORDERED: SENNA 8.6 MG TAB (SENOKOT) PO PRN (14:30)
--- NOTE | 2019-08-27 15:17 | HPEPDOC ---
General Date of Admission Aug 27, 2019 at 13:54 Date of Service: Aug 27, 2019 Chief Complaint The patient is a 74-year-old female Who presented to the hospital after family had noted weakness History of Present Illness Patient is a 74-year-old female with a PMHx of Dementia, HTN, DLP, H ypothyroidism who presented to the emergency room after family had noted increasing weakness, lethargy and inability to walk that started Saturday. Patients daughter was present at the bedside was provided the history. She is indicated that patient had seen her primary care provider on Saturday, 08/20, and was started on Carbamazepine for suspected trigeminal neuralgia. Patient had a prior history of trigeminal neuralgia in the past and was given a short course of carbamazepine, which had provided her with relief. Patient was suspected of having the same. Currently, and was started on 200 mg twice a day on Saturday. On Saturday, 08/22, patient began to have weakness and difficulty staying awake. Harvinder harris had difficult time comprehending what she was saying and over the course of the week, she had the inability to walk. Patient was requiring more assistance with her activities of daily living, requiring since with feedings. Patients family had stopped taking the medication Saturday and came to the ER, for further evaluation. Currently patient is unable to provide any 2/2 history. Information is gathered through the healthcare proxy, daughter and the medical record. Home Medications Scheduled Donepezil HCl (Donepezil HCl) 10 Mg Tablet, 10 MG PO QHS, (Reported) Levothyroxine Sodium (Levoxyl) 50 Mcg Tablet, 50 MCG PO DAILY, (Reported) Melatonin (Melatonin) 10 Mg Capsule, 10 MG PO QHS, (Reported) Memantine HCl (Memantine HCl ER) 14 Mg Cap.spr.24, 14 MG PO QHS, (Reported) Olanzapine (Olanzapine) 2.5 Mg Tablet, 2.5 MG PO QHS, (Reported) Potassium Chloride (Potassium Chloride) 10 Meq Capsule.er, 20 MEQ PO DAILY, (Reported) Sertraline HCl (Sertraline HCl) 25 Mg Tablet, 25 MG PO QHS, (Reported) Simvastatin (Simvastatin) 40 Mg Tablet, 40 MG PO QHS, (Reported) Torsemide (Torsemide) 20 Mg Tablet, 20 MG PO DAILY, (Reported) Scheduled PRN Sennosides (Senna) 8.6 Mg Tablet, 8.6 MG PO DAILY PRN for CONSTIPATION, (Reported) Allergies Coded Allergies: Penicillins (Verified Allergy, Unknown, 08/27/19) Past Medical History Medical History Dementia, HTN, DLP, Hypothyroidism Surgical History Hysterectomy Ring finger fracture Right hip fracture status post repair Family History - Family history was reviewed and is noncontributory to this hospitalization Social History - As per daughter, patient does not use of alcohol, tobacco or illicit drugs - Patient lives alone but does have 24/7 Care Review of Systems Other systems 10 point review of systems complete, all negative otherwise stated in HPI Vital Signs - Vitals: BP 157/79, HR 70, RR 20, Sat 95%RA, Temp 97.1F - General: Lying in bed, appears drowsy , AAOx1 (person only) - HEENT: NC, AT, PERRLA - CVS: RRR, +S1S2 - Lungs: Fair air entry bilaterally, No appreciable wheezing / rales / rhonchi - Abdomen: Soft, Non-distended, Non-tender - Extremities: No lower extremity edema, No calf tenderness - Neuro: Appears to be 5/5 strength in upper and lower extremities bilaterally - Skin: No visible rashes Laboratory Data Labs 24H Laboratory Tests 2 08/27/19 12:08: Immature Granulocyte % (Auto) 0.4, Neutrophils (%) (Auto) 68.3H, Lymphocytes (%) (Auto) 23.9L, Monocytes (%) (Auto) 5.1H, Eosinophils (%) (Auto) 2.0, Basophils (%) (Auto) 0.3, Neutrophils # (Auto) 6.5, Lymphocytes # (Auto) 2.3, Monocytes # (Auto) 0.5, Eosinophils # (Auto) 0.2, Basophils # (Auto) 0.0, Nucleated Red Blood Cells % (auto) 0.0, Anion Gap 5L, Glomerular Filtration Rate > 60.0, Calcium Level 9.2 CBC/BMP Laboratory Tests 08/27/19 12:08 Plan / VTE VTE Prophylaxis Ordered?: Yes Plan Plan Acute toxic encephalopathy - likely 2/2 medications (carbamazepine / sertraline / olanzapine / memeantine) - Patient has been having progressive decline in her mentation with inability to walk - Timing is consistent with newly introduced medication carbamazepine that started Saturday, 08/20 - Patient is hemodynamically stable and afebrile - Physical does not reveal any focal neurologic deficits - Electrolytes are within normal range - CT head 08/26: Generalized volume loss, vascular calcification, small vessel changes. No acute intracranial abnormality. - Will c/w Telemetry monitoring - Will check CXR / UA - Will discontinue the use of carbamazepine; will hold olanzapine / sertraline / memantine at this time - Will start PT / OT within 24 hours Dementia; possible with episodes of delirium - As per daughter, patients baseline level of function is walking and able to converse - Currently, patient is confused and only oriented to person - Will continue with donepezil will hold Memantine - Will start bedside sitter for one to one observation HTN - Patients blood pressure is within normal range at this time - Will hold torsemide DLP - c/w Simvastatin Hypothyroidism - c/w Levothyroxine DVT prophylaxis - Will start Heparin Code Status: - Discussed with the daughter; was present at the bedside; hasnt indicated. Patient is DO NOT RESUSCITATE and DO NOT INTUBATE - She has a MOLST form that she will bring into the hospital Advanced Directives: Do Not Resuscitate (DNR), Do Not Intubate (DNI) OG HICKS MD Aug 27, 2019 15:17
[2019-08-27 15:25] VITALS: BP 162/84
[2019-08-27] MEDS: HEPARIN SOD (PORCINE) 5000UNITS/ML VIAL (J1644 PER 1000UNITS) SC SCH ×2 (15:41→20:14)
--- NOTE | 2019-08-27 15:41 | REP ---
PORTABLE CHEST X-RAY: Sitting AP view. HISTORY: Altered mental status. COMPARISON CHEST X-RAY: April 09, 2018. FINDINGS: Monitoring electrodes overlie the chest. The heart is enlarged. Aorta is calcific and tortuous. No infiltrate is seen. Pulmonary vasculature is not increased. There is evidence of a moderate size hiatal hernia. IMPRESSION: Cardiomegaly. Evidence of hiatal hernia. Tortuous aorta. Otherwise no acute disease. Electronically Signed by Dusty Boone MD 08/27/2019 05:05 P
[2019-08-27] MEDS ORDERED: SLF 3 ML SYR IV PRN (18:00)
--- NOTE | 2019-08-27 18:30 | ECGEPIP ---
[facility] - ED Test Date: 2019-08-27 Pat Name: ABRAHAM BARBOUR Department: Room: [place] [address] Gender: Female Online Merchandising Coordinator: jacob : 1945 Requested By: Goldy Guerra Order Number: [id number] Reading MD: Maya Stephen Measurements Intervals [place] Rate: 69 P: 26 [place]: 210 QRS: 16 QRSD: 105 T: 62 QT: 402 QTc: 431 Interpretive Statements SINUS RHYTHM WITH FIRST DEGREE AV BLOCK POSSIBLE ANTERIOR MYOCARDIAL INFARCTION, PROBABLY OLD INFERIOR MYOCARDIAL INFARCTION, PROBABLY OLD DECREASED RATE 03/15/18 Electronically Signed on 08-27-2019 18:30:13 EDT by Maya Stephen
[2019-08-27 20:00] VITALS: BP 154/82
[2019-08-27] MEDS: DONEPEZIL 5 MG TAB PO SCH (20:15)
[2019-08-27] MEDS: SIMVASTATIN 40 MG TAB PO SCH (20:15)
[2019-08-27] MEDS: SLF 3 ML SYR IV SCH (20:15)
[2019-08-28] VITALS: BP 126/60
[2019-08-28 04:00] VITALS: BP 148/70
[2019-08-28] MEDS: SLF 3 ML SYR IV SCH ×3 (05:13→20:30)
[2019-08-28] MEDS: HEPARIN SOD (PORCINE) 5000UNITS/ML VIAL (J1644 PER 1000UNITS) SC SCH ×3 (05:13→20:29)
[2019-08-28] MEDS: LEVOTHYROXINE 50MCG TABLET (0.05MG) PO SCH (05:13)
[2019-08-28 05:27] LABS: BASO # 0.1 10^3/uL (0.0-0.2); BASO % 0.7 % (0.0-1.0); EOS # 0.3 10^3/uL (0.0-0.5); EOS % 3.6 % (0.0-3.0); HEMATOCRIT 40.9 % (36.0-47.0); HEMOGLOBIN 13.1 g/dl (12.0-15.5); LYMPH # 2.5 10^3/uL (1.5-5.0); LYMPH % 33.6 % (24.0-44.0); MEAN CORPUSCULAR HEMOGLOBIN 29.2 pg (27.0-33.0); MEAN CORPUSCULAR VOLUME 91.3 fl (80.0-96.0); MONO # 0.5 10^3/uL (0.0-0.8); MONO % 6.8 % (0.0-5.0); NEUTROPHILS # 4.2 10^3/uL (1.5-8.5); PLATELET COUNT, AUTOMATED 225 10^3/uL (150-450); RED BLOOD COUNT 4.48 10^6/uL (4.00-5.40); WHITE BLOOD COUNT 7.6 10^3/uL (4.0-10.0)
[2019-08-28 05:49] LABS: BLOOD UREA NITROGEN 10 MG/DL (7-18); CALCIUM LEVEL 8.5 MG/DL (8.8-10.2); CARBON DIOXIDE LEVEL 28 MEQ/L (21-32); CHLORIDE LEVEL 109 MEQ/L (98-107); CREATININE FOR GFR 0.85 MG/DL (0.55-1.30); GLOMERULAR FILTRATION RATE > 60.0 (>39); GLUCOSE, FASTING 94 MG/DL (70-100); MAGNESIUM LEVEL 2.1 MG/DL (1.8-2.4); SODIUM LEVEL 144 MEQ/L (136-145)
[2019-08-28 08:00] VITALS: BP 144/75
[2019-08-28 12:00] VITALS: BP 134/76
--- NOTE | 2019-08-28 12:07 | IPNPDOC ---
Text Note Date of Service The patient was seen on 08/28/19. NOTE Subjective: Patient is a 74-year-old female with a PMHx of Dementia, HTN, DLP, Hypothyroidism who presented to the emergency room after family had noted increasing weakness, lethargy and inability to walk that started Saturday. Patient has regressed from her baseline. Patient was recently started on carbamazepine on Saturday and began to experience symptoms on Saturday. Patient was admitted to hospitalist service for further evaluation and treatment. Patient was seen and examined at the bedside. . Currently, patient is still confused, is able to answer questions. Does not appear to be in any pain. Objective: Vitals (See below) General: Lying in bed, appears comfortable, Awake / Alert HEENT: NC, AT CVS: RRR, +S1S2 Lungs: Fair air entry b/l, no appreciable wheezing, rhonchi or rales Abdomen: Soft, ND, NT Extremities: - Edema, - Calf tenderness Assessment and plan: Acute metabolic / toxic encephalopathy - likely 2/2 medications (carbamazepine / sertraline / olanzapine / memantine), possibly 2/2 UTI - Has had progressive decline in her mentation with inability to walk, recently started on Carbamazepine - Currently, her mentation is unchanged from admission - Patient is hemodynamically stable and afebrile - Physical does not reveal any focal neurologic deficits - Electrolytes are within normal range - UA significantly abnormal; consistent with infection - CXR 08/25: Cardiomegaly. Evidence of hiatal hernia. Tortuous aorta. Otherwise no acute disease. - CT head 08/26: Generalized volume loss, vascular calcification, small vessel changes. No acute intracranial abnormality. - c/w Telemetry monitoring - s/p carbamazepine; will hold olanzapine / sertraline / memantine at this time - Will start Ceftriaxone (Day #1) Dementia; possible with episodes of delirium - As per daughter, patients baseline level of function is walking and able to converse - Currently, patient is confused and only oriented to person - c/w donepezil; Hold Memantine - c/w bedside sitter for one to one observation HTN - Patients blood pressure is within normal range at this time - Will hold torsemide DLP - c/w Simvastatin Hypothyroidism - c/w Levothyroxine DVT prophylaxis - c/w Heparin Code Status: - Discussed with the daughter; was present at the bedside; hasnt indicated. Patient is DO NOT RESUSCITATE and DO NOT INTUBATE - She has a MOLST form that she will bring into the hospital VSZack, I+O VSZack I+O Laboratory Tests 08/27/19 12:08 08/28/19 04:56 Vital Signs Date Time Temp Pulse Resp B/P (MAP) Pulse Ox O2 Delivery O2 Flow Rate FiO2 08/28/19 08:00 98.2 85 16 144/75 (98) 97 Room Air I&O- Last 24 Hours up to 6 AM 08/28/19 06:00 Intake Total 120 ml Output Total 0 ml Balance 120 ml OG HICKS MD Aug 28, 2019 12:07
[2019-08-28] MEDS: cefTRIAXone SOD 1 GM in D5W MINI-BAG PLUS 50 ML IV SCH (13:56)
[2019-08-28 16:00] VITALS: BP 152/90
[2019-08-28 20:00] VITALS: BP 146/88
[2019-08-28] MEDS: DONEPEZIL 5 MG TAB PO SCH (20:29)
[2019-08-28] MEDS: ACETAMINOPHEN TAB 650MG DOSE (2X325MG) PO PRN (20:29)
[2019-08-28] MEDS: SIMVASTATIN 40 MG TAB PO SCH (20:29)
[2019-08-29] VITALS: BP 125/67
[2019-08-29 04:00] VITALS: BP 139/83
[2019-08-29] MEDS: SLF 3 ML SYR IV SCH ×3 (05:42→21:13)
[2019-08-29] MEDS: LEVOTHYROXINE 50MCG TABLET (0.05MG) PO SCH (05:42)
[2019-08-29] MEDS: HEPARIN SOD (PORCINE) 5000UNITS/ML VIAL (J1644 PER 1000UNITS) SC SCH ×3 (05:42→21:13)
[2019-08-29 06:20] LABS: BASO % 0.6 % (0.0-1.0); EOS # 0.2 10^3/uL (0.0-0.5); EOS % 3.3 % (0.0-3.0); HEMATOCRIT 39.5 % (36.0-47.0); HEMOGLOBIN 12.5 g/dl (12.0-15.5); LYMPH # 2.6 10^3/uL (1.5-5.0); LYMPH % 37.1 % (24.0-44.0); MEAN CORPUSCULAR HEMOGLOBIN 28.8 pg (27.0-33.0); MEAN CORPUSCULAR HGB CONC 31.6 g/dl (32.0-36.5); MONO # 0.5 10^3/uL (0.0-0.8); MONO % 6.7 % (0.0-5.0); NEUTROPHILS # 3.7 10^3/uL (1.5-8.5); NEUTROPHILS % 51.9 % (36.0-66.0); PLATELET COUNT, AUTOMATED 217 10^3/uL (150-450); RED BLOOD COUNT 4.34 10^6/uL (4.00-5.40)
[2019-08-29 06:42] LABS: BLOOD UREA NITROGEN 11 MG/DL (7-18); CALCIUM LEVEL 8.3 MG/DL (8.8-10.2); CARBON DIOXIDE LEVEL 28 MEQ/L (21-32); CHLORIDE LEVEL 109 MEQ/L (98-107); CREATININE FOR GFR 0.75 MG/DL (0.55-1.30); GLOMERULAR FILTRATION RATE > 60.0 (>39); GLUCOSE, FASTING 98 MG/DL (70-100); POTASSIUM SERUM 3.8 MEQ/L (3.5-5.1); SODIUM LEVEL 144 MEQ/L (136-145)
[2019-08-29 08:00] VITALS: BP 139/80
--- NOTE | 2019-08-29 08:48 | IPNPDOC ---
Text Note Date of Service The patient was seen on 08/29/19. NOTE Subjective: Patient is a 74-year-old female with a PMHx of Dementia, HTN, DLP, Hypothyroidism who presented to the emergency room after family had noted increasing weakness, lethargy and inability to walk that started Saturday. Patient has regressed from her baseline. Patient was recently started on carbamazepine on Saturday and began to experience symptoms on Saturday. Patient was admitted to hospitalist service for further evaluation and treatment. Patient was seen and examined at the bedside. Patient appears relatively unchanged compared to yesterday. Still is confused and not at her baseline. Objective: Vitals (See below) General: Lying in bed, appears comfortable, Awake / Alert HEENT: NC, AT CVS: +S1S2 Lungs: Fair air entry b/l, auscultation is free of rhonchi, wheezing or crackles Abdomen: Soft, ND, NT Extremities: No evidence of edema, - Calf tenderness Assessment and plan: Acute metabolic / toxic encephalopathy - possibly 2/2 medications (carbamazepine / sertraline / olanzapine / memantine), possibly 2/2 UTI, possibly progression of dementia - Has had progressive decline in her mentation with inability to walk, recently started on Carbamazepine - Still remains confused - Remains hemodynamically stable and afebrile - Physical without any focal neurologic deficits - Electrolytes are within normal range - UA significantly abnormal; consistent with infection - CXR 08/25: Cardiomegaly. Evidence of hiatal hernia. Tortuous aorta. Otherwise no acute disease. - CT head 08/26: Generalized volume loss, vascular calcification, small vessel changes. No acute intracranial abnormality. - Will DC Telemetry monitoring - s/p carbamazepine; will hold olanzapine / sertraline / memantine at this time - c/w Ceftriaxone (Day #2) Dementia; possible with episodes of delirium - As per daughter, patients baseline level of function is walking and able to converse - Still confused, but oriented to person - c/w donepezil; Hold Memantine - c/w bedside sitter for one to one observation HTN - Patients blood pressure is within normal range at this time - Will continue to hold torsemide DLP - c/w Simvastatin Hypothyroidism - c/w Levothyroxine DVT prophylaxis - c/w Heparin Code Status: - Discussed with the daughter; was present at the bedside on arrival to ER - Patient is DO NOT RESUSCITATE and DO NOT INTUBATE - She has a MOLST form that she will bring into the hospital VSZack, I+O VSZack I+O Laboratory Tests 08/29/19 05:43 Vital Signs Date Time Temp Pulse Resp B/P (MAP) Pulse Ox O2 Delivery O2 Flow Rate FiO2 08/29/19 08:00 97.0 73 18 139/80 (99) 95 Room Air I&O- Last 24 Hours up to 6 AM 08/29/19 06:00 Intake Total 900 ml Output Total 50 ml Balance 850 ml OG HICKS MD Aug 29, 2019 08:48
[2019-08-29] MEDS: cefTRIAXone SOD 1 GM in D5W MINI-BAG PLUS 50 ML IV SCH ×2 (13:12→15:28)
[2019-08-29 16:00] VITALS: BP 142/78
[2019-08-29] MEDS: TORSEMIDE 20 MG TAB PO SCH (17:11)
[2019-08-29 17:30] VITALS: BP 182/93
[2019-08-29 18:00] VITALS: BP 160/80
[2019-08-29] MEDS: DONEPEZIL 5 MG TAB PO SCH (20:19)
[2019-08-29] MEDS: ACETAMINOPHEN TAB 650MG DOSE (2X325MG) PO PRN (20:19)
[2019-08-29] MEDS: SIMVASTATIN 40 MG TAB PO SCH (20:19)
[2019-08-30] MEDS: SLF 3 ML SYR IV SCH ×3 (05:22→22:00)
[2019-08-30] MEDS: LEVOTHYROXINE 50MCG TABLET (0.05MG) PO SCH (05:22)
[2019-08-30] MEDS: HEPARIN SOD (PORCINE) 5000UNITS/ML VIAL (J1644 PER 1000UNITS) SC SCH ×3 (05:22→20:51)
[2019-08-30 06:00] VITALS: BP 104/72
[2019-08-30 07:59] LABS: BASO # 0.1 10^3/uL (0.0-0.2); BASO % 0.6 % (0.0-1.0); EOS # 0.3 10^3/uL (0.0-0.5); EOS % 3.1 % (0.0-3.0); LYMPH # 3.3 10^3/uL (1.5-5.0); LYMPH % 39.3 % (24.0-44.0); MEAN CORPUSCULAR HEMOGLOBIN 28.6 pg (27.0-33.0); MEAN CORPUSCULAR HGB CONC 31.7 g/dl (32.0-36.5); MONO # 0.6 10^3/uL (0.0-0.8); MONO % 6.8 % (0.0-5.0); NEUTROPHILS # 4.2 10^3/uL (1.5-8.5); NEUTROPHILS % 49.6 % (36.0-66.0); PLATELET COUNT, AUTOMATED 251 10^3/uL (150-450); RED BLOOD COUNT 5.11 10^6/uL (4.00-5.40); WHITE BLOOD COUNT 8.5 10^3/uL (4.0-10.0)
[2019-08-30 08:06] LABS: HEMOGLOBIN 14.6 g/dl (12.0-15.5)
[2019-08-30 08:18] LABS: BLOOD UREA NITROGEN 10 MG/DL (7-18); CALCIUM LEVEL 8.8 MG/DL (8.8-10.2); CARBON DIOXIDE LEVEL 27 MEQ/L (21-32); CHLORIDE LEVEL 107 MEQ/L (98-107); GLOMERULAR FILTRATION RATE > 60.0 (>39); GLUCOSE, FASTING 94 MG/DL (70-100); MAGNESIUM LEVEL 1.9 MG/DL (1.8-2.4); POTASSIUM SERUM 3.5 MEQ/L (3.5-5.1); SODIUM LEVEL 144 MEQ/L (136-145)
[2019-08-30] MEDS: ACETAMINOPHEN TAB 650MG DOSE (2X325MG) PO PRN ×2 (08:52→18:27)
[2019-08-30 08:54] VITALS: BP 158/87
[2019-08-30] MEDS: TORSEMIDE 20 MG TAB PO SCH (08:54)
--- NOTE | 2019-08-30 11:28 | IPNPDOC ---
Text Note Date of Service The patient was seen on 08/30/19. NOTE Subjective: Patient is a 74-year-old female with a PMHx of Dementia, HTN, DLP, Hypothyroidism who presented to the emergency room after family had noted increasing weakness, lethargy and inability to walk that started Saturday. Patient has regressed from her baseline. Patient was recently started on carbamazepine on Saturday and began to experience symptoms on Saturday. Patient was admitted to hospitalist service for further evaluation and treatment. Patient was seen and examined at the bedside. Currently patient has had no significant change in her mentation. Reports some jaw pain. Denies any chest pain, shortness of breath has been breakfast and physical therapy will continue to work with her. Objective: Vitals (See below) General: Lying in bed, remains comfortable, Awake / Alert HEENT: NC, AT CVS: +S1S2 Lungs: Air entry is fair bilaterally without auscultated wheezing, crackles or rhonchi Abdomen: Abdomen. Again, remains soft, without distension or tenderness Extremities: LE are free of any edema, - Calf tenderness Assessment and plan: Acute metabolic / toxic encephalopathy - possibly 2/2 medications (carbamazepine / sertraline / olanzapine / memantine), possibly 2/2 UTI, possibly progression of dementia - Has had progressive decline in her mentation with inability to walk, recently started on Carbamazepine - Still remains confused, but remains hemodynamically stable and afebrile - Physical without any focal neurologic deficits - Electrolytes are within normal range - UA significantly abnormal; Urine culture 08/26: E. Coli - CXR 08/25: Cardiomegaly. Evidence of hiatal hernia. Tortuous aorta. Otherwise no acute disease. - CT head 08/26: Generalized volume loss, vascular calcification, small vessel changes. No acute intracranial abnormality. - s/p Telemetry monitoring - s/p carbamazepine; will hold olanzapine / sertraline / memantine at this time - c/w Ceftriaxone (Day #3) - Anticipate discharge within the next 24 hours Dementia; possible with episodes of delirium - As per daughter, patients baseline level of function is walking and able to converse - Still confused, but oriented to person - c/w Donepezil; Hold Memantine - c/w bedside sitter for one to one observation HTN - Patients blood pressure is within normal range at this time - c/w torsemide DLP - c/w Simvastatin Hypothyroidism - c/w Levothyroxine DVT prophylaxis - c/w Heparin Code Status: - Discussed with the daughter; was present at the bedside on arrival to ER - Patient is DO NOT RESUSCITATE and DO NOT INTUBATE - She has a MOLST form that she will bring into the hospital VS,Fishbone, I+O VS, Fishbone, I+O Laboratory Tests 08/30/19 07:44 Vital Signs Date Time Temp Pulse Resp B/P (MAP) Pulse Ox O2 Delivery O2 Flow Rate FiO2 08/30/19 08:54 85 158/87 (110) 08/30/19 06:00 97.8 18 97 Room Air I&O- Last 24 Hours up to 6 AM 08/30/19 06:00 Intake Total 0 ml Output Total 0 ml Balance 0 ml OG HICKS MD Aug 30, 2019 11:28
[2019-08-30] MEDS: cefTRIAXone SOD 1 GM in D5W MINI-BAG PLUS 50 ML IV SCH (13:38)
[2019-08-30 14:00] VITALS: BP 118/86
--- NOTE | 2019-08-30 14:10 | REP ---
MAXILLOFACIAL CT STUDY WITHOUT CONTRAST: HISTORY: Jaw pain. FINDINGS: The mastoid sinuses are clear. There is a small quantity of mucosal thickening in the left maxillary sinus. The maxillary sinuses are otherwise clear. Ethmoid and sphenoid sinuses are clear. The frontal sinuses are not developed. No intraorbital abnormality is seen. No bony destructive lesion is seen in the maxilla or mandible. There is some spray artifact from dental amalgam. Vascular calcification is noted at the skull base. The bony nasal septum is midline, except inferiorly and anteriorly there is a small rightward beak. Nasal turbinate soft tissues are unremarkable. IMPRESSION: Mild mucosal thickening affecting the maxillary sinus on the left. Otherwise negative maxillofacial and mandibular CT study. Electronically Signed by Dusty Boone MD 08/30/2019 02:41 P
[2019-08-30] MEDS ORDERED: LORazepam 1 MG TAB PO ONE (20:45)
[2019-08-30] MEDS: DONEPEZIL 5 MG TAB PO SCH (20:50)
[2019-08-30] MEDS: SIMVASTATIN 40 MG TAB PO SCH (20:51)
[2019-08-30] MEDS ORDERED: MEMANTINE 5MG TABLET (NAMENDA) PO SCH (21:00)
[2019-08-30 22:00] VITALS: BP 129/91
--- NOTE | 2019-08-30 22:11 | REPVR ---
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 COMPARISON: MRI-Brain without Contrast 04/10/2018 11:27 AM FINDINGS: No abnormal restriction of diffusion to indicate acute CVA. Midline structures and cerebellar tonsillar position appear normal. Ventricles, cisterns and sulci are symmetrically prominent. No intracranial mass, midline shift or abnormal extra-axial fluid. No acute intracranial hemorrhage. Moderate pattern of increased T2 and flair signal in supratentorial white matter. Optic chiasm and pituitary infundibulum appear normal. Normal vascular flow voids in major intracranial arteries and dural venous sinuses. Paranasal sinuses are normally aerated. Mastoid air cells are normally aerated. Optic globes and orbits are unremarkable. IMPRESSION: No acute intracranial abnormality. Symmetric atrophy and stable pattern of supratentorial white matter lesions most suggestive of chronic microvascular ischemia Electronically signed by: Shaquille Burrell On 08/30/2019 22:11:34 PM
[2019-08-31] MEDS: LEVOTHYROXINE 50MCG TABLET (0.05MG) PO SCH (05:30)
[2019-08-31] MEDS: HEPARIN SOD (PORCINE) 5000UNITS/ML VIAL (J1644 PER 1000UNITS) SC SCH (05:31)
[2019-08-31] MEDS: SLF 3 ML SYR IV SCH (05:31)
[2019-08-31 06:00] VITALS: BP 112/80
[2019-08-31 06:48] LABS: BASO # 0.1 10^3/uL (0.0-0.2); BASO % 0.6 % (0.0-1.0); EOS # 0.2 10^3/uL (0.0-0.5); EOS % 2.1 % (0.0-3.0); HEMATOCRIT 45.5 % (36.0-47.0); HEMOGLOBIN 14.3 g/dl (12.0-15.5); LYMPH # 2.9 10^3/uL (1.5-5.0); MEAN CORPUSCULAR HEMOGLOBIN 28.4 pg (27.0-33.0); MEAN CORPUSCULAR HGB CONC 31.4 g/dl (32.0-36.5); MEAN CORPUSCULAR VOLUME 90.5 fl (80.0-96.0); MONO # 0.7 10^3/uL (0.0-0.8); MONO % 8.3 % (0.0-5.0); NEUTROPHILS # 4.2 10^3/uL (1.5-8.5); NEUTROPHILS % 52.5 % (36.0-66.0); PLATELET COUNT, AUTOMATED 275 10^3/uL (150-450); RED BLOOD COUNT 5.03 10^6/uL (4.00-5.40); WHITE BLOOD COUNT 8.1 10^3/uL (4.0-10.0)
[2019-08-31 07:38] LABS: BLOOD UREA NITROGEN 13 MG/DL (7-18); CALCIUM LEVEL 9.3 MG/DL (8.8-10.2); CARBON DIOXIDE LEVEL 33 MEQ/L (21-32); CHLORIDE LEVEL 104 MEQ/L (98-107); CREATININE FOR GFR 0.95 MG/DL (0.55-1.30); GLOMERULAR FILTRATION RATE > 60.0 (>39); GLUCOSE, FASTING 92 MG/DL (70-100); MAGNESIUM LEVEL 2.2 MG/DL (1.8-2.4); POTASSIUM SERUM 3.9 MEQ/L (3.5-5.1); SODIUM LEVEL 145 MEQ/L (136-145)
[2019-08-31] MEDS ORDERED: traMADol 50 MG TAB PO PRN (07:45)
[2019-08-31] MEDS: TORSEMIDE 20 MG TAB PO SCH (09:56)
[2019-08-31] MEDS ORDERED: CEFD300CAP PO (09:59)
[2019-08-31] MEDS ORDERED: TRAM50TA2 PO (09:59)
[2019-08-31] MEDS ORDERED: ACET1TAB55 PO (09:59)
[2019-08-31] MEDS: ACETAMINOPHEN TAB 650MG DOSE (2X325MG) PO PRN (11:31)
--- NOTE | 2019-08-31 12:27 | DS.PDOC ---
Discharge Summary General Date of Admission Aug 27, 2019 at 13:54 Date of Discharge 08/31/2019 Discharge Summary PROCEDURES PERFORMED DURING STAY: [None]. ADMITTING DIAGNOSES / DISCHARGE DIAGNOSES: Acute metabolic / toxic encephalopathy - possibly 2/2 medications (carbamazepine / sertraline / olanzapine / memantine), possibly 2/2 UTI, possibly progression of dementia Jaw pain Dementia; possible with episodes of delirium HTN DLP Hypothyroidism DVT prophylaxis COMPLICATIONS/CHIEF COMPLAINT: Weakness. HISTORY OF PRESENT ILLNESS: Patient is a 74-year-old female with a PMHx of Dementia, HTN, DLP, Hypothyroidism who presented to the emergency room after family had noted increasing weakness, lethargy and inability to walk that started Saturday. Patient has regressed from her baseline. Patient was recently started on carbamazepine on Saturday and began to experience symptoms on Saturday. Patient was admitted to hospitalist service for further evaluation and treatment. HOSPITAL COURSE: Acute metabolic / toxic encephalopathy - possibly 2/2 medications (carbamazepine / sertraline / olanzapine / memantine), possibly 2/2 UTI, possibly progression of dementia - Has had progressive decline in her mentation with inability to walk, recently started on Carbamazepine - Still remains confused, but remains hemodynamically stable and afebrile - Physical without any focal neurologic deficits - Electrolytes are within normal range - UA significantly abnormal; Urine culture 08/26: E. Coli - CXR 08/25: Cardiomegaly. Evidence of hiatal hernia. Tortuous aorta. Otherwise no acute disease. - CT head 08/26: Generalized volume loss, vascular calcification, small vessel changes. No acute intracranial abnormality. - MRI brain 08/29: No acute intracranial abnormality. Symmetric atrophy and stable pattern of supratentorial white matter lesions most suggestive of chronic microvascular ischemia - s/p Telemetry monitoring - s/p carbamazepine; will hold olanzapine / sertraline / memantine at this time - Will c/w antibiotics as an outpatient with Cefdinir; s/p Ceftriaxone (Antibiotic day #4) - Will have outpatient follow up with PCP and Neurology within 7 days. Jaw pain - CT maxillofacial 08/29: Mild mucosal thickening affecting the maxillary sinus on the left. Otherwise negative maxillofacial and mandibular CT study. - c/w Pain control with Tramadol PRN - Will have outpatient follow up with PCP within 7 days Dementia; possible with episodes of delirium - As per daughter, patients baseline level of function is walking and able to converse - Still confused, but oriented to person - c/w Donepezil and Memantine - c/w bedside sitter for one to one observation HTN - Patients blood pressure is within normal range at this time - c/w torsemide DLP - c/w Simvastatin Hypothyroidism - c/w Levothyroxine DVT prophylaxis - c/w Heparin DISCHARGE MEDICATIONS: Please see below. ALLERGIES: Please see below. PHYSICAL EXAMINATION ON DISCHARGE: Vitals (See below) General: Lying in bed, remains comfortable, Awake / Alert HEENT: NC, AT CVS: +S1S2 Lungs: Auscultation is fair bilaterally without evidence of crackles, wheezing or rhonchi Abdomen: Remains soft without distention or tenderness Extremities: No appreciable lower extremity edema, - Calf tenderness LABORATORY DATA: Please see below. ACTIVITY: [As tolerated]. DISCHARGE PLAN: Follow-up with primary care provider and neurology within 7 days Remain compliant with treatment plan and medications Return to the ER if you experience any problems DISPOSITION: Home, Self-Care. DISCHARGE CONDITION: [Stable]. TIME SPENT ON DISCHARGE: 35 minutes. Vital Signs/I&Os Vital Signs Date Time Temp Pulse Resp B/P (MAP) Pulse Ox O2 Delivery O2 Flow Rate FiO2 08/31/19 11:31 18 Room Air 08/31/19 06:00 97.8 78 112/80 (91) 99 I&O- Last 24 Hours up to 6 AM 08/31/19 06:00 Intake Total 380 ml Balance 380 ml Laboratory Data Labs 24H Laboratory Tests 2 08/31/19 06:04: Immature Granulocyte % (Auto) 0.5, Neutrophils (%) (Auto) 52.5, Lymphocytes (%) (Auto) 36.0, Monocytes (%) (Auto) 8.3H, Eosinophils (%) (Auto) 2.1, Basophils (%) (Auto) 0.6, Neutrophils # (Auto) 4.2, Lymphocytes # (Auto) 2.9, Monocytes # (Auto) 0.7, Eosinophils # (Auto) 0.2, Basophils # (Auto) 0.1, Nucleated Red Blood Cells % (auto) 0.0, Anion Gap 8, Glomerular Filtration Rate > 60.0, Calcium Level 9.3, Magnesium Level 2.2 CBC/BMP Laboratory Tests 08/31/19 06:04 Microbiology Microbiology 08/27/19 Urine Culture - Final, Complete Escherichia Coli Discharge Medications Scheduled Cefdinir (Cefdinir) 300 Mg Capsule, 1 CAP PO BID Donepezil HCl (Donepezil HCl) 10 Mg Tablet, 10 MG PO QHS, (Reported) Levothyroxine Sodium (Levoxyl) 50 Mcg Tablet, 50 MCG PO DAILY, (Reported) Melatonin (Melatonin) 10 Mg Capsule, 10 MG PO QHS, (Reported) Memantine HCl (Memantine HCl ER) 14 Mg Cap.spr.24, 14 MG PO QHS, (Reported) Potassium Chloride (Potassium Chloride) 10 Meq Capsule.er, 20 MEQ PO DAILY, (Reported) Simvastatin (Simvastatin) 40 Mg Tablet, 40 MG PO QHS, (Reported) Torsemide (Torsemide) 20 Mg Tablet, 20 MG PO DAILY, (Reported) Scheduled PRN Acetaminophen (Acetaminophen) 325 Mg Tablet, 650 MG PO Q4H PRN for PAIN OR FEVER Sennosides (Senna) 8.6 Mg Tablet, 8.6 MG PO DAILY PRN for CONSTIPATION, (Reported) Tramadol HCl (Tramadol HCl) 50 Mg Tablet, 50 MG PO Q12HP PRN for PAIN Allergies Coded Allergies: Penicillins (Verified Allergy, Unknown, 08/27/19) OG HICKS MD Aug 31, 2019 12:27
== END 2019-08-31 11:50 | disposition home or self-care (01) | DRG 689 ==
LOC: M ED 11:14 → M ED INP 13:54 → ENRESERV 14:16 → M PCU 15:23 → M MS5PR 08-29 17:30
PROVIDERS: ADMIT Internal Medicine; ATTEND Internal Medicine
DX: N39.0 Urinary tract infection, site not specified (principal); G93.41 Metabolic encephalopathy; F03.90 Unspecified dementia, unspecified severity, without behavioral disturbance, psychotic disturbance, mood disturbance, and anxiety; E03.9 Hypothyroidism, unspecified; I10 Essential (primary) hypertension; Z79.899 Other long term (current) drug therapy; Z88.0 Allergy status to penicillin

== ENCOUNTER → 2020-06-13 | Outpatient (REF) | payer MEDICARE, OTHER ==
[~2020-06-13] MED LIST changes: +ACET1TAB55 PO; +CEFD300CAP PO; +DONE10TA90 PO; +LEVO50TA45 PO; +MELA10CA2 PO; +OLAN2.5T25 PO; +POTA10CA32 PO; +SENN8.6T58 PO
== END ==
LOC: M LAB REF 16:10
PROVIDERS: ATTEND Internal Medicine
DX: G50.0 Trigeminal neuralgia (principal)

== ENCOUNTER → 2020-12-13 | Outpatient (REF) | payer MEDICARE, OTHER ==
[~2020-12-13] MED LIST changes: -KLOR10TA76 PO; +POTA-136 PO
== END ==
LOC: M LAB REF 16:24
PROVIDERS: ATTEND Internal Medicine
DX: G50.0 Trigeminal neuralgia (principal)

== ENCOUNTER → 2021-06-14 | Outpatient (REF) | payer MEDICARE, OTHER ==
[~2021-06-14] MED LIST changes: +DONE-1 PO; -DONETAB6 PO
== END ==
LOC: M LAB REF 16:14
PROVIDERS: ATTEND Internal Medicine
DX: G50.0 Trigeminal neuralgia (principal)